=== PATIENT | male | born 1965 | race Caucasian/White ===

== ENCOUNTER → 2020-03-15 16:15 | Outpatient (BNVA) | payer SELFPAY | PROVIDERS: Family Provider Nurse Practitioner; PCP Nurse Practitioner; Visit Provider Nurse Practitioner | DX: E11.65 Type 2 diabetes mellitus with hyperglycemia (principal); R07.9 Chest pain, unspecified; I10 Essential (primary) hypertension; F17.200 Nicotine dependence, unspecified, uncomplicated; E78.2 Mixed hyperlipidemia | CPT/HCPCS: 80053; 80061; 83036; 83721 ==

== ENCOUNTER 2020-03-20 13:05 | Inpatient (IN) | payer SELFPAY ==
[2020-03-20] VITALS (11 sets, daily range): BP systolic 94–138; BP diastolic 63–91; PULSE 71–101; RESP 17–27; TEMP 36.6–36.8; O2SAT 94–98; BMI 37.9
--- NOTE | 2020-03-20 13:21 | XRR_ITS ---
PROCEDURE INFORMATION: Exam: XR Chest, 1 View Exam date and time: 03/20/2020 3:38 PM Age: 55 years old Clinical indication: Chest pain; Additional info: Dyspnea/chest pain TECHNIQUE: Imaging protocol: XR of the chest Views: 1 view. COMPARISON: No relevant prior studies available. FINDINGS: Lungs: There is interstitial prominence compatible with fibrosis, bronchitis, viral pneumonitis or mild interstitial edema. There is no lobar consolidation. Pleural space: Unremarkable. No pleural effusion. No pneumothorax. Heart/Mediastinum: The heart is enlarged. Bones/joints: No acute abnormality. XR/XR chest 1V portable [id number] IMPRESSION: There is interstitial prominence compatible with fibrosis, bronchitis, viral pneumonitis or mild interstitial edema.
--- NOTE | 2020-03-20 13:22 | ECG_ITS ---
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 Measurements Intervals [place] Rate: 79 P: 62 WI: 186 QRS: 69 QRSD: 88 T: 32 QT: 359 QTc: 412 Interpretive Statements SINUS RHYTHM WITH SINUS ARRHYTHMIA NONSPECIFIC ST & T-WAVE ABNORMALITY No previous ECG available for comparison Electronically Signed On 03-20-2020 20:53:28 CDT by Tana Rader M.D. [id number]
--- NOTE | 2020-03-20 13:26 | W.ED.CHESTPA ---
HPI - Chest Pain General: Chief Complaint: Chest Pain Stated Complaint: cp Time Seen by Provider: 03/20/20 13:13 Source: patient Mode of arrival: ambulatory Limitations: no limitations History of Present Illness: HPI narrative: Mr. Forbes is a nice 55-year-old male who comes in complaining of chest pain. Chest pain is described as a throbbing aching in his chest is been present for the last 10 to 12 days. He states his symptoms are worsening in their intensity and length of duration. Today his symptoms lasted up to an hour and a half. With today's episode he walked down to a local ambulance barn and had them run an EKG which they said was okay and he took 1 sublingual nitroglycerin with resolution of his pain. He now has had recurrent pain. Today he has associated nausea, diaphoresis and the pain radiates to his neck. He does get short of breath with this and the patient states that anytime he exerts himself when he is having discomfort it makes it worse. Patient has no history of DVT/PE. There is a family history of heart disease but the patient states he is never had a stress test or heart cath or any other heart evaluation. He is scheduled because of the symptoms to have a cardiology outpatient visit but not till the end of next month. Currently he states his pain is mild while he is at rest in the ER. Associated symptoms: Reports diaphoresis, dyspnea and nausea; Deny abdominal pain, fever(s), palpitations, syncope or vomiting Review of Systems Const: Reports: diaphoresis; Denies: fever(s), chills, body aches, fatigue or malaise Eyes: Denies: change in vision, blurry vision, photophobia, eye discomfort, eye discharge or eye redness ENMT: Denies: throat pain, odynophagia, hoarseness, swelling of lips/tongue, ear or mastoid pain, ear discharge, change in hearing or nasal discharge Card: Reports: chest pain; Denies: palpitations, irregular heart rhythm, edema, lightheadedness, syncope, pre-syncope, dyspnea on exertion or orthopnea Resp: Reports: dyspnea; Denies: productive cough, non-productive cough, wheezing, hemoptysis or chest congestion GI: Reports: nausea; Denies: abdominal pain, vomiting, hematemesis, coffee ground emesis, heartburn, diarrhea, constipation, GI cramping, hematochezia or melena : Denies: flank pain, dysuria, urinary frequency, urinary urgency or hematuria Musc: Denies: neck pain, back pain, extremity pain, extremity swelling, joint pain, joint swelling, joint redness, joint warmth or joint stiffness Skin/Breast: Denies: rash, pruritus, erythema or skin tenderness Neuro: Denies: headache(s), numbness in extremities, weakness in extremities, sensory changes, lack of coordination, difficulty walking, dizziness, vertigo, confusion, Slurred speech present or seizure-like activity Jackson/Lymph: Denies: easy bruising, easy bleeding, petechiae, purpura or enlarged lymph nodes All/Imm: Denies: urticaria, throat swelling, tongue swelling, facial swelling or acute wheezing PFSH ED PFSH: Medical History Acid reflux disease Controlled diabetes mellitus with hyperglycemia, without long-term current use of insulin Current smoker DM neuropathy, painful Essential (primary) hypertension Mixed hyperlipidemia Surgical History Basal cell carcinoma (BCC) in situ of skin September 2017 on back History of colonoscopy Family History Mother Diabetes Heart disease Father Cancer lung cancer Social History Smoking and tobacco status: current every day smoker Second hand smoke exposure: Yes Smoking risk assessment/counseling performed?: Yes Alcohol intake: never Desire information about alcohol rehabilitation?: No Counseling given: No Substance/Drug Use: never Desire information about substance/drug rehabilitation?: No Counseling given: No Adopted: No Caregiver/support person: No Lives independently: Yes Household members: spouse Housing: House Marital status: service: No Current occupational status: employed History of recent travel: No Current gender identity: Male Physical Exam Const: COMMON NORMALS: no acute distress, patient oriented x3, no limitations, healthy appearing and well nourished GENERAL APPEARANCE: cooperative, well kempt and well developed HENMT: COMMON NORMALS: normocephalic, atraumatic, external ears normal, EAC's normal and Normal external nose present HEAD & SCALP: normal to inspection, normocephalic and atraumatic FACE & SINUS: normal facial exam and face symmetric NOSE: Normal external nose present and Normal nares present EXTERNAL EAR: Yes external ears normal EXTERNAL AUDITORY CANAL: EAC's normal MOUTH: Normal oral and palatal mucosa present, lip normal and tongue normal Eye: COMMON NORMALS: Equal, round and reactive pupils present and conjunctivae normal GENERAL EYE: appearance normal, both eyes and all related structures ALIGNMENT: Yes alignment normal PERIORBITAL: periorbital findings normal EYELID: eyelids normal CONJUNCTIVA: Yes conjunctivae normal SCLERA: sclerae normal PUPIL: Yes Equal, round and reactive pupils present Neck/C-Spine: COMMON NORMALS: full ROM, no lymphadenopathy, supple, no meningeal signs and no JVD GENERAL: Yes normal visual inspection and Yes trachea midline Chest: COMMONS NORMALS: normal inspection of the chest and normal palpation of entire chest wall Resp: COMMON NORMALS: normal respiratory effort, No retractions, No use of accessory muscles and clear to auscultation bilaterally EFFORT & INSPECTION: Yes able to speak in complete sentences and Yes symmetric chest movement AUSCULTATION: clear to auscultation bilaterally, no crackles, no rales, no rhonchi and no wheezes Cardio: COMMON NORMALS: no JVD, regular rate, regular rhythm, S1 normal heart sound present and S2 normal heart sound present RATE: regular rate RHYTHM: regular rhythm HEART SOUNDS: S1 normal heart sound present, S2 normal heart sound present, no click, no gallops, no murmurs, no rubs and abnormal split S2 GI: COMMON NORMALS: Soft to palpation and No hepatosplenomegaly present PALPATION: Yes Soft to palpation, No Tenderness to palpation present (GI), No Guarding due to palpation present (GI), No Rigid due to palpation, Yes No hepatosplenomegaly present, No Hernia present, No Palpable mass present and No Pulsatile mass present : COMMON NORMALS: Yes no CVA tenderness BLADDER/KIDNEY EXAM: Yes no CVA tenderness Back/Pelvis: COMMON NORMALS: no CVA tenderness, thoracic and lumbar spine normal to inspection, no thoracic nor lumbar tenderness and thoraco-lumbar ROM normal Extremity: COMMON NORMALS: normal to inspection, full ROM, capillary refill normal, no joint enlargement, no clubbing, cyanosis or edema and no calf tenderness Neuro: COMMON NORMALS: patient oriented x3, CN's II-XII intact bilaterally, moves all extremities, no focal motor deficits and no sensory deficits noted MENINGEAL SIGNS: Yes no meningeal signs SPEECH: speech normal Psych: COMMON NORMALS: mental status grossly normal, Normal thought process present, cooperative, normal affect, speech normal and activity/motor behavior normal APPEARANCE: Yes well kempt SPEECH: Yes normal speech THOUGHT PROCESS: Normal thought process present Skin: COMMON NORMALS: no rashes or lesions noted, turgor normal, no jaundice, no petechiae and no mottling GENERAL SKIN EXAM: no rashes or lesions noted and turgor normal Course Vital Signs: Vital signs: Vital Signs Temperature 97.9 F 03/20/20 13:15 Pulse Rate 97 03/20/20 16:16 Respiratory Rate 20 H 03/20/20 16:16 Blood Pressure 125/87 03/20/20 16:16 Pulse Oximetry 97 03/20/20 16:16 MDM - Chest Pain MDM Narrative: Medical decision making narrative: Patient's case was reviewed with Dr. Abraham and Dr. Rader, they will admit and consult respectively. The patient has crescendo angina type symptoms over the past 10 to 12 days. His first and second EKG are unremarkable and have been reviewed by Dr. Rader. Dr. Rader would like an echo and a dose of Lovenox given. Patient is still chest pain-free at this time. His heart score was 7. Lab Data: Labs: Lab Results 03/20/20 03/20/20 03/20/20 Range/Units 13:25 13:25 13:25 WBC 10.8 H (4.0-10.0) 10^3/ uL RBC 4.93 (4.1-5.3) 10^6/u L Hgb 15.8 (11.7-16.6) g/dL Hct 48.1 (42.0-52.0) % MCV 97.6 H (80-94) fL MCH 32.0 (28.0-34.0) pg MCHC 32.8 (30.0-36.0) g/dL RDW 14.1 (12.1-15.1) % Plt Count 297 (130-400) 10^3/c mm MPV 11.0 H (7.4-10.4) fL Neut % (Auto) 70.9 % Lymph % (Auto) 17.4 % Eagle % (Auto) 7.8 % Eos % (Auto) 2.6 % Baso % (Auto) 0.8 % Neut # (Auto) 7.69 (1.8-7.7) 10^3/u L Lymph # (Auto) 1.9 (0.8-4.8) 10^3/u L Eagle # (Auto) 0.8 (0.2-0.9) 10^3/u L Eos # (Auto) 0.3 (0.0-0.8) 10^3/u L Baso # (Auto) 0.1 (0.0-0.1) 10^3/u L Nucleated RBC % (a uto) 0 % Nucleated RBCs # 0.0 /100WBC PT 13.20 (12.1-14.9) SECO NDS INR 0.97 (0.8-1.2) Sodium 137 (136-145) mmol/L Potassium 4.5 (3.5-5.1) mmol/L Chloride 101 (98-107) mmol/L Carbon Dioxide 23 (22-29) mmol/L Anion Gap 17.5 (5-19) BUN 17 (6-20) mg/dL Creatinine 0.7 (0.7-1.2) mg/dL GFR Calculation 117.5 (90-130) mL/min Glucose 102 (65-115) mg/dL Calculated Osmolal ity 281 L (285-295) mOsm/k g Calcium 9.4 (8.5-10.5) mg/dL Magnesium 1.9 (1.7-2.3) mg/dL Total Bilirubin 0.3 (0.15-1.2) mg/dL AST 23 (0-40) U/L ALT 36 (0-41) U/L Alkaline Phosphata se 90 (40-130) IU/L Troponin T Baselin e (0-15) ng/L Total Protein 7.6 (6.6-8.7) g/dL Albumin 4.5 (3.5-5.2) g/dL Globulin 3.1 (1.3-4.6) g/dL Lipase 24 (13-60) U/L 08/29/20 Range/Units 13:25 WBC (4.0-10.0) 10^3/ uL RBC (4.1-5.3) 10^6/u L Hgb (11.7-16.6) g/dL Hct (42.0-52.0) % MCV (80-94) fL MCH (28.0-34.0) pg MCHC (30.0-36.0) g/dL RDW (12.1-15.1) % Plt Count (130-400) 10^3/c mm MPV (7.4-10.4) fL Neut % (Auto) % Lymph % (Auto) % Eagle % (Auto) % Eos % (Auto) % Baso % (Auto) % Neut # (Auto) (1.8-7.7) 10^3/u L Lymph # (Auto) (0.8-4.8) 10^3/u L Eagle # (Auto) (0.2-0.9) 10^3/u L Eos # (Auto) (0.0-0.8) 10^3/u L Baso # (Auto) (0.0-0.1) 10^3/u L Nucleated RBC % (a uto) % Nucleated RBCs # /100WBC PT (12.1-14.9) SECO NDS INR (0.8-1.2) Sodium (136-145) mmol/L Potassium (3.5-5.1) mmol/L Chloride (98-107) mmol/L Carbon Dioxide (22-29) mmol/L Anion Gap (5-19) BUN (6-20) mg/dL Creatinine (0.7-1.2) mg/dL GFR Calculation (90-130) mL/min Glucose (65-115) mg/dL Calculated Osmolal ity (285-295) mOsm/k g Calcium (8.5-10.5) mg/dL Magnesium (1.7-2.3) mg/dL Total Bilirubin (0.15-1.2) mg/dL AST (0-40) U/L ALT (0-41) U/L Alkaline Phosphata se (40-130) IU/L Troponin T Baselin e 56 H (0-15) ng/L Total Protein (6.6-8.7) g/dL Albumin (3.5-5.2) g/dL Globulin (1.3-4.6) g/dL Lipase (13-60) U/L EKG Data^: EKG 1: Attestation: I personally reviewed and interpreted this EKG as follows: EKG interpretation date: 03/20/20 EKG interpretation time: 13:36 Interpretation: Normal sinus rhythm with sinus arrhythmia present, normal axis, no blocks, normal intervals. Nonspecific ST and T wave changes. EKG 3: Attestation: I personally reviewed and interpreted this EKG as follows: EKG interpretation date: 03/20/20 EKG interpretation time: 15:42 Interpretation: Normal sinus rhythm at 88 beats a minute, no blocks, normal intervals, normal axis, ST segment depressions in aVL otherwise no acute findings. Discharge Plan Discharge Patient Disposition: Admitted As Inpatient Admit Provider: Jaime Dyer Discharge Date/Time: 03/20/20 16:18 Coding Level of Care Code ED Doctor Of Naprapathic Medicine for Chg Fwd Exam Comprehensive
[2020-03-20] MEDS: aspirin 325 mg Tablet PO (13:36)
[2020-03-20] MEDS: sodium chloride 0.9% 1,000 ML 100 ML IV (13:37)
[2020-03-20] MEDS: nitroglycerin 0.4 mg sublingual Tablet SUBLINGUAL (13:40)
[2020-03-20 13:55] LABS: Basophils # 0.1 10^3/uL (0.0-0.1); Basophils % 0.8 %; Eosinophils # 0.3 10^3/uL (0.0-0.8); Eosinophils % 2.6 %; Hematocrit 48.1 % (42.0-52.0); Hemoglobin 15.8 g/dL (11.7-16.6); Lymphocytes # 1.9 10^3/uL (0.8-4.8); Lymphocytes % 17.4 %; Mean Corpuscular HGB Conc 32.8 g/dL (30.0-36.0); Mean Corpuscular Volume 97.6 fL (80-94); Monocytes # 0.8 10^3/uL (0.2-0.9); Monocytes % 7.8 %; Neutrophils # 7.69 10^3/uL (1.8-7.7); Neutrophils % 70.9 %; Nucleated Red Blood Cells % 0 %; Platelet Count 297 10^3/cmm (130-400); Red Blood Count 4.93 10^6/uL (4.1-5.3); Red Cell Distribution Width 14.1 % (12.1-15.1); White Blood Count 10.8 10^3/uL (4.0-10.0)
[2020-03-20] MEDS: nitroglycerin 1 gm/inch oint Pkt 1 INCH TOPICAL (13:55)
[2020-03-20 14:01] LABS: INR 0.97 (0.8-1.2)
[2020-03-20 14:07] LABS: Alanine Aminotransferase 36 U/L (0-41); Albumin Level 4.5 g/dL (3.5-5.2); Alkaline Phosphatase 90 IU/L (40-130); Aspartate Amino Transferase 23 U/L (0-40); Blood Urea Nitrogen 17 mg/dL (6-20); Calcium 9.4 mg/dL (8.5-10.5); Carbon Dioxide 23 mmol/L (22-29); Chloride 101 mmol/L (98-107); Globulin 3.1 g/dL (1.3-4.6); Glomerular Filtration Rate 117.5 mL/min (90-130); Glucose 102 mg/dL (65-115); Lipase 24 U/L (13-60); Magnesium 1.9 mg/dL (1.7-2.3); Osmolality Calculated 281 mOsm/kg (285-295); Sodium 137 mmol/L (136-145); Total Bilirubin 0.3 mg/dL (0.15-1.2); Total Protein 7.6 g/dL (6.6-8.7); Troponin(5th) Baseline 56 ng/L (0-15)
[2020-03-20 14:12] LABS: Anion Gap 17.5 (5-19); Potassium 4.5 mmol/L (3.5-5.1)
--- NOTE | 2020-03-20 14:18 | ECG_ITS ---
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 Measurements Intervals [place] Rate: 73 P: 62 ID: [id number] QRS: 70 QRSD: 88 T: 32 QT: 360 QTc: 398 Interpretive Statements SINUS RHYTHM NONSPECIFIC ST & T-WAVE ABNORMALITY Compared to ECG 03/20/2020 13:36:31 Sinus arrhythmia no longer present T-wave abnormality still present Electronically Signed On 03-20-2020 20:54:13 CDT by Tana Rader M.D. [id number] f
--- NOTE | 2020-03-20 15:22 | ECG_ITS ---
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 Measurements Intervals [place] Rate: 88 P: 64 [place]: 187 QRS: 73 QRSD: 87 T: 34 QT: 347 QTc: 421 Interpretive Statements SINUS RHYTHM NONSPECIFIC ST & T-WAVE ABNORMALITY Compared to ECG 03/20/2020 14:30:07 No significant changes Electronically Signed On 03-22-2020 0:22:58 CDT by Tana Rader M.D. [id number]
[2020-03-20] MEDS: enoxaparin 120 mg/0.8 mL Syringe SUBCUT (15:30)
[2020-03-20 16:05] LABS: Troponin 5 2HR 57.97 ng/L (0-15); Troponin 5 2HR Delta 1.97 ABS# (0-10)
[2020-03-20] MEDS: acetaminophen 500 mg Tablet 1000 MG PO (16:07)
--- NOTE | 2020-03-20 17:09 | PM.HP ---
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 He reports he started noticing this about 12 days ago, reports that symptoms would come on after he was working on something, exerting himself. He would then have to take a break, go sit in the truck for a while, and the symptoms would go away. He initially was thinking this may be musculoskeletal, as he recently has also been working with a chainsaw, however, noted that this sometimes comes on and off not triggered by any use of left upper extremity. He is a smoker, and used to smoke 2-3 packs/day, reports recently as been cutting down somewhat. He does have some intermittent cough, but not more than usual. Could not say definitively whether discomfort was worse with taking a deep breath, stating perhaps sometimes. Does have some productive sputum. Does not feel any more short of breath than usual. Denies coughing up any blood. Has had no swelling unilaterally in any of the extremities. Has never had blood clot in the legs or lungs. He is very active, works frequently, as he states has to pay bills, and spend time with his grandchildren. He has never had a heart attack in the past. Knows that his mother and father has had heart trouble in the past but does not know what kind. Today he has had several episodes of chest discomfort. Noticed that his blood pressure was elevated at home at 187/80 during 1 of the episodes. He went out and spoke with paramedics at an EMS station, and the checked his blood pressure, and told him that it was good there. Gave him some nitroglycerin. But he had recurrence of episode, and so his family urged him to go to the ER. On the way he gotten a nitroglycerin, and symptoms improved. Currently he is not symptomatic at rest sitting in the ER [facility]. In ER first troponin 56, EKG with nonspecific T wave changes, other studies including CBC, CMP, chest x-ray were reported normal per discussion with ER physician. He has had no fever, chills, muscle aches, sweats, headache. He wears a mask at all times. Review of Systems Const: Denies: fever(s), chills, body aches or malaise Eyes: Denies: change in vision or eye redness ENMT: Denies: throat pain, oral sores or ear or mastoid pain Card: Reports: other (Recurrent chest aching/discomfort); Denies: edema, swelling of feet/ankles, pre-syncope or orthopnea Resp: Reports: productive cough (Chronic); Denies: dyspnea, change in phlegm color or hemoptysis GI: Denies: abdominal pain, nausea, vomiting, diarrhea, constipation, hematochezia or melena : Denies: flank pain, difficulty urinating, urinary frequency or hematuria Musc: Denies: back pain, joint swelling or joint redness Skin/Breast: Denies: rash, sores or new lesions Neuro: Reports: numbness in extremities (Reports chronic diabetic neuropathy); Denies: headache(s), weakness in extremities, dizziness, confusion or seizure-like activity Endo: Denies: polyuria or polydipsia Jackson/Lymph: Denies: easy bleeding or purpura All/Imm: Denies: urticaria, throat swelling or tongue swelling Medications/Allergies Home Medications Medication Instructions Recorded Confirmed Last Taken Type famotidine 20 mg tablet 20 mg PO BID #60 tab 02/07/20 03/20/20 03/20/20 09:00 Rx lisinopril 20 mg tablet 20 mg PO DAILY #30 tab 02/07/20 03/20/20 03/20/20 Rx metformin 500 mg tablet,extended 500 mg PO BID #60 tab 02/07/20 03/20/20 03/20/20 Rx release 24 hr fenofibrate nanocrystallized 145 145 mg PO DAILY #30 tab 03/15/20 03/20/20 03/20/20 Rx mg tablet nitroglycerin 0.4 mg sublingual 0.4 mg SUBLINGUAL Q5M PRN #25 tab 03/15/20 03/20/20 Unknown Rx tablet pen needle, diabetic 33 gauge x #100 each 03/15/20 03/20/20 Unknown Rx aspirin [Aspir-81] 81 mg PO DAILY 03/20/20 03/20/20 03/20/20 History exenatide [Byetta] 5 mcg SUBCUT DAILY 03/20/20 03/20/20 03/20/20 08:00 History Allergies Allergy/AdvReac Type Severity Reaction Status Date / Time sulfamethoxazole Allergy Unknown Unknown Verified 03/20/20 14:10 [From Bactrim] trimethoprim [From Bactrim] Allergy Unknown Unknown Verified 03/20/20 14:10 PFSH Acute PFSH: Medical History Acid reflux disease Controlled diabetes mellitus with hyperglycemia, without long-term current use of insulin Current smoker DM neuropathy, painful Essential (primary) hypertension Mixed hyperlipidemia Surgical History Basal cell carcinoma (BCC) in situ of skin September 2017 on back History of colonoscopy Family History Mother Diabetes Heart disease Father Cancer lung cancer Social History Smoking and tobacco status: current every day smoker Second hand smoke exposure: Yes Smoking risk assessment/counseling performed?: Yes Alcohol intake: never Desire information about alcohol rehabilitation?: No Counseling given: No Substance/Drug Use: never Desire information about substance/drug rehabilitation?: No Counseling given: No Adopted: No Caregiver/support person: No Lives independently: Yes Household members: spouse Housing: House Marital status: service: No Current occupational status: employed History of recent travel: No Current gender identity: Male Vitals/I&O/Wt Last Vital Signs Temp 97.9 F 03/20/20 13:15 Pulse 97 03/20/20 16:16 Resp 20 H 03/20/20 16:16 BP 125/87 03/20/20 16:16 Pulse Ox 97 03/20/20 16:16 Weight last 48 hrs Weight 123.377 kg Physical Exam Const: COMMON NORMALS: no acute distress and patient oriented x3 NUTRITIONAL APPEARANCE: obese HENMT: COMMON NORMALS: oropharynx normal Neck/C-Spine: OTHER: Cannot assess JVD due to a thick neck. Well-healed scar on left posterior lateral neck following skin tumor removal. Chest: OTHER: No pain on chest wall palpation. Resp: COMMON NORMALS: normal respiratory effort and clear to auscultation bilaterally AUSCULTATION: clear to auscultation bilaterally Cardio: COMMON NORMALS: no JVD, regular rhythm, S1 normal heart sound present, S2 normal heart sound present and No murmurs present (Cardio) RHYTHM: regular rhythm HEART SOUNDS: S1 normal heart sound present and S2 normal heart sound present GI: COMMON NORMALS: Normal to inspection, nondistended, normoactive bowel sounds present, Soft to palpation and non-tender PALPATION: Yes Soft to palpation Extremity: COMMON NORMALS: no joint enlargement and no pedal edema Neuro: COMMON NORMALS: patient oriented x3 and moves all extremities Skin: COMMON NORMALS: no rashes or lesions noted GENERAL SKIN EXAM: no rashes or lesions noted Data : 03/20/20 13:25 03/20/20 13:25 A&P Assessment and plan (1) Recurrent chest pain: Recurrent episodes of left-sided chest discomfort which he describes as aching, rating to left shoulder, left jaw. He is a heavy smoker. History of DM 2, HTN, HLD. Family history of heart disease. Concern is for coronary artery disease with progression. First troponin is 56, second 57. Nonspecific T wave changes noted on EKG. At this time he is not symptomatic. Will be assessed by cardiology. Due to concern for unstable angina, Lovenox. He received aspirin. Will add beta-demian. Dr. Rader will decide regarding Plavix after looking at echo. Status: Acute (2) Interstitial edema: He does report some dyspnea on exertion. He is a heavy smoker. Never had a PFT. May benefit from outpatient study. For now we will check BNP, echocardiogram. Given possible acute myocardial infarction will check rapid COVID screen as well, although apart from chronic cough and dyspnea on exertion, chest discomfort, he does not have any fever, chills, muscle aches, headache. States has been wearing a cloth facemask. Status: Acute (3) Current smoker: Discuss smoking cessation with him for 3-1/2 minutes. Encouraged him to stop. He has been try to cut down. Reports previously smoking 2-3 packs/day. Will provide nicotine replacement therapy as needed in case he develops withdrawal. Status: Chronic (4) Controlled diabetes mellitus with hyperglycemia, without long-term current use of insulin: Most recent A1c was 6.9. Hold exenatide. Consistent carb, cardiac diet. While in the hospital hold metformin, lisinopril as may require additional interventions. Status: Chronic Qualifiers: Diabetes mellitus type: type 2 Qualified Code(s): E11.65 - Type 2 diabetes mellitus with hyperglycemia (5) Acid reflux disease: Continue famotidine Status: Chronic Qualifiers: Esophagitis presence: without esophagitis Qualified Code(s): K21.9 - Gastro-esophageal reflux disease without esophagitis (6) Mixed hyperlipidemia: Fenofibrate Status: Chronic (7) Essential (primary) hypertension: Monitor blood pressures.. Metoprolol is added. Lisinopril for now Status: Chronic (8) DM neuropathy, painful: Status: Chronic Additional A&P Information Obesity: Follow-up with PCP regarding help with management. Attestations Medical Necessity Statement*: Admission of over 2 midnights is continued for assessment of management of possible unstable angina. 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
[2020-03-20 18:04] LABS: NT Pro B Type Natriuretic Pept 61 pg/mL (0-125)
--- NOTE | 2020-03-20 18:10 | P.CONIM_ITS ---
Providers/Reason For Consult Consulting Physican/Specialty*: LUPE Rader MD/cardiology Reason for Consult*: Patient with prolonged chest pain and elevated troponin T Attending Physician: Jaime Dyer Primary Care Provider: NATALIE Smith History of Present Illness History of Present Illness Jose Daniel Forbes is a 55 year old male with a history of hypertension, type 2 diabetes, dyslipidemia and heavy smoking abuse, is presenting with complaints of chest pain for the last 2 weeks. Patient is a poor historian. He has been having pressure-like, achy pain in the left side of the chest, radiating to the left shoulder, to the upper left upper arm and also to the left side of the neck, mostly with activities, off and on for the last 2 weeks. The frequency of the symptoms depends on the level of activities. He may have 2 or 3 episodes a day. Each time the pain may last very from 5 to 15 minutes and then goes away with rest. 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 Last Sunday, he woke up from sleep with chest pain around 4:00. The pain might have lasted for an hour or so and then gradually improved. He was seen by his primary care provider last Sunday and had some blood work done. He was prescribed sublingual nitro. Even though he had several episodes of chest pain since then, he did not try the nitro. Today he was working on a car, belonging to his friend. He started having similar type of pain. He had some shortness of breath along with the pain. His blood pressure was found to be elevated at that time. He went to the ambulance shed and checked the blood pressure again and was found to be e levated. He took 1 sublingual nitro at that time. The pain eased off a little bit. However it was lasting longer than usual. For these complaints, he came to the emergency room. He has no previous history for coronary artery disease, myocardial infarction or congestive heart failure. He smokes 2 to 3 pack a day for the last more than 30 years. He started cutting back on this 2 weeks ago. He denies any fever or chills. No cough. No other specific complaints. He has been having some amount of fatigue and shortness of breath especially with activities for the last few weeks. Review of Systems Narrative: CONSTITUTIONAL: No fever or chills. EYES: No blurring of vision or other visual disturbances lately. ENT: No hoarseness of voice, auditory disturbances or sore throat. CARDIOVASCULAR: As mentioned above. RESPIRATORY: No significant cough. GASTROINTESTINAL: No hematemesis or melena. GENITOURINARY: No dysuria or hematuria. INTEGUMENTARY: No skin rashes or history of skin cancer. NEURO: No transient ischemic attacks or amaurosis. PSYCHIATRIC: No history of psychosis or major depression. HEMATOLOGIC: No bleeding disorders or significant anemia. ENDOCRINE: No history of polyuria or polydipsia. MUSCULOSKELETAL: No recent joint pain or swelling. ALLERGY/IMMUNOLOGY: As mentioned above. Meds/Allergies Home Medications and Allergies Home Medications Medication Instructions Recorded Confirmed Last Taken Type famotidine 20 mg tablet 20 mg PO BID #60 tab 02/07/20 03/20/20 03/20/20 09:00 Rx lisinopril 20 mg tablet 20 mg PO DAILY #30 tab 02/07/20 03/20/20 03/20/20 Rx metformin 500 mg tablet,extended 500 mg PO BID #60 tab 02/07/20 03/20/20 03/20/20 Rx release 24 hr fenofibrate nanocrystallized 145 145 mg PO DAILY #30 tab 03/15/20 03/20/20 03/20/20 Rx mg tablet nitroglycerin 0.4 mg sublingual 0.4 mg SUBLINGUAL Q5M PRN #25 tab 03/15/20 03/20/20 Unknown Rx tablet pen needle, diabetic 33 gauge x #100 each 03/15/20 03/20/20 Unknown Rx aspirin [Aspir-81] 81 mg PO DAILY 03/20/20 03/20/20 03/20/20 History exenatide [Byetta] 5 mcg SUBCUT DAILY 03/20/20 03/20/20 03/20/20 08:00 History Allergies Allergy/AdvReac Type Severity Reaction Status Date / Time sulfamethoxazole Allergy Unknown Unknown Verified 03/20/20 14:10 [From Bactrim] trimethoprim [From Bactrim] Allergy Unknown Unknown Verified 03/20/20 14:10 Current Medications Current Medications Generic Name Dose Route Start Last Admin Trade Name Freq PRN Reason Stop Dose Admin Nitroglycerin 0.4 mg 03/20/20 13:21 03/20/20 13:40 Nitrostat SUBLINGUAL 1 tab Q5M PRN Administration CHEST PAIN PFSH Acute PFSH: Medical History Acid reflux disease Controlled diabetes mellitus with hyperglycemia, without long-term current use of insulin Current smoker DM neuropathy, painful Essential (primary) hypertension Mixed hyperlipidemia Surgical History Basal cell carcinoma (BCC) in situ of skin September 2017 on back History of colonoscopy Family History (Updated 03/20/20 @ 19:14 by Tana Rader MD) Mother Diabetes Heart disease Father Cancer lung cancer Father Hypertension Many of the family members have high blood pressure Social History Smoking and tobacco status: current every day smoker Second hand smoke exposure: Yes Smoking risk assessment/counseling performed?: Yes Alcohol intake: never Desire information about alcohol rehabilitation?: No Counseling given: No Substance/Drug Use: never Desire information about substance/drug rehabilitation?: No Counseling given: No Adopted: No Caregiver/support person: No Lives independently: Yes Household members: spouse Housing: House Marital status: service: No Current occupational status: employed History of recent travel: No Current gender identity: Male Vitals/I&O/Wt Last Vital Signs Temp 97.9 F 03/20/20 13:15 Pulse 97 03/20/20 16:16 Resp 20 H 03/20/20 16:16 BP 125/87 03/20/20 16:16 Pulse Ox 97 03/20/20 16:16 Weight last 48 hrs Weight 272 lb Physical Exam Narrative: EXAM NARRATIVE: GENERAL: The patient is alert and oriented times three. Not in any acute distress. HEENT: No significant pallor, icterus or lymphadenopathy. The pupils are reactant to light. Oral cavity: There are no mucous membrane lesions. Funduscopic examination: The fundus is not visualized NECK: Trachea appears to be central. No masses noted. No JVD or thyromegaly appreciated. No carotid bruit. RESPIRATORY: Chest is symmetrical. No intercostals muscle retraction or any accessory muscle activation. There is no chest wall tenderness. Breath sounds are heard bilaterally. No rales or rhonchi heard. No evidence of any consolidation. BREASTS: Deferred. HEART: The PMI is in the 5th left intercostals space just inside the midclavicular line. No palpable precordial events. S1 and S2 are normal. No S3 or S4 heard. No pericardial rub or any click heard. ABDOMEN: No vessel pulsations or distention. No tenderness. No organomegaly appreciated. No abdominal bruit. Bowel sounds are normally heard. : Deferred. RECTAL: Deferred. LYMPHATIC: No lymphadenopathy noted in the neck or groin. EXTREMITIES: No edema or cyanosis. No clubbing. The pulses are symmetrical bilaterally. The radial, femoral, dorsalis pedis and the posterior tibial pulses are palpated and found to be in good volume and amplitude. MUSCULOSKELETAL: No acute joint deformities or swelling SKIN: There are no significant scars or skin rash noted. NEUROPSYCHIATRIC: The patient is alert and oriented x3. Appears to be in a good mood. The higher functions are grossly within normal limits. No tremors or rigidity noted. Data Imaging^: CXR: My impression: Borderline cardiac silhouette. Increased interstitial markings bilaterally, suggestive of possible pulmonary fibrosis. EKG^: EKG 1: My Interpretation: Normal sinus rhythm with some nonspecific ST-T changes in the inferior leads. Poor R wave progression. A&P Assessment and plan (1) Elevated troponin level: Most likely related to non-ST elevation myocardial infarction. Level might have plateaued and now it might be trending down. We will do a repeat troponin T in the morning. An echocardiogram would be helpful to evaluate LV function and rule out any other pathology. Patient may be started on subcu Lovenox, p.o. Plavix, aspirin, beta-demian and statin. He may be closely mon itored on telemetry. He may require early cardiac catheterization, to further evaluate his coronary status and decide on further management. After reviewing the echocardiogram, further decisions will be made. Status: Acute (2) Essential (primary) hypertension: Currently the blood pressure is in the low normal side. May continue on the current medications. Status: Chronic (3) Current smoker: The patient is strongly advised to quit smoking he has a [id number] history of smoking Status: Chronic (4) Controlled diabetes mellitus with hyperglycemia, without long-term current use of insulin: The blood sugar need to be aggressively managed. Status: Chronic Qualifiers: Diabetes mellitus type: type 2 Qualified Code(s): E11.65 - Type 2 diabetes mellitus with hyperglycemia (5) Mixed hyperlipidemia: May continue on the current medications. Status: Chronic Additional A&P Information After reviewing the above and also based on the patient's clinical progress, further recommendations will be made. Thank you for the opportunity to evaluate this patient make these recommendations. Addendum The echocardiogram revealed a wall motion normalities in the septum and anteroseptal region. Ejection fraction was around 50 to 55%. In view of the patient's the ongoing symptoms, history and clinical presentation, for further management of his condition, he requires a cardiac catheterization. The risk of bleeding, hematoma, vascular injury, myocardial infarction, CVA, renal failure and other concomitant complications were explained in detail. Patient understood this well and consented to proceed. We will go ahead and schedule the procedure today. Based on the results, further recommendations will be made. Coding Level of Care Code Acute Library Director for Chg Fwd Diagnoses Elevated troponin level R79.89 Essential (primary) hypertension I10 Current smoker F17.200 Controlled diabetes mellitus with hyperglycemia, without long-term current use of insulin E11.65 Diabetes mellitus type: type 2 Mixed hyperlipidemia E78.2
[2020-03-20 18:13] LABS: SARS Covid-2 Antigen Negative (Negative)
[2020-03-20 18:25] LABS: Glucose Point of Care 111 mg/dL (70-110)
--- NOTE | 2020-03-20 18:31 | PC.NURSE ---
Patient received from ED via wheelchair. Patient reports chest pain starting over past 10 days. Patient has been working with a chainsaw over past few days. Pain not reproduced with palpation. Patient refusing to take some medications and states, I am going home tomorrow. Instructed patient on need for Metoprolol and insulin sliding scale. Patient expressed understanding and is agreeable to both. Dr Rader in to see patient. Discussed plan for cardiac echo and possible angiogram.
[2020-03-20] MEDS: metoprolol tartrate 25 mg Tablet 12.5 MG PO (18:43)
[2020-03-20] MEDS: clopidogrel 300 mg Tablet PO (18:43)
--- NOTE | 2020-03-20 19:22 | ECG_ITS ---
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 Measurements Intervals [place] Rate: 74 P: 64 MD: 199 QRS: 72 QRSD: 89 T: 31 QT: 375 QTc: 417 Interpretive Statements SINUS RHYTHM NONSPECIFIC T-WAVE ABNORMALITY INTERPRETATION BASED ON A DEFAULT AGE OF 40 YEARS Compared to ECG 03/20/2020 15:42:51 No significant changes Electronically Signed On 03-22-2020 0:24:55 CDT by Tana Rader M.D. [email or web address]
[2020-03-20 19:47] LABS: Troponin 5 6HR 73.68 ng/L (0-15)
[2020-03-20 19:52] LABS: Troponin 5 6HR Delta 17.68 ng/L (0-12)
--- NOTE | 2020-03-20 20:03 | PC.NURSE ---
Patient up to bathroom. Denies any chest pain at this time. No changes observed to telemetry. No distress observed.
[2020-03-21] VITALS (24 sets, daily range): BP systolic 95–131; BP diastolic 63–93; PULSE 66–99; RESP 3–25; TEMP 36.4–36.6; O2SAT 93–951
[2020-03-21] MEDS: enoxaparin 120 mg/0.8 mL Syringe SUBCUT (04:14)
[2020-03-21 04:55] LABS: Basophils # 0.1 10^3/uL (0.0-0.1); Basophils % 0.8 %; Eosinophils # 0.3 10^3/uL (0.0-0.8); Hematocrit 46.4 % (42.0-52.0); Hemoglobin 15.3 g/dL (11.7-16.6); Lymphocytes % 22.6 %; Mean Corpuscular Hemoglobin 32.9 pg (28.0-34.0); Mean Corpuscular Volume 99.8 fL (80-94); Mean Platelet Volume 10.3 fL (7.4-10.4); Monocytes # 0.7 10^3/uL (0.2-0.9); Neutrophils # 5.68 10^3/uL (1.8-7.7); Nucleated Red Blood Cells % 0 %; Platelet Count 273 10^3/cmm (130-400); Red Blood Count 4.65 10^6/uL (4.1-5.3); Red Cell Distribution Width 14.3 % (12.1-15.1); White Blood Count 8.7 10^3/uL (4.0-10.0)
[2020-03-21 05:20] LABS: Blood Urea Nitrogen 13 mg/dL (6-20); Calcium 9.1 mg/dL (8.5-10.5); Carbon Dioxide 24 mmol/L (22-29); Chloride 102 mmol/L (98-107); Glomerular Filtration Rate 117.5 mL/min (90-130); Glucose 124 mg/dL (65-115); Osmolality Calculated 278 mOsm/kg (285-295); Sodium 135 mmol/L (136-145)
--- NOTE | 2020-03-21 07:00 | USCV_ITS ---
Jose Daniel Forbes Age: 55 Gender: M : 1965 Exam Date: 03/21/2020 08:57 Ordering Phys: Jaime Dyer MD Technologist: Brayden Matt [place] [facility] [place]: CHEST PAIN ABNORMAL TROP BP: 126 / 84 HR: Rhythm: Sinus Technical Quality: Fair MEASUREMENTS (Male / Female) Normal Values 2D ECHO LV Diastolic Diameter PLAX 5.8 cm 4.2 - 5.9 / 3.9 - 5.3 cm LV Systolic Diameter PLAX 4.3 cm IVS Diastolic Thickness 1.4 cm 0.6 - 1.0 / 0.6 - 0.9 cm IVS Systolic Thickness 1.5 cm LVPW Diastolic Thickness 1.3 cm 0.6 - 1.0 / 0.6 - 0.9 cm LVPW Systolic Thickness 1.8 cm LVOT Diameter 2.1 cm LV Ejection Fraction 2D Teich 51.8 % LV Ejection Fraction MOD 2C 56.5 % LV Ejection Fraction 2C AL 58.9 % LA Diameter 4.1 cm LA Width 3.4 cm LA Height 4.9 cm RA Width 3.5 cm RA Height 4.9 cm Aorta at Sinotubular Diameter 4.3 cm M-MODE LV Diastolic Diameter MM 6.8 cm 4.2 - 5.9 / 3.9 - 5.3 cm LV Systolic Diameter MM 4.9 cm LV Ejection Fraction MM Teich 51.6 % IVS Diastolic Thickness MM 1.1 cm 0.6 - 1.0 / 0.6 - 0.9 cm IVS Systolic Thickness MM 1.6 cm LVPW Diastolic Thickness MM 1.4 cm 0.6 - 1.0 / 0.6 - 0.9 cm LVPW Systolic Thickness MM 1.4 cm RV Diastolic Diameter MM 1.6 cm Aortic Annulus Diameter 3.8 cm LA Ao Ratio MM 1.1 MV E Point Septal Separation 2.1 cm DOPPLER LVOT Peak Velocity 85.0 cm/s MV Area PHT 5.0 cm squared Mitral E to A Ratio 1.1 MV E' Velocity 8.0 cm/s Mitral E to MV E' Ratio 9.6 Mitral E to LV E' Lateral Ratio 9.1 Mitral E to LV E' Septal Ratio 10.2 TR Peak Velocity 125.0 cm/s TR Peak Gradient 6.3 mmHg TV Peak E Velocity 109.0 cm/s Right Atrial Pressure 3.0 mmHg Pulmonary Artery Systolic Pressu 9.3 mmHg PV Peak Velocity 92.0 cm/s FINDINGS Left Ventricle Normal LV size with slightly diminished ejection fraction of around 50-55 %. Mild diffuse hypokinesia of the septum and the anteroseptal segments Right Ventricle The right ventricle is normal in size and function. Right Atrium The right atrium is normal in size. Left Atrium Possibly of normal size . Mitral Valve Mild mitral valve regurgitation. Aortic Valve Thickened aortic valve. Tricuspid Valve No gross abnormalities noted Pulmonic Valve Pulmonic valve not well visualized. Pericardium Normal pericardium without effusion. Aorta Normal ascending aorta dimension. CONCLUSIONS Normal LV size with slightly diminished ejection fraction of around 50-55 %. Mild diffuse hypokinesia of the septum and the anteroseptal segments. Mild mitral valve regurgitation. Thickened aortic valve. There is no pericardial effusion. There are no intracardiac masses. No previous study is available for comparison. Dr Tana Rader MD FACC (Electronically Signed) Final Date: 21 March 2020 10:19 S
[2020-03-21] MEDS: metoprolol tartrate 25 mg Tablet 12.5 MG PO ×2 (09:28→18:03)
[2020-03-21] MEDS: fenofibrate 145 mg Tablet PO (09:29)
[2020-03-21] MEDS: famotidine 20 mg Tablet PO (09:29)
[2020-03-21 09:38] LABS: Glucose Point of Care 123 mg/dL (70-110)
[2020-03-21 11:54] LABS: Glucose Point of Care 113 mg/dL (70-110)
[2020-03-21] MEDS: diphenhydrAMINE 50 mg Capsule PO (13:02)
--- NOTE | 2020-03-21 13:42 | W.PM.OPSUD ---
Surgery/Procedure H&P Update DATE OF PROCEDURE: March 21, 2020 DATE H&P PERFORMED: 03/21/20 PREOP DIAGNOSIS: Non-ST relation myocardial infarction/unstable angina PLANNED PROCEDURE: Operation Date: 03/21/20 14:15 Proposed Procedures p Cardiac Catheterization(Not Applicable) - Tana Rader MD PATIENT REASSESSED PRIOR TO SEDATION, WITH NO CHANGE NOTED: Yes PHYSICAL EXAM: alert, oriented x 3, clear to auscultation bilaterally and regular rate & rhythm AIRWAY EVAL/ANESTHESIA PLAN: normal airway, see other exam findings, ASA II, Monitored Anesthesia, Local Anesthesia, Risks, benefits & alternatives of sedation and/or procedure discussed and Patient agrees to continue as planned
--- NOTE | 2020-03-21 13:45 | PC.NURSE ---
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
--- NOTE | 2020-03-21 14:30 | XACV_ITS ---
Exam Room: [facility] Ht: 180 cm Wt: 125 kg BSA: 2.55 m2 Gender: Male : 1965 Any Known Allergies: Other Exam Priority: Routine Procedure(s): Procedure Description: Diagnostic procedure Procedure Description: PCI procedure Procedure Description: Left ventriculography Procedure Description: Drug Eluting Coronary Stent Procedure Description: PTCA Procedure Description: Coronary Angiography Diagnostic Cath Status: Elective Diagnostic Findings LM has 0% stenosis. LAD has 0% stenosis. mCIRC: Moderate 60% stenosis, ANTONIO: 3 flow. First Obtuse Marginal Branch Segment: Severe 85% stenosis, ANTONIO: 0 flow. dRCA: Severe 90% stenosis, ANTONIO: 0 flow. Coronary angiography shows right dominance. The left main is a medium caliber vessel with no significant stenotic lesions. The left anterior descending artery is a medium caliber vessel which appears to wrap around the LV apex. The proximal to mid LAD was found to have around 20 to 30% diffuse irregular narrowing. The distal artery was found to have minimal intimal irregularities. No other significant stenotic lesions were noted. The circumflex artery was found to have around 60% lesion in the mid segment. The intermediate artery, high obtuse marginal, is a small to medium caliber vessel which was found to have a high-grade around 85 to 90% lesion proximally. The right coronary artery is a medium to large caliber dominant vessel which was found to have 50 % lesion in the proximal segment and around 60% lesion in the mid segment. The distal segment of the artery was found to have around 80 to 90% segmental stenosis. The PDA and the PLV branches were found to have mild diffuse intimal irregularities. PCI Status: Elective PCI Indication: NSTE - ACS Interventional Findings First Obtuse Marginal Branch Segment: 85% stenosis treated with MDT R TRESSA 2.0X12 HAJA. 0% residual stenosis, ANTONIO: 3 flow. dRCA: 90% stenosis treated with AB TREK 2.50X15 RX BALLOON and MDT R TRESSA 3.0X30 HAJA. 0% residual stenosis, ANTONIO: 3 flow. Conclusions First Obtuse Marginal Branch Segment was treated with Drug Eluting Stent. dRCA was treated with Balloon and Drug Eluting Stent. This is a 55-year-old white male with history of hypertension, type 2 diabetes, dyslipidemia and heavy smoking abuse, presents with complaints of chest pain off and on for the last 2 weeks. He had a prolonged episode of chest pain on the day of admission. His clinical features were consistent with unstable angina complicated with non-ST relation myocardial infarction. The echocardiogram revealed elevation fraction of 50 to 55% with some wall motion normalities in the septum. In view of the patient's ongoing symptoms and the abnormal objective findings, in order to further evaluate his coronary status, a cardiac catheterization was recommended. Patient underwent left heart catheterization with a left and right coronary angiogram and LV angiogram today. The findings are as follows. High-grade stenosis in the distal right coronary artery and proximal segment of the first high obtuse marginal artery(intermedius artery). Moderate disease were noted in the proximal to mid right coronary artery and mid circumflex artery. Mild disease in the proximal to mid left and descending artery. The LVEDP was 30 mmHg. Based on the angiographic findings, it was thought to be appropriate to consider PCI of the obtuse marginal and RCA lesions. I reviewed and discussed the angiographic findings with Dr. Antonio. Daughter Paco concurred with this plan and took over further management this patient at this point. Recommendations 1-Return to inpatient for close monitoring and routine cath care2-Risk factor modification for secondary prevention3-Statin and aspirin 81 mg life--long, if tolerated4-Patient was pre-loaded with 300 mg of Plavix, continue Plavix 75mg p.o. daily for at least one year. We will assess at the end of one year again to continue if further or not5-Continue optimal medical management, stress test in 6 to 8 weeks for mid circumflex and proximal RCA lesions risk stratification6-Follow up with Dr. Rader in four weeks and your primary care in 10 days. Diagnostic RX Recommendation: PCI w/o planned CABG LV EDP: 30 mmHg Pressures Phase:Rest AO : 125 mmHg / 85 mmHg ( 104 mmHg ) @ 9:32:00 AM 132 mmHg / 90 mmHg ( 109 mmHg ) @ 9:32:00 AM 145 mmHg / 100 mmHg ( 115 mmHg ) @ 10:10:00 AM LV : 150 mmHg / 11 mmHg / @ 9:32:00 AM 144 mmHg / 9 mmHg / @ 9:32:00 AM Valves Phase:DefaultPhase AV : 19.0 mmHg @ 3:29:09 PM AV Mean Gradient: 15.0 mmHg @ 3:29:09 PM Clinical Evaluation EBL: 5mL-10mL Procedural Details Procedure Consent Obtained. Pre-Procedure Time Out. Identified patient by full name and date of as verbalized by the patient/guarantor. Does the consent match the physician's order: Yes. Accurate & Complete Informed Consent: Yes. Inpatient/Outpatient History & Physical on Chart: Yes. If H&P is completed, is and addenduem needed: No; If yes, is the addendum complete: N/A. Visualize and Verify Site with Patient/Guarantor: N/A. Relevant Radiology Images available: Yes. Pre-op teaching completed and patient verbalized understanding. The risks, benefits, and alternatives of sedation and/or procedure were discussed by physician. The patient agrees to continue. Procedure started. Correct patient, site and procedure confirmed by cath team. Current diagnosis: Chest Pain. PERRLA. 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 Lungs clear x 5 lobes. IV Site on Arrival: 18 gauge in the left anticubital. IV Fluids: 0.9% NaCl at KVO. 0 mL infused prior to sleep lab technician. Pre Procedural Pulses: bilateral dorsalis pedis was 2+. Pre Procedural Pulses: bilateral posterior tibial was 2+. Pre Procedural Pulses: bilateral radial was 3+. Oxygen started at 2liters/min via nasal canula. bilateral groins was prepped with chloroprep then draped in the usual sterile fashion. right radial was prepped with chloroprep then draped in the usual sterile fashion. Physician notified. Baseline sample Acquired. HR: 88 BPM. Equipment: 6F - Radial. Physician arrived. Physician scrubbed in. Immediate Pre-Procedure Time Out. Correct Patient: Yes; Correct Procedure: Yes; Correct Site: Yes; Correct Patient Position: Yes; Correct Supplies: Yes; Dried Flammable Prep: Yes; Blood Products Available: No;. Lidocaine 1% infiltrated to the right radial. Arterial access obtained. A 5 grenadian Raymond catheter in over wire. Multiple views taken of left coronary artery. Catheter redirected to the RCA. Catheter out. A 5 grenadian JR4 catheter in over wire. Multiple views taken of right coronary artery. A 5 grenadian Angled Pig catheter in over wire. Add inventory: Exchange wire. EDP Sample taken: LV 150/11,32; HR: 88 BPM; SpO2: 97%. Pullback taken: LV 144/9,30; AO 125/85(104); Mean: 15mmHg, Peak to Peak: 19mmHg, SEP: 22sec/min; HR: 85 BPM; SpO2: 96%. Dr. Antonio arrived to look at films. Physicians reviewing films. Sheath flushed periodically to maintain patency. Patient asked us not to contact any family at this time. Dr. Antonio scrubbed in to perform intervention. 6 grenadian JR 4 guide catheter was inserted over the wire. Glidewire inserted. Misenheimer guidewire was advanced through the guide catheter to lesion in the mid RCA. Inflation number : 1 A AB TREK 2.50X15 RX BALLOON was prepped and advanced across the Mid RCA , then inflated to 12 CANDACE for 0:11 seconds. Inflation number: 2 The AB TREK 2.50X15 RX BALLOON was reinflated across the Mid RCA, to 14 CANDACE for 0:08 seconds. Balloon out. Inflation Number : 3 A MDT R TRESSA 3.0X30 HAJA -Lot Number#[id number] was prepped and advanced across the Mid RCA. The stent was deployed at 18 CANDACE for 0:34 seconds. Stent expiration date: 04/18/2021. Results checked. Stent balloon out over wire. Wire out. Guide catheter out. ACT drawn. Results 317 seconds. Therapeutic limits - pre-heparin administration 90-150 seconds and monitoring heparin during a vascular procedure >250 seconds. 6 grenadian XB 3.5 guide catheter was inserted over the wire. Misenheimer guidewire was advanced through the guide catheter to lesion in the OM. Inflation Number : 1 A TIFFANY Turner TRESSA 2.0X12 HAJA -Lot Number# [id number] was prepped and advanced across the 1st Ob Danita. The stent was deployed at 18 CANDACE for 0:12 seconds. TR band placed. Hemostasis obtained. A TR Band was successful obtaining hemostatsis at the Right Radial artery insertion site. Post Procedure: Pulses reassessed and unchanged. PERRLA. 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 Medication's Wasted: Lidocaine 1% = 18 mL. Medication's Wasted: Heparin = 1000 units. Medication's Wasted: Nitro = 49.8 mg. Total IV fluids: 320 mL. PCI Indication: NSTE. [facility] Clinical Fraility Score: 3: Managing Well. Mold Press Operator Indications: New Onset Angina. Chest Pain Symptom Assessment: Atypical Angina. Cardiovascular Instability: No. Post-op diagnosis: CAD. Complications: None. Estimated blood loss: 5mL-10mL. Procedure completed. Patient transferred by wheelchair to 1st floor. Vital chart was stopped. Site: Right Radial artery Sheath Size: 6 Fr Hemostasis Method: TR Band Hemostasis Success: Successful Procedure Medications Start: 2:07 PM Stop: 2:07 PM Medication: Fentanyl Amount: 50 mcg Route: I.V. Start: 2:10 PM Stop: 2:10 PM Medication: Versed Amount: 1 mg Route: I.V. Start: 2:10 PM Stop: 2:10 PM Medication: Fentanyl Amount: 50 mcg Route: I.V. Start: 2:13 PM Stop: 2:13 PM Medication: Nitrogylcerin Amount: 100 mcg Route: I.A. Start: 2:17 PM Stop: 2:17 PM Medication: Verapamil Amount: 5 mg Route: I.A. Start: 2:17 PM Stop: 2:17 PM Medication: 0.9% Saline Amount: 200 ml Route: I.V. bolus Start: 2:19 PM Stop: 2:19 PM Medication: Heparin Amount: 5000 units Route: I.V. Start: 2:39 PM Stop: 2:39 PM Medication: Heparin Amount: 5000 units Route: I.V. Start: 2:40 PM Stop: 2:40 PM Medication: Versed Amount: 1 mg Route: I.V. Start: 2:40 PM Stop: 2:40 PM Medication: Fentanyl Amount: 50 mcg Route: I.V. Start: 3:13 PM Stop: 3:13 PM Medication: Versed Amount: 1 mg Route: I.V. I, the attending physician, have reviewed and verified all procedure medications. Yes, all medications given per verbal order History/Risk Factors Hypertension: Yes Dyslipidemia: Yes Diabetic Therapy: Oral Peripheral Arterial Disease (PAD): No Myocardial Infarction (WA): No Obesity: Yes Renal Disease: No Tobacco Use: Current/Recent(w/in 1 year) Prior Interventions PCI: No CABG: No Valve Surgery: No Report Signatures Diagnostic Workflow - Finalized by:Dr Tana Rader MD [facility] on 03/21/2020 5:37:19 PM Interventional Workflow - Finalized by: Zoe Antonio MD on 03/21/2020 4:17:10 PM
[2020-03-21 17:00] LABS: Glucose Point of Care 150 mg/dL (70-110)
[2020-03-21] MEDS: pantoprazole DR 40 mg Tablet PO (18:03)
[2020-03-21] MEDS: clopidogrel 300 mg Tablet PO (18:03)
[2020-03-21 20:55] LABS: Glucose Point of Care 132 mg/dL (70-110)
--- NOTE | 2020-03-21 22:25 | PC.NURSE ---
TR band removed from right wrist at this time following protocol/order. No bleeding or hematoma noted at this time. VSS. Radial pulse present. Dressing applied. Will monitor.
--- NOTE | 2020-03-21 22:39 | P.PN_ITS ---
Subjective Subjective: Interval history: Doing well after coronary angiography. No chest pain, trouble breathing, any other complaints. Reports from today he has stopped smoking. Vitals/I&O/Wt Last Vital Signs Temp 97.5 F L 03/21/20 15:56 Pulse 90 03/21/20 20:00 Resp 13 03/21/20 20:00 BP 112/69 03/21/20 20:00 Pulse Ox 96 03/21/20 20:00 03/21/20 03/21/20 03/21/20 06:59 14:59 22:59 Intake Total 390 / 390 Balance 390 / 390 Weight last 48 hrs Weight 124.783 kg Weight 123.377 kg Physical Exam Const: COMMON NORMALS: no acute distress and patient oriented x3 NUTRITIONAL APPEARANCE: obese HENMT: COMMON NORMALS: oropharynx normal Neck/C-Spine: COMMON NORMALS: no JVD OTHER: Cannot assess JVD due to a thick neck. Well-healed scar on left posterior lateral neck following skin tumor removal. Chest: OTHER: No pain on chest wall palpation. Resp: COMMON NORMALS: normal respiratory effort and clear to auscultation bilaterally AUSCULTATION: clear to auscultation bilaterally Cardio: COMMON NORMALS: no JVD, regular rhythm, S1 normal heart sound present, S2 normal heart sound present and No murmurs present (Cardio) RHYTHM: regular rhythm HEART SOUNDS: S1 normal heart sound present and S2 normal heart sound present GI: COMMON NORMALS: Normal to inspection, nondistended, normoactive bowel sounds present, Soft to palpation and non-tender PALPATION: Yes Soft to palpation Extremity: COMMON NORMALS: no joint enlargement and no pedal edema OTHER: TR band in place Neuro: COMMON NORMALS: patient oriented x3 and moves all extremities Skin: COMMON NORMALS: no rashes or lesions noted GENERAL SKIN EXAM: no rashes or lesions noted Data : 03/21/20 04:18 03/21/20 04:18 A&P Assessment and plan (1) Recurrent chest pain: Status post coronary angiography for unstable angina with finding of 99% stenosis of RCA which was treated by stenting. He is doing well after the procedure. States that as of today decided he is quitting smoking. Will need follow-up with PCP and cardiology for optimization of risk factors of CAD. On admission recurrent episodes of left-sided chest discomfort which he describes as aching, rating to left shoulder, left jaw. He is a heavy smoker. History of DM 2, HTN, HLD. Family history of heart disease. Status: Acute (2) Interstitial edema: Breathing is good on room air. Rapid COVID-19 test negative. He does report some dyspnea on exertion. He is a heavy smoker. Never had a PFT. May benefit from outpatient study. EF 50-55%. Mild diffuse hypokinesia of the septum and anteroseptal segments. Status: Acute (3) Current smoker: Encourage smoking cessation. He has decided as of today he is stopping smoking. Status: Chronic (4) Controlled diabetes mellitus with hyperglycemia, without long-term current use of insulin: Most recent A1c was 6.9. Hold exenatide. Consistent carb, cardiac diet. While in the hospital hold metformin, lisinopril Status: Chronic Qualifiers: Diabetes mellitus type: type 2 Qualified Code(s): E11.65 - Type 2 diabetes mellitus with hyperglycemia (5) Acid reflux disease: Continue famotidine Status: Chronic Qualifiers: Esophagitis presence: without esophagitis Qualified Code(s): K21.9 - Gastro-esophageal reflux disease without esophagitis (6) Mixed hyperlipidemia: Fenofibrate Status: Chronic (7) Essential (primary) hypertension: Monitor blood pressures. Metoprolol is added. Lisinopril on hold for now Status: Chronic (8) DM neuropathy, painful: Status: Chronic Additional A&P Information Obesity: Follow-up with PCP regarding help with management. Attestations Medical Necessity Statement*: Continue admission for assessment management following unstable angina and PCI. Coding Level of Care Code Acute Perforator Operator for [place] Diagnoses Recurrent chest pain R07.9 Interstitial edema R60.9 Current smoker F17.200 Controlled diabetes mellitus with hyperglycemia, without long-term current use of insulin E11.65 Diabetes mellitus type: type 2 Acid reflux disease K21.9 Esophagitis presence: without esophagitis Mixed hyperlipidemia E78.2 Essential (primary) hypertension I10 DM neuropathy, painful E11.40
[2020-03-22] VITALS (63 sets, daily range): BP systolic 107–156; BP diastolic 73–113; PULSE 65–104; RESP 0–27; TEMP 36.4–36.7; O2SAT 96–98
[2020-03-22 04:41] LABS: Basophils # 0.1 10^3/uL (0.0-0.1); Basophils % 0.8 %; Eosinophils # 0.3 10^3/uL (0.0-0.8); Eosinophils % 2.3 %; Hematocrit 48.3 % (42.0-52.0); Hemoglobin 15.4 g/dL (11.7-16.6); Lymphocytes # 1.7 10^3/uL (0.8-4.8); Lymphocytes % 16.3 %; Mean Corpuscular HGB Conc 31.9 g/dL (30.0-36.0); Mean Corpuscular Hemoglobin 31.6 pg (28.0-34.0); Mean Corpuscular Volume 99.2 fL (80-94); Mean Platelet Volume 10.2 fL (7.4-10.4); Monocytes # 0.9 10^3/uL (0.2-0.9); Neutrophils # 7.68 10^3/uL (1.8-7.7); Neutrophils % 72.2 %; Nucleated Red Blood Cells % 0 %; Platelet Count 272 10^3/cmm (130-400); Red Blood Count 4.87 10^6/uL (4.1-5.3); Red Cell Distribution Width 14.3 % (12.1-15.1); White Blood Count 10.6 10^3/uL (4.0-10.0)
[2020-03-22 05:03] LABS: Blood Urea Nitrogen 12 mg/dL (6-20); Calcium 9.3 mg/dL (8.5-10.5); Carbon Dioxide 24 mmol/L (22-29); Chloride 102 mmol/L (98-107); Glomerular Filtration Rate 100.7 mL/min (90-130); Glucose 145 mg/dL (65-115); Osmolality Calculated 283 mOsm/kg (285-295); Sodium 137 mmol/L (136-145)
[2020-03-22 05:04] LABS: Anion Gap 15.3 (5-19); Potassium 4.3 mmol/L (3.5-5.1)
--- NOTE | 2020-03-22 06:30 | PC.NURSE ---
PT RESTING IN BED. DENIES PAIN. VS WNL. PT IN A SINUS RHYTHM. PT IS ANXIOUS TO GO HOME. DRESSING TO RIGHT WRIST IS C/D/I. WILL CONTINUE TO MONITOR.
[2020-03-22 07:10] LABS: Glucose Point of Care 158 mg/dL (70-110)
--- NOTE | 2020-03-22 07:15 | PC.NURSE ---
Patient up to chair at time of assessment. Patient denies any pain, states he had a good night and is ready for the doctor to come see him so he can go home. No needs identified at this time. Nurse to continue to monitor.
[2020-03-22] MEDS: pantoprazole DR 40 mg Tablet PO (09:23)
[2020-03-22] MEDS: aspirin 81 mg EC Tablet PO (09:23)
[2020-03-22] MEDS: fenofibrate 145 mg Tablet PO (09:23)
[2020-03-22] MEDS: metoprolol tartrate 25 mg Tablet 12.5 MG PO (09:24)
--- NOTE | 2020-03-22 09:52 | P.PN_ITS ---
Subjective Subjective: Interval history: Patient is feeling okay with no chest pain or palpitations. No dizziness or syncopal episode. He has no hematoma bleeding at the radial arterial puncture site. Vital signs remained stable. No arrhythmias on the monitor. Underwent cardiac authorization yesterday. He was found to have a critical lesion in the distal RCA. Also had a high-grade lesion in the first obtuse marginal artery. Underwent PCI of both these lesions. Currently he is feeling much better. Medications: Medication Review Details: Current Medications Acetaminophen (Tylenol) 650 mg PO Q6H PRN PRN Reason: MILD PAIN Al Hydrox/Mg Hydrox/Simethicone (Maalox) 30 ml PO Q15M PRN PRN Reason: INDIGESTION Alprazolam (Xanax) 0.25 mg PO TID PRN PRN Reason: ANXIETY Aspirin (Aspirin Ec) 81 mg PO DAILY [facility] Last Admin: 03/22/20 09:23 Dose: 81 mg Documented by: Atropine Sulfate (Atropine) 0.5 mg IVP PRN PRN PRN Reason: Symptomatic bradycardia Dextrose (D50w) 25 ml IVP ONCE PRN; Protocol PRN Reason: hypoglycemia protocol Dextrose (D50w) 50 ml IVP PRN PRN; Protocol PRN Reason: hypoglycemia protocol Enoxaparin Sodium (Lovenox) 120 mg SUBCUT Q12H [facility] Last Admin: 03/21/20 04:14 Dose: 120 mg Documented by: Famotidine (Pepcid Tab) 20 mg PO BID [facility] Last Admin: 03/21/20 09:29 Dose: 20 mg Documented by: Fenofibrate (Tricor) 145 mg PO DAILY [facility] Last Admin: 03/22/20 09:23 Dose: 145 mg Documented by: Glucagon (Glucagen) 1 mg IM ONCE PRN; Protocol PRN Reason: Adult Acute Hypoglycemia Prot. Dextrose (D5w) 500 mls @ 100 mls/hr IV ONCE PRN; Protocol PRN Reason: Adult Acute Hypoglycemia Prot Sodium Chloride (Sodium Chloride 0.9%) 1,000 mls @ 50 mls/hr IV .Q20H [facility] Last Admin: 03/22/20 09:25 Dose: Not Given Documented by: Insulin Aspart (Novolog) 0 unit SUBCUT WM&BEDTIME [facility]; Protocol Last Admin: 03/22/20 07:47 Dose: 2 unit Documented by: Magnesium Hydroxide (Milk Of Magnesia) 30 ml PO DAILY PRN PRN Reason: CONSTIPATION Metoprolol Tartrate (Lopressor) 12.5 mg PO BID [facility] Last Admin: 03/22/20 09:24 Dose: 12.5 mg Documented by: Morphine Sulfate (Morphine) 4 mg IVP Q4H PRN PRN Reason: SEVERE PAIN Naloxone HCl (Narcan) 0.1 mg IVP Q2M PRN PRN Reason: RESPIRATORY RATE < 8/MIN Nicotine (Nicoderm 21 Mg Patch) 1 patch TRANSDERMA DAILY PRN PRN Reason: WITHDRAWAL Nicotine Polacrilex (Nicorette) 2 mg BUCCAL Q2H PRN PRN Reason: WITHDRAWAL Nitroglycerin (Nitrostat) 0.4 mg SUBLINGUAL Q5M PRN PRN Reason: CHEST PAIN Last Admin: 03/20/20 13:40 Dose: 1 tab Documented by: Ondansetron HCl (Zofran) 4 mg IVP Q6H PRN PRN Reason: NAUSEA AND VOMITING Pantoprazole Sodium (Protonix) 40 mg PO DAILY [facility] Last Admin: 03/22/20 09:23 Dose: 40 mg Documented by: Temazepam (Restoril) 15 mg PO BEDTIME PRN PRN Reason: INSOMNIA Vitals/I&O/Wt Last Vital Signs Temp 98.1 F 03/22/20 07:52 Pulse 94 03/22/20 07:52 Resp 14 03/22/20 07:52 BP 112/80 03/22/20 07:52 Pulse Ox 97 03/22/20 07:52 03/21/20 03/22/20 03/22/20 22:59 06:59 14:59 Intake Total 630 / 630 240 / 870 240 / 240 Balance 630 / 630 240 / 870 240 / 240 Weight last 48 hrs Weight 275 lb 1.6 oz Weight 272 lb Physical Exam Narrative: EXAM NARRATIVE: GENERAL: The patient is alert and oriented times three. Not in any acute distress. HEENT: No significant pallor, icterus or lymphadenopathy. The pupils are reactant to light. Oral cavity: There are no mucous membrane lesions. NECK: Trachea appears to be central. No masses noted. No JVD or thyromegaly appreciated. No carotid bruit. RESPIRATORY: Chest is symmetrical. No intercostals muscle retraction or any accessory muscle activation. There is no chest wall tenderness. Breath sounds are heard bilaterally. No rales or rhonchi heard. No evidence of any consolidation. BREASTS: Deferred. HEART: The heart sounds are normal no S3 or S4. No significant murmurs. ABDOMEN: No vessel pulsations or distention. No tenderness. No organomegaly appreciated. No abdominal bruit. Bowel sounds are normally heard. : Deferred. RECTAL: Deferred. LYMPHATIC: No lymphadenopathy noted in the neck or groin. EXTREMITIES: Her radial arterial puncture site has no hematoma or bleeding. Good pulses. MUSCULOSKELETAL: No acute joint deformities or swelling SKIN: There are no significant scars or skin rash noted. NEUROPSYCHIATRIC: The patient is alert and oriented x3. Appears to be in a good mood. The higher functions are grossly within normal limits. No tremors or rig idity noted. Const: COMMON NORMALS: alert Resp: COMMON NORMALS: clear to auscultation bilaterally AUSCULTATION: clear to auscultation bilaterally Neuro: SENSORIUM/ORIENTATION: Yes alert Data : 03/22/20 04:30 03/22/20 04:30 A&P Assessment and plan (1) Elevated troponin level: Most likely related to non-ST elevation myocardial infarction. Status post cardiac authorization revealing a 90 to 95% lesion in the right coronary artery at the distal segment. Around 80% lesion in the first obtuse marginal artery. Underwent PCI. Currently remaining stable. Status: Acute (2) Essential (primary) hypertension: Currently the blood pressure is in the low normal side. May continue on the current medications. Status: Chronic (3) Current smoker: The patient is strongly advised to quit smoking he has a [id number] history of smoking Status: Chronic (4) Controlled diabetes mellitus with hyperglycemia, without long-term current use of insulin: Optimize medications to bring down the hemoglobin A1c to the acceptable levels Status: Chronic Qualifiers: Diabetes mellitus type: type 2 Qualified Code(s): E11.65 - Type 2 diabetes mellitus with hyperglycemia (5) Mixed hyperlipidemia: May continue on the current medications. Status: Chronic Additional A&P Information If he continues remain stable, may be discharged home from a cardiac standpoint. Need to be seen in the [facility] by the nurse practitioner on . Continue on the Plavix, aspirin, beta-demian and statin. Appointment with me in the office in 1 month Attestations Medical Necessity Statement*: Possible discharge home today Coding Level of Care Code Acute Director Nurses' Registry for Chg Fwd Diagnoses Elevated troponin level R79.89 Essential (primary) hypertension I10 Current smoker F17.200 Controlled diabetes mellitus with hyperglycemia, without long-term current use of insulin E11.65 Diabetes mellitus type: type 2 Mixed hyperlipidemia E78.2
--- NOTE | 2020-03-22 11:00 | P.DS_ITS ---
Discharge Providers Date of Admission: 03/20/20 19:00 Date of Discharge: March 22, 2020 Attending Provider at Admission: Jaime Dyer Attending Provider at Discharge: Aisha Wheeler MD Primary Care Provider: NATALIE Smith Diagnoses at Discharge Discharge Diagnosis (1) Elevated troponin level: Status: Acute (2) Essential (primary) hypertension: Status: Chronic (3) Current smoker: Status: Chronic (4) Controlled diabetes mellitus with hyperglycemia, without long-term current use of insulin: Status: Chronic Qualifiers: Diabetes mellitus type: type 2 Qualified Code(s): E11.65 - Type 2 diabetes mellitus with hyperglycemia (5) Mixed hyperlipidemia: Status: Chronic Reason for Visit Reason for Visit: cp Hospital Course Discharge Summary: Jose Daniel Forbes is a 55 year old male with a history of hypertension, type 2 diabetes, dyslipidemia and heavy smoking abuse, is presenting with complaints of chest pain for the last 2 weeks.He has no previous history for coronary artery disease, myocardial infarction or congestive heart failure. He has been having some amount of fatigue and shortness of breath especially with activities for the last few weeks. He was diagnosed with an NSTEMI. He is s/p cardiac cath on 03/21 and found to have critical lesion in the distal RCA. Also had a high-grade lesion in the first obtuse marginal artery. U nderwent PCI of both these lesions. Currently he is feeling much better. no chest pain or palpitations. No dizziness or syncopal episode. He has no hematoma bleeding at the radial arterial puncture site. Vital signs remained stable. No arrhythmias on the monitor. 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8 Neut # (Auto) 7.68 Lymph # (Auto) 1.7 [place] # (Auto) 0.9 Eos # (Auto) 0.3 Baso # (Auto) 0.1 Nucleated RBC % (a uto) 0 Nucleated RBCs # 0.0 APTT Sodium 137 Potassium 4.3 Chloride 102 Carbon Dioxide 24 Anion Gap 15.3 BUN 12 Creatinine 0.8 GFR Calculation 100.7 Glucose 145 H POC Glucose 158 Calculated Osmolal ity 283 L Calcium 9.3 03/21/20 03/21/20 03/21/20 20:36 17:54 16:56 WBC RBC Hgb Hct MCV MCH MCHC RDW Plt Count MPV Neut % (Auto) Lymph % (Auto) [place] % (Auto) Eos % (Auto) Baso % (Auto) Neut # (Auto) Lymph # (Auto) [place] # (Auto) Eos # (Auto) Baso # (Auto) Nucleated RBC % (a uto) Nucleated RBCs # APTT 45.0 H Sodium Potassium Chloride Carbon Dioxide Anion Gap BUN Creatinine GFR Calculation Glucose POC Glucose 132 150 Calculated Osmolal ity Calcium 03/21/20 11:45 WBC RBC Hgb Hct MCV MCH MCHC RDW Plt Count MPV Neut % (Auto) Lymph % (Auto) [place] % (Auto) Eos % (Auto) Baso % (Auto) Neut # (Auto) Lymph # (Auto) [place] # (Auto) Eos # (Auto) Baso # (Auto) Nucleated RBC % (a uto) Nucleated RBCs # APTT Sodium Potassium Chloride Carbon Dioxide Anion Gap BUN Creatinine GFR Calculation Glucose POC Glucose 113 Calculated Osmolal ity Calcium Vitals: Last Vital Signs Temp 98.1 F 03/22/20 07:52 Pulse 94 03/22/20 07:52 Resp 14 03/22/20 07:52 BP 112/80 03/22/20 07:52 Pulse Ox 97 03/22/20 07:52 Discharge Plan Discharge Patient Disposition: Home Condition: Stable Prescriptions: New metoprolol tartrate 25 mg Tablet 12.5 mg PO BID 30 Days Qty: 60 RF: 0 atorvastatin 40 mg tablet 40 mg PO DAILY 30 Days Qty: 30 RF: 0 Plavix 75 mg tablet 75 mg PO DAILY 30 Days Qty: 30 RF: 0 Continued nitroglycerin 0.4 mg tablet, sublingual 0.4 mg SUBLINGUAL Q5M PRN (Reason: chest pain) Qty: 25 RF: 0 fenofibrate nanocrystallized [Tricor] 145 mg tablet 145 mg PO DAILY Qty: 30 RF: 2 (DME) pen needle, diabetic 33 gauge x 5/32 needle See Rx Instructions .ROUTE .MEDSUPPLY Qty: 100 RF: 5 lisinopril 20 mg tablet 20 mg PO DAILY Qty: 30 RF: 2 famotidine [Pepcid] 20 mg tablet 20 mg PO BID Qty: 60 RF: 2 metformin 500 mg tablet extended release 24 hr 500 mg PO BID Qty: 60 RF: 2 Aspir-81 81 mg Tablet,Delayed Release (Dr/Ec) 81 mg PO DAILY RF: 0 [place] 5 mcg/dose (250 mcg/mL) 1.2 mL Pen Injector 5 mcg SUBCUT DAILY RF: 0 Discharge Orders: Discharge Order (Routine); Ordered 03/22/20 Ordered By: Aisha Wheeler Referrals: Iraj Rader MD [Referring] - 1 month Jenelle Hensley FNP [Nurse Practitioner] - 03/25/20 Discharge Diet: Cardiac, Diabetic, Low Salt, Low Cholesterol and Low Fat Discharge Activity: Resume usual activity Discharge Attestations Time Spent in Discharge Care*: greater than 30 min Quality Metrics Clinical Quality Measures During this hospital stay, did patient experience: AMI Clinical Trial Participant: No Contraindication to aspirin (AMI): Aspirin given Contraindication to statin: Statin prescribed Contraindication to PCI: PCI performed Coding Level of Care Code 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
[2020-03-22 12:11] LABS: Glucose Point of Care 118 mg/dL (70-110)
--- NOTE | 2020-03-22 12:25 | PC.NURSE ---
Discharge instructions given per the physician's orders. Patient verbalized understanding of discharge information and did not have any further questions. IV has been removed. Patient dressed self. Patient to be drove home by in private vehicle.
--- NOTE | 2020-03-22 12:38 | PC.RESP ---
SMOKING CESSATION INFORMATION SENT TO PATIENT.
== END 2020-03-22 12:25 | disposition home or self-care (01) | DRG 247 ==
LOC: ER 13:13 → CSU 15:31
PROVIDERS: Emergency Medicine; Internal Medicine Cardiovascular Disease; Admitting Provider Internal Medicine; PCP Nurse Practitioner; Visit Provider Student in an Organized Health Care Education/Training Program
PROC: 027135Z Dilation of Coronary Artery, Two Arteries with Two Drug-eluting Intraluminal Devices, Percutaneous Approach (ICD-10-PCS; principal; 2020-03-21 14:15)
DX: R07.89 Other chest pain (principal); I10 Essential (primary) hypertension; E78.2 Mixed hyperlipidemia; E11.65 Type 2 diabetes mellitus with hyperglycemia; F17.210 Nicotine dependence, cigarettes, uncomplicated; Z79.82 Long term (current) use of aspirin; Z79.84 Long term (current) use of oral hypoglycemic drugs; E11.40 Type 2 diabetes mellitus with diabetic neuropathy, unspecified
CPT/HCPCS: 12345; 36415; 36416; 71045; 80048; 80053; 82962; 83690; 83735; 83880; 84484; 85025; 85347; 85610; 85730; 87426; 93005; 93306; 93452; 96372; 99283; C1725; C1769; C1874; C1887; C1894; C9600; C9601; G0378; J1644; J1650; J1815; J2250; J3010; J3490; J7030; Q0163; Q9967

== ENCOUNTER → 2020-03-26 09:27 | Outpatient (BNVA) | payer SELFPAY | PROVIDERS: PCP Nurse Practitioner; Visit Provider Nurse Practitioner Family | DX: I25.10 Atherosclerotic heart disease of native coronary artery without angina pectoris (principal) | CPT/HCPCS: 80048 ==

== ENCOUNTER → 2020-07-05 08:37 | Outpatient (BNVA) | payer SELFPAY | PROVIDERS: PCP Nurse Practitioner; Visit Provider Nurse Practitioner | DX: E11.65 Type 2 diabetes mellitus with hyperglycemia (principal); E11.40 Type 2 diabetes mellitus with diabetic neuropathy, unspecified | CPT/HCPCS: 80053; 80061; 81000; 83036 ==

== ENCOUNTER → 2020-11-04 09:25 | Outpatient (BNVA) | payer SELFPAY | PROVIDERS: PCP Nurse Practitioner; Visit Provider Nurse Practitioner | DX: E11.65 Type 2 diabetes mellitus with hyperglycemia (principal); F41.9 Anxiety disorder, unspecified; Z87.891 Personal history of nicotine dependence; E78.2 Mixed hyperlipidemia; E11.40 Type 2 diabetes mellitus with diabetic neuropathy, unspecified; I10 Essential (primary) hypertension; K21.9 Gastro-esophageal reflux disease without esophagitis | CPT/HCPCS: 80053; 80061; 82043; 83036 ==

== ENCOUNTER 2021-03-27 10:40 | Emergency (ER) | payer MEDICAID, SELFPAY ==
[2021-03-27 11:01] VITALS: BP 118/81; PULSE 94; RESP 18; TEMP 36.5; O2SAT 96; BMI 38.7
[2021-03-27 11:24] VITALS: BP 116/88; PULSE 98; RESP 18; TEMP 36.8; O2SAT 97
--- NOTE | 2021-03-27 11:49 | ED_ITS ---
HPI - Nausea/Vomiting/Diarrhea General: Chief complaint: Nausea/Vomiting/Diarrhea Stated complaint: N/V X3 DAYS Time Seen by Provider: 03/27/21 10:45 History of Present Illness: HPI Narrative: 56-year-old male with history of diabetes presents due to epigastric and right upper quadrant abdominal pain. States this started 3 days ago. Does report nonbloody nonbilious nausea and vomiting. Also reports nonbloody diarrhea. Denies any chest pain. Has had yenni nts placed last year but states this feels very different than his previous anginal chest pain. Denies any dysuria or urethral discharge. Denies any flank pain. Denies any fevers or chills. States he still has his gallbladder. Denies any excessive alcohol drinking. Associated nausea: Yes Associated symtoms: Reports nausea; Denies anxiety, change in vision, chest pain, dizziness, dysuria, headache(s), palpitations or syncope Review of Systems General: Reports: 10 or more systems reviewed and unremarkable except in HPI and below Const: Denies: fever(s) Eyes: Denies: change in vision ENMT: Denies: throat pain Card: Denies: chest pain, palpitations, swelling of feet/ankles, syncope or dyspnea on exertion Resp: Denies: dyspnea GI: Reports: abdominal pain, nausea, vomiting and diarrhea; Denies: hematemesis or hematochezia : Denies: flank pain, difficulty urinating or dysuria Musc: Denies: back pain Skin/Breast: Denies: rash Neuro: Denies: headache(s), numbness in extremities, weakness in extremities, sensory changes, lack of coordination, difficulty walking, frequent falls, dizziness, vertigo, confusion, behavioral changes, Slurred speech present, difficulty communicating thoughts or seizure-like activity Psych: Denies: anxiety or depression Endo: Denies: polyuria All/Imm: Denies: throat swelling PFSH ED PFSH: Medical History Acid reflux disease Controlled diabetes mellitus with hyperglycemia, without long-term current use of insulin Coronary artery disease DM neuropathy, painful Essential (primary) hypertension History of cigarette smoking Mixed hyperlipidemia Surgical History Basal cell carcinoma (BCC) in situ of skin September 2017 on back History of colonoscopy Family History Mother Diabetes Heart disease Father Cancer lung cancer Father Hypertension Many of the family members have high blood pressure Social History Smoking and tobacco status: former smoker Quit status (tobacco): has quit using tobacco Former quit date comment: 03/20/20 Second hand smoke exposure: Yes Smoking risk assessment/counseling performed?: Yes Alcohol intake: never Desire information about alcohol rehabilitation?: No Counseling given: No Desire information about substance/drug rehabilitation?: No Counseling given: No Adopted: No Caregiver/support person: No Lives independently: Yes Household members: spouse Housing: House Marital status: service: No Current occupational status: employed History of recent travel: No Current gender identity: Male Physical Exam Const: COMMON NORMALS: patient oriented x3 GENERAL APPEARANCE: cooperative and comfortable ORIENTATION/CONSCIOUSNESS: Yes awake HENMT: COMMON NORMALS: not normocephalic, head/scalp not atraumatic, hearing grossly not normal bilaterally, external ears not normal, not EAC's normal, TM's not normal bilaterally, external nose not normal, nasal mucous membranes&turbinates abnorm, oral mucous membranes not moist, oropharynx not normal, dentition not normal and gingiva not normal HEAD & SCALP: not normocephalic and not atraumatic NOSE: external nose not normal and nasal mucous membranes&turbinates abnorm EXTERNAL EAR: no external ears normal EXTERNAL AUDITORY CANAL: EAC(s) not normal TYMPANIC MEMBRANE: TM(s) not normal bilaterally Eye: COMMON NORMALS: negative for Equal, round and reactive pupils present, negative for EOMs intact bilaterally, negative for conjunctivae normal, negative for no scleral icterus, negative for no papilledema, negative for normal visual salvador by confrontation and negative for fundi normal bilaterally CONJUNCTIVA: No conjunctivae normal PUPIL: No Equal, round and reactive pupils present DIRECT OPHTHALMOSCOPY: No no papilledema and No fundi normal bilaterally Neck/C-Spine: COMMON NORMALS: negative for full ROM, negative for no lymphadenopathy, negative for supple, negative for no meningeal signs, negative for no JVD, negative for Thyroid normal and negative for No carotid bruits THYROID: abnormal thyroid Chest: COMMONS NORMALS: negative for normal inspection of the chest and negative for normal palpation of entire chest wall Resp: COMMON NORMALS: negative for normal respiratory effort, negative for No retractions, negative for No use of accessory muscles, negative for clear to auscultation bilaterally and negative for percussion normal AUSCULTATION: not clear to auscultation bilaterally PERCUSSION: percussion abnormal Cardio: COMMON NORMALS: negative for no JVD, negative for regular rate, negative for regular rhythm, negative for S1 normal heart sound present, negative for S2 normal heart sound present, negative for No gallops present (Cardio), negative for No clicks present (Cardio), negative for No murmurs present (Cardio), negative for No rub (Cardio) and negative for Peripheral pulses 2+ throughout RATE: abnormal rate RHYTHM: abnormal rhythm HEART SOUNDS: S1 abnormal and S2 abnormal PERIPHERAL PULSES: No Peripheral pulses 2+ throughout GI: COMMON NORMALS: negative for Normal to inspection, nondistended, normoactive bowel sounds present, negative for Soft to palpation, negative for No hepatosplenomegaly present, negative for no masses and negative for no bruits PALPATION: No Soft to palpation and No No hepatosplenomegaly present OTHER: Epigastric and right upper quadrant tenderness, negative CVA tenderness bilaterally, no guarding or rebound, positive Ren sign. : COMMON NORMALS: No no CVA tenderness, No normal external exam, No Testes normal, No scrotum normal, No no scrotal swelling and No No hernias present BLADDER/KIDNEY EXAM: No no CVA tenderness Back/Pelvis: COMMON NORMALS: negative for no CVA tenderness Extremity: COMMON NORMALS: negative for normal to inspection, negative for full ROM, negative for capillary refill normal, negative for no joint enlargement, negative for no clubbing, cyanosis or edema, negative for no calf tenderness and negative for no pedal edema Neuro: COMMON NORMALS: patient oriented x3; negative for CN's II-XII intact bilaterally, negative for moves all extremities, negative for no focal motor deficits, negative for no sensory deficits noted, negative for deep tendon reflexes 2+ bilaterally and negative for gait normal MENINGEAL SIGNS: No no meningeal signs Psych: COMMON NORMALS: negative for mental status grossly normal, negative for Normal thought process present, negative for cooperative, negative for normal affect, negative for speech normal, negative for activity/motor behavior normal, negative for denies hallucinations, negative for denies homicidal ideation and negative for denies suicidal ideation SPEECH: No normal speech THOUGHT PROCESS: abnormal Skin: COMMON NORMALS: negative for no rashes or lesions noted, negative for no wounds, negative for turgor normal, negative for no jaundice, negative for no petechiae and negative for no mottling GENERAL SKIN EXAM: rashes and/or lesions noted and decreased turgor Course Vital Signs: Vital signs: Vital Signs Temperature 98.2 F 03/27/21 14:26 Pulse Rate 93 03/27/21 14:26 Respiratory Rate 18 03/27/21 14:26 Blood Pressure 106/71 03/27/21 14:26 Pulse Oximetry 95 03/27/21 14:26 MDM - Nausea/Vomiting/Diarrhea MDM Narrative: Medical decision making narrative: 56-year-old male presents with epigastric and right upper quadrant abdominal pain. On exam does have positive Ren sign but ultrasound does not reveal any signs of cholecystitis. Lipase is unremarkable but CT scan of the abdomen pelvis is concerning for pancreatitis. Otherwise he medically stable afebrile nontoxic-appearing. Does have white count elevation with no other focal infectious source. Patient does have a history of CAD but EKG and troponin not revealing acute ischemic change. Discussed with hospitalist and they agreed patient would benefit from admission. Patient admitted in stable condition. Further evaluation management per hospitalist team. Lab Data: Labs: Lab Results 03/27/21 03/27/21 03/27/21 Range/Units 11:30 11:30 11:30 WBC 13.3 H (4.0-10.0) 10^3/ uL RBC 5.01 (4.1-5.3) 10^6/u L Hgb 15.5 (11.7-16.6) g/dL Hct 48.1 (42.0-52.0) % MCV 96.0 H (80-94) fl MCH 30.9 (28.0-34.0) pg MCHC 32.2 (30.0-36.0) g/dL RDW 14.6 (12.1-15.1) % Plt Count 286 (130-400) 10^3/c mm MPV 10.2 (7.4-10.4) fL Neut % (Auto) 78.3 % Lymph % (Auto) 10.9 % [place] % (Auto) 8.2 % Eos % (Auto) 1.5 % Baso % (Auto) 0.6 % Neut # (Auto) 10.44 H (1.8-7.7) 10^3/u L Lymph # (Auto) 1.5 (0.8-4.8) 10^3/u L [place] # (Auto) 1.1 H (0.2-0.9) 10^3/u L Eos # (Auto) 0.2 (0.0-0.8) 10^3/u L Baso # (Auto) 0.1 (0.0-0.1) 10^3/u L Nucleated RBC % (a uto) 0 % Nucleated RBCs # 0.0 /100WBC Sodium 132 L (136-145) mmol/L Potassium 3.8 (3.5-5.1) mmol/L Chloride 96 L (98-107) mmol/L Carbon Dioxide 22 (22-29) mmol/L Anion Gap 17.8 (5-19) BUN 9 (6-20) mg/dL Creatinine 0.7 (0.7-1.2) mg/dL GFR Calculation 117.1 (90-130) mL/min Glucose 233 H (65-115) mg/dL POC Glucose (70-110) mg/dL Calculated Osmolal ity 280 L (285-295) mOsm/k g Lactate 1.4 (0.5-2.2) mmol/L Calcium 9.5 (8.5-10.5) mg/dL Total Bilirubin 0.7 (0.15-1.2) mg/dL AST 29 (0-40) U/L ALT 35 (0-41) U/L Alkaline Phosphata se 99 (40-130) IU/L Troponin T Baselin e (0-15) ng/L Troponin T 120 Min [place] (0-15) ng/L Delta Troponin T (0-10) ABS# Total Protein 7.2 (6.6-8.7) g/dL Albumin 4.2 (3.5-5.2) g/dL Globulin 3.0 (1.3-4.6) g/dL Lipase 26 (13-60) U/L Urine Color (Yellow) Urine Appearance (CLEAR) Urine pH (5-7) Ur Specific Gravit y (1.005-1.030) Urine Protein (Negative) Urine Glucose (UA) (Normal) Urine Ketones (Negative) Urine Blood (Negative) Urine Nitrate (Negative) Urine Bilirubin (Negative) Urine Urobilinogen (Negative) mg/dL Ur Leukocyte Jacqueline ase (Negative) Urine RBC (0-2) /hpf Urine WBC (0-5) /hpf Ur Squamous Epith Cells (0-5) /hpf Amorphous Sediment Urine Bacteria (NONE) /hpf Hyaline Casts /lpf Fine Granular Cast s /lpf Urine Mucus /hpf SARS-CoV-2 Ag (Rap id) (Negative) 03/27/21 03/27/21 03/27/21 Range/Units 11:30 11:30 11:57 WBC (4.0-10.0) 10^3/ uL RBC (4.1-5.3) 10^6/u L Hgb (11.7-16.6) g/dL Hct (42.0-52.0) % MCV (80-94) fl MCH (28.0-34.0) pg MCHC (30.0-36.0) g/dL RDW (12.1-15.1) % Plt Count (130-400) 10^3/c mm MPV (7.4-10.4) fL Neut % (Auto) % Lymph % (Auto) % [place] % (Auto) % Eos % (Auto) % Baso % (Auto) % Neut # (Auto) (1.8-7.7) 10^3/u L Lymph # (Auto) (0.8-4.8) 10^3/u L [place] # (Auto) (0.2-0.9) 10^3/u L Eos # (Auto) (0.0-0.8) 10^3/u L Baso # (Auto) (0.0-0.1) 10^3/u L Nucleated RBC % (a uto) % Nucleated RBCs # /100WBC Sodium (136-145) mmol/L Potassium (3.5-5.1) mmol/L Chloride (98-107) mmol/L Carbon Dioxide (22-29) mmol/L Anion Gap (5-19) BUN (6-20) mg/dL Creatinine (0.7-1.2) mg/dL GFR Calculation (90-130) mL/min Glucose (65-115) mg/dL POC Glucose 221 H (70-110) mg/dL Calculated Osmolal ity (285-295) mOsm/k g Lactate (0.5-2.2) mmol/L Calcium (8.5-10.5) mg/dL Total Bilirubin (0.15-1.2) mg/dL AST (0-40) U/L ALT (0-41) U/L Alkaline Phosphata se (40-130) IU/L Troponin T Baselin e 9 (0-15) ng/L Troponin T 120 Min [place] (0-15) ng/L Delta Troponin T (0-10) ABS# Total Protein (6.6-8.7) g/dL Albumin (3.5-5.2) g/dL Globulin (1.3-4.6) g/dL Lipase (13-60) U/L Urine Color Dark yellow (Yellow) Urine Appearance Cloudy (CLEAR) Urine pH 5 (5-7) Ur Specific Gravit y 1.025 (1.005-1.030) Urine Protein Neg (Negative) Urine Glucose (UA) 2+ H (Normal) Urine Ketones Negative (Negative) Urine Blood Neg (Negative) Urine Nitrate Negative (Negative) Urine Bilirubin 1+ H (Negative) Urine Urobilinogen Norm (Negative) mg/dL Ur Leukocyte Jacqueline ase Negative (Negative) Urine RBC None (0-2) /hpf Urine WBC 0-4 H (0-5) /hpf Ur Squamous Epith Cells 0-4 H (0-5) /hpf Amorphous Sediment Not Reportable Urine Bacteria Trace (NONE) /hpf Hyaline Casts 5-10 H /lpf Fine Granular Cast s 0-4 H /lpf Urine Mucus 4+ /hpf SARS-CoV-2 Ag (Rap id) (Negative) 03/27/21 03/27/21 Range/Units 12:47 13:42 WBC (4.0-10.0) 10^3/ uL RBC (4.1-5.3) 10^6/u L Hgb (11.7-16.6) g/dL Hct (42.0-52.0) % MCV (80-94) fl MCH (28.0-34.0) pg MCHC (30.0-36.0) g/dL RDW (12.1-15.1) % Plt Count (130-400) 10^3/c mm MPV (7.4-10.4) fL Neut % (Auto) % Lymph % (Auto) % [place] % (Auto) % Eos % (Auto) % Baso % (Auto) % Neut # (Auto) (1.8-7.7) 10^3/u L Lymph # (Auto) (0.8-4.8) 10^3/u L [place] # (Auto) (0.2-0.9) 10^3/u L Eos # (Auto) (0.0-0.8) 10^3/u L Baso # (Auto) (0.0-0.1) 10^3/u L Nucleated RBC % (a uto) % Nucleated RBCs # /100WBC Sodium (136-145) mmol/L Potassium (3.5-5.1) mmol/L Chloride (98-107) mmol/L Carbon Dioxide (22-29) mmol/L Anion Gap (5-19) BUN (6-20) mg/dL Creatinine (0.7-1.2) mg/dL GFR Calculation (90-130) mL/min Glucose (65-115) mg/dL POC Glucose (70-110) mg/dL Calculated Osmolal ity (285-295) mOsm/k g Lactate (0.5-2.2) mmol/L Calcium (8.5-10.5) mg/dL Total Bilirubin (0.15-1.2) mg/dL AST (0-40) U/L ALT (0-41) U/L Alkaline Phosphata se (40-130) IU/L Troponin T Baselin e (0-15) ng/L Troponin T 120 Min [place] 8.62 (0-15) ng/L Delta Troponin T -0.38 L (0-10) ABS# Total Protein (6.6-8.7) g/dL Albumin (3.5-5.2) g/dL Globulin (1.3-4.6) g/dL Lipase (13-60) U/L Urine Color (Yellow) Urine Appearance (CLEAR) Urine pH (5-7) Ur Specific Gravit y (1.005-1.030) Urine Protein (Negative) Urine Glucose (UA) (Normal) Urine Ketones (Negative) Urine Blood (Negative) Urine Nitrate (Negative) Urine Bilirubin (Negative) Urine Urobilinogen (Negative) mg/dL Ur Leukocyte Jacqueline ase (Negative) Urine RBC (0-2) /hpf Urine WBC (0-5) /hpf Ur Squamous Epith Cells (0-5) /hpf Amorphous Sediment Urine Bacteria (NONE) /hpf Hyaline Casts /lpf Fine Granular Cast s /lpf Urine Mucus /hpf SARS-CoV-2 Ag (Rap id) Negative (Negative) Discharge Plan Discharge Prescriptions: No Action Plavix 75 mg tablet 75 mg PO DAILY Qty: 90 RF: 2 metoprolol tartrate 25 mg tablet 12.5 mg PO BID Qty: 90 RF: 2 nitroglycerin 0.4 mg tablet, sublingual 0.4 mg SUBLINGUAL Q5M PRN (Reason: chest pain) Qty: 25 RF: 3 metformin 500 mg tablet extended release 24 hr 1,000 mg PO DAILY Qty: 60 RF: 2 atorvastatin 40 mg tablet 40 mg PO DAILY Qty: 90 RF: 2 fenofibrate nanocrystallized [Tricor] 145 mg tablet 145 mg PO DAILY Qty: 30 RF: 2 (DME) pen needle, diabetic 33 gauge x 5/32 needle See Rx Instructions .ROUTE .MEDSUPPLY Qty: 100 RF: 5 Bydureon BCise 2 mg/0.85 mL auto-injector 2 mg SUBCUT Q7D Qty: 3.4 RF: 2 lisinopril 10 mg tablet 10 mg PO DAILY Qty: 90 RF: 3 famotidine [Pepcid] 20 mg tablet 20 mg PO BID Qty: 60 RF: 2 bupropion HCl [Wellbutrin SR] 150 mg tablet sustained-release 12 hr 150 mg PO DAILY Qty: 60 RF: 2 zonisamide [Zonegran] 25 mg capsule 25 mg PO Q12H Qty: 60 RF: 2 Aspir-81 81 mg Tablet,Delayed Release (Dr/Ec) 81 mg PO DAILY RF: 0 Coding Level of Care Code ED Supervisor [employer] for Chg Fwd Exam Comprehensive
--- NOTE | 2021-03-27 11:55 | USR_ITS ---
PROCEDURE INFORMATION: Exam: US Abdomen, Limited; Right Upper Quadrant Exam date and time: 03/27/2021 11:55 AM Age: 56 years old Clinical indication: Abdominal pain; Additional info: Ruq pain TECHNIQUE: Imaging protocol: US abdomen. Real time ultrasound with image documentation. Limited exam focused on the right upper quadrant. Total images: 42 COMPARISON: US gall bladder [id number] 06/28/2018 7:19 AM FINDINGS: Liver: 17.6 cm Liver length. There is diffuse increased echogenicity of the liver, consistent with fatty infiltration. Gallbladder: Echogenic areas seen within the gallbladder with posterior shadowing felt to represent gallstones. No wall thickening nor pericholecystic fluid. Evaluation was severely limited due to patient's body habitus. Common bile duct: CBD not seen. Pancreas: The pancreas is poorly-visualized due to overlying bowel gas. Right kidney: 14.6 cm length of right kidney. Right kidney with normal echogenicity and no hydronephrosis, calculi, solid masses, nor perinephric fluid collection. Aorta: Aorta and IVC not seen. Other findings: Study limited due to bowel gas. Quality of examination is limited by body habitus. US/US abdomen limited [id number] IMPRESSION: 1. There is diffuse increased echogenicity of the liver, consistent with fatty infiltration. 2. Echogenic areas seen within the gallbladder with posterior shadowing felt to represent gallstones. No wall thickening nor pericholecystic fluid. Evaluation was severely limited due to patient's body habitus.
[2021-03-27 12:00] LABS: Glucose Point of Care 221 mg/dL (70-110)
--- NOTE | 2021-03-27 12:00 | ECG_ITS ---
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
[2021-03-27 12:09] VITALS: RESP 16; O2SAT 97
[2021-03-27] MEDS: sodium chloride 0.9% 1,000 ML 999 ML IV (12:09)
[2021-03-27] MEDS: ondansetron 2 mg/ML SDV 2 mL 4 MG IVP (12:09)
[2021-03-27] MEDS: morphine 4 mg/mL SDV 1 mL IVP (12:09)
[2021-03-27 12:10] LABS: Basophils # 0.1 10^3/uL (0.0-0.1); Basophils % 0.6 %; Eosinophils # 0.2 10^3/uL (0.0-0.8); Eosinophils % 1.5 %; Hematocrit 48.1 % (42.0-52.0); Hemoglobin 15.5 g/dL (11.7-16.6); Lymphocytes # 1.5 10^3/uL (0.8-4.8); Lymphocytes % 10.9 %; Mean Corpuscular HGB Conc 32.2 g/dL (30.0-36.0); Mean Corpuscular Hemoglobin 30.9 pg (28.0-34.0); Mean Platelet Volume 10.2 fL (7.4-10.4); Monocytes # 1.1 10^3/uL (0.2-0.9); Monocytes % 8.2 %; Neutrophils # 10.44 10^3/uL (1.8-7.7); Neutrophils % 78.3 %; Nucleated Red Blood Cells % 0 %; Platelet Count 286 10^3/cmm (130-400); Red Blood Count 5.01 10^6/uL (4.1-5.3); Red Cell Distribution Width 14.6 % (12.1-15.1); White Blood Count 13.3 10^3/uL (4.0-10.0)
[2021-03-27 12:11] VITALS: BP 101/72; PULSE 96; RESP 16; TEMP 36.5; O2SAT 96
[2021-03-27 12:28] LABS: Alanine Aminotransferase 35 U/L (0-41); Albumin Level 4.2 g/dL (3.5-5.2); Alkaline Phosphatase 99 IU/L (40-130); Anion Gap 17.8 (5-19); Aspartate Amino Transferase 29 U/L (0-40); Blood Urea Nitrogen 9 mg/dL (6-20); Calcium 9.5 mg/dL (8.5-10.5); Carbon Dioxide 22 mmol/L (22-29); Chloride 96 mmol/L (98-107); Glomerular Filtration Rate 117.1 mL/min (90-130); Glucose 233 mg/dL (65-115); Lipase 26 U/L (13-60); Osmolality Calculated 280 mOsm/kg (285-295); Potassium 3.8 mmol/L (3.5-5.1); Sodium 132 mmol/L (136-145); Total Bilirubin 0.7 mg/dL (0.15-1.2); Total Protein 7.2 g/dL (6.6-8.7); Troponin(5th) Baseline 9 ng/L (0-15)
[2021-03-27 12:29] LABS: Lactate (Lactic Acid level) 1.4 mmol/L (0.5-2.2)
[2021-03-27 12:57] LABS: Add Urine Microscopic? YES; Bilirubin Urine 1+ (Negative); Blood Urine Neg (Negative); Glucose Urine UA 2+ (Normal); Ketones Urine Negative (Negative); Leukocyte Esterase Urine Negative (Negative); Nitrate Urine Negative (Negative); Protein Urine Neg (Negative); Specific Gravity, Urine 1.025 (1.005-1.030); Urine Appearance Cloudy (CLEAR); Urine Color Dark Yellow (Yellow); Urobilinogen Urine Norm (Negative); pH Urine 5 (5-7)
[2021-03-27 13:00] LABS: Bacteria Urine TRACE /hpf; Fine Granular Casts Urine 0-4 /lpf; Mucus Urine 4+ /hpf; Squamous Epithelial Cell Urine 0-4 /hpf (0-5); WBC Urine 0-4 /hpf (0-5)
[2021-03-27 13:01] LABS: Add Urine Culture? No
--- NOTE | 2021-03-27 13:10 | CTR_ITS ---
PROCEDURE INFORMATION: Exam: CT Abdomen And Pelvis With Contrast Exam date and time: 03/27/2021 1:10 PM Age: 56 years old Clinical indication: Abdominal pain; Patient HX: Epigastric and ruq abd pain w n/v/d x 3 days; Additional info: Abdominal pain, limited ultrasound evaluation. TECHNIQUE: Imaging protocol: Computed tomography of the abdomen and pelvis with contrast. Total images: 274 Radiation optimization: All CT scans at this facility use at least one of these dose optimization techniques: automated exposure control; mA and/or kV adjustment per patient size (includes targeted exams where dose is matched to clinical indication); or iterative reconstruction. Contrast material: OMNI 300; Contrast volume: 95 ml; Contrast route: INTRAVENOUS (IV); COMPARISON: CT Abdomen/Pelvis Renal [id number] 02/25/2017 10:04 AM RADIATION DOSE METRICS: Total DLP (mGy-cm): 1910.6 FINDINGS: Liver: Hepatic steatosis is evident. Gallbladder and bile ducts: Normal. No calcified stones. No ductal dilation. Pancreas: Mild inflammatory changes are noted in the pancreaticoduodenal groove. Appearance favors acute pancreatitis. Spleen: Incidental splenic granulomata are noted. Adrenal glands: 2 cm benign left adrenal adenoma, no further followup necessary. This finding is stable when compared to the prior exam. Kidneys and ureters: 2 cm largest cyst noted in a right kidney that has multiple simple renal cysts. No further evaluation required. Stomach and bowel: There are a few colonic diverticuli present but no evidence of diverticulitis. Appendix: No evidence of appendicitis. Intraperitoneal space: Unremarkable. No free air. No significant fluid collection. Vasculature: Moderate atherosclerotic disease is evident. Lymph nodes: Unremarkable. No enlarged lymph nodes. Urinary bladder: Unremarkable as visualized. Reproductive: Unremarkable as visualized. Bones/joints: Mild disc space height loss at L5/S1. Broad-based posterior disc bulge. Soft tissues: Unremarkable. CT/CT abdomen pelvis w con* [id number] IMPRESSION: Mild inflammatory changes are noted in the pancreaticoduodenal groove. Appearance favors acute pancreatitis. No pseudocyst, abscess, vascular compromise or pancreatic necrosis. Consider amylase. Duodenitis is felt less likely. COMMENTS: Consistent with the [employer]'s Incidental Findings Committee white paper (J Am Tobin Radiol 2018): Any incidental renal lesion less than 1 cm or classified as too small to characterize, or any incidental cystic renal lesion characterized as simple-appearing, is likely benign. No follow-up imaging is recommended for these lesions per consensus recommendations based on imaging criteria. Radiation Dose CTDIVOL = (mGy): DLP = 1910.6 (mGy-cm)
[2021-03-27 13:37] LABS: SARS Covid-2 Antigen Negative (Negative)
[2021-03-27] MEDS: iohexol 300 mg/mL 100 mL Btl IV (13:52)
[2021-03-27 14:25] LABS: Troponin 5 2HR 8.62 ng/L (0-15)
[2021-03-27 14:26] VITALS: BP 106/71; PULSE 93; RESP 18; TEMP 36.8; O2SAT 95
[2021-03-27 14:59] LABS: Troponin 5 2HR Delta -0.38 ABS# (0-10)
[2021-03-27 17:04] VITALS: BP 126/85; PULSE 98; RESP 16; O2SAT 97
== END 2021-03-27 17:07 ==
PROVIDERS: Emergency Provider Emergency Medicine; PCP Nurse Practitioner
DX: R10.13 Epigastric pain (principal); Z79.84 Long term (current) use of oral hypoglycemic drugs; Z79.02 Long term (current) use of antithrombotics/antiplatelets; Z79.82 Long term (current) use of aspirin; E11.40 Type 2 diabetes mellitus with diabetic neuropathy, unspecified; I10 Essential (primary) hypertension; E78.2 Mixed hyperlipidemia; Z87.891 Personal history of nicotine dependence; Z20.822 Contact with and (suspected) exposure to COVID-19
CPT/HCPCS: 36416; 74177; 76705; 80053; 81001; 82962; 83605; 83690; 84484; 85025; 87426; 93005; 96361; 96374; 96375; 99284; J2270; J2405; J7030; Q9967

== ENCOUNTER 2021-03-28 09:20 | Inpatient (IN) | payer MEDICAID, SELFPAY ==
[2021-03-28] VITALS (8 sets, daily range): BP systolic 124–147; BP diastolic 77–106; PULSE 90–101; RESP 16–18; TEMP 36.6–36.9; O2SAT 94–96; BMI 38.7
[2021-03-28 11:07] LABS: Basophils # 0.1 10^3/uL (0.0-0.1); Basophils % 0.5 %; Eosinophils # 0.3 10^3/uL (0.0-0.8); Eosinophils % 2.2 %; Hematocrit 45.9 % (42.0-52.0); Hemoglobin 14.6 g/dL (11.7-16.6); Lymphocytes # 1.4 10^3/uL (0.8-4.8); Lymphocytes % 11.3 %; Mean Corpuscular HGB Conc 31.8 g/dL (30.0-36.0); Mean Corpuscular Hemoglobin 30.7 pg (28.0-34.0); Mean Corpuscular Volume 96.4 fl (80-94); Mean Platelet Volume 9.9 fL (7.4-10.4); Monocytes # 0.9 10^3/uL (0.2-0.9); Monocytes % 7.7 %; Neutrophils # 9.45 10^3/uL (1.8-7.7); Nucleated Red Blood Cells % 0 %; Platelet Count 268 10^3/cmm (130-400); Red Blood Count 4.76 10^6/uL (4.1-5.3); Red Cell Distribution Width 14.3 % (12.1-15.1); White Blood Count 12.1 10^3/uL (4.0-10.0)
[2021-03-28] MEDS: morphine 4 mg/mL SDV 1 mL IVP (11:13)
[2021-03-28] MEDS: ondansetron 2 mg/ML SDV 2 mL 4 MG IVP (11:14)
--- NOTE | 2021-03-28 11:42 | ED_ITS ---
Documented by User: MICHELLE Rosas 03/28/21 13:25 HPI - Abdominal Pain General: Chief Complaint: Abdominal Pain Stated Complaint: Abdominal Pain Time Seen by Provider: 03/28/21 10:45 History of Present Illness: HPI narrative: Patient is a 56-year-old male comes to the ED with abdominal pain. Patient was seen here in the ED yesterday for same complaint. He was diagnosed with pancreatitis and offered admission in the hospital but decided to go home. He returns here to the ED today because he is having worsening pain and nausea. He vomited this morning at 6 AM and says it is mostly clear liquid. Patient says the symptoms have been going on for about 4 days now and the abdominal pain is located in the epigastric and right upper quadrant region of the abdomen. Denies any fever or chills. Associated Symptoms: Reports diarrhea, nausea and vomiting; Denies chills, constipation, dysuria, fever(s), hematochezia and hematuria Review of Systems Const: Denies: fever(s), chills or fatigue Eyes: Denies: change in vision or eye discomfort ENMT: Denies: throat pain, odynophagia, nasal discharge or nasal congestion Card: Denies: chest pain, palpitations, edema, swelling of feet/ankles, dyspnea on exertion or orthopnea Resp: Denies: dyspnea, productive cough or non-productive cough GI: Reports: abdominal pain, nausea, vomiting and diarrhea; Denies: constipation or hematochezia : Denies: flank pain, difficulty urinating, dysuria or hematuria Musc: Denies: neck pain, back pain or extremity swelling Skin/Breast: Denies: rash or new lesions Neuro: Denies: headache(s), numbness in extremities or weakness in extremities PFS ED PFSH: Medical History Acid reflux disease Controlled diabetes mellitus with hyperglycemia, without long-term current use of insulin Coronary artery disease DM neuropathy, painful Essential (primary) hypertension History of cigarette smoking Mixed hyperlipidemia Surgical History Basal cell carcinoma (BCC) in situ of skin September 2017 on back History of colonoscopy Family History Mother Diabetes Heart disease Father Cancer lung cancer Father Hypertension Many of the family members have high blood pressure Social History Smoking and tobacco status: former smoker Quit status (tobacco): has quit using tobacco Former quit date comment: 03/20/20 Second hand smoke exposure: Yes Smoking risk assessment/counseling performed?: Yes Alcohol intake: never Desire information about alcohol rehabilitation?: No Counseling given: No Desire information about substance/drug rehabilitation?: No Counseling given: No Adopted: No Caregiver/support person: No Lives independently: Yes Household members: spouse Housing: House Marital status: service: No Current occupational status: employed History of recent travel: No Current gender identity: Male Physical Exam Const: COMMON NORMALS: no acute distress, patient oriented x3 and alert GENERAL APPEARANCE: cooperative and comfortable NUTRITIONAL APPEARANCE: overweight HENMT: COMMON NORMALS: normocephalic HEAD & SCALP: normocephalic MOUTH: Normal oral and palatal mucosa present THROAT: posterior oropharynx normal and uvula midline Eye: COMMON NORMALS: Equal, round and reactive pupils present and conjunctivae normal CONJUNCTIVA: Yes conjunctivae normal PUPIL: Yes Equal, round and reactive pupils present Neck/C-Spine: COMMON NORMALS: supple GENERAL: Yes normal visual inspection Resp: COMMON NORMALS: normal respiratory effort, No retractions, No use of accessory muscles and clear to auscultation bilaterally AUSCULTATION: clear to auscultation bilaterally Cardio: COMMON NORMALS: regular rate, regular rhythm, S1 normal heart sound p resent, S2 normal heart sound present, No gallops present (Cardio), No clicks present (Cardio), No murmurs present (Cardio) and Peripheral pulses 2+ throughout RATE: regular rate RHYTHM: regular rhythm HEART SOUNDS: S1 normal heart sound present and S2 normal heart sound present PERIPHERAL PULSES: Peripheral pulses 2+ throughout GI: COMMON NORMALS: Normal to inspection, nondistended, normoactive bowel sounds present, Soft to palpation, non-tender and no masses INSPECTION: Yes central obesity PALPATION: Yes Soft to palpation and No Tenderness to palpation present (GI) : COMMON NORMALS: Yes no CVA tenderness BLADDER/KIDNEY EXAM: Yes no CVA tenderness Back/Pelvis: COMMON NORMALS: no CVA tenderness Extremity: COMMON NORMALS: normal to inspection Neuro: COMMON NORMALS: patient oriented x3 SENSORIUM/ORIENTATION: Yes alert GAIT: Yes Normal gait present Skin: GENERAL SKIN EXAM: dry skin Course Vital Signs: Vital signs: Vital Signs Temperature 98.2 F 03/28/21 09:56 Pulse Rate 97 03/28/21 11:25 Respiratory Rate 16 03/28/21 11:25 Blood Pressure 124/106 03/28/21 11:25 Pulse Oximetry 95 03/28/21 11:25 MDM - Abdominal Pain Lab Data: Attestation: I reviewed the patient's lab results. Labs: Lab Results 03/28/21 03/28/21 Range/Units 10:49 10:49 WBC 12.1 H (4.0-10.0) 10^3/ uL RBC 4.76 (4.1-5.3) 10^6/u L Hgb 14.6 (11.7-16.6) g/dL Hct 45.9 (42.0-52.0) % MCV 96.4 H (80-94) fl MCH 30.7 (28.0-34.0) pg MCHC 31.8 (30.0-36.0) g/dL RDW 14.3 (12.1-15.1) % Plt Count 268 (130-400) 10^3/c mm MPV 9.9 (7.4-10.4) fL Neut % (Auto) 78.0 % Lymph % (Auto) 11.3 % [place] % (Auto) 7.7 % Eos % (Auto) 2.2 % Baso % (Auto) 0.5 % Neut # (Auto) 9.45 H (1.8-7.7) 10^3/u L Lymph # (Auto) 1.4 (0.8-4.8) 10^3/u L [place] # (Auto) 0.9 (0.2-0.9) 10^3/u L Eos # (Auto) 0.3 (0.0-0.8) 10^3/u L Baso # (Auto) 0.1 (0.0-0.1) 10^3/u L Nucleated RBC % (a uto) 0 % Nucleated RBCs # 0.0 /100WBC Sodium 133 L (136-145) mmol/L Potassium 3.8 (3.5-5.1) mmol/L Chloride 98 (98-107) mmol/L Carbon Dioxide 22 (22-29) mmol/L Anion Gap 16.8 (5-19) BUN 7 (6-20) mg/dL Creatinine 0.5 L (0.7-1.2) mg/dL GFR Calculation 172.6 H (90-130) mL/min Glucose 200 H (65-115) mg/dL Calculated Osmolal ity 280 L (285-295) mOsm/k g Calcium 8.9 (8.5-10.5) mg/dL Total Bilirubin 0.8 (0.15-1.2) mg/dL AST 28 (0-40) U/L ALT 30 (0-41) U/L Alkaline Phosphata se 88 (40-130) IU/L Total Protein 7.4 (6.6-8.7) g/dL Albumin 3.9 (3.5-5.2) g/dL Globulin 3.5 (1.3-4.6) g/dL Lipase 29 (13-60) U/L Discharge Plan Discharge Prescriptions: No Action metoprolol tartrate 25 mg tablet 12.5 mg PO BID Qty: 90 RF: 2 nitroglycerin 0.4 mg tablet, sublingual 0.4 mg SUBLINGUAL Q5M PRN (Reason: chest pain) Qty: 25 RF: 3 (DME) pen needle, diabetic 33 gauge x 5/32 needle See Rx Instructions .ROUTE .MEDSUPPLY Qty: 100 RF: 5 famotidine [Pepcid] 20 mg tablet 20 mg PO BID Qty: 60 RF: 2 metformin 500 mg tablet extended release 24 hr 500 mg PO BID RF: 0 lisinopril 20 mg tablet 20 mg PO QAM RF: 0 Aspir-81 81 mg Tablet,Delayed Release (Dr/Ec) 81 mg PO QAM RF: 0 Tylenol Extra Strength 500 mg Tablet 1,000 mg PO Q4H PRN (Reason: Pain) RF: 0 atorvastatin 40 mg tablet 40 mg PO QAM RF: 0 Plavix 75 mg tablet 75 mg PO QAM RF: 0 Zonegran 25 mg capsule 25 mg PO QAM RF: 0 Tricor 145 mg tablet 145 mg PO QAM RF: 0 Sign Out Sign Out Data: Patient Sign Out occurred on 03/28/21 at 12:26. Patient's care was discussed, and care was transferred from to Denver Saini MD. Coding Level of Care Code ED Ironer Hand for Chg Fwd Exam Comprehensive Documented by User: Denver Saini MD 03/28/21 13:04 HPI - Abdominal Pain General: Chief Complaint: Abdominal Pain Stated Complaint: Abdominal Pain Time Seen by Provider: 03/28/21 10:45 PFSH ED PFSH: Medical History Acid reflux disease Controlled diabetes mellitus with hyperglycemia, without long-term current use of insulin Coronary artery disease DM neuropathy, painful Essential (primary) hypertension History of cigarette smoking Mixed hyperlipidemia Surgical History Basal cell carcinoma (BCC) in situ of skin September 2017 on back History of colonoscopy Family History Mother Diabetes Heart disease Father Cancer lung cancer Father Hypertension Many of the family members have high blood pressure Social History Smoking and tobacco status: former smoker Quit status (tobacco): has quit using tobacco Former quit date comment: 03/20/20 Second hand smoke exposure: Yes Smoking risk assessment/counseling performed?: Yes Alcohol intake: never Desire information about alcohol rehabilitation?: No Counseling given: No Desire information about substance/drug rehabilitation?: No Counseling given: No Adopted: No Caregiver/support person: No Lives independently: Yes Household members: spouse Housing: House Marital status: service: No Current occupational status: employed History of recent travel: No Current gender identity: Male Course Vital Signs: Vital signs: Vital Signs Temperature 98.2 F 03/28/21 09:56 Pulse Rate 97 03/28/21 11:25 Respiratory Rate 16 03/28/21 11:25 Blood Pressure 124/106 03/28/21 11:25 Pulse Oximetry 95 03/28/21 11:25 MDM - Abdominal Pain MDM Narrative: Medical decision making narrative: Patient signed out to me by MICHELLE Gonzales. Patient is a 56-year-old who presents with abdominal pain. Was seen by me yesterday and diagnosed with pancreatitis versus duodenitis. Patient was set to be admitted yesterday but left AGAINST MEDICAL ADVICE. Today he returns due to worsening pain. He continues to be hemodynamically stable afebrile nontoxic-appearing. Consistent white count elevation of 12 today. No peritoneal signs. Discussed with hospitalist and they agreed patient would benefit from admission. Patient admitted in stable condition. Further evaluation management per hospitalist team. Lab Data: Labs: Lab Results 03/28/21 03/28/21 Range/Units 10:49 10:49 WBC 12.1 H (4.0-10.0) 10^3/ uL RBC 4.76 (4.1-5.3) 10^6/u L Hgb 14.6 (11.7-16.6) g/dL Hct 45.9 (42.0-52.0) % MCV 96.4 H (80-94) fl MCH 30.7 (28.0-34.0) pg MCHC 31.8 (30.0-36.0) g/dL RDW 14.3 (12.1-15.1) % Plt Count 268 (130-400) 10^3/c mm MPV 9.9 (7.4-10.4) fL Neut % (Auto) 78.0 % Lymph % (Auto) 11.3 % [place] % (Auto) 7.7 % Eos % (Auto) 2.2 % Baso % (Auto) 0.5 % Neut # (Auto) 9.45 H (1.8-7.7) 10^3/u L Lymph # (Auto) 1.4 (0.8-4.8) 10^3/u L [place] # (Auto) 0.9 (0.2-0.9) 10^3/u L Eos # (Auto) 0.3 (0.0-0.8) 10^3/u L Baso # (Auto) 0.1 (0.0-0.1) 10^3/u L Nucleated RBC % (a uto) 0 % Nucleated RBCs # 0.0 /100WBC Sodium 133 L (136-145) mmol/L Potassium 3.8 (3.5-5.1) mmol/L Chloride 98 (98-107) mmol/L Carbon Dioxide 22 (22-29) mmol/L Anion Gap 16.8 (5-19) BUN 7 (6-20) mg/dL Creatinine 0.5 L (0.7-1.2) mg/dL GFR Calculation 172.6 H (90-130) mL/min Glucose 200 H (65-115) mg/dL Calculated Osmolal ity 280 L (285-295) mOsm/k g Calcium 8.9 (8.5-10.5) mg/dL Total Bilirubin 0.8 (0.15-1.2) mg/dL AST 28 (0-40) U/L ALT 30 (0-41) U/L Alkaline Phosphata se 88 (40-130) IU/L Total Protein 7.4 (6.6-8.7) g/dL Albumin 3.9 (3.5-5.2) g/dL Globulin 3.5 (1.3-4.6) g/dL Lipase 29 (13-60) U/L Discharge Plan Discharge Prescriptions: No Action metoprolol tartrate 25 mg tablet 12.5 mg PO BID Qty: 90 RF: 2 nitroglycerin 0.4 mg tablet, sublingual 0.4 mg SUBLINGUAL Q5M PRN (Reason: chest pain) Qty: 25 RF: 3 (DME) pen needle, diabetic 33 gauge x 5/32 needle See Rx Instructions .ROUTE .MEDSUPPLY Qty: 100 RF: 5 famotidine [Pepcid] 20 mg tablet 20 mg PO BID Qty: 60 RF: 2 metformin 500 mg tablet extended release 24 hr 500 mg PO BID RF: 0 lisinopril 20 mg tablet 20 mg PO QAM RF: 0 Aspir-81 81 mg Tablet,Delayed Release (Dr/Ec) 81 mg PO QAM RF: 0 Tylenol Extra Strength 500 mg Tablet 1,000 mg PO Q4H PRN (Reason: Pain) RF: 0 atorvastatin 40 mg tablet 40 mg PO QAM RF: 0 Plavix 75 mg tablet 75 mg PO QAM RF: 0 Zonegran 25 mg capsule 25 mg PO QAM RF: 0 Tricor 145 mg tablet 145 mg PO QAM RF: 0 Sign Out Sign Out Data: Patient Sign Out occurred on 03/28/21 at 12:26. Patient's care was discussed, and care was transferred from to Denver Saini MD. Coding Level of Care Code ED Ironer Hand for Chg Fwd Exam Comprehensive
--- NOTE | 2021-03-28 11:46 | PC.PHAR ---
pt and pts verified pts medications-pts states the pt only takes zonegran 25mg qam ext med history shows rx last filled 01/17/21 90d/s for 25mg q12h-
[2021-03-28 11:52] LABS: Alanine Aminotransferase 30 U/L (0-41); Albumin Level 3.9 g/dL (3.5-5.2); Alkaline Phosphatase 88 IU/L (40-130); Anion Gap 16.8 (5-19); Aspartate Amino Transferase 28 U/L (0-40); Blood Urea Nitrogen 7 mg/dL (6-20); Calcium 8.9 mg/dL (8.5-10.5); Carbon Dioxide 22 mmol/L (22-29); Chloride 98 mmol/L (98-107); Globulin 3.5 g/dL (1.3-4.6); Glomerular Filtration Rate 172.6 mL/min (90-130); Glucose 200 mg/dL (65-115); Lipase 29 U/L (13-60); Osmolality Calculated 280 mOsm/kg (285-295); Potassium 3.8 mmol/L (3.5-5.1); Sodium 133 mmol/L (136-145); Total Bilirubin 0.8 mg/dL (0.15-1.2); Total Protein 7.4 g/dL (6.6-8.7)
[2021-03-28 13:57] LABS: Add Urine Microscopic? NO; Charge for UA Resulting for Rev
[2021-03-28 14:14] LABS: Bilirubin Urine 1+ (Negative); Blood Urine Neg (Negative); Glucose Urine UA 2+ (Normal); Ketones Urine 1+ (Negative); Leukocyte Esterase Urine Negative (Negative); Nitrate Urine Negative (Negative); Protein Urine Neg (Negative); Specific Gravity, Urine 1.025 (1.005-1.030); Urine Appearance Clear (CLEAR); Urine Color Dark Yellow (Yellow); Urobilinogen Urine 4 mg/dL (Negative); pH Urine 5 (5-7)
--- NOTE | 2021-03-28 14:33 | P.HP_ITS ---
Providers/Chief Complaint Primary Care Provider: Christiano Serrato, BALAJIC Chief Complaint: Abdominal Pain History of Present Illness Jose Daniel Forbes is a 56 year old male with past medical history of CAD post PCI in 2020, hypertension, type 2 diabetes mellitus, anxiety, chronic smoker who presented to the ER for second time today in last 2 days complaining of abdominal pain. Patient states pain started on Sunday. Today is Sunday. Pain is localized in the epigastric area with mild radiation to back. Associated with bloating. Also complaining of diarrhea for last 2 days along with nausea but no episodes of vomiting. Diarrhea is watery in nature. Denies any recent travels, sick contacts, anybody else having similar complaints, night emesis, melena. Denies having any similar complaints in the past. Denies any changes in medications recently other than increase in dose of Metformin. Denies any episode of fever, cough, difficulty in breathing, known contact to [facility]-19. Blood work in the ER significant for white count 12,000, sodium of 133, creatinine of 0.5, UA negative for signs of infection, CT abdomen done yesterday as below with lipase of 29. Review of Systems General: Reports: 10 or more systems reviewed and unremarkable except in HPI and below Const: Denies: fever(s), chills, body aches, change in appetite, change in weight, malaise, night sweats, diaphoresis, change in sleep pattern, daytime sleepiness or snoring Eyes: Denies: change in vision, blurry vision, photophobia, eye discomfort or eye discharge ENMT: Denies: throat pain, enlarged tonsils, hoarseness, mouth pain, oral sores, dry mouth, tinnitus, nasal congestion or post nasal drip Card: Denies: chest pain, palpitations, irregular heart rhythm, edema, swelling of feet/ankles, lightheadedness, syncope, pre-syncope, dyspnea on exertion, orthopnea, leg pain with exertion or acrocyanosis Resp: Denies: dyspnea, productive cough, non-productive cough, wheezing, s tridor, pain on inspiration, change in phlegm color, hemoptysis or chest congestion GI: Denies: abdominal pain, nausea, vomiting, hematemesis, coffee ground emesis, dysphagia, heartburn, diarrhea, constipation, bloating, GI cramping, change in bowel habits, pain on defecation, hematochezia or melena : Denies: flank pain, difficulty urinating, dysuria, urinary frequency, urinary urgency, urinary hesitancy, urinary dribbling, difficulty starting urination, change in urine stream, nocturia or hematuria Musc: Denies: neck pain, back pain, extremity pain, joint pain, joint swelling, joint redness, joint stiffness or limited range of motion Neuro: Denies: headache(s), numbness in extremities, weakness in extremities, sensory changes, lack of coordination, difficulty walking, frequent falls, dizziness, vertigo, confusion, Slurred speech present, difficulty communicating thoughts or seizure-like activity Psych: Denies: anxiety, depression, mood swings, panic attacks, hopelessness or irritability Endo: Denies: polyuria, polydipsia, tired all the time, cold intolerance, excessive sweating, flushing or heat intolerance Jackson/Lymph: Denies: easy bruising or easy bleeding All/Imm: Denies: tongue swelling, facial swelling or acute wheezing Medications/Allergies Home Medications Medication Instructions Recorded Confirmed Last Taken Type metoprolol tartrate 25 mg tablet 12.5 mg PO BID #90 tab 07/13/20 03/28/21 03/27/21 Rx nitroglycerin 0.4 mg sublingual 0.4 mg SUBLINGUAL Q5M PRN #25 tab 07/13/20 03/28/21 Unknown Rx tablet pen needle, diabetic 33 gauge x #100 ea 11/14/20 03/28/21 Unknown Rx famotidine 20 mg tablet 20 mg PO BID #60 tab 01/13/21 03/28/21 03/27/21 Rx metformin 500 mg PO BID 03/27/21 03/28/21 03/27/21 History Tricor 145 mg PO QAM 03/28/21 03/28/21 03/27/21 History Zonegran 25 mg PO QAM 03/28/21 03/28/21 Unknown History acetaminophen [Tylenol Extra 1,000 mg PO Q4H PRN 03/28/21 03/28/21 Unknown History Strength] aspirin [Aspir-81] 81 mg PO QAM 03/28/21 03/28/21 03/27/21 History atorvastatin 40 mg PO QAM 03/28/21 03/28/21 03/27/21 History clopidogrel [Plavix] 75 mg PO QAM 03/28/21 03/28/21 03/27/21 History lisinopril 20 mg PO QAM 03/28/21 03/28/21 03/27/21 History Allergies Allergy/AdvReac Type Severity Reaction Status Date / Time sulfamethoxazole Allergy Unknown Unknown Verified 03/28/21 11:47 [From Bactrim] trimethoprim [From Bactrim] Allergy Unknown Unknown Verified 03/28/21 11:47 PFSH Acute PFSH: Medical History (Updated 03/28/21 @ 14:35 by Gonzales Engel MD) Acid reflux disease Controlled diabetes mellitus with hyperglycemia, without long-term current use of insulin Coronary artery disease DM neuropathy, painful Essential (primary) hypertension History of cigarette smoking Mixed hyperlipidemia Surgical History Basal cell carcinoma (BCC) in situ of skin September 2017 on back History of colonoscopy Family History Mother Diabetes Heart disease Father Cancer lung cancer Father Hypertension Many of the family members have high blood pressure Social History Smoking and tobacco status: former smoker Quit status (tobacco): has quit using tobacco Former quit date comment: 03/20/20 Second hand smoke exposure: Yes Smoking risk assessment/counseling performed?: Yes Alcohol intake: never Desire information about alcohol rehabilitation?: No Counseling given: No Desire information about substance/drug rehabilitation?: No Counseling given: No Adopted: No Caregiver/support person: No Lives independently: Yes Household members: spouse Housing: House Marital status: service: No Current occupational status: employed History of recent travel: No Current gender identity: Male Vitals/I&O/Wt Last Vital Signs Temp 97.8 F 03/28/21 14:00 Pulse 92 03/28/21 14:00 Resp 18 03/28/21 14:00 BP 125/77 03/28/21 14:00 Pulse Ox 94 03/28/21 14:00 Weight last 48 hrs Weight 126.099 kg Data : 03/28/21 10:49 03/28/21 10:49 Other Labs: CT abdomen pelvis: March 27: CT/CT abdomen pelvis w con* [id number] IMPRESSION: Mild inflammatory changes are noted in the pancreaticoduodenal groove.Appearance favors acute pancreatitis. No pseudocyst, abscess, vascular compromise or pancreatic necrosis. Consider amylase. Duodenitis is felt less likely. Ultrasound abdomen: March 27: US/US abdomen limited [id number] IMPRESSION: 1. There is diffuse increased echogenicity of the liver, consistent with fatty infiltration. 2. Echogenic areas seen within the gallbladder with posterior shadowing felt to represent gallstones. No wall thickening nor pericholecystic fluid. Evaluation was severely limited due to patient's body habitus. Micro: Microbiology 03/28/21 10:59 Blood Culture - Preliminary Blood SPECIMEN COLLECTED A&P Assessment and plan (1) Pancreatitis: Status: Acute (2) Abdominal pain: Status: Acute (3) Controlled diabetes mellitus with hyperglycemia, without long-term current use of insulin: Status: Chronic Qualifiers: Diabetes mellitus type: type 2 Qualified Code(s): E11.65 - Type 2 diabetes mellitus with hyperglycemia (4) Essential (primary) hypertension: Status: Chronic (5) Mixed hyperlipidemia: Status: Chronic (6) History of cigarette smoking: Status: Acute (7) Anxiety: Status: Acute (8) Coronary artery disease: Status: Acute Qualifiers: Coronary Disease-Associated Artery/Lesion type: [place] artery [place] vs. transplanted heart: [place] heart Associated angina: with unspecified angina Qualified Code(s): I25.119 - Atherosclerotic heart disease of [place] coronary artery with unspecified angina pectoris Additional A&P Information Abdominal pain: Most likely secondary to pancreatitis: CT abdomen pelvis done on March 27 concerning. Abdominal imaging negative for gallstones or biliary duct dilatation. Lipase within normal limits. Check amylase. Conservative treatment for now. Clear liquid diet. Morphine for pain. Zofran as needed. Protonix 40 mg IV twice daily. CT abdomen pelvis also concerning for possible duodenitis. Check stool studies. For now start patient on Zosyn. History of type 2 diabetes mellitus: Insulin sliding scale at moderate dose. Hypertension: Goal blood pressure less than 140/90 mmHg. Continue with home dose of antihypertensive. History of CAD: Post PCI in February 2020. No active chest pain. Check troponin level. Continue with home dose of aspirin, statin, Plavix. For now hold off on TriCor given pancreatitis. Echocardiogram done in 2020 shows an EF of 50 to 55% with diffuse hypokinesia of the septum and anteroseptal segments. History of cigarette smoking: Counseled in detail regarding abstinence because of history of CAD and pancreatitis now. Nicotine patch as needed. Full code. Clear liquid diet Lovenox for DVT prophylaxis. Protonix for PUD prophylaxis. Attestations Medical Necessity Statement*: Patient requires hospitalization for more than 2 midnights for management of abdominal pain secondary to pancreatitis as he is unable to maintain oral intake. Time Spent in Patient Care: Greater than 35 minutes (>than 50% of time spent in counselling and/or direct pt care on unit) . 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 transplanted heart: [place] heart Associated angina: with unspecified angina
[2021-03-28] MEDS: piperacillin-tazobactam 3.375 GM in sodium chloride 0.9% (plus) 50 ML IV ×2 (14:52→23:14)
[2021-03-28 15:08] LABS: Lactic Sepsis W/Reflex 1.2 mmol/L (0.5-2.2)
[2021-03-28 15:10] LABS: Troponin T (5th) Once 9 ng/L (0-15)
[2021-03-28 15:12] LABS: Amylase 39 U/L (28-100); Iron 35 ug/dL (59-158); Total Iron Binding Capacity 291 mcg/dl; Unsaturated Iron Binding 256 ug/dL (112-347)
[2021-03-28] MEDS: sodium chlor 0.9% + KCl 20 mEq 20 MEQ/1,000 ML BAG 75 MEQ IV (16:25)
[2021-03-28] MEDS: enoxaparin 40 mg/0.4 mL Syringe SUBCUT (16:28)
[2021-03-28 17:05] LABS: Glucose Point of Care 175 mg/dL (70-110)
[2021-03-28] MEDS: pantoprazole 40 mg SDV IVP (20:23)
[2021-03-28] MEDS: metoprolol tartrate 25 mg Tablet 12.5 MG PO (20:23)
[2021-03-28 20:31] LABS: Glucose Point of Care 201 mg/dL (70-110)
[2021-03-29] VITALS: BP 104/67; PULSE 88; RESP 20; TEMP 36.6; O2SAT 93
[2021-03-29 04:00] VITALS: BP 133/80; PULSE 87; RESP 18; TEMP 36.7; O2SAT 94
[2021-03-29] MEDS: atorvastatin 40 mg Tablet PO (05:19)
[2021-03-29] MEDS: aspirin 81 mg EC Tablet PO (05:19)
[2021-03-29] MEDS: sodium chlor 0.9% + KCl 20 mEq 20 MEQ/1,000 ML BAG 75 MEQ IV (05:19)
[2021-03-29] MEDS: lisinopril 20 mg Tablet PO (05:19)
[2021-03-29] MEDS: clopidogrel 75 mg Tablet PO (05:19)
[2021-03-29] MEDS: piperacillin-tazobactam 3.375 GM in sodium chloride 0.9% (plus) 50 ML IV (06:23)
[2021-03-29 06:33] LABS: Glucose Point of Care 190 mg/dL (70-110)
[2021-03-29 06:45] LABS: Basophils # 0.1 10^3/uL (0.0-0.1); Basophils % 0.5 %; Eosinophils # 0.3 10^3/uL (0.0-0.8); Eosinophils % 2.6 %; Hematocrit 44.1 % (42.0-52.0); Hemoglobin 14.2 g/dL (11.7-16.6); Lymphocytes # 1.3 10^3/uL (0.8-4.8); Lymphocytes % 13.3 %; Mean Corpuscular HGB Conc 32.2 g/dL (30.0-36.0); Mean Corpuscular Hemoglobin 31.3 pg (28.0-34.0); Mean Corpuscular Volume 97.1 fl (80-94); Monocytes # 0.7 10^3/uL (0.2-0.9); Monocytes % 6.9 %; Neutrophils # 7.56 10^3/uL (1.8-7.7); Neutrophils % 76.3 %; Nucleated Red Blood Cells % 0 %; Platelet Count 281 10^3/cmm (130-400); Red Blood Count 4.54 10^6/uL (4.1-5.3); Red Cell Distribution Width 14.3 % (12.1-15.1); White Blood Count 9.9 10^3/uL (4.0-10.0)
[2021-03-29 07:06] LABS: Alanine Aminotransferase 28 U/L (0-41); Albumin Level 3.7 g/dL (3.5-5.2); Alkaline Phosphatase 80 IU/L (40-130); Anion Gap 14.2 (5-19); Aspartate Amino Transferase 28 U/L (0-40); Blood Urea Nitrogen 8 mg/dL (6-20); Calcium 8.8 mg/dL (8.5-10.5); Carbon Dioxide 23 mmol/L (22-29); Chloride 100 mmol/L (98-107); Creatine Phosphokinase 36 U/L (39-308); Globulin 3.5 g/dL (1.3-4.6); Glomerular Filtration Rate 139.9 mL/min (90-130); Glucose 172 mg/dL (65-115); Magnesium 1.8 mg/dL (1.7-2.3); Osmolality Calculated 278 mOsm/kg (285-295); Phosphorus 2.2 mg/dL (2.5-4.5); Potassium 4.2 mmol/L (3.5-5.1); Sodium 133 mmol/L (136-145); Total Bilirubin 0.5 mg/dL (0.15-1.2); Total Protein 7.2 g/dL (6.6-8.7)
[2021-03-29 07:33] VITALS: BP 120/77; PULSE 89; RESP 18; TEMP 36.6; O2SAT 95
[2021-03-29] MEDS: metoprolol tartrate 25 mg Tablet 12.5 MG PO (08:51)
[2021-03-29] MEDS: pantoprazole 40 mg SDV IVP (08:51)
[2021-03-29 11:47] VITALS: BP 115/77; PULSE 76; RESP 16; TEMP 36.5; O2SAT 93
[2021-03-29 12:06] LABS: Glucose Point of Care 181 mg/dL (70-110)
--- NOTE | 2021-03-29 12:16 | PM.DCS ---
Discharge Providers Date of Admission: 03/28/21 14:30 Date of Discharge: March 29, 2021 Attending Provider at Admission: Gonzales Engel MD Attending Provider at Discharge: Gonzales Engel MD Primary Care Provider: NATALIE Smith Diagnoses at Discharge Discharge Diagnosis (1) Pancreatitis: Status: Acute (2) Abdominal pain: Status: Acute (3) Controlled diabetes mellitus with hyperglycemia, without long-term current use of insulin: Status: Chronic Qualifiers: Diabetes mellitus type: type 2 Qualified Code(s): E11.65 - Type 2 diabetes mellitus with hyperglycemia (4) Essential (primary) hypertension: Status: Chronic (5) Mixed hyperlipidemia: Status: Chronic (6) History of cigarette smoking: Status: Acute (7) Anxiety: Status: Acute (8) Coronary artery disease: Status: Acute Qualifiers: Coronary Disease-Associated Artery/Lesion type: [place] artery [place] vs. transplanted heart: [place] heart Associated angina: with unspecified angina Qualified Code(s): I25.119 - Atherosclerotic heart disease of [place] coronary artery with unspecified angina pectoris Reason for Visit Reason for Visit: Abdominal Pain Hospital Course Hospital Course Jose Daniel Forbes is a 56 year old male with past medical history of CAD post PCI in 2019, hypertension, type 2 diabetes mellitus, anxiety, chronic smoker who presented to the ER for second time today in last 2 days complaining of abdominal pain. Patient states pain started on Sunday. Today is Sunday. Pain is localized in the epigastric area with mild radiation to back. Associated with bloating. Also complaining of diarrhea for last 2 days along with nausea but no episodes of vomiting. Diarrhea is watery in nature. Denies any recent travels, sick contacts, anybody else having similar complaints, night emesis, melena. Denies having any similar complaints in the past. Denies any changes in medications recently other than increase in dose of Metformin. Denies any episode of fever, cough, difficulty in breathing, known contact to COVID-19. Blood work in the ER significant for white count 12,000, sodium of 133, creatinine of 0.5, UA negative for signs of infection, CT abdomen done yesterday as below with lipase of 29. Patient admitted to the hospital for further medical management of abdominal pain secondary to pancreatitis/duodenitis due to severely poor oral intake and requiring pain medication. He was started on IV antibiotics and IV hydration along with clear liquid diet. Patient tolerated the treatment well and has currently been able to tolerate the diet appropriately without having any vomiting. His blood work has resolved as well. He is been discharged hemodynamically stable condition with advised to continue taking ciprofloxacin and Flagyl for the next 5 days, to continue with clear liquid diet for next 1 week followed by soft diet for next 1 week and then to restart his regular diet. He is advised to follow-up with his primary care provider within next 2 weeks. Physical Exam Narrative: EXAM NARRATIVE: General: No acute distress, AO x3 HEENT: PERRLA, pupils bilaterally equal and reactive Chest: Normal vesicular breath sounds, no added sounds, equal good air entry bilaterally CVS: S1-S2 regular, no murmurs, no tachycardia, no gallops, no rubs Abdomen: Soft, nontender, no organomegaly, bowel sounds present Neuro: No focal deficits, no facial deformity, AO x3, power 5/5 in all limbs Discharge Data Data Completed and Pending: Pending at discharge Category Date Time Status Blood Culture Sta t Lab 03/28/21 10:59 Results Clostridioides Di fficile PCR Routin e Lab 03/28/21 14:34 Results Enteric Bacterial Panel by PCR Rout ine Lab 03/28/21 14:34 Results Enteric Parasite Panel by PCR Routi ne Lab 03/28/21 14:34 Results Immunochemical Fe [place] OCB Routine Lab 03/28/21 14:34 Results Lactoferrin Routi ne Lab 03/28/21 14:34 Results Labs from last 24 hours 03/29/21 03/29/21 03/29/21 11:17 06:20 05:59 WBC RBC Hgb Hct MCV MCH MCHC RDW Plt Count MPV Neut % (Auto) Lymph % (Auto) [place] % (Auto) Eos % (Auto) Baso % (Auto) Neut # (Auto) Lymph # (Auto) [place] # (Auto) Eos # (Auto) Baso # (Auto) Nucleated RBC % (a uto) Nucleated RBCs # Sodium 133 L Potassium 4.2 Chloride 100 Carbon Dioxide 23 Anion Gap 14.2 BUN 8 Creatinine 0.6 L GFR Calculation 139.9 H Glucose 172 H POC Glucose 181 H 190 H Calculated Osmolal ity 278 L Lactic Acid Calcium 8.8 Phosphorus 2.2 L Magnesium 1.8 Iron TIBC % Saturation Unsat Iron Binding Total Bilirubin 0.5 AST 28 ALT 28 Alkaline Phosphata se 80 Creatine Kinase 36 L Troponin T Gen 5 n g/L Total Protein 7.2 Albumin 3.7 Globulin 3.5 Amylase Procalcitonin Urine Color Urine Appearance Urine pH Ur Specific Gravit y Urine Protein Urine Glucose (UA) Urine Ketones Urine Blood Urine Nitrate Urine Bilirubin Urine Urobilinogen Ur Leukocyte Jacqueline ase 03/29/21 03/28/21 03/28/21 05:59 20:28 16:52 WBC 9.9 RBC 4.54 Hgb 14.2 Hct 44.1 MCV 97.1 H MCH 31.3 MCHC 32.2 RDW 14.3 Plt Count 281 MPV 10.0 Neut % (Auto) 76.3 Lymph % (Auto) 13.3 [place] % (Auto) 6.9 Eos % (Auto) 2.6 Baso % (Auto) 0.5 Neut # (Auto) 7.56 Lymph # (Auto) 1.3 [place] # (Auto) 0.7 Eos # (Auto) 0.3 Baso # (Auto) 0.1 Nucleated RBC % (a uto) 0 Nucleated RBCs # 0.0 Sodium Potassium Chloride Carbon Dioxide Anion Gap BUN Creatinine GFR Calculation Glucose POC Glucose 201 H 175 H Calculated Osmolal ity Lactic Acid Calcium Phosphorus Magnesium Iron TIBC % Saturation Unsat Iron Binding Total Bilirubin AST ALT Alkaline Phosphata se Creatine Kinase Troponin T Gen 5 n g/L Total Protein Albumin Globulin Amylase Procalcitonin Urine Color Urine Appearance Urine pH Ur Specific Gravit y Urine Protein Urine Glucose (UA) Urine Ketones Urine Blood Urine Nitrate Urine Bilirubin Urine Urobilinogen Ur Leukocyte Jacqueline ase 03/28/21 03/28/21 03/28/21 13:30 10:49 10:49 WBC RBC Hgb Hct MCV MCH MCHC RDW Plt Count MPV Neut % (Auto) Lymph % (Auto) [place] % (Auto) Eos % (Auto) Baso % (Auto) Neut # (Auto) Lymph # (Auto) [place] # (Auto) Eos # (Auto) Baso # (Auto) Nucleated RBC % (a uto) Nucleated RBCs # Sodium Potassium Chloride Carbon Dioxide Anion Gap BUN Creatinine GFR Calculation Glucose POC Glucose Calculated Osmolal ity Lactic Acid 1.2 Calcium Phosphorus Magnesium Iron TIBC % Saturation Unsat Iron Binding Total Bilirubin AST ALT Alkaline Phosphata se Creatine Kinase Troponin T Gen 5 n g/L Total Protein Albumin Globulin Amylase 39 Procalcitonin Urine Color Dark yellow Urine Appearance Clear Urine pH 5 Ur Specific Gravit y 1.025 Urine Protein Neg Urine Glucose (UA) 2+ H Urine Ketones 1+ H Urine Blood Neg Urine Nitrate Negative Urine Bilirubin 1+ H Urine Urobilinogen 4 H Ur Leukocyte Jacqueline ase Negative 03/28/21 03/28/21 10:49 10:49 WBC RBC Hgb Hct MCV MCH MCHC RDW Plt Count MPV Neut % (Auto) Lymph % (Auto) [place] % (Auto) Eos % (Auto) Baso % (Auto) Neut # (Auto) Lymph # (Auto) [place] # (Auto) Eos # (Auto) Baso # (Auto) Nucleated RBC % (a uto) Nucleated RBCs # Sodium Potassium Chloride Carbon Dioxide Anion Gap BUN Creatinine GFR Calculation Glucose POC Glucose Calculated Osmolal ity Lactic Acid Calcium Phosphorus Magnesium Iron 35 L TIBC 291 % Saturation 12.0 L Unsat Iron Binding 256 Total Bilirubin AST ALT Alkaline Phosphata se Creatine Kinase Troponin T Gen 5 n g/L 9 Total Protein Albumin Globulin Amylase Procalcitonin 0.10 Urine Color Urine Appearance Urine pH Ur Specific Gravit y Urine Protein Urine Glucose (UA) Urine Ketones Urine Blood Urine Nitrate Urine Bilirubin Urine Urobilinogen Ur Leukocyte Jacqueline ase Addt'l Data from Hospital Stay: Other Labs: CT abdomen pelvis: March 27: CT/CT abdomen pelvis w con* [id number] IMPRESSION: Mild inflammatory changes are noted in the pancreaticoduodenal groove.Appearance favors acute pancreatitis. No pseudocyst, abscess, vascular compromise or pancreatic necrosis. Consider amylase. Duodenitis is felt less likely. Ultrasound abdomen: March 27: US/US abdomen limited [id number] IMPRESSION: 1. There is diffuse increased echogenicity of the liver, consistent with fatty infiltration. 2. Echogenic areas seen within the gallbladder with posterior shadowing felt to represent gallstones. No wall thickening nor pericholecystic fluid. Evaluation was severely limited due to patient's body habitus. Vitals: Last Vital Signs Temp 97.7 F 03/29/21 11:47 Pulse 76 03/29/21 11:47 Resp 16 03/29/21 11:47 BP 115/77 03/29/21 11:47 Pulse Ox 93 03/29/21 11:47 Discharge Plan Discharge Patient Disposition: Home Condition: Stable Prescriptions: New metronidazole [Flagyl] 500 mg tablet 500 mg PO BID 5 Days Qty: 10 RF: 0 ciprofloxacin HCl [Cipro] 500 mg tablet 500 mg PO Q12H Qty: 10 RF: 0 Continued metoprolol tartrate 25 mg tablet 12.5 mg PO BID Qty: 90 RF: 2 nitroglycerin 0.4 mg tablet, sublingual 0.4 mg SUBLINGUAL Q5M PRN (Reason: chest pain) Qty: 25 RF: 3 (DME) pen needle, diabetic 33 gauge x 5/32 needle See Rx Instructions .ROUTE .MEDSUPPLY Qty: 100 RF: 5 famotidine [Pepcid] 20 mg tablet 20 mg PO BID Qty: 60 RF: 2 metformin 500 mg tablet extended release 24 hr 500 mg PO BID RF: 0 lisinopril 20 mg tablet 20 mg PO QAM RF: 0 Aspir-81 81 mg Tablet,Delayed Release (Dr/Ec) 81 mg PO QAM RF: 0 Tylenol Extra Strength 500 mg Tablet 1,000 mg PO Q4H PRN (Reason: Pain) RF: 0 atorvastatin 40 mg tablet 40 mg PO QAM RF: 0 Plavix 75 mg tablet 75 mg PO QAM RF: 0 Zonegran 25 mg capsule 25 mg PO QAM RF: 0 Tricor 145 mg tablet 145 mg PO QAM RF: 0 Discharge Orders: Discharge Order (Routine); Ordered 03/29/21 Ordered By: Gonzales Engel Discharge Diet: Advance as tolerated and Full LIquid Patient Instructions: Opioid Safety Activity Restrictions/Additional Instructions: Please take full liquid diet at home for now for next 5 days followed by GI soft/brat diet for next 5 days and then advance to your regular diet gradually. Please continue taking ciprofloxacin and Flagyl for next 5 days. Please follow-up with a primary care provider within next 1 week. Discharge Attestations Time Spent in Discharge Care*: greater than 30 min Specific Discharge Activities: educating patient, discussing with pcp/other providers, discussing with watch caser/social workers/dc planners, documenting/other paperwork and evaluating patient/reviewing data Status at Discharge: Cognitive status at discharge: cognitively intact, Behavioral status at discharge: cooperative, Functional status at discharge: independent ambulation Overall status at discharge: patient is back to baseline Quality Metrics Clinical Quality Measures During this hospital stay, did patient experience: None Coding Level of Care Code Acute Chg FW DC note Diagnoses Pancreatitis K85.90 Abdominal pain R10.9 Controlled diabetes mellitus with hyperglycemia, without long-term current use of insulin E11.65 Diabetes mellitus type: type 2 Essential (primary) hypertension I10 Mixed hyperlipidemia E78.2 History of cigarette smoking Z87.891 Anxiety F41.9 Coronary artery disease I25.119 Coronary Disease-Associated Artery/Lesion type: [place] artery [place] vs. transplanted heart: [place] heart Associated angina: with unspecified angina
[2021-03-29] MEDS: ferrous gluconate 324 mg Tablet PO (12:30)
[2021-03-29 13:46] VITALS: BP 115/77; PULSE 76; RESP 16; TEMP 36.5; O2SAT 93
--- NOTE | 2021-03-30 09:09 | PC.SOCIAL ---
discharge follow up call made. patient is continuing with liquid diet. picked up prescriptions yesterday and taking as prescribed. patient has follow up appointment made with Christiano Serrato.
== END 2021-03-29 13:47 | disposition home or self-care (01) | DRG 440 ==
LOC: ER 13:38 → MEDSURG 15:11
PROVIDERS: Physician Assistant; Admitting Provider Student in an Organized Health Care Education/Training Program; Emergency Provider Emergency Medicine; PCP Nurse Practitioner; Visit Provider Student in an Organized Health Care Education/Training Program
DX: K85.90 Acute pancreatitis without necrosis or infection, unspecified (principal); K29.80 Duodenitis without bleeding; E11.65 Type 2 diabetes mellitus with hyperglycemia; I10 Essential (primary) hypertension; E78.5 Hyperlipidemia, unspecified; I25.119 Atherosclerotic heart disease of native coronary artery with unspecified angina pectoris; F41.9 Anxiety disorder, unspecified; E11.40 Type 2 diabetes mellitus with diabetic neuropathy, unspecified; E78.2 Mixed hyperlipidemia; K21.9 Gastro-esophageal reflux disease without esophagitis; Z87.891 Personal history of nicotine dependence; Z85.828 Personal history of other malignant neoplasm of skin; Z79.84 Long term (current) use of oral hypoglycemic drugs; Z79.82 Long term (current) use of aspirin; Z79.02 Long term (current) use of antithrombotics/antiplatelets; Z95.5 Presence of coronary angioplasty implant and graft
CPT/HCPCS: 36415; 36416; 80053; 81003; 82150; 82274; 82550; 82962; 83540; 83550; 83605; 83630; 83690; 83735; 84100; 84145; 84484; 85025; 87040; 87493; 87506; 94664; 96372; 96374; 96375; 99285; C9113; J1650; J1815; J2270; J2405; J2543

== ENCOUNTER → 2021-04-06 16:09 | Outpatient (BNVA) | payer MEDICAID, SELFPAY | PROVIDERS: PCP Nurse Practitioner; Visit Provider Nurse Practitioner | DX: E11.65 Type 2 diabetes mellitus with hyperglycemia (principal); Z79.4 Long term (current) use of insulin; K85.90 Acute pancreatitis without necrosis or infection, unspecified | CPT/HCPCS: 80053; 80061; 83036; 85025 ==

== ENCOUNTER → 2021-10-11 08:44 | Outpatient (BNVA) | payer MEDICAID, SELFPAY | PROVIDERS: PCP Nurse Practitioner; Visit Provider Nurse Practitioner | DX: E11.65 Type 2 diabetes mellitus with hyperglycemia (principal); E11.40 Type 2 diabetes mellitus with diabetic neuropathy, unspecified; K21.9 Gastro-esophageal reflux disease without esophagitis; Z79.4 Long term (current) use of insulin | CPT/HCPCS: 80053; 80061; 83036; 83721; 84443 ==

== ENCOUNTER → 2022-01-30 08:38 | Outpatient (BNVA) | payer MEDICAID, SELFPAY | PROVIDERS: PCP Nurse Practitioner; Visit Provider Nurse Practitioner | DX: K21.9 Gastro-esophageal reflux disease without esophagitis (principal); E11.65 Type 2 diabetes mellitus with hyperglycemia; Z79.4 Long term (current) use of insulin; I10 Essential (primary) hypertension; E78.1 Pure hyperglyceridemia; E11.40 Type 2 diabetes mellitus with diabetic neuropathy, unspecified; L13.9 Bullous disorder, unspecified | CPT/HCPCS: 80053; 83036; 83540 ==

== ENCOUNTER → 2022-02-02 12:58 | Outpatient (BNVA) | payer MEDICAID, SELFPAY | PROVIDERS: PCP Nurse Practitioner; Visit Provider Nurse Practitioner Family | DX: I25.119 Atherosclerotic heart disease of native coronary artery with unspecified angina pectoris (principal); I10 Essential (primary) hypertension; Z87.891 Personal history of nicotine dependence | CPT/HCPCS: 99213; 99214 ==

== ENCOUNTER 2022-03-26 01:31 | Inpatient (IN) | payer MEDICAID, SELFPAY ==
[2022-03-26] VITALS (10 sets, daily range): BP systolic 80–113; BP diastolic 45–79; PULSE 77–111; RESP 16–20; TEMP 36.4–36.7; O2SAT 94–97; BMI 37.3; BMI 37.5
[2022-03-26 02:49] LABS: Basophils % 0.2 %; Eosinophils % 0.1 %; Hematocrit 44.8 % (42.0-52.0); Hemoglobin 14.7 g/dL (11.7-16.6); Lymphocytes # 0.8 10^3/uL (0.8-4.8); Lymphocytes % 4.7 %; Mean Corpuscular HGB Conc 32.8 g/dL (30.0-36.0); Mean Corpuscular Hemoglobin 31.7 pg (28.0-34.0); Mean Corpuscular Volume 96.6 fl (80-94); Mean Platelet Volume 10.2 fL (7.4-10.4); Monocytes # 0.6 10^3/uL (0.2-0.9); Monocytes % 3.6 %; Neutrophils # 15.33 10^3/uL (1.8-7.7); Neutrophils % 90.8 %; Nucleated Red Blood Cells % 0 %; Platelet Count 247 10^3/cmm (130-400); Red Blood Count 4.64 10^6/uL (4.1-5.3); Red Cell Distribution Width 14.8 % (12.1-15.1); White Blood Count 16.9 10^3/uL (4.0-10.0)
--- NOTE | 2022-03-26 02:54 | ECG_ITS ---
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 Measurements Intervals Bud Rate: 108 P: 65 NM: 177 QRS: 74 QRSD: 86 T: 48 QT: 320 QTc: 429 Interpretive Statements SINUS TACHYCARDIA NONSPECIFIC T-WAVE ABNORMALITY Compared to ECG 03/27/2021 11:43:27 Sinus rhythm no longer present T-wave abnormality still present Electronically Signed On 03-26-2022 13:04:27 CDT by Beatriz Villa M.D. [email or web address]
[2022-03-26] MEDS: sodium chloride 0.9% 1,000 ML 999 ML IV ×3 (03:08→09:23)
[2022-03-26 03:14] LABS: Lactate (Lactic Acid level) 3.3 mmol/L (0.5-2.2)
[2022-03-26 03:15] LABS: Albumin Level 3.6 g/dL (3.5-5.2); Alkaline Phosphatase 76 U/L (40-130); Anion Gap 16.7 (5-19); Aspartate Amino Transferase 25 U/L (0-40); Blood Urea Nitrogen 22 mg/dL (6-20); Calcium 8.3 mg/dL (8.5-10.5); Carbon Dioxide 20 mmol/L (22-29); Chloride 102 mmol/L (98-107); Globulin 2.9 g/dL (1.3-4.6); Glomerular Filtration Rate 69.2 mL/min (90-130); Glucose 194 mg/dL (65-115); Osmolality Calculated 289 mOsm/kg (285-295); Potassium 3.7 mmol/L (3.5-5.1); Sodium 135 mmol/L (136-145); Total Bilirubin 0.4 mg/dL (0.15-1.2); Total Protein 6.5 g/dL (6.6-8.7)
--- NOTE | 2022-03-26 03:19 | XRR_ITS ---
PROCEDURE INFORMATION: Exam: XR Chest Exam date and time: 03/26/2022 5:15 AM Age: 57 years old Clinical indication: Shortness of breath and other: Hypotension; Additional info: Hypotension, leukocytosis TECHNIQUE: Imaging protocol: Radiologic exam of the chest. Views: 1 view. COMPARISON: CR XR chest 1V portable [id number] 03/20/2020 2:03 PM FINDINGS: Lungs: Subtle increased interstitial opacities are present bilaterally similar to that seen 03/20/2020, findings that may represent mild recurrence interstitial pneumonitis versus mild pulmonary fibrosis. Pleural spaces: Unremarkable. No pleural effusion. No pneumothorax. Heart/Mediastinum: Unremarkable. No cardiomegaly. Bones/joints: Unremarkable. XR/XR chest 1V portable [id number] IMPRESSION: Subtle increased interstitial opacities similar to that present 03/20/2020 may represent recurrence bilateral interstitial pneumonitis although this could represent chronic pulmonary fibrosis.
[2022-03-26 03:43] LABS: Alanine Aminotransferase 28 U/L (0-41)
[2022-03-26 03:50] LABS: Add Urine Microscopic? YES; Bilirubin Urine 1+ (Negative); Blood Urine Neg (Negative); Glucose Urine UA Norm (Normal); Ketones Urine Negative (Negative); Leukocyte Esterase Urine Negative (Negative); Nitrate Urine Negative (Negative); Protein Urine 1+ (Negative); Urine Appearance SL Hazy (CLEAR); Urine Color Amber (Yellow); Urobilinogen Urine 1 mg/dL (Negative); pH Urine 5 (5-7)
[2022-03-26 03:56] LABS: Bacteria Urine TRACE /hpf; Mucus Urine 2+ /hpf; RBC Urine 0-4 /hpf (0-2); Squamous Epithelial Cell Urine 0-4 /hpf (0-5)
[2022-03-26 03:57] LABS: Amorphous Sediment Urine TRACE /hpf; Fine Granular Casts Urine 0-4 /lpf; Hyaline Casts Urine 0-4 /lpf
[2022-03-26 03:58] LABS: Add Urine Culture? No
[2022-03-26] MEDS: cefTRIAXone 2,000 MG in sodium chloride 0.9% (plus) 50 ML 100 MG IV (05:16)
--- NOTE | 2022-03-26 06:43 | P.HP_ITS ---
Providers/Chief Complaint Admitting Physician: Zoe Shirley MD Primary Care Provider: MAURA SmithP-C Chief Complaint: LOW BLOOD PRESSURE History of Present Illness Jose Daniel Forbes is a 57 year old male has history of established coronary disease, diabetes, hypertension presented to the hospital with chief complaint of not feeling well. 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 Associated symptoms were 1 episode of emesis, itchiness. He has not noticed any skin rash however endorsing multiple tick bites. Of note for last 5 months he has been experiencing multiple boils eruptions in the skin fold especially armpits and groin area, he started using baby powder which made things worse and now he is using cornstarch In the ER he was diagnosed with hypertension, sepsis, related to pneumonia c omponent of UTI I will give him septic bolus Start him on ceftriaxone and azithromycin Check TSH, cortisol and given high-dose stress steroids dose Review of Systems Const: Reports: chills, body aches and fatigue Eyes: Denies: change in vision ENMT: Denies: throat pain Card: Denies: chest pain Resp: Denies: dyspnea GI: Reports: nausea : Denies: flank pain Musc: Denies: neck pain Skin/Breast: Reports: new lesions and lesions Neuro: Denies: headache(s) Psych: Reports: anxiety Endo: Denies: polyuria Jackson/Lymph: Denies: easy bruising All/Imm: Denies: urticaria Medications/Allergies Home Medications Medication Instructions Recorded Confirmed Last Taken Type nitroglycerin 0.4 mg sublingual 0.4 mg sublingual Q5M PRN chest 07/13/20 02/02/22 Unknown Rx tablet pain #25 tabs acetaminophen 500 mg tablet 1,000 mg PO Q4H PRN Pain 03/28/21 02/02/22 Unknown History (Tylenol Extra Strength) aspirin 81 mg tablet,delayed 81 mg PO QAM 03/28/21 02/02/22 03/27/21 History release clopidogrel 75 mg tablet (Plavix) 75 mg PO QAM #90 tabs 07/11/21 02/02/22 Unknown Rx metoprolol tartrate 25 mg tablet 12.5 mg PO BID #90 tabs 07/11/21 02/02/22 Un known Rx pen needle, diabetic 33 gauge x #100 ea 10/11/21 02/02/22 Unknown Rx famotidine 20 mg tablet (Pepcid) 20 mg PO BID #180 tabs 01/30/22 02/02/22 Unknown Rx insulin detemir U-100 100 unit/mL 25 unit (0.25 mL) SUBCUT DAILY #15 01/30/22 02/02/22 Unknown Rx (3 mL) subcutaneous pen (Levemir mL FlexTouch U-100 Insulin) liraglutide 0.6 mg/0.1 mL (18 mg/3 0.6 mg (0.1 mL) SUBCUT DAILY #9 mL 01/30/22 02/02/22 Unknown Rx mL) subcutaneous pen injector (Victoza 3-Prieto) lisinopril 20 mg tablet 20 mg PO DAILY #90 tabs 01/30/22 02/02/22 Unknown Rx metformin 500 mg tablet,extended 500 mg PO BID #180 tabs 01/30/22 02/02/22 Unknown Rx release 24 hr mupirocin 2 % topical ointment 1 applic topical BID #22 grams 01/30/22 02/02/22 Unknown Rx rosuvastatin 40 mg tablet (Crestor) 40 mg PO DAILY #90 tabs 01/30/22 02/02/22 Unknown Rx zonisamide 100 mg capsule 100 mg PO DAILY #90 caps 01/30/22 02/02/22 Unknown Rx Allergies Allergy/AdvReac Type Severity Reaction Status Date / Time sulfamethoxazole Allergy Unknown Unknown Verified 02/02/22 23:27 [From Bactrim] trimethoprim [From Bactrim] Allergy Unknown Unknown Verified 02/02/22 23:27 PFSH Acute PFSH: Medical History Acid reflux disease Anxiety Controlled diabetes mellitus with hyperglycemia, without long-term current use of insulin Coronary artery disease Diabetes mellitus with hyperglycemia, with long-term current use of insulin DM neuropathy, painful Essential (primary) hypertension History of cigarette smoking Mixed hyperlipidemia Surgical History Basal cell carcinoma (BCC) in situ of skin September 2017 on back History of colonoscopy Family History Mother Diabetes Heart disease Father Cancer lung cancer Father Hypertension Many of the family members have high blood pressure Social History Smoking and tobacco status: former smoker Quit status (tobacco): has quit using tobacco Former quit date comment: 03/20/20 Second hand smoke exposure: Yes Smoking risk assessment/counseling performed?: Yes Alcohol intake: never Desire information about alcohol rehabilitation?: No Counseling given: No Desire information about substance/drug rehabilitation?: No Counseling given: No Adopted: No Caregiver/support person: No Lives independently: Yes Household members: spouse Housing: House Marital status: service: No Current occupational status: employed History of recent travel: No Current gender identity: Male Vitals/I&O/Wt Last Vital Signs Temp 97.8 F 03/26/22 06:37 Pulse 102 H 03/26/22 06:37 Resp 16 03/26/22 06:37 BP 90/52 03/26/22 06:37 Pulse Ox 95 03/26/22 06:37 O2 Del Method 03/26/22 06:37 03/25/22 03/25/22 03/26/22 14:59 22:59 06:59 Intake Total 1999 Balance 1999 Weight last 48 hrs Weight 121.563 kg Physical Exam Narrative: Nonpurulent cellulitis Hidradenitis suppurativa Both axilla are showing signs of chronic infections Groin has intertrigo Nonpurulent cellulitis Multiple skin openings Abdomen soft, distended S1, S2 Currently on room air Awake and alert Nonfocal neuro exam EOMI, PERRLA Data : 03/26/22 02:34 03/26/22 02:34 Micro: Microbiology 03/26/22 05:05 Blood Culture - Preliminary Blood SPECIMEN COLLECTED 03/26/22 05:04 Blood Culture - Preliminary Blood SPECIMEN COLLECTED A&P Assessment and plan (1) Coronary artery disease: Status: Acute Qualifiers: Coronary Disease-Associated Artery/Lesion type: [place] artery [place] vs. transplanted heart: osage heart Associated angina: with unspecified angina Qualified Code(s): I25.119 - Atherosclerotic heart disease of [place] coronary artery with unspecified angina pectoris (2) Diabetes mellitus with hyperglycemia, with long-term current use of insulin: Status: Chronic Qualifiers: Diabetes mellitus type: type 2 Qualified Code(s): E11.65 - Type 2 diabetes mellitus with hyperglycemia; Z79.4 - skilled nursing (current) use of insulin (3) Sepsis: Status: Acute (4) Hidradenitis suppurativa: Status: Acute (5) Hypotension: Status: Acute (6) Cellulitis: Status: Acute Plan Sepsis related to cellulitis Interstitial edema on chest x-ray Clinically patient has mild congestive heart failure signs Currently on room air No acute need of diuretics secondary to low blood pressure I will give him septic bolus Start vancomycin and Zosyn Patient has been experiencing multiple tick bites as well, no fever or skin rash He is a diabetic Hidradenitis suppurativa Nonpurulent cellulitis No signs of Tavo's gangrene He will need dermatology follow-up appointment as well Check cortisol, TSH We will give him septic bolus Criteria met with tachypnea tachycardia leukocytosis and high lactic acid He also takes metformin at home his creatinine is not normal, highly doubt metformin toxicity Normal anion gap metabolic acidosis Type 2 diabetes Consistent carb diet, Full code DVT prophylaxis Lovenox Attestations Medical Necessity Statement*: Anticipating more than 2 midnights for management of sepsis Time Spent in Patient Care: 40 Coding Level of Care Code Acute 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 transplanted heart: [place] heart Associated angina: with unspecified angina Diabetes mellitus with hyperglycemia, with long-term current use of insulin E11.65; Z79.4 Diabetes mellitus type: type 2 Sepsis A41.9 Hidradenitis suppurativa L73.2 Hypotension I95.9 Cellulitis L03.90
[2022-03-26 07:48] LABS: Procalcitonin 0.15 ng/mL (0-0.5)
--- NOTE | 2022-03-26 08:10 | USCV_ITS ---
Jose Daniel Forbes Age: 57 Gender: M : 1965 Exam Date: 03/26/2022 09:38 Ordering Phys: Zoe Shirley MD Technologist: Radha Borjas Exam Location: [facility] [place] Indication: CHF admitted for Sepsis BP: 90 / 52 HR: 86 Rhythm: Sinus Technical Quality: Adequate MEASUREMENTS (Male / Female) Normal Values 2D ECHO LV Diastolic Diameter PLAX 5.3 cm 4.2 - 5.9 / 3.9 - 5.3 cm LV Systolic Diameter PLAX 3.3 cm LV Chamber Size 4.8 cm IVS Diastolic Thickness 0.8 cm 0.6 - 1.0 / 0.6 - 0.9 cm IVS Systolic Thickness 1.4 cm LVPW Diastolic Thickness 1.5 cm 0.6 - 1.0 / 0.6 - 0.9 cm LVPW Systolic Thickness 2.0 cm RV Chamber Size 3.3 cm LVOT Diameter 2.0 cm LV Ejection Fraction 2D Teich 67.0 % LV Ejection Fraction MOD 2C 78.1 % LV Ejection Fraction 2C AL 78.4 % LA Diameter 3.7 cm LA Width 3.4 cm LA Height 4.2 cm RA Width 3.4 cm RA Height 4.3 cm Aorta at Sinotubular Diameter 2.8 cm M-MODE Aortic Annulus Diameter 3.5 cm LA Ao Ratio MM 1.1 MV E Point Septal Separation 0.8 cm DOPPLER AV Peak Velocity 158.5 cm/s LVOT Peak Velocity 92.8 cm/s AV Area Cont Eq vti 1.6 cm squared AV Area Cont Eq pk 1.8 cm squared MV Area PHT 4.0 cm squared Mitral E to A Ratio 1.0 MV E' Velocity 81.0 cm/s Mitral E to LV E' Septal Ratio 11.1 TR Peak Velocity 102.9 cm/s TR Peak Gradient 4.2 mmHg TR Mean Velocity 85.2 cm/s TR Mean Gradient 3.4 mmHg TR Velocity Time Integral 25.4 cm Right Atrial Pressure 8.0 mmHg Pulmonary Artery Systolic Pressu 12.2 mmHg RV Acceleration Time 0.1 s RV Ejection Time 0.3 s RV AcT/ET 0.5 FINDINGS Left Ventricle Normal left ventricular size, systolic function and wall thickness, with no regional wall motion abnormalities. Left ventricular ejection fraction is estimated at 65- 70 %. Normal diastolic function. Right Ventricle Normal right ventricular size and systolic function. Right ventricular systolic pressure 12.2 mmHg. Right Atrium Normal right atrial size. Left Atrium Normal left atrial size. Mitral Valve Structurally normal mitral valve. No mitral valve stenosis. No mitral valve regurgitation. Aortic Valve Mildly thickened trileaflet aortic valve. No aortic valve stenosis. No aortic valve regurgitation. Tricuspid Valve Structurally normal tricuspid valve. Trace tricuspid valve regurgitation. Pulmonic Valve Pulmonic valve not well visualized. No pulmonary valve stenosis. No significant pulmonary valve regurgitation. Pericardium No pericardial effusion. Prominent epicardial fat. Aorta Normal size aortic root and proximal ascending aorta. IVC Inferior vena cava not visualized. CONCLUSIONS 1. Normal left ventricular size, systolic function and wall thickness, with no regional wall motion abnormalities. Left ventricular ejection fraction is estimated at 65-70 %. Normal diastolic function. 2. Normal right ventricular size and systolic function. 3. No significant valvular abnormality. 4. Normal pulmonary artery pressure. 5. When compared to prior study dated 03/21/2020, left ventricle systolic function seems to have improved. Beatriz Villa MD (Electronically Signed) Final Date: 26 March 2022 13:33 S
[2022-03-26 08:15] LABS: Adenovirus Not Detected (NOT DETECT); Chlamydia Pneumoniae Not Detected (NOT DETECT); Coronavirus 229E,HKU1,NL63,OC4 Not Detected (NOT DETECT); Human Metapneumovirus Not Detected (NOT DETECT); Human Rhinovirus/Enterovirus Not Detected (NOT DETECT); Influenza A Not Detected (NOT DETECT); Influenza A H1 Not Detected (NOT DETECT); Influenza A H1-2009 Not Detected (NOT DETECT); Influenza A H3 Not Detected (NOT DETECT); Influenza B Not Detected (NOT DETECT); Mycoplasma Pneumoniae Not Detected (NOT DETECT); Parainfluenza Virus Type 1 Not Detected (NOT DETECT); Parainfluenza Virus Type 2 Not Detected (NOT DETECT); Parainfluenza Virus Type 3 Not Detected (NOT DETECT); Parainfluenza Virus Type 4 Not Detected (NOT DETECT); Respiratory Syncytial Virus A Not Detected (NOT DETECT); Respiratory Syncytial Virus B Not Detected (NOT DETECT); SARS-COV-2 Detected (NOT DETECT)
[2022-03-26] MEDS: hydrocortisone 100 mg/2 mL SDV IVP (09:21)
[2022-03-26] MEDS: sennosides-docusate Tablet 1 TAB PO (09:22)
[2022-03-26 09:23] LABS: Glucose Point of Care 190 mg/dL (70-110)
[2022-03-26] MEDS: enoxaparin 40 mg/0.4 mL Syringe SUBCUT (09:24)
[2022-03-26] MEDS: insulin lispro 100 unit/1 mL SUBCUT ×3 (09:28→17:45)
[2022-03-26 09:33] LABS: Cortisol Random 39.97 ug/dL (2.47-19.5)
[2022-03-26 10:05] LABS: Creatine Phosphokinase 85 U/L (39-308); Thyroid Stimulating Hormone 4.68 uIU/mL (0.27-4.20); Vitamin B12 276 pg/mL (232-1245)
[2022-03-26 10:15] LABS: Lactate (Lactic Acid level) 2.4 mmol/L (0.5-2.2)
[2022-03-26 10:16] LABS: Erythrocyte Sedimentation Rate 13 mm/hr (0-10)
[2022-03-26] MEDS: chlorhexidine gluconate 4% Btl 118 mL 1 APPLIC TOPICAL (10:45)
[2022-03-26] MEDS: sodium chloride 0.9% 1,000 ML 75 ML IV (10:46)
[2022-03-26] MEDS: vancomycin 1,500 MG/300 ML PIGGYBACK 200 MG IV ×2 (10:47→22:04)
[2022-03-26] MEDS: piperacillin-tazobactam 3.375 GM in sodium chloride 0.9% (plus) 50 ML IV ×2 (10:54→17:45)
--- NOTE | 2022-03-26 10:57 | USR_ITS ---
PROCEDURE INFORMATION: Exam: US Unlisted Ultrasound Procedure Exam date and time: 03/26/2022 12:07 PM Age: 57 years old Clinical indication: Symptoms: PT has 2 areas: #1 is very upper thigh and is draining a greenish yellow material. #2 is in lt ax. It is draining a blooding fluid; Additional info: R upper inner thigh assess for abscess. And lt ax. PT directed to both areas TECHNIQUE: Imaging protocol: Unlisted ultrasound procedure (eg, diagnostic, interventional). COMPARISON: No relevant prior studies available. FINDINGS: Procedural imaging: Heterogeneous collection in the soft tissues of the left axilla is contiguous with the skin surface and measures 2.2 x 0.9 by 4.0 cm. No internal vascularity. Heterogeneous collection in the soft tissues of the right upper thigh measures 4.4 x 0.6 by 3.4 cm and is contiguous with the defect in the skin surface. No internal vascularity. US/US soft tissue/extremity [id number] IMPRESSION: There are heterogeneous collections in the soft tissues of the right upper thigh and left axilla, consistent with abscess formations.
[2022-03-26 12:07] LABS: Glucose Point of Care 227 mg/dL (70-110)
--- NOTE | 2022-03-26 15:33 | P.PN_ITS ---
Subjective Subjective: He is overall feeling better. His blood pressure has been improving with fluid challenge, with holding his medications. He tells me he has been having a bit of sore throat, some dry heaving. Denies shortness of breath. Minimal cough. Denies diarrhea. No chest pain. He tells me he has had recurrent cystic infections in his axillae, more recently with some cysts in the left axilla. He also states has had about 4-month history of persistent area of swelling, intermittent purulent drainage in the upper inner right thigh. Vitals/I&O/Wt Last Vital Signs Temp 98.0 F 03/26/22 12:00 Pulse 87 03/26/22 14:17 Resp 18 03/26/22 14:17 BP 111/79 03/26/22 12:00 Pulse Ox 95 03/26/22 14:17 O2 Del Method 03/26/22 14:17 03/26/22 03/26/22 03/26/22 06:59 14:59 22:59 Intake Total 2049 1660 / 1660 Balance 2049 1660 / 1660 Weight last 48 hrs Weight 121.563 kg Physical Exam Const: COMMON NORMALS: patient oriented x3 and alert GENERAL APPEARANCE: cooperative ORIENTATION/CONSCIOUSNESS: Yes awake HENMT: COMMON NORMALS: oropharynx normal Neck/C-Spine: COMMON NORMALS: no JVD Resp: COMMON NORMALS: normal respiratory effort and clear to auscultation bilaterally AUSCULTATION: clear to auscultation bilaterally Cardio: COMMON NORMALS: no JVD, regular rhythm, S1 normal heart sound present, S2 normal heart sound present and No murmurs present (Cardio) RHYTHM: regular rhythm HEART SOUNDS: S1 normal heart sound present and S2 normal heart sound present GI: COMMON NORMALS: Normal to inspection, nondistended, normoactive bowel sounds present, Soft to palpation and non-tender PALPATION: Yes Soft to palpation Extremity: COMMON NORMALS: no joint enlargement and no pedal edema Neuro: COMMON NORMALS: patient oriented x3 and moves all extremities SENSORIUM/ORIENTATION: Yes alert Skin: OTHER: Cystic lesion abscess, with purulent drainage and compression on right inner upper thigh. Some chronic wounds following prior cystic lesions in the left axilla, small amount of swelling, without drainage. Data : 03/26/22 02:34 03/26/22 02:34 Micro: Microbiology 03/26/22 05:05 Blood Culture - Preliminary Blood SPECIMEN COLLECTED 03/26/22 05:04 Blood Culture - Preliminary Blood SPECIMEN COLLECTED A&P Assessment and plan (1) Hypotension: Improving with fluid challenge. With holding his medications. Not entirely clear cause, but suspected multifactorial with combination of antihypertensive, possibly with some autonomic dysfunction secondary to COVID infection, as well as possibly some mild hypokalemia with poor oral intake with some dry heaving recently, although overall appetite has been good. Less likely sepsis, septic shock secondary to other infection COVID, other infection, abscesses, UTI. Continue to hold antihypertensives. Continue Fischer antibiotic coverage for now vancomycin, Zosyn. Obtained ultrasound soft tissue to closer assess abscesses. Follow-up urine culture. COVID-19 otherwise nonsevere. Continue to manage expectantly. Status: Acute (2) Skin abscess: Purulent drainage via small opening on compression of cystic lesion with some swelling in her upper right thigh. He reports persistent swelling with intermittent pus drainage over the last 4 months or so. Soft tissue ultrasound with finding of abscess there as well as left axilla. Appreciate surgical evaluation of the sites for possible I&D. Will need follow-up as well. Collect culture. Continue Vanco and Zosyn. Status: Acute (3) Coronary artery disease: Status: Acute Qualifiers: Coronary Disease-Associated Artery/Lesion type: [place] artery [place] vs. 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 Status: Acute Attestations Medical Necessity Statement*: Continue admission for assessment of management of hypotension, cellulitis with abscess, COVID-19, and a gentleman with diabetes. Coding Level of Care Code Acute Glaucoma Specialist for [facility] Diagnoses Hypotension I95.9 Skin abscess L02.91 Coronary artery disease I25.119 Coronary Disease-Associated Artery/Lesion type: [place] artery [place] vs. transplanted heart: [place] heart Associated angina: with unspecified angina Diabetes mellitus with hyperglycemia, with long-term current use of insulin E11.65; Z79.4 Diabetes mellitus type: type 2 Sepsis A41.9 Hidradenitis suppurativa L73.2 Cellulitis L03.90
--- NOTE | 2022-03-26 15:34 | PM.CONSULT ---
Providers/Reason For Consult Consulting Physician/Specialty*: Miki Roberts MD Reason for Consult*: Cellulitis Requesting Physician: Dr. Dyer Attending Physician: Jaime Dyer Primary Care Provider: NATALIE Smith History of Present Illness History of Present Illness Mr. Jose Daniel Forbes is a pleasant 57 year old male with history of obesity and multiple associated medical comorbidities in the form of coronary artery disease, diabetes, hypertension as he presented recently to the ER by not feeling well patient was tested for COVID and was found to be positive, he was hypotensive and it seems that he was dehydrated and responded well to IV fluid resuscitation. 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 Patient reports that his right groin has been draining minimal purulent discharge for the past 5-month consistent with a chronic hidradenitis suppurativa. Ultrasound soft tissue did show There are heterogeneous collections in the soft tissues of the right upper thigh and left axilla, consistent with abscess formations. ? Currently no signs of sepsis, general surgery was consulted for further evaluation. Review of Systems General: Reports: 10 or more systems reviewed and unremarkable except in HPI and below Medications/Allergies Home Medications Medication Instructions Recorded Confirmed Last Taken Type nitroglycerin 0.4 mg sublingual 0.4 mg sublingual Q5M PRN chest 07/13/20 03/26/22 Unknown Rx tablet pain #25 tabs acetaminophen 500 mg tablet 1,000 mg PO Q4H PRN Pain 03/28/21 03/26/22 Unknown History (Tylenol Extra Strength) aspirin 81 mg tablet,delayed 81 mg PO QAM 03/28/21 03/26/22 03/27/21 History release clopidogrel 75 mg tablet (Plavix) 75 mg PO QAM #90 tabs 07/11/21 03/26/22 Unknown Rx metoprolol tartrate 25 mg tablet 12.5 mg PO BID #90 tabs 07/11/21 03/26/22 Unknown Rx pen needle, diabetic 33 gauge x #100 ea 10/11/21 03/26/22 Unknown Rx 5/32 famotidine 20 mg tablet (Pepcid) 20 mg PO BID #180 tabs 01/30/22 03/26/22 Unknown Rx insulin detemir U-100 100 unit/mL 25 unit (0.25 mL) SUBCUT DAILY #15 01/30/22 03/26/22 Unknown Rx (3 mL) subcutaneous pen (Levemir mL FlexTouch U-100 Insulin) liraglutide 0.6 mg/0.1 mL (18 mg/3 0.6 mg (0.1 mL) SUBCUT DAILY #9 mL 01/30/22 03/26/22 Unknown Rx mL) subcutaneous pen injector (Victoza 3-Prieto) lisinopril 20 mg tablet 20 mg PO DAILY #90 tabs 01/30/22 03/26/22 Unknown Rx metformin 500 mg tablet,extended 500 mg PO BID #180 tabs 01/30/22 03/26/22 Unknown Rx release 24 hr mupirocin 2 % topical ointment 1 applic topical BID #22 grams 01/30/22 03/26/22 Unknown Rx rosuvastatin 40 mg tablet (Crestor) 40 mg PO DAILY #90 tabs 01/30/22 03/26/22 Unknown Rx zonisamide 100 mg capsule 100 mg PO DAILY #90 caps 01/30/22 03/26/22 Unknown Rx Allergies Allergy/AdvReac Type Severity Reaction Status Date / Time sulfamethoxazole Allergy Unknown Unknown Verified 03/27/22 07:30 [From Bactrim] trimethoprim [From Bactrim] Allergy Unknown Unknown Verified 03/27/22 07:30 Current Medications Generic Name Dose Route Start Last Admin Trade Name Freq PRN Reason Stop Dose Admin Chlorhexidine Gluconate 1 applic 03/26/22 09:00 03/26/22 10:45 Chlorhexidine Gluconate 4% Btl 118 Ml TOPICAL 1 appful DAILY HARRIET Administration Enoxaparin Sodium 40 mg 03/26/22 08:30 03/26/22 09:24 Enoxaparin 40 Mg/0.4 Ml Syringe SUBCUT 40 mg Q24H HARRIET Administration Sodium Chloride 1,000 mls @ 75 mls/hr 03/26/22 08:10 03/26/22 10:46 Sodium Chloride 0.9% IV 75 mls/hr .[id number] HARRIET Administration Piperacillin Sod/Tazobactam 50 mls @ 12.5 mls/hr 03/26/22 10:00 03/26/22 10:54 Sod 3.375 gm/ Sodium Chloride IV 12.5 mls/hr Q8H HARRIET Administration Protocol Vancomycin/PEG/NADA/Lysine/Water 1,500 mg in 300 mls @ 200 mls/hr 03/26/22 11:00 03/26/22 12:20 Vancocin IV Infused Q12H HARRIET Infusion Insulin Human Lispro 0 unit 03/26/22 08:10 03/26/22 12:28 Insulin Lispro 100 Unit/1 Ml SUBCUT 8 unit TIDWM HARRIET Administration Protocol Senna/Docusate Sodium 1 tab 03/26/22 09:00 03/26/22 09:22 Sennosides-Docusate Tablet PO 1 tab DAILY HARRIET Administration PFSH Acute PFSH: Medical History Acid reflux disease Anxiety Controlled diabetes mellitus with hyperglycemia, without long-term current use of insulin Coronary artery disease Diabetes mellitus with hyperglycemia, with long-term current use of insulin DM neuropathy, painful Essential (primary) hypertension History of cigarette smoking Mixed hyperlipidemia Surgical History Basal cell carcinoma (BCC) in situ of skin September 2017 on back History of colonoscopy Family History Mother Diabetes Heart disease Father Cancer lung cancer Father Hypertension Many of the family members have high blood pressure Social History Smoking and tobacco status: former smoker Quit status (tobacco): has quit using tobacco Former quit date comment: 03/20/20 Second hand smoke exposure: Yes Smoking risk assessment/counseling performed?: Yes Alcohol intake: never Desire information about alcohol rehabilitation?: No Counseling given: No Desire information about substance/drug rehabilitation?: No Counseling given: No Adopted: No Caregiver/support person: No Lives independently: Yes Household members: spouse Housing: House Marital status: service: No Current occupational status: employed History of recent travel: No Current gender identity: Male Vitals/I&O/Wt Last Vital Signs Temp 98.0 F 03/26/22 12:00 Pulse 87 03/26/22 14:17 Resp 18 03/26/22 14:17 BP 111/79 03/26/22 12:00 Pulse Ox 95 03/26/22 14:17 O2 Del Method 03/26/22 14:17 03/26/22 03/26/22 03/26/22 06:59 14:59 22:59 Intake Total 2049 1660 / 1660 Balance 2049 1660 / 1660 Weight last 48 hrs Weight 268 lb Physical Exam Const: COMMON NORMALS: no acute distress and patient oriented x3 GENERAL APPEARANCE: cooperative ORIENTATION/CONSCIOUSNESS: Yes awake, Yes oriented to person, Yes oriented to place and Yes oriented to time HENMT: COMMON NORMALS: normocephalic HEAD & SCALP: normocephalic Eye: COMMON NORMALS: Equal, round and reactive pupils present and no scleral icterus PUPIL: Yes Equal, round and reactive pupils present Lymph: LYMPHATIC: no lymphadenopathy noted Chest: COMMONS NORMALS: normal inspection of the chest Resp: COMMON NORMALS: normal respiratory effort and clear to auscultation bilaterally AUSCULTATION: clear to auscultation bilaterally Cardio: COMMON NORMALS: S1 normal heart sound present and S2 normal heart sound present; negative for No murmurs present (Cardio) HEART SOUNDS: S1 normal heart sound present and S2 normal heart sound present GI: COMMON NORMALS: Soft to palpation; negative for No hepatosplenomegaly present INSPECTION: Yes normal to inspection PALPATION: Yes Soft to palpation, No Firmness to palpation present (GI), No Tenderness to palpation present (GI), No Guarding due to palpation present (GI), No Rigid due to palpation and No No hepatosplenomegaly present Extremity: EXTREMITY IMAGE (FRONT): 1. Chronic stable hidradenitis suppurativa without evidence of drainage of the left armpit without surrounding cellulitis 2. Right groin chronic indurated abscess likely representing another form of hidradenitis suppurativa minimal drainage of purulent discharge and minimal cellulitis. Neuro: COMMON NORMALS: patient oriented x3 SENSORIUM/ORIENTATION: Yes oriented to person, Yes oriented to place and Yes oriented to time Psych: COMMON NORMALS: mental status grossly normal Skin: COMMON NORMALS: no rashes or lesions noted GENERAL SKIN EXAM: no rashes or lesions noted Data : 03/27/22 05:20 03/27/22 05:20 Micro: Microbiology 03/26/22 05:05 Blood Culture - Preliminary Blood SPECIMEN COLLECTED 03/26/22 05:04 Blood Culture - Preliminary Blood SPECIMEN COLLECTED A&P Assessment and plan (1) Suppurative hidradenitis: After thorough history physical examination reviewing the chart and images patient does have a chronic hydradenitis suppurativa, I did advise the patient to clean the right groin daily and have irrigation with saline and cover with a clean dressing, I do not believe there is a necessity for acute surgical intervention as the patient has been having this process for the past 5 months or so. Patient will require to be on oral antimicrobial therapy likely Bactrim double strength twice daily for 10 days with the plan to follow-up with me as an outpatient for further care. As I do not feel to subject the patient to general anesthesia for surgical intervention being COVID-positive as there is an acute indication. Highly recommend heat pads 3-4 times a day on the right groin Once patient recovers from his COVID status he would be reevaluated for potential intervention Thank you for consulting general surgery to participate taking care Mr. Forbes Status: Acute (2) Hidradenitis suppurativa of left axilla: Chronic left axillary hidradenitis suppurativa without draining sinuses at the moment I Do highly recommend the patient to be seen and evaluated by dermatology service Obesity management Assurance and education All questions have been answered and all concerns have been addressed to patient's satisfaction. 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
--- NOTE | 2022-03-26 16:30 | ED_ITS ---
HPI - General Adult General: Chief complaint: General Medical Stated complaint: LOW BLOOD PRESSURE Time Seen by Provider: 03/26/22 03:01 Source: patient and family History of Present Illness: 57 year old male gentleman who presents with low blood pressure. He notes that he has felt mildly all the past couple of days. Mainly notable for a sore throat. He vomited today. He has had some nasal congestion and cough. He felt generally weak this evening, and his blood pressure was checked and found to be low. Onset (ago): hour(s) Radiation: non-radiation Severity: moderate Associated symptoms: Reports cough, fevers/chills, nausea and vomiting; Deny chest pain, confusion, dyspnea or rash Review of Systems Const: Denies: fever(s), chills or body aches Eyes: Denies: change in vision ENMT: Reports: throat pain Card: Denies: chest pain Resp: Reports: non-productive cough; Denies: dyspnea GI: Reports: nausea and vomiting; Denies: abdominal pain or diarrhea Skin/Breast: Denies: rash Neuro: Denies: confusion PFSH ED PFSH: Medical History Acid reflux disease Anxiety Controlled diabetes mellitus with hyperglycemia, without long-term current use of insulin Coronary artery disease Diabetes mellitus with hyperglycemia, with long-term current use of insulin DM neuropathy, painful Essential (primary) hypertension History of cigarette smoking Mixed hyperlipidemia Surgical History Basal cell carcinoma (BCC) in situ of skin September 2017 on back History of colonoscopy Family History Mother Diabetes Heart disease Father Cancer lung cancer Father Hypertension Many of the family members have high blood pressure Social History Smoking and tobacco status: former smoker Quit status (tobacco): has quit using tobacco Former quit date comment: 03/20/20 Second hand smoke exposure: Yes Smoking risk assessment/counseling performed?: Yes Alcohol intake: never Desire information about alcohol rehabilitation?: No Counseling given: No Desire information about substance/drug rehabilitation?: No Counseling given: No Adopted: No Caregiver/support person: No Lives independently: Yes Household members: spouse Housing: House Marital status: service: No Current occupational status: employed History of recent travel: No Current gender identity: Male Physical Exam Const: GENERAL APPEARANCE: cooperative and ill appearing HENMT: COMMON NORMALS: normocephalic, atraumatic and Normal external nose present HEAD & SCALP: normocephalic and atraumatic FACE & SINUS: normal facial exam and face symmetric NOSE: Normal external nose present Eye: COMMON NORMALS: Equal, round and reactive pupils present and EOMs intact bilaterally PUPIL: Yes Equal, round and reactive pupils present Neck/C-Spine: GENERAL: Yes trachea midline Chest: CHEST: Yes Symmetrical chest wall rise Resp: COMMON NORMALS: No retractions, No use of accessory muscles and clear to auscultation bilaterally EFFORT & INSPECTION: Yes tachypneic AUSCULTATION: clear to auscultation bilaterally Cardio: COMMON NORMALS: regular rhythm RATE: tachycardic RHYTHM: regular rhythm GI: COMMON NORMALS: Normal to inspection, nondistended, normoactive bowel sounds present Extremity: COMMON NORMALS: no pedal edema Neuro: MICH COMA SCALE: document GCS findings Viola coma scale eye opening: Spontaneous Viola coma scale verbal response: Orientated Viola coma scale motor response: Obey commands Viola coma scale total score: 15 SPEECH: speech normal SENSORY EXAM: Yes extremities (intact) Psych: COMMON NORMALS: speech normal SPEECH: Yes normal speech Skin: COMMON NORMALS: no rashes or lesions noted GENERAL SKIN EXAM: no rashes or lesions noted Course Vital Signs: Vital signs: Vital Signs Temperature 98.0 F 03/26/22 12:00 Pulse Rate 87 03/26/22 14:17 Respiratory Rate 18 03/26/22 14:17 Blood Pressure 111/79 03/26/22 12:00 Pulse Oximetry 95 03/26/22 14:17 Oxygen Delivery Me thod 03/26/22 14:17 [facility] - General Adult Medical Decision Making year old generally weak, hypotensive male. He appears ill. His lowest pressure here was 76 / 46. He is on his way through his third L of fluid. He is still mildly hypotensive. Chest X-ray reveals mild bilateral pneumonitis. Urinalysis is not positive for UTI. He has a mild Leukocytosis. COVID PCR is pending. He is tachycardic here as well. He meets sepsis criteria. He is covered with antibiotics after blood cultures, and will be admitted. Lab Data : 03/26/22 02:34 03/26/22 02:34 Radiology Impressions Chest X-Ray 03/26/22 03:19 IMPRESSION: Subtle increased interstitial opacities similar to that present 03/20/2020 may represent recurrence bilateral interstitial pneumonitis although this could represent chronic pulmonary fibrosis. Soft Tissue Ultrasound 03/26/22 10:57 IMPRESSION: There are heterogeneous collections in the soft tissues of the right upper thigh and left axilla, consistent with abscess formations. Laboratory Results WBC 16.9 10^3/uL (4.0-10.0) H 03/26/22 02:34 RBC 4.64 10^6/uL (4.1-5.3) 03/26/22 02:34 Hgb 14.7 g/dL (11.7-16.6) 03/26/22 02:34 Hct 44.8 % (42.0-52.0) 03/26/22 02:34 MCV 96.6 fl (80-94) H 03/26/22 02:34 MCH 31.7 pg (28.0-34.0) 03/26/22 02:34 MCHC 32.8 g/dL (30.0-36.0) 03/26/22 02:34 RDW 14.8 % (12.1-15.1) 03/26/22 02:34 Plt Count 247 10^3/cmm (130-400) 03/26/22 02:34 MPV 10.2 fL (7.4-10.4) 03/26/22 02:34 Neut % (Auto) 90.8 % 03/26/22 02:34 Lymph % (Auto) 4.7 % 03/26/22 02:34 [place] % (Auto) 3.6 % 03/26/22 02:34 Eos % (Auto) 0.1 % 03/26/22 02:34 Baso % (Auto) 0.2 % 03/26/22 02:34 Neut # (Auto) 15.33 10^3/uL (1.8-7.7) H 03/26/22 02:34 Lymph # (Auto) 0.8 10^3/uL (0.8-4.8) 03/26/22 02:34 [place] # (Auto) 0.6 10^3/uL (0.2-0.9) 03/26/22 02:34 Eos # (Auto) 0.0 10^3/uL (0.0-0.8) 03/26/22 02:34 Baso # (Auto) 0.0 10^3/uL (0.0-0.1) 03/26/22 02:34 Nucleated RBC % (auto) 0 % 03/26/22 02:34 Nucleated RBCs # 0.0 /100WBC 03/26/22 02:34 ESR 13 mm/hr (0-10) H 03/26/22 02:34 Sodium 135 mmol/L (136-145) L 03/26/22 02:34 Potassium 3.7 mmol/L (3.5-5.1) 03/26/22 02:34 Chloride 102 mmol/L (98-107) 03/26/22 02:34 Carbon Dioxide 20 mmol/L (22-29) L 03/26/22 02:34 Anion Gap 16.7 (5-19) 03/26/22 02:34 BUN 22 mg/dL (6-20) H 03/26/22 02:34 Creatinine 1.1 mg/dL (0.7-1.2) 03/26/22 02:34 GFR Calculation 69.2 mL/min (90-130) L 03/26/22 02:34 Glucose 194 mg/dL (65-115) H 03/26/22 02:34 Calculated Osmolality 289 mOsm/kg (285-295) 03/26/22 02:34 Lactate 3.3 mmol/L (0.5-2.2) H 03/26/22 02:34 Calcium 8.3 mg/dL (8.5-10.5) L 03/26/22 02:34 Total Bilirubin 0.4 mg/dL (0.15-1.2) 03/26/22 02:34 AST 25 U/L (0-40) 03/26/22 02:34 ALT 28 U/L (0-41) 03/26/22 02:34 Alkaline Phosphatase 76 U/L (40-130) 03/26/22 02:34 Creatine Kinase 85 U/L (39-308) 03/26/22 02:34 Total Protein 6.5 g/dL (6.6-8.7) L 03/26/22 02:34 Albumin 3.6 g/dL (3.5-5.2) 03/26/22 02:34 Globulin 2.9 g/dL (1.3-4.6) 03/26/22 02:34 Vitamin B12 276 pg/mL (232-1245) 03/26/22 02:34 Procalcitonin 0.15 ng/mL (0-0.5) 03/26/22 02:34 TSH 4.68 uIU/mL (0.27-4.20) H 03/26/22 02:34 Random Cortisol 39.97 ug/dL (2.47-19.5) H 03/26/22 02:34 Urine Color Anai (Yellow) 03/26/22 02:59 Urine Appearance Sl hazy (CLEAR) 03/26/22 02:59 Urine pH 5 (5-7) 03/26/22 02:59 Ur Specific [place] 1.020 (1.005-1.030) 03/26/22 02:59 Urine Protein 1+ (Negative) H 03/26/22 02:59 Urine Glucose (UA) Norm (Normal) 03/26/22 02:59 Urine Ketones Negative (Negative) 03/26/22 02:59 Urine Blood Neg (Negative) 03/26/22 02:59 Urine Nitrate Negative (Negative) 03/26/22 02:59 Urine Bilirubin 1+ (Negative) H 03/26/22 02:59 Urine Urobilinogen 1 mg/dL (Negative) H 03/26/22 02:59 Ur Leukocyte Esterase Negative (Negative) 03/26/22 02:59 Urine RBC 0-4 /hpf (0-2) H 03/26/22 02:59 Urine WBC 5-10 /hpf (0-5) H 03/26/22 02:59 Ur Squamous Epith Cells 0-4 /hpf (0-5) H 03/26/22 02:59 Amorphous Sediment Trace /hpf 03/26/22 02:59 Urine Bacteria Trace /hpf (NONE) 03/26/22 02:59 Hyaline Casts 0-4 /lpf H 03/26/22 02:59 Fine Granular Casts 0-4 /lpf H 03/26/22 02:59 Urine Mucus 2+ /hpf 03/26/22 02:59 Coronavirus 229E (PCR) Not detected (NOT DETECT) 03/26/22 03:57 SARS-CoV-2 (PCR) Detected (NOT DETECT) A 03/26/22 03:57 Discharge Plan Discharge Patient Disposition: Admitted As Inpatient Admit Provider: Zoe Shirley Clinical Impression: Sepsis Condition: Stable Coding Level of Care Code ED Facilities Coordinator for [facility] Yesy
[2022-03-26 16:48] LABS: Glucose Point of Care 233 mg/dL (70-110)
[2022-03-26] MEDS: insulin glargine 100 units/1 mL 20 UNIT SUBCUT (20:52)
[2022-03-26 21:23] LABS: Glucose Point of Care 223 mg/dL (70-110)
[2022-03-27 00:27] VITALS: BP 115/78; PULSE 87; RESP 18; TEMP 36.7; O2SAT 95
[2022-03-27] MEDS: piperacillin-tazobactam 3.375 GM in sodium chloride 0.9% (plus) 50 ML IV ×2 (02:54→10:04)
[2022-03-27 04:40] VITALS: BP 114/72; PULSE 80; RESP 18; TEMP 36.8; O2SAT 97
[2022-03-27 05:31] LABS: Basophils % 0.5 %; Eosinophils # 0.3 10^3/uL (0.0-0.8); Eosinophils % 3.4 %; Hematocrit 41.4 % (42.0-52.0); Hemoglobin 13.1 g/dL (11.7-16.6); Lymphocytes # 1.7 10^3/uL (0.8-4.8); Lymphocytes % 20.4 %; Mean Corpuscular HGB Conc 31.6 g/dL (30.0-36.0); Mean Corpuscular Hemoglobin 31.1 pg (28.0-34.0); Mean Corpuscular Volume 98.3 fl (80-94); Mean Platelet Volume 9.9 fL (7.4-10.4); Monocytes # 0.7 10^3/uL (0.2-0.9); Monocytes % 7.9 %; Neutrophils # 5.73 10^3/uL (1.8-7.7); Neutrophils % 67.2 %; Nucleated Red Blood Cells % 0 %; Platelet Count 204 10^3/cmm (130-400); Red Blood Count 4.21 10^6/uL (4.1-5.3); Red Cell Distribution Width 14.9 % (12.1-15.1); White Blood Count 8.5 10^3/uL (4.0-10.0)
[2022-03-27] MEDS: clopidogrel 75 mg Tablet PO (05:36)
[2022-03-27] MEDS: aspirin 81 mg EC Tablet PO (05:36)
[2022-03-27 05:55] LABS: Blood Urea Nitrogen 12 mg/dL (6-20); C Reactive Protein 36.4 mg/L (0.0-4.9); Calcium 8.6 mg/dL (8.5-10.5); Carbon Dioxide 23 mmol/L (22-29); Chloride 108 mmol/L (98-107); Glomerular Filtration Rate 139.4 mL/min (90-130); Glucose 137 mg/dL (65-115); Magnesium 1.8 mg/dL (1.7-2.3); Osmolality Calculated 292 mOsm/kg (285-295); Sodium 140 mmol/L (136-145)
[2022-03-27 06:21] LABS: Glucose Point of Care 181 mg/dL (70-110)
[2022-03-27 07:55] VITALS: BP 122/80; PULSE 77; RESP 16; TEMP 36.7; O2SAT 97
[2022-03-27] MEDS: sennosides-docusate Tablet 1 TAB PO (08:40)
[2022-03-27] MEDS: sodium chloride 0.9% 1,000 ML 75 ML IV (08:41)
[2022-03-27 08:42] VITALS: PULSE 81; RESP 16; O2SAT 98
[2022-03-27] MEDS: insulin lispro 100 unit/1 mL SUBCUT ×2 (08:42→12:10)
[2022-03-27] MEDS: enoxaparin 40 mg/0.4 mL Syringe SUBCUT (08:42)
[2022-03-27] MEDS: chlorhexidine gluconate 4% Btl 118 mL 1 APPLIC TOPICAL (08:42)
[2022-03-27] MEDS: vancomycin 1,500 MG/300 ML PIGGYBACK 200 MG IV (10:09)
[2022-03-27 11:15] LABS: Glucose Point of Care 254 mg/dL (70-110)
--- NOTE | 2022-03-27 11:41 | P.DS_ITS ---
Discharge Providers Date of Admission: 03/26/22 08:09 Date of Discharge: March 27, 2022 Attending Provider at Admission: Zoe Shirley MD Attending Provider at Discharge: Jaime Dyer Primary Care Provider: NATALIE Smith Diagnoses at Discharge Discharge Diagnosis (1) Suppurative hidradenitis: Status: Acute (2) Hidradenitis suppurativa of left axilla: Status: Acute Reason for Visit Reason for Visit: LOW BLOOD PRESSURE Hospital Course Hospital Course Pleasant 57-year-old gentleman was admitted for assessment management due to hypotension 76/46 on presentation, with sinus tachycardia, leukocytosis of 16.9, possible sepsis, possible septic shock initially. His antihypertensives, lisinopril, metoprolol were held, he received fluid resuscitation with fluid boluses. Sepsis without endorgan injury. Several possible sources of sepsis, including tested positive for COVID-19, although otherwise oxygenating well, had some sore throat, dry heaving, without other COVID-19 symptoms. Saturation remained good through his hospitalization. Additionally with cellulitis and abscess noted with history of hydradenitis suppurativa including in his axillae, as well as persistent lesion in the right thigh. He was empirically treated with Zosyn and vancomycin while in the hospital. Was assessed by surgery with recommendation for continued oral antibiotic regimen and follow-up with surgery in office. He is allergic to Bactrim, so we will be discharging with Augmentin, doxycycline for 10 days, follow-up with surgery in office for reassessment. Please reassess improvement in cellulitis, as well as improvement from COVID-19. He is also asked to follow-up with dermatology with regards to hidradenitis suppurativa. His blood pressures otherwise have improved. He is ambulating in his room, feeling quite a bit better, and feels ready to return home. He does not resume lisinopril and metoprolol for now. Please assist him with continued optimization of diabetes, weight loss. Physical Exam Const: COMMON NORMALS: patient oriented x3 and alert GENERAL APPEARANCE: cooperative ORIENTATION/CONSCIOUSNESS: Yes awake OTHER: Up and ambulating in his room, in good spirits, reports feels much better, denies any complaints. HENMT: COMMON NORMALS: oropharynx normal Neck/C-Spine: COMMON NORMALS: no JVD Resp: COMMON NORMALS: normal respiratory effort and clear to auscultation bilaterally AUSCULTATION: clear to auscultation bilaterally Cardio: COMMON NORMALS: no JVD, regular rhythm, S1 normal heart sound present, S2 normal heart sound present and No murmurs present (Cardio) RHYTHM: regular rhythm HEART SOUNDS: S1 normal heart sound present and S2 normal heart sound present GI: COMMON NORMALS: Normal to inspection, nondistended, normoactive bowel sounds present, Soft to palpation and non-tender PALPATION: Yes Soft to palpation Extremity: COMMON NORMALS: no joint enlargement and no pedal edema Neuro: COMMON NORMALS: patient oriented x3 and moves all extremities SENSORIUM/ORIENTATION: Yes alert Skin: OTHER: Cystic lesion opening right inner upper thigh. Some chronic wounds following prior cystic lesions in the left axilla, small amount of swelling, without drainage. Discharge Data Studies Completed and Pending Completed Studies During Hospitalization Category Date Time Status XR chest 1V portable [id number] Stat Exams 03/26/22 03:19 Completed CV. echo complete* [id number] Routine Ultrasound 03/26/22 08:10 Completed US soft tissue and or extremity [US soft tissue/ Ultrasound 03/26/22 10:57 Completed extremity [id number]] Routine Pending at discharge Category Date Time Status Blood Culture Stat Lab 03/26/22 05:05 Results Sputum Culture and Gram Stain Routine Lab 03/27/22 04:36 Received Urine Culture Routine Lab 03/27/22 04:36 Received Vancomycin Trough Timed Lab 03/27/22 22:00 Ordered Wound Culture and Gram Stain Routine Lab 03/26/22 15:39 Uncollected Radiology Impressions Chest X-Ray 03/26/22 03:19 IMPRESSION: Subtle increased interstitial opacities similar to that present 03/20/2020 may represent recurrence bilateral interstitial pneumonitis although this could represent chronic pulmonary fibrosis. Soft Tissue Ultrasound 03/26/22 10:57 IMPRESSION: There are heterogeneous collections in the soft tissues of the right upper thigh and left axilla, consistent with abscess formations. Laboratory Results WBC 8.5 10^3/uL (4.0-10.0) 03/27/22 05:20 RBC 4.21 10^6/uL (4.1-5.3) 03/27/22 05:20 Hgb 13.1 g/dL (11.7-16.6) 03/27/22 05:20 Hct 41.4 % (42.0-52.0) L 03/27/22 05:20 MCV 98.3 fl (80-94) H 03/27/22 05:20 MCH 31.1 pg (28.0-34.0) 03/27/22 05:20 MCHC 31.6 g/dL (30.0-36.0) 03/27/22 05:20 RDW 14.9 % (12.1-15.1) 03/27/22 05:20 Plt Count 204 10^3/cmm (130-400) 03/27/22 05:20 MPV 9.9 fL (7.4-10.4) 03/27/22 05:20 Neut % (Auto) 67.2 % 03/27/22 05:20 Lymph % (Auto) 20.4 % 03/27/22 05:20 [place] % (Auto) 7.9 % 03/27/22 05:20 Eos % (Auto) 3.4 % 03/27/22 05:20 Baso % (Auto) 0.5 % 03/27/22 05:20 Neut # (Auto) 5.73 10^3/uL (1.8-7.7) 03/27/22 05:20 Lymph # (Auto) 1.7 10^3/uL (0.8-4.8) 03/27/22 05:20 [place] # (Auto) 0.7 10^3/uL (0.2-0.9) 03/27/22 05:20 Eos # (Auto) 0.3 10^3/uL (0.0-0.8) 03/27/22 05:20 Baso # (Auto) 0.0 10^3/uL (0.0-0.1) 03/27/22 05:20 Nucleated RBC % (auto) 0 % 03/27/22 05:20 Nucleated RBCs # 0.0 /100WBC 03/27/22 05:20 ESR 13 mm/hr (0-10) H 03/26/22 02:34 Sodium 140 mmol/L (136-145) 03/27/22 05:20 Potassium 4.0 mmol/L (3.5-5.1) 03/27/22 05:20 Chloride 108 mmol/L (98-107) H 03/27/22 05:20 Carbon Dioxide 23 mmol/L (22-29) 03/27/22 05:20 Anion Gap 13.0 (5-19) 03/27/22 05:20 BUN 12 mg/dL (6-20) 03/27/22 05:20 Creatinine 0.6 mg/dL (0.7-1.2) L 03/27/22 05:20 GFR Calculation 139.4 mL/min (90-130) H 03/27/22 05:20 Glucose 137 mg/dL (65-115) H 03/27/22 05:20 POC Glucose 254 mg/dL (70-110) H 03/27/22 11:10 Calculated Osmolality 292 mOsm/kg (285-295) 03/27/22 05:20 Lactate 2.4 mmol/L (0.5-2.2) H 03/26/22 09:40 Calcium 8.6 mg/dL (8.5-10.5) 03/27/22 05:20 Magnesium 1.8 mg/dL (1.7-2.3) 03/27/22 05:20 Total Bilirubin 0.4 mg/dL (0.15-1.2) 03/26/22 02:34 AST 25 U/L (0-40) 03/26/22 02:34 ALT 28 U/L (0-41) 03/26/22 02:34 Alkaline Phosphatase 76 U/L (40-130) 03/26/22 02:34 Creatine Kinase 85 U/L (39-308) 03/26/22 02:34 C-Reactive Protein 36.4 mg/L (0.0-4.9) H 03/27/22 05:20 Total Protein 6.5 g/dL (6.6-8.7) L 03/26/22 02:34 Albumin 3.6 g/dL (3.5-5.2) 03/26/22 02:34 Globulin 2.9 g/dL (1.3-4.6) 03/26/22 02:34 Vitamin B12 276 pg/mL (232-1245) 03/26/22 02:34 Procalcitonin 0.15 ng/mL (0-0.5) 03/26/22 02:34 TSH 4.68 uIU/mL (0.27-4.20) H 03/26/22 02:34 Random Cortisol 39.97 ug/dL (2.47-19.5) H 03/26/22 02:34 Urine Color Anai (Yellow) 03/26/22 02:59 Urine Appearance Sl hazy (CLEAR) 03/26/22 02:59 Urine pH 5 (5-7) 03/26/22 02:59 Ur Specific [place] 1.020 (1.005-1.030) 03/26/22 02:59 Urine Protein 1+ (Negative) H 03/26/22 02:59 Urine Glucose (UA) Norm (Normal) 03/26/22 02:59 Urine Ketones Negative (Negative) 03/26/22 02:59 Urine Blood Neg (Negative) 03/26/22 02:59 Urine Nitrate Negative (Negative) 03/26/22 02:59 Urine Bilirubin 1+ (Negative) H 03/26/22 02:59 Urine Urobilinogen 1 mg/dL (Negative) H 03/26/22 02:59 Ur Leukocyte Esterase Negative (Negative) 03/26/22 02:59 Urine RBC 0-4 /hpf (0-2) H 03/26/22 02:59 Urine WBC 5-10 /hpf (0-5) H 03/26/22 02:59 Ur Squamous Epith Cells 0-4 /hpf (0-5) H 03/26/22 02:59 Amorphous Sediment Trace /hpf 03/26/22 02:59 Urine Bacteria Trace /hpf (NONE) 03/26/22 02:59 Hyaline Casts 0-4 /lpf H 03/26/22 02:59 Fine Granular Casts 0-4 /lpf H 03/26/22 02:59 Urine Mucus 2+ /hpf 03/26/22 02:59 Coronavirus 229E (PCR) Not detected (NOT DETECT) 03/26/22 03:57 SARS-CoV-2 (PCR) Detected (NOT DETECT) A 03/26/22 03:57 Vitals Last Vital Signs Temp 98.0 F 03/27/22 07:55 Pulse 81 03/27/22 08:42 Resp 16 03/27/22 08:42 BP 122/80 03/27/22 07:55 Pulse Ox 98 03/27/22 08:42 O2 Del Method 03/27/22 08:42 Discharge Plan Discharge Patient Disposition: Home Condition: Stable Prescriptions: New doxycycline hyclate 100 mg capsule 100 mg PO BID 10 Days Qty: 20 0RF amoxicillin-pot clavulanate 875-125 mg tablet 1 tab PO BID Qty: 20 0RF Continued nitroglycerin 0.4 mg tablet, sublingual 0.4 mg SUBLINGUAL Q5M PRN (Reason: chest pain) Qty: 25 3RF Rx Instructions: do not exceed 3 doses per episode Plavix 75 mg tablet 75 mg PO QAM Qty: 90 3RF (DME) pen needle, diabetic 33 gauge x 5/32 needle See Rx Instructions .ROUTE .MEDSUPPLY Qty: 100 5RF Rx Instructions: 2 times day famotidine [Pepcid] 20 mg tablet 20 mg PO BID Qty: 180 0RF Levemir FlexTouch U-100 Insuln 100 unit/mL (3 mL) insulin pen 25 unit SUBCUT DAILY Qty: 15 2RF Victoza 3-Prieto 0.6 mg/0.1 mL (18 mg/3 mL) pen injector 0.6 mg SUBCUT DAILY Qty: 9 2RF metformin 500 mg tablet extended release 24 hr 500 mg PO BID Qty: 180 0RF rosuvastatin [Crestor] 40 mg tablet 40 mg PO DAILY Qty: 90 0RF zonisamide 100 mg capsule 100 mg PO DAILY Qty: 90 0RF mupirocin 2 % ointment 1 applic topical BID Qty: 22 0RF aspirin 81 mg Tablet,Delayed Release (Dr/Ec) 81 mg PO QAM acetaminophen [Tylenol Extra Strength] 500 mg Tablet 1,000 mg PO Q4H PRN (Reason: Pain) Discontinued metoprolol tartrate 25 mg tablet 12.5 mg PO BID Qty: 90 2RF lisinopril 20 mg tablet 20 mg PO DAILY Qty: 90 2RF Discharge Orders: Discharge Order (Routine); Ordered 03/27/22 Ordered By: Jaime Dyer Referrals: Miki Roberts MD [Physician] - (Return to surgery office in 10 days) Christiano Serrato FNP-C [Primary Care Provider] - 4-7 days Elva Pederson DO [Physician] - 1 month (Hydradenitis suppurativa) Discharge Diet: Cardiac and Diabetic Patient Instructions: Doxycycline (By mouth), Amoxicillin/Clavulanate Potassium (By mouth), Cellulitis (GEN), Hidradenitis Suppurativa (GEN), COVID-19 (Coronavirus Disease 2019) (GEN) Activity Restrictions/Additional Instructions: Complete antibiotic course, apply warm pad to right thigh (avoid hot temperature to avoid burn). Follow-up with surgery in office for reassessment of cysts of right thigh, left armpit. Follow-up with your primary doctor for reassessment of your recovery from COVID infection. Reassessment of blood pressure after you had low blood pressures after initially coming to the hospital. Due to this please do not restart lisinopril and metoprolol at this time. Have your primary doctor reassess blood pressures in office. Please discuss with your primary provider regarding continuation of optimization of control of diabetes, as well as weight loss to both help with control of diabetes and hidradenitis suppurativa. For hydradenitis suppurativa, please also follow-up with dermatology. Discharge Attestations Time Spent in Discharge Care*: greater than 30 min Status at Discharge: Cognitive status at discharge: cognitively intact , Behavioral status at discharge: cooperative , Quality Metrics Clinical Quality Measures [ No reported AMI, CVA or VTE this stay] Coding Level of Care Code Acute [facility] note Diagnoses Suppurative hidradenitis L73.2 Hidradenitis suppurativa of left axilla L73.2
[2022-03-27 12:00] VITALS: BP 115/69; PULSE 73; RESP 16; TEMP 36.4; O2SAT 96
[2022-03-27 13:15] VITALS: BP 115/69; PULSE 73; RESP 16; TEMP 36.4; O2SAT 96
--- NOTE | 2022-03-27 14:27 | PC.NURSE ---
Discharge Note Patient discharged to [home] via []wheelchiar accompanied by [spouse]. Discharge instructions reviewed with patient and/or door to door sales representative. Mobile pharmacy medications and/or prescriptions provided. Belongings/home medications returned.
== END 2022-03-27 14:28 | disposition home or self-care (01) | DRG 178 ==
LOC: ER 04:09 → MEDSURG 07:24
PROVIDERS: Admitting Provider Internal Medicine; Emergency Provider Emergency Medicine; PCP Nurse Practitioner; Visit Provider Internal Medicine
DX: U07.1 COVID-19 (principal); E87.2 Acidosis; L73.2 Hidradenitis suppurativa; I25.10 Atherosclerotic heart disease of native coronary artery without angina pectoris; E11.40 Type 2 diabetes mellitus with diabetic neuropathy, unspecified; E11.65 Type 2 diabetes mellitus with hyperglycemia; E78.2 Mixed hyperlipidemia; I95.9 Hypotension, unspecified; E86.0 Dehydration; I10 Essential (primary) hypertension; E66.9 Obesity, unspecified; Z68.37 Body mass index [BMI] 37.0-37.9, adult; Z79.82 Long term (current) use of aspirin; Z79.84 Long term (current) use of oral hypoglycemic drugs; Z79.02 Long term (current) use of antithrombotics/antiplatelets; Z79.4 Long term (current) use of insulin; Z87.891 Personal history of nicotine dependence; Z88.1 Allergy status to other antibiotic agents
CPT/HCPCS: 36415; 36416; 71045; 76882; 80048; 80053; 81001; 82533; 82550; 82607; 82962; 83605; 83735; 84145; 84443; 85025; 85651; 86140; 87040; 87070; 87077; 87086; 87186; 87205; 87635; 93005; 93306; 96365; 96372; 99285; J0696; J1650; J1720; J1815; J2543; J3370; J7030

== ENCOUNTER 2022-05-16 10:37 | Day surgery (SDC) | payer MEDICAID, SELFPAY ==
[2022-05-15 09:32] VITALS: BMI 37.6
[2022-05-16] VITALS (9 sets, daily range): BP systolic 109–149; BP diastolic 75–97; PULSE 78–104; RESP 16–20; TEMP 36.2–36.9; O2SAT 90–97
[2022-05-16] MEDS: heparin 5,000 unit/mL INJ 1 mL 3000 UNIT SUBCUT (11:22)
[2022-05-16] MEDS: sodium chloride 0.9% 1,000 ML 30 ML IV (11:22)
[2022-05-16] MEDS: acetaminophen 1,000 MG/100 ML PIGGYBACK 400 MG IV (11:22)
[2022-05-16 11:28] LABS: Glucose Point of Care 123 mg/dL (70-110)
[2022-05-16 12:21] LABS: Basophils # 0.1 10^3/uL (0.0-0.1); Basophils % 0.8 %; Eosinophils # 0.3 10^3/uL (0.0-0.8); Hematocrit 45.2 % (42.0-52.0); Hemoglobin 14.8 g/dL (11.7-16.6); Lymphocytes # 1.7 10^3/uL (0.8-4.8); Lymphocytes % 16.7 %; Mean Corpuscular HGB Conc 32.7 g/dL (30.0-36.0); Mean Corpuscular Hemoglobin 31.5 pg (28.0-34.0); Mean Corpuscular Volume 96.2 fl (80-94); Mean Platelet Volume 10.1 fL (7.4-10.4); Monocytes # 0.8 10^3/uL (0.2-0.9); Monocytes % 7.5 %; Neutrophils # 7.23 10^3/uL (1.8-7.7); Neutrophils % 71.6 %; Nucleated Red Blood Cells % 0 %; Platelet Count 243 10^3/cmm (130-400); Red Cell Distribution Width 14.6 % (12.1-15.1); White Blood Count 10.1 10^3/uL (4.0-10.0)
--- NOTE | 2022-05-16 12:32 | ANES.PREANE2 ---
Pre-Anesthetic Assessment Height/Weight: Height 1.8 m Weight 122.47 kg Temp Pulse Resp BP Pulse Ox O2 Del Method 98.4 F 84 18 118/81 97 05/16/22 11:07 05/16/22 11:07 05/16/22 11:07 05/16/22 11:07 05/16/22 11:07 05/16/22 11:09 Preop Diagnosis: Right groin abscess Operation Date: 05/16/22 12:40 Proposed Procedures p Incision And Drainage of abcess(eg,carbuncle,suppurative hidradenitis,cutaneous or subcutaneous abcess,cyst,furuncle, or paronychia)simple or single 18800,L73.0(Not Applicable) - Miki Roberts MD Familial anesthetic complications: none Was Beta Anne-Marie taken within 24 hours: N/A Was Clonidine taken within 24 hours: N/A Last intake: Intake Last Liquid Date 05/15/22 Last Liquid Time 23:30 Last Solid Date 05/15/22 Last Solid Time 20:30 Social No alcohol and No tobacco Exam alert, oriented x 3, clear to auscultation bilaterally and regular rate & rhythm Airway Submandibular: within normal limits Cervical ROM: within normal limits Mallampati: Class II Dentition: loose Comments: Comments: very poor CV/HEM Hypertension GI Gastroesophageal Reflux Disease Metabolic Diabetes Mellitus, Hyperlipidemia, Morbid Obesity and Thyroid Disease Neuropsych Neuropathy Anesthetic Plan ASA status: 3 Anesthesia: Choice Medications/Allergies Home Medications Medication Instructions Recorded Confirmed Last Taken Type nitroglycerin 0.4 mg sublingual 0.4 mg sublingual Q5M PRN chest 07/13/20 05/15/22 Unknown Rx tablet pain #25 tabs acetaminophen 500 mg tablet 1,000 mg PO Q4H PRN Pain 03/28/21 05/15/22 Unknown History (Tylenol Extra Strength) aspirin 81 mg tablet,delayed 81 mg PO QAM 03/28/21 05/15/22 05/13/22 08:00 History release pen needle, diabetic 33 gauge x #100 ea 10/11/21 03/29/22 Unknown Rx / Lactobacillus rhamnosus GG 20 See Rx Instructions PO .2 times 03/29/22 05/16/22 05/15/22 Rx billion cell capsule (Probiotic day #60 caps [facility]) famotidine 20 mg tablet (Pepcid) 20 mg PO BID #180 tabs 03/29/22 05/16/22 05/15/22 Rx insulin detemir U-100 100 unit/mL 25 unit (0.25 mL) SUBCUT DAILY #15 03/29/22 05/16/22 05/15/22 Rx (3 mL) subcutaneous pen (Levemir mL FlexTouch U-100 Insulin) levothyroxine 25 mcg tablet 25 mcg PO DAILY #30 tabs 03/29/22 05/16/22 05/15/22 Rx liraglutide 0.6 mg/0.1 mL (18 mg/3 0.6 mg (0.1 mL) SUBCUT DAILY #9 mL 03/29/22 05/16/22 05/15/22 Rx mL) subcutaneous pen injector (Victoza 3-Prieto) metformin 500 mg tablet,extended 500 mg PO BID #180 tabs 03/29/22 05/16/22 05/15/22 Rx release 24 hr mupirocin 2 % topical ointment 1 applic topical BID #22 grams 03/29/22 05/15/22 Unknown Rx rosuvastatin 40 mg tablet (Crestor) 40 mg PO DAILY #90 tabs 03/29/22 05/16/22 05/15/22 Rx zonisamide 100 mg capsule 100 mg PO DAILY #90 caps 03/29/22 05/16/22 05/15/22 Rx lisinopril 20 mg tablet 20 mg PO DAILY #30 tabs 04/03/22 05/16/22 05/15/22 Rx clopidogrel 75 mg tablet (Plavix) 75 mg PO QAM #90 tabs 04/06/22 05/15/22 05/13/22 08:00 Rx Allergies Allergy/AdvReac Type Severity Reaction Status Date / Time trimethoprim [From Bactrim] Allergy Unknown Unknown Verified 03/29/22 09:26 sulfamethoxazole AdvReac Unknown Unknown Verified 05/16/22 11:03 [From Bactrim] Current Medications Generic Name Dose Route Start Last Admin Trade Name Freq PRN Reason Stop Dose Admin Sodium Chloride 1,000 mls @ 30 mls/hr 05/16/22 10:45 05/16/22 11:22 Sodium Chloride 0.9% IV 05/17/22 10:44 30 mls/hr .Q24H HARRIET Administration PFSH Anesthesia Medical History Acid reflux disease Anxiety Controlled diabetes mellitus with hyperglycemia, without long-term current use of insulin Coronary artery disease Diabetes mellitus with hyperglycemia, with long-term current use of insulin DM neuropathy, painful Essential (primary) hypertension History of cigarette smoking Mixed hyperlipidemia Surgical History Basal cell carcinoma (BCC) in situ of skin September 2017 on back History of colonoscopy Family History Mother Diabetes Heart disease Father Cancer lung cancer Father Hypertension Many of the family members have high blood pressure Social History Smoking and tobacco status: former smoker Quit status (tobacco): has quit using tobacco Former quit date comment: 03/20/20 Second hand smoke exposure: Yes Smoking risk assessment/counseling performed?: Yes Alcohol intake: never Desire information about alcohol rehabilitation?: No Counseling given: No Desire information about substance/drug rehabilitation?: No Counseling given: No Adopted: No Caregiver/support person: No Lives independently: Yes Household members: spouse Housing: House Marital status: service: No Current occupational status: employed History of recent travel: No Current gender identity: Male Data Anesthesia : 05/16/22 11:20 05/16/22 11:20 Short CBC 05/16/22 Range/Units 11:20 WBC 10.1 H (4.0-10.0) 10^3/uL Hgb 14.8 (11.7-16.6) g/dL Hct 45.2 (42.0-52.0) % MCV 96.2 H (80-94) fl Plt Count 243 (130-400) 10^3/cmm Neut % (Auto) 71.6 % Neut # (Auto) 7.23 (1.8-7.7) 10^3/uL Cardiac Studies: Echocardiogram 03/26/22 Echocardiogram Ultrasound 03/21/20
[2022-05-16 13:12] LABS: Blood Urea Nitrogen 11 mg/dL (6-20); Calcium 9.1 mg/dL (8.5-10.5); Carbon Dioxide 22 mmol/L (22-29); Chloride 100 mmol/L (98-107); Glomerular Filtration Rate 139.4 mL/min (90-130); Glucose 119 mg/dL (65-115); Osmolality Calculated 279 mOsm/kg (285-295); Sodium 134 mmol/L (136-145)
--- NOTE | 2022-05-16 13:43 | W.PM.OPSFHP ---
Same Day Surgery H&P Indication for Procedure/HPI DATE OF PROCEDURE: May 16, 2022 CHIEF COMPLAINT/INDICATIONFOR SURGICAL PROCEDURE: Right groin bump PREOP DIAGNOSIS: Right groin abscess PLANNED PROCEDURE: Operation Date: 05/16/22 12:40 Proposed Procedures p Incision And Drainage of abcess(eg,carbuncle,suppurative hidradenitis,cutaneous or subcutaneous abcess,cyst,furuncle, or paronychia)simple or single 10286,L73.0(Not Applicable) - Miki Roberts MD This is a pleasant 57 years old gentleman well-known to me. Has history of right groin draining abscess likely hidradenitis suppurativa. Patient comes today for elective I&D. ROS All systems have been reviewed negative except as for the above or per problem list. Medications/Allergies* Home Medications Medication Instructions Recorded Confirmed Type acetaminophen 500 mg tablet 1,000 mg PO Q4H PRN Pain 03/28/21 05/15/22 History (Tylenol Extra Strength) aspirin 81 mg tablet,delayed 81 mg PO QAM 03/28/21 05/15/22 History release Allergies/Adverse Reactions Allergy/AdvReac Type Severity Reaction Status Date / Time trimethoprim [From Bactrim] Allergy Unknown Unknown Verified 05/16/22 13:44 sulfamethoxazole AdvReac Unknown Unknown Verified 05/16/22 13:44 [From Bactrim] Current Medications: Generic Name Dose Route Start Last Admin Trade Name Freq PRN Reason Stop Dose Admin Sodium Chloride 1,000 mls @ 30 mls/hr 05/16/22 10:45 05/16/22 11:22 Sodium Chloride 0.9% IV 05/17/22 10:44 30 mls/hr .Q24H HARRIET Administration Pertinent History/Comorbid Conditions* Medical History (Updated 03/31/22 @ 23:03 by NATALIE Smith) Acid reflux disease Anxiety Controlled diabetes mellitus with hyperglycemia, without long-term current use of insulin Coronary artery disease Diabetes mellitus with hyperglycemia, with long-term current use of insulin DM neuropathy, painful Essential (primary) hypertension History of cigarette smoking Mixed hyperlipidemia Surgical History (Updated 11/16/19 @ 13:34 by NATALIE Smith) Basal cell carcinoma (BCC) in situ of skin September 2017 on back History of colonoscopy Family History (Updated 03/20/20 @ 19:14 by Tana Rader MD) Diabetes Mother Heart disease Mother Cancer Father lung cancer Hypertension Father Many of the family members have high blood pressure Social History Smoking and tobacco status: former smoker Quit status (tobacco): has quit using tobacco Former quit date comment: 03/20/20 Second hand smoke exposure: Yes Smoking risk assessment/counseling performed?: Yes Alcohol intake: never Desire information about alcohol rehabilitation?: No Counseling given: No Desire information about substance/drug rehabilitation?: No Counseling given: No Adopted: No Caregiver/support person: No Lives independently: Yes Household members: spouse Housing: House Marital status: service: No Current occupational status: employed History of recent travel: No Current gender identity: Male Pertinent Exam Findings alert, oriented x 3, regular rate & rhythm and operative site marked (Right groin) Recommendations Surgery/Procedure today (I&D of right groin abscess.) Other Plans: I&D of right groin abscess Coding 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
[2022-05-16] MEDS: ceFAZolin 2,000 MG in sodium chloride 0.9% (plus) 50 ML 100 MG IV (14:15)
--- NOTE | 2022-05-16 14:29 | PM.OP ---
Operative Report Date of procedure: May 16, 2022 Pre-op diagnosis: Preop Diagnosis Right groin abscess Procedure done: Incision and drainage of right groin abscess Implants: Vessel loop Specimens removed/disposition: Swabs for cultures and sensitivities Surgeon: Miki Roberts MD Wire Weaver Cloth: certified neurodiagnostic technologistdionte Ritchie Daily nurse Shantel Anesthesia: General (JR Bennett and Nba Castro) Estimated blood loss (mL): 5 Procedure: After identifying the patient holding area, the right groin was marked before the procedure by myself, patient was then taken to the operative suite, was placed in supine position, intubated by anesthesia, prophylactic antimicrobial therapy were given. Right thigh was placed in frog position. Scrotum was elevated using tape. Time-out was done verifying the patient's name/date of /planned procedure and destination after the procedure, all were in agreement. Prep and drape was done under the usual sterile technique. After palpation of the right lower back abscess, a hemostat was thrusted and purulent discharge was revealed swabs were taken for cultures aerobes and anaerobes. There was a tunneling about 2 inches and a counterincision was created more medially and curette was used for sharp debridement all the way to the subcutaneous layer. Sharp debridement using curette was achieved. Followed by that a vessel loop was passed along and was tied down using 3-0 silk ties for future closing. After appropriate irrigation hemostasis were achieved. Each opening measures about half centimeter with a tunneling of about [address] to the subcutaneous layer. Dry dressing was then applied in the form of ABDs, followed by surgical pants Patient tolerated the procedure well, count of instruments, needles and sponges were completed at the end of the procedure. And then patient was taken to the recovery area in stable condition. I Was present for the whole entire procedure
--- NOTE | 2022-05-16 14:49 | SUR.PHASEI ---
1440 PT TO PACU 5 SLEEPY BUT AWAKES EASILY TO VOICE, IV TO LT HAND #20 PATENT OF NS 200 ML AT KVO RATE PER GRAVITY, MONITOR SR WITH NO ECTOPY NOTED ID BANDS TO RT WRIST PT ID'D WITH 2 IDENTIFIERS. DRESSING TO GROIN D/I SMALL AMT PINK DRAINAGE TO 4X4 SCROTAL SUPORT IN PLACE.
[2022-05-16 15:02] LABS: Glucose Point of Care 115 mg/dL (70-110)
[2022-05-16] MEDS: HYDROcodone-acetaminophen 5-325 mg Tablet 1 TAB PO (15:21)
--- NOTE | 2022-05-16 17:05 | ANE.PACU2 ---
Inpatient post-anesthesia follow up: Airway intact: Yes Vital signs: Temperature 97.2 F Pulse Rate 80 Respiratory Rate 18 Blood Pressure 119/78 Pulse Oximetry 93 Oxygen Delivery Me thod Room Air Oxygen Flow Rate 3 Fraction of Inspir ed Oxygen Hydration adequate: Yes Nausea and vomiting: No Pain level: 2 Mental status: Baseline
== END 2022-05-16 15:41 | disposition home or self-care (01) ==
PROVIDERS: Anesthesiology; PCP Nurse Practitioner; Visit Provider Surgery
PROC: (CPT 11042; principal; 2022-05-16 12:30)
DX: L02.214 Cutaneous abscess of groin (principal); I10 Essential (primary) hypertension; K21.9 Gastro-esophageal reflux disease without esophagitis; E66.01 Morbid (severe) obesity due to excess calories; Z68.37 Body mass index [BMI] 37.0-37.9, adult; E11.40 Type 2 diabetes mellitus with diabetic neuropathy, unspecified; Z79.82 Long term (current) use of aspirin; Z79.4 Long term (current) use of insulin; Z79.84 Long term (current) use of oral hypoglycemic drugs; E78.2 Mixed hyperlipidemia; I25.10 Atherosclerotic heart disease of native coronary artery without angina pectoris; E11.65 Type 2 diabetes mellitus with hyperglycemia; Z87.891 Personal history of nicotine dependence
CPT/HCPCS: 11042; 36415; 36416; 80048; 82962; 85025; 87070; 87075; 87077; 87205; J0131; J0690; J1100; J1644; J2250; J2405; J2704; J3010; J7030

== ENCOUNTER → 2022-06-23 10:03 | Outpatient (BNVA) | payer MEDICAID, SELFPAY | PROVIDERS: PCP Nurse Practitioner; Visit Provider Nurse Practitioner Family | DX: T81.89XD Other complications of procedures, not elsewhere classified, subsequent encounter (principal); Y83.8 Other surgical procedures as the cause of abnormal reaction of the patient, or of later complication, without mention of misadventure at the time of the procedure; L98.8 Other specified disorders of the skin and subcutaneous tissue | CPT/HCPCS: 87070 ==

== ENCOUNTER → 2022-06-29 09:37 | Outpatient (BNVA) | payer MEDICAID, SELFPAY | PROVIDERS: PCP Nurse Practitioner; Visit Provider Nurse Practitioner | DX: E11.65 Type 2 diabetes mellitus with hyperglycemia (principal); Z79.4 Long term (current) use of insulin; K21.9 Gastro-esophageal reflux disease without esophagitis; L73.2 Hidradenitis suppurativa; E03.8 Other specified hypothyroidism; I10 Essential (primary) hypertension; E78.1 Pure hyperglyceridemia; E11.40 Type 2 diabetes mellitus with diabetic neuropathy, unspecified | CPT/HCPCS: 80053; 80061; 82043; 83036; 84443; 85025 ==

== ENCOUNTER → 2022-07-06 12:10 | Outpatient (BNVA) | payer MEDICAID, SELFPAY | PROVIDERS: PCP Nurse Practitioner; Visit Provider Thoracic Surgery (Cardiothoracic Vascular Surgery) | DX: I96 Gangrene, not elsewhere classified (principal); T81.89XD Other complications of procedures, not elsewhere classified, subsequent encounter; Y83.8 Other surgical procedures as the cause of abnormal reaction of the patient, or of later complication, without mention of misadventure at the time of the procedure | CPT/HCPCS: 87070 ==

== ENCOUNTER → 2022-09-22 08:36 | Outpatient (BNVA) | payer MEDICAID, SELFPAY | PROVIDERS: PCP Nurse Practitioner; Visit Provider Nurse Practitioner | DX: E03.8 Other specified hypothyroidism (principal); E11.65 Type 2 diabetes mellitus with hyperglycemia; Z79.4 Long term (current) use of insulin; I10 Essential (primary) hypertension; K21.9 Gastro-esophageal reflux disease without esophagitis; E11.40 Type 2 diabetes mellitus with diabetic neuropathy, unspecified; L03.90 Cellulitis, unspecified | CPT/HCPCS: 80053; 82043; 83036; 84443; 85025 ==

== ENCOUNTER → 2022-11-30 15:44 | Outpatient (BNVA) | payer MEDICAID, SELFPAY | PROVIDERS: PCP Nurse Practitioner; Visit Provider Nurse Practitioner | DX: E03.8 Other specified hypothyroidism (principal); E11.65 Type 2 diabetes mellitus with hyperglycemia; Z79.4 Long term (current) use of insulin; L03.90 Cellulitis, unspecified; L13.9 Bullous disorder, unspecified | CPT/HCPCS: 80053; 80061; 81000; 83036; 83721; 85025 ==

== ENCOUNTER → 2023-01-10 10:37 | Outpatient (BNVA) | payer MEDICAID, SELFPAY | PROVIDERS: PCP Nurse Practitioner; Visit Provider Nurse Practitioner | DX: E78.1 Pure hyperglyceridemia (principal); L03.90 Cellulitis, unspecified; L13.9 Bullous disorder, unspecified; E11.65 Type 2 diabetes mellitus with hyperglycemia; Z79.4 Long term (current) use of insulin | CPT/HCPCS: 85025 ==

== ENCOUNTER → 2023-04-04 08:33 | Outpatient (BNVA) | payer MEDICAID, SELFPAY | PROVIDERS: PCP Nurse Practitioner; Visit Provider Nurse Practitioner | DX: E11.65 Type 2 diabetes mellitus with hyperglycemia (principal); Z79.4 Long term (current) use of insulin; E11.40 Type 2 diabetes mellitus with diabetic neuropathy, unspecified; K21.9 Gastro-esophageal reflux disease without esophagitis; E78.1 Pure hyperglyceridemia; E03.8 Other specified hypothyroidism | CPT/HCPCS: 80053; 81000; 83036 ==

== ENCOUNTER → 2023-05-30 10:01 | Outpatient (BNVA) | payer BC, MEDICAID, SELFPAY | PROVIDERS: PCP Nurse Practitioner; Visit Provider Nurse Practitioner | DX: I10 Essential (primary) hypertension (principal); E11.40 Type 2 diabetes mellitus with diabetic neuropathy, unspecified; K21.9 Gastro-esophageal reflux disease without esophagitis; E78.1 Pure hyperglyceridemia; E11.65 Type 2 diabetes mellitus with hyperglycemia; Z79.4 Long term (current) use of insulin; E03.8 Other specified hypothyroidism | CPT/HCPCS: 80053; 80061; 83036; 83721; 84443 ==

== ENCOUNTER → 2023-08-22 10:01 | Outpatient (BNVA) | payer BC, MEDICAID, SELFPAY | PROVIDERS: PCP Nurse Practitioner; Visit Provider Nurse Practitioner | DX: E11.65 Type 2 diabetes mellitus with hyperglycemia; Z79.4 Long term (current) use of insulin; E11.40 Type 2 diabetes mellitus with diabetic neuropathy, unspecified; K21.9 Gastro-esophageal reflux disease without esophagitis; E78.1 Pure hyperglyceridemia; E03.8 Other specified hypothyroidism; I10 Essential (primary) hypertension; R00.0 Tachycardia, unspecified; L13.9 Bullous disorder, unspecified | CPT/HCPCS: 80053; 81000; 83036 ==

== ENCOUNTER → 2023-11-14 10:49 | Outpatient (BNVA) | payer BC, MEDICAID, SELFPAY | PROVIDERS: PCP Nurse Practitioner; Visit Provider Nurse Practitioner | DX: E11.65 Type 2 diabetes mellitus with hyperglycemia (principal); Z79.4 Long term (current) use of insulin; E11.40 Type 2 diabetes mellitus with diabetic neuropathy, unspecified; K21.9 Gastro-esophageal reflux disease without esophagitis; E78.1 Pure hyperglyceridemia; E03.8 Other specified hypothyroidism; I10 Essential (primary) hypertension; R00.0 Tachycardia, unspecified; L13.9 Bullous disorder, unspecified; E11.9 Type 2 diabetes mellitus without complications | CPT/HCPCS: 80053; 80061; 81000; 82607; 83036 ==

== ENCOUNTER → 2024-02-13 11:09 | Outpatient (BNVA) | payer BC, MEDICAID, SELFPAY | PROVIDERS: PCP Nurse Practitioner; Visit Provider Nurse Practitioner | DX: R05.9 Cough, unspecified (principal); Z87.891 Personal history of nicotine dependence; E11.65 Type 2 diabetes mellitus with hyperglycemia; Z79.4 Long term (current) use of insulin; E11.40 Type 2 diabetes mellitus with diabetic neuropathy, unspecified; K21.9 Gastro-esophageal reflux disease without esophagitis; E78.1 Pure hyperglyceridemia; E03.8 Other specified hypothyroidism; I10 Essential (primary) hypertension; R00.0 Tachycardia, unspecified; E11.9 Type 2 diabetes mellitus without complications | CPT/HCPCS: 80053; 80061; 81000; 82607; 83036; 83721; 84443 ==

== ENCOUNTER 2024-02-22 11:04 | Outpatient (CLI) | payer BC, MEDICAID, SELFPAY ==
--- NOTE | 2024-02-22 11:10 | XR_ITS ---
WS: [id number] Chest 2 views, 02/22/2024 Clinical Data: R05.9 - Cough, unspecified Comparison: Portable chest, 03/26/2022 Findings: No nodules, masses or effusions are seen. The heart is normal. The pulmonary vascularity is not increased. No pneumonia or pneumothorax is seen. The subtle increase in interstitial opacities r emains the same. XR/XR chest 2V* [id number] Impression: Minimal prominence and interstitial opacities unchanged.
== END 2024-02-22 11:05 | disposition home or self-care (01) ==
LOC: RAD 11:06
PROVIDERS: PCP Nurse Practitioner; Visit Provider Nurse Practitioner
DX: R05.9 Cough, unspecified (principal); J84.9 Interstitial pulmonary disease, unspecified
CPT/HCPCS: 71046

== ENCOUNTER → 2024-03-10 12:01 | Outpatient (BNVA) | payer BC, MEDICAID, SELFPAY | PROVIDERS: PCP Nurse Practitioner; Visit Provider Internal Medicine Cardiovascular Disease | DX: R00.9 Unspecified abnormalities of heart beat (principal) | CPT/HCPCS: 93005 ==

== ENCOUNTER → 2024-04-30 10:32 | Outpatient (BNVA) | payer BC, MEDICAID, SELFPAY | PROVIDERS: PCP Nurse Practitioner; Visit Provider Nurse Practitioner | DX: E11.9 Type 2 diabetes mellitus without complications (principal); E03.8 Other specified hypothyroidism | CPT/HCPCS: 80053; 81000; 83036; 84443 ==

== ENCOUNTER 2024-05-06 12:08 | Inpatient (IN) | payer BC, MEDICAID, SELFPAY ==
[2024-05-06] VITALS (8 sets, daily range): BP systolic 103–152; BP diastolic 66–92; PULSE 70–98; RESP 18–20; TEMP 36.7–36.8; O2SAT 92–99; BMI 39.3
--- NOTE | 2024-05-06 12:08 | ECG_ITS ---
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 Measurements Intervals [place] Rate: 74 P: 58 [place]: 195 QRS: 64 QRSD: 88 T: 59 QT: 367 QTc: 408 Interpretive Statements SINUS RHYTHM WITH OCCASIONAL VENTRICULAR PREMATURE COMPLEXES NONSPECIFIC T-WAVE ABNORMALITY Compared to ECG 03/10/2024 12:06:16 Ventricular premature complex(es) now present T-wave abnormality still present Electronically Signed On 05-07-2024 01:05:54 CDT by Tana Rader M.D. [email or web address]
--- NOTE | 2024-05-06 12:16 | XRR_ITS ---
PROCEDURE INFORMATION: Exam: XR Chest Exam date and time: 05/06/2024 12:20 PM Age: 59 years old Clinical indication: Cough and dyspnea; Additional info: Dyspnea/cough TECHNIQUE: Imaging protocol: Radiologic exam of the chest. Views: 1 view. COMPARISON: CR XR chest 2V* [id number] 02/22/2024 11:38 AM FINDINGS: Lungs: Unremarkable. No consolidation. Pleural spaces: Unremarkable. No pleural effusion. No pneumothorax. Heart/Mediastinum: Unremarkable. No cardiomegaly. Bones/joints: Unremarkable. XR/XR chest 1V portable [id number] IMPRESSION: No acute findings.
[2024-05-06] MEDS: aspirin 81 mg Chew Tablet 324 MG PO (12:40)
--- NOTE | 2024-05-06 12:40 | ED_ITS ---
HPI - Chest Pain 2 General: Chief Complaint: Chest Pain Stated Complaint: Chest Pain Time Seen by Provider: 05/06/24 12:11 History of Present Illness: 59-year-old male presents emergency room complaining of chest comfort that began while he was cutting wood. He has a history of coronary artery disease and has had stents placed twice in the past surgery was given aspirin and nitro and route which relieved his pain. Patient has a history of previous stents he has not had any stress testing since his stents were placed around 2019 Associated symptoms: Reports dyspnea; Deny abdominal pain or fever(s) Related Data Home Medications Medication Instructions Recorded Confirmed acetaminophen 500 mg tablet 1,000 mg PO Q4H PRN Pain 03/28/21 05/06/24 (Tylenol Extra Strength) aspirin 81 mg tablet,delayed 81 mg PO QAM 03/28/21 05/06/24 release Previous Rx's Medication Instructions Recorded nitroglycerin 0.4 mg sublingual 0.4 mg sublingual Q5M PRN chest 07/27/22 tablet pain #25 tabs clopidogrel 75 mg tablet (Plavix) 75 mg PO QAM #90 tabs 08/23/23 pen needle, diabetic 33 gauge x #100 ea 11/30/23 famotidine 20 mg tablet (Pepcid) 20 mg PO BID #180 tabs 02/13/24 fenofibrate nanocrystallized 145 145 mg PO DAILY #90 tabs 02/13/24 mg tablet (Tricor) levothyroxine 25 mcg tablet 25 mcg PO DAILY #90 tabs 02/13/24 rosuvastatin 40 mg tablet (Crestor) 40 mg PO DAILY #90 tabs 02/13/24 dapagliflozin propanediol 10 mg 10 mg PO QAM #30 tabs 04/30/24 tablet (Farxiga) dulaglutide 1.5 mg/0.5 mL 1.5 mg (0.5 mL) SUBCUT .week #2 mL 04/30/24 subcutaneous pen injector (Trulicity) evolocumab 140 mg/mL subcutaneous 140 mg SUBCUT .every 14 days #2 mL 04/30/24 pen injector (Repjeffrya Laraick) fluticasone furoate 100 1 inh inhalation Q24H #30 ea 04/30/24 mcg/actuation blister powder for inhalation (Arnuity Ellipta) insulin glargine 100 unit/mL (3 45 unit (0.45 mL) SUBCUT QAM #15 mL 04/30/24 mL) subcutaneous pen (Lantus Solostar U-100 Insulin) umeclidinium 62.5 mcg-vilanterol 1 inh inhalation Q24H #60 ea 04/30/24 25 mcg/actuation powdr for inhalation (Anoro Ellipta) valsartan 40 mg tablet 80 mg (2 x 40 mg) PO DAILY #90 tabs 04/30/24 Allergies Allergy/AdvReac Type Severity Reaction Status Date / Time shellfish derived Allergy Severe ADR-Itching Verified 04/30/24 09:11 trimethoprim [From Bactrim] Allergy Severe ALGY-Rash Verified 04/30/24 09:11 sulfamethoxazole AdvReac Severe ALGY-Rash Verified 04/30/24 09:11 [From Bactrim] Review of Systems 2 Const: Denies: fever(s) or chills Card: Reports: chest pain Resp: Reports: dyspnea GI: Denies: abdominal pain : Denies: dysuria, urinary frequency or urinary urgency Musc: Denies: neck pain or back pain Skin/Breast: Denies: rash PFSH ED 2 PFSH: Medical History Diabetes mellitus with hyperglycemia, with long-term current use of insulin History of cigarette smoking Anxiety Coronary artery disease Mixed hyperlipidemia Controlled diabetes mellitus with hyperglycemia, without long-term current use of insulin Acid reflux disease DM neuropathy, painful Essential (primary) hypertension Surgical History History of coronary angioplasty with insertion of stent 2020 Basal cell carcinoma (BCC) in situ of skin September 2017 on back History of colonoscopy Family History Mother Diabetes Heart disease Father Cancer lung cancer Father Hypertension Many of the family members have high blood pressure Social History Smoking and tobacco/nicotine status: never used tobacco/nicotine Quit status (tobacco/nicotine): has quit using Former quit date comment: 03/20/20 Second hand smoke exposure: Yes Alcohol intake: never Substance/Drug Use: never Adopted: No Caregiver/support person: No Lives independently: Yes Household members: spouse Housing: House Marital status: service: No Current occupational status: employed Do you think of yourself as: Straight/Heterosexual Current gender identity: Male Physical Exam 2 Const: GENERAL APPEARANCE: cooperative ORIENTATION/CONSCIOUSNESS: Yes awake, Yes oriented to person, Yes oriented to place and Yes oriented to time HENMT: COMMON NORMALS: normocephalic, atraumatic and hearing grossly normal bilaterally HEAD & SCALP: normocephalic and atraumatic Resp: COMMON NORMALS: normal respiratory effort, No retractions, No use of accessory muscles and clear to auscultation bilaterally AUSCULTATION: clear to auscultation bilaterally Cardio: COMMON NORMALS: regular rate, regular rhythm and No murmurs present (Cardio) RATE: regular rate RHYTHM: regular rhythm GI: COMMON NORMALS: Soft to palpation and No hepatosplenomegaly present A USCULTATION: Yes normoactive bowel sounds PALPATION: Yes Soft to palpation, No Tenderness to palpation present (GI), No Guarding due to palpation present (GI) and Yes No hepatosplenomegaly present Extremity: COMMON NORMALS: normal to inspection, capillary refill normal, no clubbing, cyanosis or edema, no calf tenderness and no pedal edema Neuro: SENSORIUM/ORIENTATION: Yes oriented to person, Yes oriented to place and Yes oriented to time Skin: COMMON NORMALS: no rashes or lesions noted GENERAL SKIN EXAM: no rashes or lesions noted Course 2 Vital Signs: Vital signs: Vital Signs Temperature 98.3 F 05/06/24 12:09 Pulse Rate 84 05/06/24 12:09 Respiratory Rate 18 05/06/24 12:09 Blood Pressure 103/76 05/06/24 12:09 Pulse Oximetry 95 05/06/24 12:09 Oxygen Delivery Me thod Room Air 05/06/24 12:09 MDM - Chest Pain Medical Decision Making Chest pain brought on by exertion relieved by nitro he is pain-free at this time EKG did not show any acute ST elevation. Troponin is 24. There is no history of heart disease will admit the patient reviewed previous cardiac cath there were some noncritical lesions that were not addressed at time he states has not had any stress testing since that angiogram in 2019. Discussed the hospitalist orders. Medical Records I reviewed the patient's medical records. Lab Data I reviewed the patient's lab results. 05/06/24 12:28 05/06/24 12:28 Radiology Impressions Chest X-Ray 05/06/24 12:16 IMPRESSION: No acute findings. Laboratory Results WBC 9.54 10^3/uL (3.29-11.43) 05/06/24 12: RBC 5.38 10^6/uL (3.85-5.65) 05/06/24 12: Hgb 16.30 g/dL (11.27-16.99) 05/06/24 12: Hct 50.2 % (37-53) 05/06/24 12: MCV 93.3 fl (82-101) 05/06/24 12: MCH 30.3 pg (27-33) 05/06/24 12: MCHC 32.5 g/dL (30-55) 05/06/24 12: RDW 16.7 % (12.1-15.1) H 05/06/24 12: Plt Count 219 10^3/cmm (157-399) 05/06/24 12: MPV 10.0 fL (7.4-10.4) 05/06/24 12: Neut % (Auto) 76.6 % 05/06/24 12: Lymph % (Auto) 12.6 % 05/06/24 12: Will % (Auto) 7.5 % 05/06/24 12: Eos % (Auto) 2.0 % 05/06/24 12: Baso % (Auto) 0.9 % 05/06/24 12: Neut # (Auto) 7.30 10^3/uL (1.8-7.7) 05/06/24 12: Lymph # (Auto) 1.2 10^3/uL (0.8-4.8) 05/06/24 12:28 Will # (Auto) 0.7 10^3/uL (0.2-0.9) 05/06/24 12:28 Eos # (Auto) 0.2 10^3/uL (0.0-0.8) 05/06/24 12:28 Baso # (Auto) 0.1 10^3/uL (0.0-0.1) 05/06/24 12:28 Nucleated RBC % (auto) 0 % 05/06/24 12:28 Nucleated RBCs # 0.0 /100WBC 05/06/24 12:28 D-Dimer 0.28 ug/mLFEU (0-0.59) 05/06/24 12:28 Sodium 136 mmol/L (136-145) 05/06/24 12:28 Potassium 4.1 mmol/L (3.5-5.1) 05/06/24 12:28 Chloride 102 mmol/L (98-107) 05/06/24 12:28 Carbon Dioxide 21 mmol/L (22-29) L 05/06/24 12:28 Anion Gap 17.1 (5-19) 05/06/24 12:28 BUN 20 mg/dL (6-20) 05/06/24 12:28 Creatinine 0.7 mg/dL (0.7-1.2) 05/06/24 12:28 GFR Calculation 115.8 mL/min (90-130) 05/06/24 12:28 Glucose 144 mg/dL (65-115) H 05/06/24 12:28 Calculated Osmolality 287 mOsm/kg (285-295) 05/06/24 12:28 Calcium 8.9 mg/dL (8.5-10.5) 05/06/24 12:28 Total Bilirubin 0.4 mg/dL (0.15-1.2) 05/06/24 12:28 AST 26 U/L (0-40) 05/06/24 12:28 ALT 28 U/L (0-41) 05/06/24 12:28 Alkaline Phosphatase 104 U/L (40-130) 05/06/24 12:28 Troponin T Baseline 24 ng/L (0-15) H 05/06/24 12:28 Total Protein 7.1 g/dL (6.6-8.7) 05/06/24 12:28 Albumin 4.3 g/dL (3.5-5.2) 05/06/24 12:28 Globulin 2.8 g/dL (1.3-4.6) 05/06/24 12:28 All radiology interpretation(s) finalized by discharge Discharge Plan Discharge Patient Disposition: Placed in Observation Clinical Impression: Stable angina, History of smoking 10-25 pack years Coronary artery disease Qualifiers: Coronary Disease-Associated Artery/Lesion type: [place] artery [place] vs. transplanted heart: [place] heart Associated angina: with unspecified angina Q ualified Code(s): I25.119 - Atherosclerotic heart disease of [place] coronary artery with unspecified angina pectoris Diabetes mellitus with hyperglycemia, with long-term current use of insulin Qualifiers: Diabetes mellitus type: type 2 Qualified Code(s): E11.65 - Type 2 diabetes mellitus with hyperglycemia Coding Level of Care Code ED Quality Assurance Supervisor Final for Scott Hayward
[2024-05-06 12:44] LABS: Basophils # 0.1 10^3/uL (0.0-0.1); Basophils % 0.9 %; Eosinophils # 0.2 10^3/uL (0.0-0.8); Hematocrit 50.2 % (37-53); Lymphocytes # 1.2 10^3/uL (0.8-4.8); Lymphocytes % 12.6 %; Mean Corpuscular HGB Conc 32.5 g/dL (30-55); Mean Corpuscular Hemoglobin 30.3 pg (27-33); Mean Corpuscular Volume 93.3 fl (82-101); Monocytes # 0.7 10^3/uL (0.2-0.9); Monocytes % 7.5 %; Neutrophils % 76.6 %; Nucleated Red Blood Cells % 0 %; Platelet Count 219 10^3/cmm (157-399); Red Blood Count 5.38 10^6/uL (3.85-5.65); Red Cell Distribution Width 16.7 % (12.1-15.1); White Blood Count 9.54 10^3/uL (3.29-11.43)
[2024-05-06 13:01] LABS: Alanine Aminotransferase 28 U/L (0-41); Albumin Level 4.3 g/dL (3.5-5.2); Alkaline Phosphatase 104 U/L (40-130); Anion Gap 17.1 (5-19); Aspartate Amino Transferase 26 U/L (0-40); Blood Urea Nitrogen 20 mg/dL (6-20); Calcium 8.9 mg/dL (8.5-10.5); Carbon Dioxide 21 mmol/L (22-29); Chloride 102 mmol/L (98-107); Creatinine Clr Calc Pharmacy 156.7521; Globulin 2.8 g/dL (1.3-4.6); Glomerular Filtration Rate 115.8 mL/min (90-130); Glucose 144 mg/dL (65-115); Osmolality Calculated 287 mOsm/kg (285-295); Potassium 4.1 mmol/L (3.5-5.1); Sodium 136 mmol/L (136-145); Total Bilirubin 0.4 mg/dL (0.15-1.2); Total Protein 7.1 g/dL (6.6-8.7)
[2024-05-06 13:03] LABS: Troponin(5th) Baseline 24 ng/L (0-15)
--- NOTE | 2024-05-06 13:28 | P.HP_ITS ---
Providers/Chief Complaint 2 Primary Care Provider: Christiano Serrato, BALAJIC Chief Complaint: Chest Pain History of Present Illness Jose Daniel Forbes is a 59 year old male with history of coronary artery disease 2 stents placed 2019, quit smoking at that time has been compliant with his medication, morbidly obese, diabetic, recently started taking Trulicity first dose was today, he was cutting weeds today in the cold weather when he started having spasms on his neck area which she is describing as chest discomfort. It lasted for about a few minutes, it was only happening during his exertional activity of cutting wood. Went to see his doctor in the clinic who recommended him to go to the ER. His first troponin is around 18, EKG not showing any ischemic or infarctive changes he is chest pain-free, patient was questioning why he is getting admitted. I requested echo and D-dimer. Will require stress test in the morning Patient with chest comfort was diaphoretic, no nausea or vomiting He was given nitroglycerin but patient is stating that he was chest pain-free at that time Review of Systems 2 Const: Denies: fever(s) Eyes: Denies: change in vision ENMT: Denies: throat pain Card: Reports: chest pain Resp: Reports: dyspnea GI: Denies: abdominal pain Medications/Allergies Home Medications Medication Instructions Recorded Confirmed Last Taken Type acetaminophen 500 mg tablet 1,000 mg PO Q4H PRN Pain 03/28/21 05/06/24 Unknown History (Tylenol Extra Strength) aspirin 81 mg tablet,delayed 81 mg PO QAM 03/28/21 05/06/24 05/05/24 History release nitroglycerin 0.4 mg sublingual 0.4 mg sublingual Q5M PRN chest 07/27/22 05/06/24 Unknown Rx tablet pain #25 tabs clopidogrel 75 mg tablet (Plavix) 75 mg PO QAM #90 tabs 08/23/23 05/06/24 05/05/24 Rx pen needle, diabetic 33 gauge x #100 ea 11/30/23 05/06/24 Unknown Rx famotidine 20 mg tablet (Pepcid) 20 mg PO BID #180 tabs 02/13/24 05/06/24 Unknown Rx fenofibrate nanocrystallized 145 145 mg PO DAILY #90 tabs 02/13/24 05/06/24 Unknown Rx mg tablet (Tricor) levothyroxine 25 mcg tablet 25 mcg PO DAILY #90 tabs 02/13/24 05/06/24 05/05/24 Rx rosuvastatin 40 mg tablet (Crestor) 40 mg PO DAILY #90 tabs 02/13/24 05/06/24 Unknown Rx dapagliflozin propanediol 10 mg 10 mg PO QAM #30 tabs 04/30/24 05/06/24 05/05/24 Rx tablet (Farxiga) dulaglutide 1.5 mg/0.5 mL 1.5 mg (0.5 mL) SUBCUT .week #2 mL 04/30/24 05/06/24 05/06/24 Rx subcutaneous pen injector (Trulicity) evolocumab 140 mg/mL subcutaneous 140 mg SUBCUT .every 14 days #2 mL 04/30/24 05/06/24 Unknown Rx pen injector (Repatha SureClick) fluticasone furoate 100 1 inh inhalation Q24H #30 ea 04/30/24 05/06/24 05/05/24 Rx mcg/actuation blister powder for inhalation (Arnuity Ellipta) insulin glargine 100 unit/mL (3 45 unit (0.45 mL) SUBCUT QAM #15 mL 04/30/24 05/06/24 Unknown Rx mL) subcutaneous pen (Lantus Solostar U-100 Insulin) umeclidinium 62.5 mcg-vilanterol 1 inh inhalation Q24H #60 ea 04/30/24 05/06/24 Unknown Rx 25 mcg/actuation powdr for inhalation (Anoro Ellipta) valsartan 40 mg tablet 80 mg (2 x 40 mg) PO DAILY #90 tabs 04/30/24 05/06/24 05/06/24 Rx Allergies Allergy/AdvReac Type Severity Reaction Status Date / Time shellfish derived Allergy Severe ADR-Itching Verified 04/30/24 09:11 trimethoprim [From Bactrim] Allergy Severe ALGY-Rash Verified 04/30/24 09:11 sulfamethoxazole AdvReac Severe ALGY-Rash Verified 04/30/24 09:11 [From Bactrim] PFSH Acute 2 PFSH: Medical History Diabetes mellitus with hyperglycemia, with long-term current use of insulin History of cigarette smoking Anxiety Coronary artery disease Mixed hyperlipidemia Controlled diabetes mellitus with hyperglycemia, without long-term current use of insulin Acid reflux disease DM neuropathy, painful Essential (primary) hypertension Surgical History History of coronary angioplasty with insertion of stent 2020 Basal cell carcinoma (BCC) in situ of skin September 2017 on back History of colonoscopy Family History Mother Diabetes Heart disease Father Cancer lung cancer Father Hypertension Many of the family members have high blood pressure Social History Smoking and tobacco/nicotine status: never used tobacco/nicotine Quit status (tobacco/nicotine): has quit using Former quit date comment: 03/20/20 Second hand smoke exposure: Yes Alcohol intake: never Substance/Drug Use: never Adopted: No Caregiver/support person: No Lives independently: Yes Household members: spouse Housing: House Marital status: service: No Current occupational status: employed Do you think of yourself as: Straight/Heterosexual Current gender identity: Male Vitals/I&O/Wt Last Vital Signs Temp 98.3 F 05/06/24 12:09 Pulse 84 05/06/24 12:09 Resp 18 05/06/24 12:09 BP 103/76 05/06/24 12:09 Pulse Ox 95 05/06/24 12:09 O2 Del Method Room Air 05/06/24 12:09 Weight last 48 hrs Weight 127.913 kg Physical Exam 2 Narrative: Morbid obese male Chest pain-free Hemodynamically stable GCS 15 Nonfocal neuroexam Currently movement at the bedside No reproducible chest pain at the time of evaluation Data 05/06/24 12:28 05/06/24 12:28 A&P Assessment and plan (1) Unstable angina: (2) Essential (primary) hypertension: (3) Acid reflux disease: Qualifiers: Esophagitis presence: without esophagitis Qualified Code(s): K21.9 - Gastro-esophageal reflux disease without esophagitis Plan Angina at exertion Will require stress test in the morning N.p.o. from midnight Continue consistent carb diet Sliding-scale for now Full code Patient can have diet today Continue aspirin and Plavix Serial troponin and EKG EKG without ischemic or infarctive changes Patient pressure the Trulicity was morning , No active signs of anaphylaxis Blood pressure seems to be stable for now Attestations 2 Medical Necessity Statement*: Discharge within 48 hours Diagnoses Unstable angina I20.0 Essential (primary) hypertension I10 Gastroesophageal reflux disease without esophagitis K21.9 Esophagitis presence: without esophagitis
--- NOTE | 2024-05-06 13:31 | USCV_ITS ---
Jose Daniel Forbes Age: 59 Gender: M : 1965 Exam Date: 05/06/2024 15:16 Ordering Phys: Zoe Shirley MD Technologist: Exam Location: [facility] Indication: hx cad BP: 120 / 70 HR: 78 Rhythm: Sinus Technical Quality: Adequate MEASUREMENTS (Male / Female) Normal Values 2D ECHO LV Diastolic Diameter PLAX 6.4 cm 4.2 - 5.9 / 3.9 - 5.3 cm IVS Diastolic Thickness 1.1 cm 0.6 - 1.0 / 0.6 - 0.9 cm IVS Systolic Thickness 1.6 cm LVPW Diastolic Thickness 1.2 cm 0.6 - 1.0 / 0.6 - 0.9 cm LVPW Systolic Thickness 1.7 cm LVOT Diameter 2.1 cm LV Ejection Fraction 2D Teich 26.4 % LV Ejection Fraction MOD 4C 58.5 % LV Ejection Fraction MOD 2C 47.3 % LV Ejection Fraction 2C AL 45.4 % LA Diameter 4.0 cm RA Systolic Volume 4C AL 53.0 ml RA Systolic Volume 4C MOD 51.2 ml Aorta at Sinotubular Diameter 3.3 cm M-MODE LA Ao Ratio MM 1.2 AV Cusp Separation MM 1.8 cm DOPPLER AV Peak Velocity 155.0 cm/s LVOT Peak Velocity 86.0 cm/s AV Area Cont Eq vti 2.3 cm squared AV Area Cont Eq pk 1.9 cm squared MV Peak Velocity 101.0 cm/s MV Area PHT 3.8 cm squared Mitral E to A Ratio 1.0 TR Peak Velocity 202.0 cm/s TR Peak Gradient 16.3 mmHg TV Peak E Velocity 81.0 cm/s Right Atrial Pressure 3.0 mmHg Pulmonary Artery Systolic Pressu 19.3 mmHg PV Peak Velocity 104.0 cm/s FINDINGS Left Ventricle Normal left ventricular size and systolic function, EF 58%.. No regional wall motion abnormalities. Mild left ventricular hypertrophy. Grade I/IV diastolic dysfunction (abnormal relaxation filling pattern), normal to mildly elevated filling pressures. Right Ventricle The right ventricle is normal in size and function. Right Atrium The right atrium is normal in size. Left Atrium The left atrium is normal in size. Mitral Valve No gross abnormalities noted Aortic Valve Thickened aortic valve. Trace aortic valve regurgitation. Tricuspid Valve No gross abnormalities noted Pulmonic Valve Pulmonic valve not well visualized. Pericardium Normal pericardium without effusion. Aorta Normal ascending aorta dimension. IVC Inferior vena cava not visualized. CONCLUSIONS Normal left ventricular size and systolic function, EF 58%.. No regional wall motion abnormalities. Mild left ventricular hypertrophy. Grade I/IV diastolic dysfunction (abnormal relaxation filling pattern), normal to mildly elevated filling pressures. Thickened aortic valve. Trace aortic valve regurgitation. No gross valvular abnormalities. Normal cardiac chamber sizes. There is no pericardial effusion. No intracardiac masses. Compared to the study from 03/26/2022, there may not be a significant Dr Tana Rader MD FACC (Electronically Signed) Final Date: 06 May 2024 22:36 S
[2024-05-06 13:54] LABS: D Dimer 0.28 ug/mLFEU (0-0.59)
--- NOTE | 2024-05-06 14:16 | ECG_ITS ---
[facility] Test Date: 2024-05-06 Pat Name: Jose Daniel Forbes Department: Room: Gender: Male Currency Counter: : 1965 Requested By: Ethan Mendes Order Number: [id number] Simeon MD: Tana Rader M.D. Measurements Intervals [place] Rate: 76 P: 61 CO: 197 QRS: 62 QRSD: 84 T: 65 QT: 359 QTc: 404 Interpretive Statements SINUS RHYTHM NONSPECIFIC T-WAVE ABNORMALITY Compared to ECG 05/06/2024 12:08:44 Ventricular premature complex(es) no longer present T-wave abnormality still present Electronically Signed On 05-08-2024 00:59:08 CDT by Tana Rader M.D. [email or web address]
[2024-05-06 14:17] LABS: Bilirubin Urine Negative (Negative); Blood Urine Negative (Negative); Glucose Urine UA 3+ (Normal); Ketones Urine Negative (Negative); Leukocyte Esterase Urine Negative (Negative); Nitrate Urine Negative (Negative); Protein Urine Negative (Negative); Urine Appearance Clear (CLEAR); Urine Color Yellow (Yellow)
[2024-05-06 14:25] LABS: Add Urine Microscopic? YES; Bacteria Urine None Seen /hpf; Hyaline Casts Urine 0-4 /lpf; RBC Urine 0-2 /hpf (0-2); Squamous Epithelial Cell Urine 0-5 /hpf (0-5); WBC Urine 0-5 /hpf (0-5)
[2024-05-06 14:38] LABS: Troponin 5 2HR 43.47 ng/L (0-15)
[2024-05-06 14:38] LABS: Specific Gravity, Urine 1.039 (1.005-1.030)
[2024-05-06 14:47] LABS: Troponin 5 2HR Delta 19.47 ABS# (0-10)
[2024-05-06] MEDS: enoxaparin 150 mg/mL Syringe 130 MG SUBCUT (16:04)
[2024-05-06] MEDS: clopidogrel 300 mg Tablet PO (16:04)
--- NOTE | 2024-05-06 16:31 | PM.CONSULT ---
Providers/Reason For Consult Consulting Physician/Specialty*: LUPE Rader MD/cardiology Reason for Consult*: Patient with chest pain and elevated troponin T Requesting Physician: Dr. Shirley Attending Physician: Zoe Shirley MD Primary Care Provider: NATALIE Smith History of Present Illness History of Present Illness Jose Daniel Forbes is a 59 year old male with a history of hypertension, diabetes, dyslipidemia and atherosclerotic heart diseas, status post PCI of the obtuse marginal artery and right coronary artery in 2019, he is presenting with complaints of rather sudden onset of chest pain. He was found to have elevated troponin T. Cardiology consult is requested for further cardiac evaluation recommendations. Mr. Forbes apparently has been in his baseline state of health up until this afternoon while he was cutting wood, started having pain in the neck area, radiated to the jolts he had associated shortness of breath, nausea and sweating. The initial episode may have lasted for 3 minutes or so and then gradually subsided with rest. He started cutting the wood again. Had the recurrence of pain at that time. He might have had 3 or 4 episodes of similar pain. He also was g having some dizziness. No other associated symptoms or radiation of pain. The intensity of the pain went up to 8/10. Because of the recurrent episodes of chest pain, he went to the primary care provider. He was given sublingual nitro and p.o. aspirin. His symptoms somewhat subsided at that point. The last episode of chest pain might have lasted for 15 minutes or so. Because of the worsening symptoms, he was advised to be evaluated in the emergency room. At the time of any examination, the patient is pain-free. He denies any shortness of breath or any other specific complaints at this point. His initial troponin T was 20.4 and the 2-hour delta was 19. The EKG showed some nonspecific T wave changes. This patient has a history of heavy smoking abuse which he quit in 2019. He had the last cardiac catheterization in March 2020. He was found to have a high-grade lesion in the first obtuse marginal branch of the circumflex artery and in the right coronary artery. He had a mild to moderate diffuse disease in the other vessels. He underwent PCI of the obtuse marginal and RCA lesions at that time. Apparently he has been doing okay with no recurrence of symptoms since then. Lately he been having low blood pressure and for the reason, the blood pressure medications were discontinued by the primary care provider. He also had some medication changes for the diabetes. He started using Trulicity and first dose was taken this morning. Review of Systems Narrative: CONSTITUTIONAL: No fever or chills. EYES: No blurring of vision or other visual disturbances lately. ENT: No hoarseness of voice, auditory disturbances or sore throat. CARDIOVASCULAR: As mentioned above. RESPIRATORY: No significant cough. GASTROINTESTINAL: No hematemesis or melena. GENITOURINARY: No dysuria or hematuria. INTEGUMENTARY: No skin rashes or history of skin cancer. NEURO: No transient ischemic attacks or amaurosis. PSYCHIATRIC: No history of psychosis or major depression. HEMATOLOGIC: No bleeding disorders or significant anemia. ENDOCRINE: Medication changes as mentioned above MUSCULOSKELETAL: No recent joint pain or swelling. ALLERGY/IMMUNOLOGY: As mentioned above. Medications/Allergies Home Medications Medication Instructions Recorded Confirmed Last Taken Type acetaminophen 500 mg tablet 1,000 mg PO Q4H PRN Pain 03/28/21 05/06/24 Unknown History (Tylenol Extra Strength) aspirin 81 mg tablet,delayed 81 mg PO QAM 03/28/21 05/06/24 05/05/24 History release nitroglycerin 0.4 mg sublingual 0.4 mg sublingual Q5M PRN chest 07/27/22 05/06/24 Unknown Rx tablet pain #25 tabs clopidogrel 75 mg tablet (Plavix) 75 mg PO QAM #90 tabs 08/23/23 05/06/24 05/05/24 Rx pen needle, diabetic 33 gauge x #100 ea 11/30/23 05/06/24 Unknown Rx famotidine 20 mg tablet (Pepcid) 20 mg PO BID #180 tabs 02/13/24 05/06/24 Unknown Rx fenofibrate nanocrystallized 145 145 mg PO DAILY #90 tabs 02/13/24 05/06/24 Unknown Rx mg tablet (Tricor) levothyroxine 25 mcg tablet 25 mcg PO DAILY #90 tabs 02/13/24 05/06/24 05/05/24 Rx rosuvastatin 40 mg tablet (Crestor) 40 mg PO DAILY #90 tabs 02/13/24 05/06/24 Unknown Rx dapagliflozin propanediol 10 mg 10 mg PO QAM #30 tabs 04/30/24 05/06/24 05/05/24 Rx tablet (Farxiga) dulaglutide 1.5 mg/0.5 mL 1.5 mg (0.5 mL) SUBCUT .week #2 mL 04/30/24 05/06/24 05/06/24 Rx subcutaneous pen injector (Trulicity) evolocumab 140 mg/mL subcutaneous 140 mg SUBCUT .every 14 days #2 mL 04/30/24 05/06/24 Unknown Rx pen injector (Repatha SureClick) fluticasone furoate 100 1 inh inhalation Q24H #30 ea 04/30/24 05/06/24 05/05/24 Rx mcg/actuation blister powder for inhalation (Arnuity Ellipta) insulin glargine 100 unit/mL (3 45 unit (0.45 mL) SUBCUT QAM #15 mL 04/30/24 05/06/24 Unknown Rx mL) subcutaneous pen (Lantus Solostar U-100 Insulin) umeclidinium 62.5 mcg-vilanterol 1 inh inhalation Q24H #60 ea 04/30/24 05/06/24 Unknown Rx 25 mcg/actuation powdr for inhalation (Anoro Ellipta) valsartan 40 mg tablet 80 mg (2 x 40 mg) PO DAILY #90 tabs 04/30/24 05/06/24 05/06/24 Rx Allergies Allergy/AdvReac Type Severity Reaction Status Date / Time shellfish derived Allergy Severe ADR-Itching Verified 04/30/24 09:11 trimethoprim [From Bactrim] Allergy Severe ALGY-Rash Verified 04/30/24 09:11 sulfamethoxazole AdvReac Severe ALGY-Rash Verified 04/30/24 09:11 [From Bactrim] Current Medications Generic Name Dose Route Start Last Admin Trade Name Freq PRN Reason Stop Dose Admin Enoxaparin Sodium 130 mg 05/06/24 16:00 05/06/24 16:04 Enoxaparin 150 Mg/Ml Syringe SUBCUT 130 mg Q12H HARRIET Administration PFSH Acute PFSH: Medical History Diabetes mellitus with hyperglycemia, with long-term current use of insulin History of cigarette smoking Anxiety Coronary artery disease Mixed hyperlipidemia Controlled diabetes mellitus with hyperglycemia, without long-term current use of insulin Acid reflux disease DM neuropathy, painful Essential (primary) hypertension Surgical History History of coronary angioplasty with insertion of stent 2020 Basal cell carcinoma (BCC) in situ of skin September 2017 on back History of colonoscopy Family History Mother Diabetes Heart disease Father Cancer lung cancer Father Hypertension Many of the family members have high blood pressure Social History Smoking and tobacco/nicotine status: never used tobacco/nicotine Quit status (tobacco/nicotine): has quit using Former quit date comment: 03/20/20 Second hand smoke exposure: Yes Alcohol intake: never Substance/Drug Use: never Adopted: No Caregiver/support person: No Lives independently: Yes Household members: spouse Housing: House Marital status: service: No Current occupational status: employed Do you think of yourself as: Straight/Heterosexual Current gender identity: Male Vitals/I&O/Wt Last Vital Signs Temp 98.3 F 05/06/24 12:09 Pulse 81 05/06/24 15:17 Resp 18 05/06/24 12:09 BP 131/81 05/06/24 15:17 Pulse Ox 98 05/06/24 15:17 O2 Del Method Room Air 05/06/24 15:26 Weight last 48 hrs Weight 283 lb 14.4 oz Weight 282 lb Physical Exam Narrative: GENERAL: The patient is alert and oriented times three. Not in any acute distress. Moderately obese HEENT: No significant pallor, icterus or lymphadenopathy.Oral cavity: There are no mucous membrane lesions. NECK: Trachea appears to be central. No masses noted. No JVD or thyromegaly appreciated. RESPIRATORY: Chest is symmetrical. No intercostals muscle retraction or any accessory muscle activation. There is no chest wall tenderness. Breath sounds are heard bilaterally. No rales or rhonchi heard. No evidence of any consolidation. BREASTS: Deferred. HEART: The heart sounds are normal. No S3 or S4. No significant murmurs. No pericardial rub ABDOMEN: No vessel pulsations or distention. No tenderness. No organomegaly appreciated. Bowel sounds are normally heard. : Deferred. RECTAL: Deferred. LYMPHATIC: No lymphadenopathy noted in the neck. EXTREMITIES: No edema or cyanosis. No clubbing. MUSCULOSKELETAL: No acute joint deformities or swelling SKIN: There are no significant rashes or ecchymosis NEUROPSYCHIATRIC: The patient is alert and oriented x3. Appears to be in a good mood. No tremors or rigidity noted. Data 05/07/24 01:59 05/07/24 06:09 Other Labs: Laboratory Last Values WBC 9.54 10^3/uL (3.29-11.43) 05/06/24 12: RBC 5.38 10^6/uL (3.85-5.65) 05/06/24 12: Hgb 16.30 g/dL (11.27-16.99) 05/06/24 12: Hct 50.2 % (37-53) 05/06/24 12: MCV 93.3 fl (82-101) 05/06/24 12: MCH 30.3 pg (27-33) 05/06/24 12:28 MCHC 32.5 g/dL (30-55) 05/06/24 12: RDW 16.7 % (12.1-15.1) H 05/06/24 12: Plt Count 219 10^3/cmm (157-399) 05/06/24 12: MPV 10.0 fL (7.4-10.4) 05/06/24 12: Neut % (Auto) 76.6 % 05/06/24 12: Lymph % (Auto) 12.6 % 05/06/24 12: [place] % (Auto) 7.5 % 05/06/24 12: Eos % (Auto) 2.0 % 05/06/24 12: Baso % (Auto) 0.9 % 05/06/24 12: Neut # (Auto) 7.30 10^3/uL (1.8-7.7) 05/06/24 12: Lymph # (Auto) 1.2 10^3/uL (0.8-4.8) 05/06/24 12: [place] # (Auto) 0.7 10^3/uL (0.2-0.9) 05/06/24 12:28 Eos # (Auto) 0.2 10^3/uL (0.0-0.8) 05/06/24 12:28 Baso # (Auto) 0.1 10^3/uL (0.0-0.1) 05/06/24 12:28 Nucleated RBC % (auto) 0 % 05/06/24 12: Nucleated RBCs # 0.0 /100WBC 05/06/24 12:28 D-Dimer 0.28 ug/mLFEU (0-0.59) 05/06/24 12:28 Sodium 136 mmol/L (136-145) 05/06/24 12:28 Potassium 4.1 mmol/L (3.5-5.1) 05/06/24 12:28 Chloride 102 mmol/L (98-107) 05/06/24 12:28 Carbon Dioxide 21 mmol/L (22-29) L 05/06/24 12:28 Anion Gap 17.1 (5-19) 05/06/24 12:28 BUN 20 mg/dL (6-20) 05/06/24 12:28 Creatinine 0.7 mg/dL (0.7-1.2) 05/06/24 12:28 GFR Calculation 115.8 mL/min (90-130) 05/06/24 12:28 Glucose 144 mg/dL (65-115) H 05/06/24 12:28 Calculated Osmolality 287 mOsm/kg (285-295) 05/06/24 12:28 Calcium 8.9 mg/dL (8.5-10.5) 05/06/24 12:28 Total Bilirubin 0.4 mg/dL (0.15-1.2) 05/06/24 12:28 AST 26 U/L (0-40) 05/06/24 12:28 ALT 28 U/L (0-41) 05/06/24 12:28 Alkaline Phosphatase 104 U/L (40-130) 05/06/24 12:28 Troponin T Baseline 24 ng/L (0-15) H 05/06/24 12:28 Troponin T 120 Minute 43.47 ng/L (0-15) H 05/06/24 14:16 Delta Troponin T 19.47 ABS# (0-10) H* 05/06/24 14:16 Total Protein 7.1 g/dL (6.6-8.7) 05/06/24 12:28 Albumin 4.3 g/dL (3.5-5.2) 05/06/24 12: Globulin 2.8 g/dL (1.3-4.6) 05/06/24 12:28 Urine Color Yellow (Yellow) 05/06/24 14:07 Urine Appearance Clear (CLEAR) 05/06/24 14:07 Urine pH 5.0 (5-7) 05/06/24 14:07 Ur Specific [place] 1.039 (1.005-1.030) H 05/06/24 14:07 Urine Protein Negative (Negative) 05/06/24 14:07 Urine Glucose (UA) 3+ (Normal) H 05/06/24 14:07 Urine Ketones Negative (Negative) 05/06/24 14:07 Urine Blood Negative (Negative) 05/06/24 14:07 Urine Nitrate Negative (Negative) 05/06/24 14:07 Urine Bilirubin Negative (Negative) 05/06/24 14:07 Urine Urobilinogen 1.0 mg/dL (Negative) 05/06/24 14:07 Ur Leukocyte Esterase Negative (Negative) 05/06/24 14:07 Urine RBC 0-2 /hpf (0-2) 05/06/24 14:07 Urine WBC 0-5 /hpf (0-5) 05/06/24 14:07 Ur Squamous Epith Cells 0-5 /hpf (0-5) 05/06/24 14:07 Amorphous Sediment Not Reportable 05/06/24 14:07 Urine Bacteria None seen /hpf (NONE) 05/06/24 14:07 Hyaline Casts 0-4 /lpf H 05/06/24 14:07 Other data: Date of Service: 03/26/22 Procedure(s): CV. echo complete* [id number] ?CONCLUSIONS ?1. Normal left ventricular size, systolic function and wall ?thickness, with no regional wall motion abnormalities. Left ?ventricular ejection fraction is estimated at 65-70 %. Normal?diastolic function. ?2. Normal right ventricular size and systolic function. ?3. No significant valvular abnormality. ?4. Normal pulmonary artery pressure. ?5. When compared to prior study dated 03/21/2020, left ventricle?systolic function seems to have improved. ?Beatriz Villa MD ?(Electronically Signed) Coronary angiogram:03/21/2020 Conclusions First Obtuse Marginal Branch Segment was treated with Drug Eluting Stent dRCA was treated with Balloon and Drug Eluting Stent. TTE: 03/21/2020 CONCLUSIONS Normal LV size with slightly diminished ejection fraction of around 50-55 %. Mild diffuse hypokinesia of the septum and the anteroseptal segments. Mild mitral valve regurgitation. Thickened aortic valve. There is no pericardial effusion. There are no intracardiac masses. No previous study is available for comparison. oronary angiography shows right dominance. The left main is a medium caliber vessel with no significant stenotic lesions. The left anterior descending artery is a medium caliber vessel which appears to wrap around the LV apex. The proximal to mid LAD was found to have around 20 to 30% diffuse irregular narrowing. The distal artery was found to have minimal intimal irregularities. No other significant stenotic lesions were noted. The circumflex artery was found to have around 60% lesion in the mid segment. The intermediate artery, high obtuse marginal, is a small to medium caliber vessel which was found to have a high-grade around 85 to 90% lesion proximally. The right coronary artery is a medium to large caliber dominant vessel which was found to have 50 % lesion in the proximal segment and around 60% lesion in the mid segment. The distal segment of the artery was found to have around 80 to 90% segmental stenosis. The PDA and the PLV branches were found to have mild diffuse intimal irregularities. PCI Status: Elective PCI Indication: NSTE - ACS Interventional Findings First Obtuse Marginal Branch Segment: 85% stenosis treated with MDT R TRESSA 2.0X12 HAJA. 0% residual stenosis, ANTONIO: 3 flow. dRCA: 90% stenosis treated with AB TREK 2.50X15 RX BALLOON and MDT R TRESSA 3.0X30 HAJA. 0% residual stenosis, ANTONIO: 3 flow. A&P Assessment and plan (1) Atherosclerotic heart disease of [place] coronary artery with unstable angina pectoris: Patient may be treated with subcu Lovenox, Plavix, aspirin, beta-demian and the other current medications. An echocardiogram would be helpful to evaluate the LV function and to rule out any other pathology. This patient may require any early cardiac catheterization to further evaluate his coronary status and decide on further management. Qualifiers: [place] vs. transplanted heart: [place] heart Qualified Code(s): I25.110 - Atherosclerotic heart disease of [place] coronary artery with unstable angina pectoris (2) Hypertriglyceridemia: May continue the current medications. (3) Diabetes mellitus with hyperglycemia, with long-term current use of insulin: Aggressive management of the diabetes would be appropriate. Qualifiers: Diabetes mellitus type: type 2 Qualified Code(s): E11.65 - Type 2 diabetes mellitus with hyperglycemia; Z79.4 - nursing home (current) use of insulin (4) Essential (primary) hypertension: The blood pressure is fairly in the normal range at this point. I may start the patient on a low-dose of beta-demian namely carvedilol 3.125 mg p.o. twice daily (5) Adult onset hypothyroidism: May continue the current medications. Plan Will go ahead and order an echocardiogram. Based on the results of the above tests and the patient's clinical progress, further recommendations will be made. Thank you for the opportunity to evaluate this patient and make these recommendations Coding Level of Care Code 13453 Diagnoses Atherosclerosis of [place] coronary artery of [place] heart with unstable angina pectoris I25.110 [place] vs. transplanted heart: [place] heart Hypertriglyceridemia E78.1 Type 2 diabetes mellitus with hyperglycemia, with long-term current use of insulin E11.65; Z79.4 Diabetes mellitus type: type 2 Essential (primary) hypertension I10 Adult onset hypothyroidism E03.8
[2024-05-06 16:36] LABS: Glucose Point of Care 122 mg/dL (70-110)
[2024-05-06] MEDS: famotidine 20 mg Tablet PO (17:09)
--- NOTE | 2024-05-06 18:18 | ECG_ITS ---
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 Measurements Intervals [place] Rate: 87 P: 91 AR: 195 QRS: 66 QRSD: 92 T: 57 QT: 338 QTc: 408 Interpretive Statements SINUS RHYTHM WITH OCCASIONAL VENTRICULAR PREMATURE COMPLEXES WITH OCCASIONAL SUPRAVENTRICULAR PREMATURE COMPLEXES NONSPECIFIC T-WAVE ABNORMALITY Compared to ECG 05/06/2024 14:06:13 Ventricular premature complex(es) now present T-wave abnormality still present Electronically Signed On 05-08-2024 00:58:34 CDT by Tana Rader M.D. [email or web address]
[2024-05-06] MEDS: nitroglycerin 0.4 mg sublingual Tablet SUBLINGUAL ×3 (18:34→23:31)
[2024-05-06 18:58] LABS: Troponin 5 6HR 43.21 ng/L (0-15)
[2024-05-06 19:01] LABS: Troponin 5 6HR Delta 19.21 ng/L (0-12)
[2024-05-06 21:24] LABS: Glucose Point of Care 179 mg/dL (70-110)
--- NOTE | 2024-05-06 22:52 | PC.NURSE ---
Pt started complaining of chest pain at 2247. This nurse went in to assess pt. Blood pressure was 156/94, HR 97, RR 18, SpO2 97% on room air. 1 nitro tab was given. Pt stated chest pain was relieved. Will continue plan of care.
[2024-05-07] VITALS (12 sets, daily range): BP systolic 114–138; BP diastolic 53–88; PULSE 81–105; RESP 15–36; TEMP 36.5–36.8; O2SAT 89–98
[2024-05-07] MEDS: nitroglycerin 0.4 mg sublingual Tablet SUBLINGUAL ×2 (01:08→01:13)
--- NOTE | 2024-05-07 01:36 | ECG_ITS ---
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 Measurements Intervals [place] Rate: 88 P: 57 SC: 190 QRS: 59 QRSD: 88 T: 78 QT: 345 QTc: 419 Interpretive Statements SINUS RHYTHM WITH OCCASIONAL VENTRICULAR PREMATURE COMPLEXES NONSPECIFIC ST & T-WAVE ABNORMALITY Compared to ECG 05/06/2024 18:18:13 No significant changes Electronically Signed On 05-07-2024 08:25:40 CDT by Tana Rader M.D. [id number]
[2024-05-07] MEDS: morphine 4 mg/mL SDV 1 mL 2 MG IVP (01:50)
[2024-05-07 02:08] LABS: Basophils # 0.1 10^3/uL (0.0-0.1); Basophils % 0.8 %; Eosinophils # 0.2 10^3/uL (0.0-0.8); Eosinophils % 2.4 %; Hematocrit 48.9 % (37-53); Lymphocytes # 1.5 10^3/uL (0.8-4.8); Lymphocytes % 17.6 %; Mean Corpuscular HGB Conc 32.9 g/dL (30-55); Mean Corpuscular Hemoglobin 30.7 pg (27-33); Mean Corpuscular Volume 93.3 fl (82-101); Monocytes # 0.8 10^3/uL (0.2-0.9); Monocytes % 8.6 %; Neutrophils # 6.08 10^3/uL (1.8-7.7); Neutrophils % 70.1 %; Nucleated Red Blood Cells % 0 %; Platelet Count 248 10^3/cmm (157-399); Red Blood Count 5.24 10^6/uL (3.85-5.65); Red Cell Distribution Width 16.8 % (12.1-15.1); White Blood Count 8.68 10^3/uL (3.29-11.43)
[2024-05-07 02:27] LABS: Troponin T (5th) Once 29 ng/L (0-15)
[2024-05-07] MEDS: pantoprazole 40 mg SDV IVP (02:47)
[2024-05-07] MEDS: morphine IR 15 mg Tablet PO (02:47)
[2024-05-07] MEDS: ondansetron 2 mg/ML SDV 2 mL 4 MG IVP ×2 (02:48→12:13)
[2024-05-07] MEDS: enoxaparin 150 mg/mL Syringe 130 MG SUBCUT (04:15)
--- NOTE | 2024-05-07 04:59 | PC.NURSE ---
SHIFT SUMMARY: Pt has had multiple episodes of chest pain throughout the night. Pt was given nitro at 2331 and chest pain was relieved within 5 minutes. Pt started having another episode of chest pain. Nitro was given at 1:08 and again at 1:13 to control the pain. Dr. Wheeler notified and ordered a one time does of morphine 2mg IVP, an EKG, and a troponin lab. Dr. Wheeler was not concerned with the results of the EKG or the troponin lab and thought the chest pain could be GI related. Dr. Wheeler ordered a one time dose of protonix 40mg IVP. Pt states the chest pain is constant, but is tolerable and gets worse with exertion.
[2024-05-07] MEDS: clopidogrel 75 mg Tablet PO (05:56)
[2024-05-07 06:06] LABS: Glucose Point of Care 176 mg/dL (70-110)
[2024-05-07 07:16] LABS: Blood Urea Nitrogen 17 mg/dL (6-20); C Reactive Protein 3.5 mg/L (0.0-4.9); Calcium 8.8 mg/dL (8.5-10.5); Carbon Dioxide 20 mmol/L (22-29); Chloride 102 mmol/L (98-107); Creatinine Clr Calc Pharmacy 184.1515; Glomerular Filtration Rate 138.4 mL/min (90-130); Glucose 166 mg/dL (65-115); Magnesium 1.9 mg/dL (1.7-2.3); Osmolality Calculated 285 mOsm/kg (285-295)
[2024-05-07 07:17] LABS: Anion Gap 17.1 (5-19); Potassium 4.1 mmol/L (3.5-5.1)
[2024-05-07 07:18] LABS: Sodium 135 mmol/L (136-145)
[2024-05-07] MEDS: insulin lispro 100 unit/1 mL SUBCUT ×3 (07:53→18:15)
[2024-05-07] MEDS: carvedilol 3.125 mg Tablet PO ×2 (07:55→18:16)
[2024-05-07] MEDS: famotidine 20 mg Tablet PO ×2 (07:55→18:16)
[2024-05-07] MEDS: levothyroxine 25 mcg Tablet PO (07:56)
[2024-05-07] MEDS: atorvastatin 40 mg Tablet PO (07:56)
[2024-05-07] MEDS: acetaminophen 500 mg Tablet PO (09:26)
--- NOTE | 2024-05-07 09:29 | XACV_ITS ---
Exam Room: [facility] Ht: 180 cm Wt: 129 kg BSA: 2.60 m2 Gender: Male : 1965 Any Known Allergies: Other Exam Priority: Routine Procedure(s): Procedure Description: Diagnostic procedure Procedure Description: Left Heart Catheterization Procedure Description: Left ventriculography Procedure Description: Coronary Angiography Prasanth SANDOVAL; Diagnostic Cath Status: Urgent Diagnostic Findings * Left Main has no significant disease. * Left Anterior Descending has mild luminal irregularities. * Mid Circumflex : critical 99% lesion. OM branch has patent prior stent. * Proximal Right Coronary Artery to Mid Right Coronary Artery: significant 80% stenosis, ANTONIO: 3 flow. * Coronary angiography shows right dominance. PCI Status: Urgent PCI Indication: NSTE - ACS Interventional Findings * Procedure detail: We engaged left main artery with XB 3.5 guide catheter. Run-through wire could not cross the stenosis. We crossed stenosis with airline pilot 50 wire. Stenosis was predilated with 2.0 x 15 mm semicompliant balloon. This was followed with 2.5 x 15 mm semicompliant balloon angioplasty. We then placed 4.0 x 18 mm resolute Tressa drug-eluting stent. This was postdilated with 4.0 x 12 mm NC balloon. At this time final angiogram was performed that showed excellent stent expansion and no residual stenosis. RCA will be treated as a staged procedure as it is calcified vessel and will need lesion modification. 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 * Mid Circumflex to Mid Circumflex: 99% stenosis treated with a AB MINI TREK 2.00X15 RX BALLOON, AB TREK 2.50X15 RX BALLOON, TIFFANY Turner TRESSA 4.0X18 HAJA, and TIFFANY GORE EUPHORA RX [id number] BALLOON. 0% residual stenosis, ANTONIO: 3 flow. Conclusions 1. Critical 99% mid left circumflex artery stenosis. S/p PCI with 1 stent. 2. Severe proximal to mid RCA stenosis. Will perform staged PCI in 4 weeks. 3. Mid Circumflex to Mid Circumflex was treated with a Balloon, Balloon, Drug Eluting Stent, and Balloon. Recommendations * Dual antiplatelet therapy with aspirin and plavix for atleast 1 year. * High intensity statin therapy. * We will arrange for staged PCI of RCA in 1 month. * Outpatient cardiology follow up in 2 weeks. Interventional RX Recommendation: PCI w/o planned CABG Diagnostic RX Recommendation: PCI w/o planned CABG Anticoagulation: Heparin Pressures Phase:Rest AO : / ( -27 ) @ 10:55:00 AM / ( 0 ) @ 11:05:00 AM / ( 0 ) @ 11:07:00 AM 119 / 82 ( 99 ) @ 11:24:00 AM Clinical Evaluation EBL: 5mL-10mL Procedural Details Procedure Consent Obtained. Admit Source: In Patient. Pre-Procedure Time Out. Identified patient by full name and date of as verbalized by the patient/guarantor. Does the consent match the physician's order: Yes. Accurate & Complete Informed Consent: Yes. Inpatient/Outpatient History & Physical on Chart: Yes. If H&P is completed, is and addenduem needed: No; If yes, is the addendum complete: N/A. Visualize and Verify Site with Patient/Guarantor: N/A. Relevant Radiology Images available: N/A. The risks, benefits, and alternatives of sedation and/or procedure were discussed by physician. The patient agrees to continue. Procedure started. [facility] Clinical Fraility Score: 3: Managing Well. Pl[employer] Model And [employer] Maker Indications: ACS > 24 hours. Chest Pain Symptom Assessment: Typical Angina Symptoms. Cardiovascular Instability: No, stable. Correct patient, site and procedure confirmed by cath team. Current diagnosis: NSTEMI. PERRLA. 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 Lungs clear x 5 lobes. IV Site on Arrival: 20 gauge in the left hand. IV Fluids: 0.9% NaCl at KVO. 0 mL infused prior to labeling strategist. Pre Procedural Pulses: bilateral dorsalis pedis was 3+. Pre Procedural Pulses: bilateral posterior tibial was 3+. Pre Procedural Pulses: bilateral radial was 3+. Oxygen started at 3liters/min via nasal canula. right groin was prepped with chloroprep then draped in the usual sterile fashion. right radial was prepped with chloroprep then draped in the usual sterile fashion. Physician notified. Baseline sample Acquired. HR: 92 BPM. Physician arrived. Baseline sample Acquired. HR: 95 BPM. Baseline sample Acquired. HR: 96 BPM. Family updated by MD prior to the start of the procedure. Physician scrubbed in. Immediate Pre-Procedure Time Out. Correct Patient: Yes; Correct Procedure: Yes; Correct Site: Yes; Correct Patient Position: Yes; Correct Supplies: Yes; Dried Flammable Prep: Yes; Blood Products Available: N/A;. Lidocaine 1% infiltrated to the right radial. Patient's family unavailable. Equipment: 5F - Femoral. Equipment: 6F - Femoral. Equipment: 5F - Radial. Equipment: 6F - Radial. Patient received two consecutive 12 hour doses of 130 mg of Lovenox sub q on the floor. Last admin was 0415 this morning. No heparin needed per MD. MD attempted to gain radial access but was unsuccessul. Pressure bandage applied. Lidocaine 1% infiltrated to the right groin. Arterial access obtained with micropuncture set. Glidewire inserted. A 5 slovak JR4 catheter in over wire. Multiple views taken of right coronary artery. Catheter removed over the exchange wire. A 5 slovak JL4 catheter in over wire. Multiple views taken of left coronary artery. Catheter removed over the exchange wire. Starting Intervention. 6 slovak XB 3.5 guide catheter was inserted over the wire. Guide seated in the LCS. Runthrough guidewire was advanced through the guide catheter to lesion in the mid Circ. Corporate Security Officer 50 guidewire was advanced through the guide catheter to lesion in the mid Circ. Runthrough wire out. Corporate Security Officer 50 advanced across the lesion. Inflation number : 1 A AB MINI TREK 2.00X15 RX BALLOON was prepped and advanced across the Mid CX , then inflated to 10 CANDACE for 0:09 seconds. Inflation number: 2 The AB MINI TREK 2.00X15 RX BALLOON was reinflated across the Mid CX, to 12 CANDACE for 0:10 seconds. Balloon out over the wire. Results checked. Inflation number : 3 A AB TREK 2.50X15 RX BALLOON was prepped and advanced across the Mid CX , then inflated to 14 CANDACE for 0:12 seconds. Results checked. Balloon out over the wire. Results checked. Inflation Number : 4 A TIFFANY Turner TRESSA 4.0X18 HAJA -Lot Number# [id number] was prepped and advanced across the Mid CX. The stent was deployed at 12 CANDACE for 0:22 seconds. EXP 09/26/26. Stent Balloon out over the wire. Results checked. Inflation number : 5 A TIFFANY GORE EUPHORA RX [id number] BALLOON was prepped and advanced across the Mid CX , then inflated to 14 CANDACE for 0:16 seconds. Balloon out over the wire. Wire out. Results checked. Guide catheter out over the wire. Physician review of films. Hand injection performed of the femoral access site. Physician scrubbed out. A Suture was successful obtaining hemostatsis at the Right Femoral artery insertion site. Sheath(s) sutured into position with 2-0 silk and sterile 4x4's and Op-site applied over the site. No oozing or signs and symptoms of hematoma noted. Arterial sheath flushed and connected to tranducer and pressure bag with heparinized saline. PERRLA. 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 No VTE prophylaxis required. Post-op diagnosis: Critical mid circumflex stenosis; s/p drug eluting stent. Post Procedure: Pulses reassessed and unchanged. Medication waste: Lidocaine- 10 ml Nitro 49.8 mg Heparin- 4000 units Fentanyl- 25 mcg. Total IV fluids: 70 mL. Fluoro: 10:07. Contrast type used: Omnipaque 300 mgI/mL, 500 mL bottle. [id number]. Complications: None. Estimated blood loss: 5mL-10mL. Responsiveness - Normal response to verbal stimuli; alert and oriented, PERRLA. Airway - Unaffected, no intervention required; spontaneous ventilation. Circulation: W/N/L, pulses unchanged. Nausea/Vomiting: No. Procedure completed. Vital chart was stopped. Patient transferred by bed to 1st floor. Access Site Site: Right Femoral artery Sheath Size: 6 Fr Hemostasis Method: Suture Hemostasis Success: Successful Procedure Medications Start: 9:52 AM Stop: 9:52 AM Medication: Solu-Medrol (methylprednisolone) Amount: 125 mg Route: I.V. Start: 9:54 AM Stop: 9:54 AM Medication: Benadryl Amount: 50 mg Route: I.V. Start: 10:01 AM Stop: 10:01 AM Medication: Versed 1 mg and Fentanyl 25 mcg Amount: 1 Route: I.V. Start: 10:26 AM Stop: 10:26 AM Medication: Fentanyl Amount: 25 mcg Route: I.V. Start: 10:28 AM Stop: 10:28 AM Medication: Versed Amount: 1 mg Route: I.V. Start: 10:32 AM Stop: 10:32 AM Medication: Fentanyl Amount: 25 mcg Route: I.V. Start: 10:44 AM Stop: 10:44 AM Medication: Nitrogylcerin Amount: 200 mcg Route: I.C. I, the attending physician, have reviewed and verified all procedure medications. Yes, all medications given per verbal order History/Risk Factors Hypertension: Yes Dyslipidemia: Yes Peripheral Arterial Disease (PAD): No Myocardial Infarction (AL): No Obesity: No Renal Disease: No Prior Interventions PCI: Yes CABG: No Valve Surgery: No Date of PCI: 03/21/2020 Report Signatures Finalized by Jerry Dobbs MD on 05/07/2024 11:49 AM
--- NOTE | 2024-05-07 10:40 | P.PN_ITS ---
Subjective 2 Subjective: Patient going for angiogram today Had couple events of chest pain overnight, patient stating that nitro did not help stating that when he received medication for acid reflux it made a difference This morning he is chest pain-free Vitals/I&O/Wt Last Vital Signs Temp 97.7 F 05/07/24 07:47 Pulse 92 05/07/24 07:47 Resp 16 05/07/24 07:47 BP 130/88 05/07/24 07:47 Pulse Ox 94 05/07/24 07:47 O2 Del Method Room Air 05/07/24 07:47 05/06/24 05/07/24 05/07/24 22:59 06:59 14:59 Intake Total 480 / 480 Balance 480 / 480 Weight last 48 hrs Weight 129.591 kg Weight 128.775 kg Weight 127.913 kg Physical Exam 2 Narrative: Morbidly obese male GCS 15 family at the bedside Currently chest pain-free Nonfocal neuroexam S1, S2 Currently on room air Data 05/07/24 01:59 05/07/24 06:09 A&P Assessment and plan (1) Unstable angina: (2) Essential (primary) hypertension: (3) Atherosclerotic heart disease of [place] coronary artery with unstable angina pectoris: (4) Diabetes mellitus with hyperglycemia, with long-term current use of insulin: Qualifiers: Diabetes mellitus type: type 2 Qualified Code(s): E11.65 - Type 2 diabetes mellitus with hyperglycemia; 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 for now No active chest pain Overnight events noted Continue dual antiplatelet therapy ACS protocol Patient will need 1 more day to finish ACS protocol with therapeutic Lovenox D-dimer unremarkable Full code Will add Protonix Attestations 2 Medical Necessity Statement*: Likely discharge by tomorrow if remains stable Diagnoses Unstable angina I20.0 Essential (primary) hypertension I10 Atherosclerotic heart disease of [place] coronary artery with unstable angina pectoris I25.110 Type 2 diabetes mellitus with hyperglycemia, with long-term current use of insulin E11.65; Z79.4 Diabetes mellitus type: type 2 Gastroesophageal reflux disease without esophagitis K21.9 Esophagitis presence: without esophagitis
--- NOTE | 2024-05-07 11:06 | W.PM.OPSUD ---
Surgery/Procedure H&P Update DATE OF PROCEDURE: May 07, 2024 DATE H&P PERFORMED: 05/06/24 H&P UPDATE INFORMATION: I have reviewed H&P completed within last 30 days, I have examined patient prior to procedure and No changes to prior documentation PREOP DIAGNOSIS: NSTEMI PRIMARY INDICATION FOR PROCEDURE: NSTEMI PLANNED PROCEDURE: Left heart cath with possible percutaneous coronary intervention PATIENT REASSESSED PRIOR TO SEDATION, WITH NO CHANGE NOTED: Yes PHYSICAL EXAM: alert, oriented x 3, clear to auscultation bilaterally and regular rate & rhythm AIRWAY EVAL/ANESTHESIA PLAN: normal airway, ASA III, Local Anesthesia, Risks, benefits & alternatives of sedation and/or procedure discussed and Patient agrees to continue as planned ADDITIONAL INFORMATION: Moderate sedation
[2024-05-07] MEDS: sodium chloride 0.9% 1,000 ML 50 ML IV (12:14)
[2024-05-07 12:15] LABS: Glucose Point of Care 186 mg/dL (70-110)
--- NOTE | 2024-05-07 13:07 | PM.PN ---
Subjective Subjective: Patient has been having episodes of chest pain through the night. He had to take several nitro. Currently feeling better. Medications: Medication Review Details: Current Medications Acetaminophen (Acetaminophen 500 Mg Tablet) 500 mg PO Q4H PRN PRN Reason: fever Last Admin: 05/07/24 09:26 Dose: 500 mg Albuterol/Ipratropium (Ipratropium-Albuterol 3 Ml Neb) 3 ml INHALATION Q6H PRN PRN Reason: SHORTNESS OF BREATH Aspirin (Aspirin 81 Mg Ec Tablet) 81 mg PO QAM [facility] Last Admin: 05/07/24 05:56 Dose: Not Given Atorvastatin Calcium (Atorvastatin 40 Mg Tablet) 40 mg PO DAILY [facility] Last Admin: 05/07/24 07:56 Dose: 40 mg Calcium Carbonate (Calcium Carbonate 500 Mg Chew Tablet) 500 mg PO Q4H PRN PRN Reason: INDIGESTION Carvedilol (Carvedilol 3.125 Mg Tablet) 3.125 mg PO BID [facility] Last Admin: 05/07/24 07:55 Dose: 3.125 mg Clopidogrel Bisulfate (Clopidogrel 75 Mg Tablet) 75 mg PO QAM [facility] Last Admin: 05/07/24 05:56 Dose: 75 mg Enoxaparin Sodium (Enoxaparin 150 Mg/Ml Syringe) 130 mg SUBCUT Q12H [facility] Last Admin: 05/07/24 04:15 Dose: 130 mg Famotidine (Famotidine 20 Mg Tablet) 20 mg PO BID [facility] Last Admin: 05/07/24 07:55 Dose: 20 mg Glucagon (Glucagon 1 Mg/Ml Kit 1 Ml) 1 mg IM ONCE PRN; Protocol PRN Reason: Adult Acute Hypoglycemia Nursing Prot. Dextrose (D5w) 500 mls @ 0 mls/hr IV ONCE PRN; Protocol PRN Reason: Adult Acute Hypoglycemia Prot Dextrose (D10w) 125 mls @ 750 mls/hr IV PRN PRN; Protocol PRN Reason: Adult Acute Hypoglycemia Nursing Protocol Dextrose (D10w) 250 mls @ 1,000 mls/hr IV PRN PRN; Protocol PRN Reason: Adult Acute Hypoglycemia Nursing Protocol Sodium Chloride (Sodium Chloride 0.9%) 1,000 mls @ 50 mls/hr IV .Q20H [facility] Stop: 05/07/24 19:59 Last Admin: 05/07/24 12:14 Dose: 50 mls/hr Insulin Glargine (Insulin Glargine 100 Units/1 Ml) 30 unit SUBCUT BEDTIME [facility] Insulin Human Lispro (Insulin Lispro 100 Unit/1 Ml) 0 unit SUBCUT TIDWM [facility]; Protocol Last Admin: 05/07/24 12:48 Dose: 6 unit Levothyroxine Sodium (Levothyroxine 25 Mcg Tablet) 25 mcg PO DAILY [facility] Last Admin: 05/07/24 07:56 Dose: 25 mcg Morphine Sulfate (Morphine Ir 15 Mg Tablet) 15 mg PO Q6H PRN PRN Reason: MODERATE PAIN Last Admin: 05/07/24 02:47 Dose: 15 mg Nitroglycerin (Nitroglycerin 0.4 Mg Sublingual Tablet) 0.4 mg SUBLINGUAL Q5M PRN PRN Reason: chest pain Last Admin: 05/07/24 01:13 Dose: 0.4 mg Ondansetron HCl (Ondansetron 2 Mg/Ml Sdv 2 Ml) 4 mg IVP Q6H PRN PRN Reason: NAUSEA AND VOMITING Last Admin: 05/07/24 12:13 Dose: 4 mg Vitals/I&O/Wt Last Vital Signs Temp 98.2 F 05/07/24 11:57 Pulse 97 05/07/24 11:57 Resp 17 05/07/24 11:57 BP 124/60 05/07/24 11:57 Pulse Ox 92 05/07/24 11:57 O2 Del Method Room Air 05/07/24 11:57 05/06/24 05/07/24 05/07/24 22:59 06:59 14:59 Intake Total 480 / 480 Balance 480 / 480 Weight last 48 hrs Weight 285 lb 11.2 oz Weight 283 lb 14.4 oz Weight 282 lb Physical Exam Narrative: GENERAL: The patient is alert and oriented times three. Not in any acute distress. Moderately obese HEENT: No significant pallor, icterus or lymphadenopathy.Oral cavity: There are no mucous membrane lesions. NECK: Trachea appears to be central. No masses noted. No JVD or thyromegaly appreciated. RESPIRATORY: Chest is symmetrical. No intercostals muscle retraction or any accessory muscle activation. There is no chest wall tenderness. Breath sounds are heard bilaterally. No rales or rhonchi heard. No evidence of any consolidation. BREASTS: Deferred. HEART: The heart sounds are normal. No S3 or S4. No significant murmurs. No pericardial rub ABDOMEN: No vessel pulsations or distention. No tenderness. No organomegaly appreciated. Bowel sounds are normally heard. : Deferred. RECTAL: Deferred. LYMPHATIC: No lymphadenopathy noted in the neck. EXTREMITIES: No edema or cyanosis. No clubbing. MUSCULOSKELETAL: No acute joint deformities or swelling SKIN: There are no significant rashes or ecchymosis NEUROPSYCHIATRIC: The patient is alert and oriented x3. Appears to be in a good mood. No tremors or rigidity noted. Data 05/07/24 01:59 05/07/24 06:09 Other Labs: Laboratory Last Values WBC 8.68 10^3/uL (3.29-11.43) 05/07/24 01:59 RBC 5.24 10^6/uL (3.85-5.65) 05/07/24 01:59 Hgb 16.10 g/dL (11.27-16.99) 05/07/24 01:59 Hct 48.9 % (37-53) 05/07/24 01:59 MCV 93.3 fl (82-101) 05/07/24 01:59 MCH 30.7 pg (27-33) 05/07/24 01:59 MCHC 32.9 g/dL (30-55) 05/07/24 01:59 RDW 16.8 % (12.1-15.1) H 05/07/24 01:59 Plt Count 248 10^3/cmm (157-399) 05/07/24 01:59 MPV 10.0 fL (7.4-10.4) 05/07/24 01:59 Neut % (Auto) 70.1 % 05/07/24 01:59 Lymph % (Auto) 17.6 % 05/07/24 01:59 [place] % (Auto) 8.6 % 05/07/24 01:59 Eos % (Auto) 2.4 % 05/07/24 01:59 Baso % (Auto) 0.8 % 05/07/24 01:59 Neut # (Auto) 6.08 10^3/uL (1.8-7.7) 05/07/24 01:59 Lymph # (Auto) 1.5 10^3/uL (0.8-4.8) 05/07/24 01:59 [place] # (Auto) 0.8 10^3/uL (0.2-0.9) 05/07/24 01:59 Eos # (Auto) 0.2 10^3/uL (0.0-0.8) 05/07/24 01:59 Baso # (Auto) 0.1 10^3/uL (0.0-0.1) 05/07/24 01:59 Nucleated RBC % (auto) 0 % 05/07/24 01:59 Nucleated RBCs # 0.0 /100WBC 05/07/24 01:59 D-Dimer 0.28 ug/mLFEU (0-0.59) 05/06/24 12:28 Sodium 135 mmol/L (136-145) L 05/07/24 06:09 Potassium 4.1 mmol/L (3.5-5.1) 05/07/24 06:09 Chloride 102 mmol/L (98-107) 05/07/24 06:09 Carbon Dioxide 20 mmol/L (22-29) L 05/07/24 06:09 Anion Gap 17.1 (5-19) 05/07/24 06:09 BUN 17 mg/dL (6-20) 05/07/24 06:09 Creatinine 0.6 mg/dL (0.7-1.2) L 05/07/24 06:09 GFR Calculation 138.4 mL/min (90-130) H 05/07/24 06:09 Glucose 166 mg/dL (65-115) H 05/07/24 06:09 POC Glucose 186 mg/dL (70-110) H 05/07/24 12:00 Calculated Osmolality 285 mOsm/kg (285-295) 05/07/24 06:09 Calcium 8.8 mg/dL (8.5-10.5) 05/07/24 06:09 Magnesium 1.9 mg/dL (1.7-2.3) 05/07/24 06:09 Total Bilirubin 0.4 mg/dL (0.15-1.2) 05/06/24 12:28 AST 26 U/L (0-40) 05/06/24 12:28 ALT 28 U/L (0-41) 05/06/24 12:28 Alkaline Phosphatase 104 U/L (40-130) 05/06/24 12:28 Troponin T 5th Gen ng/L 29 ng/L (0-15) H 05/07/24 01:59 Troponin T Baseline 24 ng/L (0-15) H 05/06/24 12:28 Troponin T 120 Minute 43.47 ng/L (0-15) H 05/06/24 14:16 Delta Troponin T 19.47 ABS# (0-10) H* 05/06/24 14:16 Troponin T Hi Sens 6Hr 43.21 ng/L (0-15) H 05/06/24 18:12 Troponin T Hi Sens 6Hr Delta 19.21 ng/L (0-12) H* 05/06/24 18:12 C-Reactive Protein 3.5 mg/L (0.0-4.9) 05/07/24 06:09 Total Protein 7.1 g/dL (6.6-8.7) 05/06/24 12:28 Albumin 4.3 g/dL (3.5-5.2) 05/06/24 12:28 Globulin 2.8 g/dL (1.3-4.6) 05/06/24 12:28 Urine Color Yellow (Yellow) 05/06/24 14:07 Urine Appearance Clear (CLEAR) 05/06/24 14:07 Urine pH 5.0 (5-7) 05/06/24 14:07 Ur Specific [place] 1.039 (1.005-1.030) H 05/06/24 14:07 Urine Protein Negative (Negative) 05/06/24 14:07 Urine Glucose (UA) 3+ (Normal) H 05/06/24 14:07 Urine Ketones Negative (Negative) 05/06/24 14:07 Urine Blood Negative (Negative) 05/06/24 14:07 Urine Nitrate Negative (Negative) 05/06/24 14:07 Urine Bilirubin Negative (Negative) 05/06/24 14:07 Urine Urobilinogen 1.0 mg/dL (Negative) 05/06/24 14:07 Ur Leukocyte Esterase Negative (Negative) 05/06/24 14:07 Urine RBC 0-2 /hpf (0-2) 05/06/24 14:07 Urine WBC 0-5 /hpf (0-5) 05/06/24 14:07 Ur Squamous Epith Cells 0-5 /hpf (0-5) 05/06/24 14:07 Amorphous Sediment Not Reportable 05/06/24 14:07 Urine Bacteria None seen /hpf (NONE) 05/06/24 14:07 Hyaline Casts 0-4 /lpf H 05/06/24 14:07 Other data: Echocardiogram from yesterday Normal left ventricular size and systolic function, EF 58%.. No regional wall motion abnormalities. Mild left ventricular hypertrophy. Grade I/IV diastolic dysfunction (abnormal relaxation filling pattern), normal to mildly elevated filling pressures. Thickened aortic valve. Trace aortic valve regurgitation. No gross valvular abnormalities. Normal cardiac chamber sizes. There is no pericardial effusion. No intracardiac masses. Compared to the study from 03/26/2022, there may not be a significant A&P Assessment and plan (1) Atherosclerotic heart disease of [place] coronary artery with unstable angina pectoris: Patient may be treated with subcu Lovenox, Plavix, aspirin, beta-demian and the other current medications. An echocardiogram would be helpful to evaluate the LV function and to rule out any other pathology. In view of the patient's unstable anginal symptoms, he requires an early cardiac catheterization. We may go ahead and do an angiogram as early as possible today. Qualifiers: [place] vs. transplanted heart: [place] heart Qualified Code(s): I25.110 - Atherosclerotic heart disease of [place] coronary artery with unstable angina pectoris (2) Hypertriglyceridemia: May continue the current medications. (3) Diabetes mellitus with hyperglycemia, with long-term current use of insulin: Aggressive management of the diabetes would be appropriate. Qualifiers: Diabetes mellitus type: type 2 Qualified Code(s): E11.65 - Type 2 diabetes mellitus with hyperglycemia; Z79.4 - [facility] (current) use of insulin (4) Essential (primary) hypertension: The blood pressure is fairly in the normal range at this point. I may start the patient on a low-dose of beta-demian namely carvedilol 3.125 mg p.o. twice daily (5) Adult onset hypothyroidism: May continue the current medications. Plan The echocardiogram was unremarkable. Cardiac catheterization today. Based on the angiogram findings, further recommendations will be made. The need for the study was discussed with the patient. The risk of bleeding, hematoma, vascular injury, myocardial infarction, myocardial perforation, malignant cardiac arrhythmias ,CVA, renal failure and other concomitant complications were explained in detail. Patient understood this well and consented to proceed. Attestations Medical Necessity Statement*: Patient requires continued hospital stay for close monitoring and further management Coding Level of Care Code 18708 Diagnoses Atherosclerosis of [place] coronary artery of [place] heart with unstable angina pectoris I25.110 [place] vs. transplanted heart: [place] heart Hypertriglyceridemia E78.1 Type 2 diabetes mellitus with hyperglycemia, with long-term current use of insulin E11.65; Z79.4 Diabetes mellitus type: type 2 Essential (primary) hypertension I10 Adult onset hypothyroidism E03.8
--- NOTE | 2024-05-07 13:41 | PC.NURSE ---
1341 mynx vascular closure device performed at bedside Dr Dobbs and THERESA Owen at bedside. Pressure held for 2 mins s/p mynx closure. manual pressure held for another 3 mins post removal of the guidewire tip. no hematoma,swelling or rebleeding noted.
--- NOTE | 2024-05-07 14:53 | PC.NURSE ---
dr horton and ping, RN at bedside to perform a mynx closure device on his right groin femoral artery s/p [facility]. procedure performed in sterile technique. pt tolerated the procedure well. no hematoma, bleeding or swelling noted. pt instructed on bedrest for another 4 hrs. and activity restrictions on right leg and hip. call light provided vs w/in normal. pedal pulses palpated.
[2024-05-07 17:11] LABS: Glucose Point of Care 269 mg/dL (70-110)
[2024-05-07 21:02] LABS: Glucose Point of Care 215 mg/dL (70-110)
[2024-05-07] MEDS: insulin glargine 100 units/1 mL 30 UNIT SUBCUT (21:40)
[2024-05-08] VITALS (10 sets, daily range): BP systolic 95–124; BP diastolic 70–79; PULSE 81–99; RESP 16–23; TEMP 36.4–36.7; O2SAT 90–98
[2024-05-08] MEDS: aspirin 81 mg EC Tablet PO (05:11)
[2024-05-08] MEDS: clopidogrel 75 mg Tablet PO (05:11)
[2024-05-08 05:43] LABS: Basophils # 0.1 10^3/uL (0.0-0.1); Basophils % 0.5 %; Eosinophils # 0.1 10^3/uL (0.0-0.8); Eosinophils % 0.6 %; Hematocrit 49.4 % (37-53); Lymphocytes # 1.3 10^3/uL (0.8-4.8); Lymphocytes % 11.3 %; Mean Corpuscular HGB Conc 31.4 g/dL (30-55); Mean Corpuscular Hemoglobin 29.6 pg (27-33); Mean Corpuscular Volume 94.5 fl (82-101); Mean Platelet Volume 10.2 fL (7.4-10.4); Monocytes # 0.9 10^3/uL (0.2-0.9); Monocytes % 7.8 %; Neutrophils # 9.41 10^3/uL (1.8-7.7); Neutrophils % 79.4 %; Nucleated Red Blood Cells % 0 %; Platelet Count 234 10^3/cmm (157-399); Red Blood Count 5.23 10^6/uL (3.85-5.65); Red Cell Distribution Width 16.9 % (12.1-15.1); White Blood Count 11.85 10^3/uL (3.29-11.43)
[2024-05-08 06:10] LABS: Anion Gap 14.7 (5-19); Blood Urea Nitrogen 14 mg/dL (6-20); Calcium 8.4 mg/dL (8.5-10.5); Carbon Dioxide 23 mmol/L (22-29); Chloride 105 mmol/L (98-107); Creatinine Clr Calc Pharmacy 184.1515; Glomerular Filtration Rate 138.4 mL/min (90-130); Glucose 153 mg/dL (65-115); Osmolality Calculated 292 mOsm/kg (285-295); Potassium 3.7 mmol/L (3.5-5.1); Sodium 139 mmol/L (136-145)
[2024-05-08 06:26] LABS: Glucose Point of Care 145 mg/dL (70-110)
[2024-05-08] MEDS: insulin lispro 100 unit/1 mL SUBCUT (08:14)
[2024-05-08] MEDS: carvedilol 3.125 mg Tablet PO (08:14)
[2024-05-08] MEDS: famotidine 20 mg Tablet PO (08:14)
[2024-05-08] MEDS: levothyroxine 25 mcg Tablet PO (08:14)
[2024-05-08] MEDS: atorvastatin 40 mg Tablet PO (08:14)
--- NOTE | 2024-05-08 09:00 | P.DS_ITS ---
Discharge Providers Date of Admission: 05/06/24 16:53 Date of Discharge: May 08, 2024 Attending Provider at Admission: Zoe Shirley MD Attending Provider at Discharge: Zoe Shirley MD Primary Care Provider: NATALIE Smith Diagnoses at Discharge Discharge Diagnosis (1) Atherosclerotic heart disease of [place] coronary artery with unstable angina pectoris: Status: Acute Qualifiers: [place] vs. transplanted heart: [place] heart Qualified Code(s): I25.110 - Atherosclerotic heart disease [place] coronary artery with unstable angina pectoris (2) Hypertriglyceridemia: Status: Chronic (3) Diabetes mellitus with hyperglycemia, with long-term current use of insulin: Status: Chronic Qualifiers: Diabetes mellitus type: type 2 Qualified Code(s): E11.65 - Type 2 diabetes mellitus with hyperglycemia; Z79.4 - longterm (current) use of insulin (4) Essential (primary) hypertension: Status: Chronic (5) Adult onset hypothyroidism: Status: Chronic Reason for Visit Reason for Visit: Chest Pain Hospital Course Hospital Course 59-year male who presented to the hospital experiencing chest pain while cutting words, he was diagnosed with non-STEMI, ACS protocol initiated cardiology consulted, went for coronary angiogram 05/07, received a stent to left circumflex which showed 99% stenosis, he will need staged PCI of the RCA within a month, he will follow-up with cardiology outpatient, he will resume his dual antiplatelet therapy along atorvastatin and antihypertensive regimen. Patient has quit smoking. Patient is stating that he eats fish and deer meat these days. No active chest pain at the time of discharge, he is being discharged stable hemodynamics Physical Exam Narrative: Awake and alert GCS 15 Pleasant No hematoma at femoral sheath site Nonfocal neuroexam S1, S2 Discharge Data Studies Completed and Pending Completed Studies During Hospitalization Category Date Time Status MAIL WEIGHER request for service Routine Exams 05/07/24 09:29 Completed XR chest 1V portable [id number] Stat Exams 05/06/24 12:16 Completed CV. echo complete* [id number] Stat Ultrasound 05/06/24 13:31 Completed Pending at discharge Category Date Time Status Sestamibi Stress Test Request Routine Exams 05/06/24 15:12 Stop Req Radiology Impressions Chest X-Ray 05/06/24 12:16 IMPRESSION: No acute findings. Laboratory Results WBC 11.85 10^3/uL (3.29-11.43) H 10/17/24 05:15 RBC 5.23 10^6/uL (3.85-5.65) 05/08/24 05:15 Hgb 15.50 g/dL (11.27-16.99) 05/08/24 05:15 Hct 49.4 % (37-53) 05/08/24 05:15 MCV 94.5 fl (82-101) 05/08/24 05:15 MCH 29.6 pg (27-33) 05/08/24 05:15 MCHC 31.4 g/dL (30-55) 05/08/24 05:15 RDW 16.9 % (12.1-15.1) H 05/08/24 05:15 Plt Count 234 10^3/cmm (157-399) 05/08/24 05:15 MPV 10.2 fL (7.4-10.4) 05/08/24 05:15 Neut % (Auto) 79.4 % 05/08/24 05:15 Lymph % (Auto) 11.3 % 05/08/24 05:15 [place] % (Auto) 7.8 % 05/08/24 05:15 Eos % (Auto) 0.6 % 05/08/24 05:15 Baso % (Auto) 0.5 % 05/08/24 05:15 Neut # (Auto) 9.41 10^3/uL (1.8-7.7) H 05/08/24 05:15 Lymph # (Auto) 1.3 10^3/uL (0.8-4.8) 05/08/24 05:15 [place] # (Auto) 0.9 10^3/uL (0.2-0.9) 05/08/24 05:15 Eos # (Auto) 0.1 10^3/uL (0.0-0.8) 05/08/24 05:15 Baso # (Auto) 0.1 10^3/uL (0.0-0.1) 05/08/24 05:15 Nucleated RBC % (auto) 0 % 05/08/24 05:15 Nucleated RBCs # 0.0 /100WBC 05/08/24 05:15 D-Dimer 0.28 ug/mLFEU (0-0.59) 05/06/24 12:28 Sodium 139 mmol/L (136-145) 05/08/24 05:15 Potassium 3.7 mmol/L (3.5-5.1) 05/08/24 05:15 Chloride 105 mmol/L (98-107) 05/08/24 05:15 Carbon Dioxide 23 mmol/L (22-29) 05/08/24 05:15 Anion Gap 14.7 (5-19) 05/08/24 05:15 BUN 14 mg/dL (6-20) 05/08/24 05:15 Creatinine 0.6 mg/dL (0.7-1.2) L 05/08/24 05:15 GFR Calculation 138.4 mL/min (90-130) H 05/08/24 05:15 Glucose 153 mg/dL (65-115) H 05/08/24 05:15 POC Glucose 145 mg/dL (70-110) H 05/08/24 06:22 Calculated Osmolality 292 mOsm/kg (285-295) 05/08/24 05:15 Calcium 8.4 mg/dL (8.5-10.5) L 05/08/24 05:15 Magnesium 1.9 mg/dL (1.7-2.3) 05/07/24 06:09 Total Bilirubin 0.4 mg/dL (0.15-1.2) 05/06/24 12:28 AST 26 U/L (0-40) 05/06/24 12:28 ALT 28 U/L (0-41) 05/06/24 12:28 Alkaline Phosphatase 104 U/L (40-130) 05/06/24 12:28 Troponin T 5th Gen ng/L 29 ng/L (0-15) H 05/07/24 01:59 Troponin T Baseline 24 ng/L (0-15) H 05/06/24 12:28 Troponin T 120 Minute 43.47 ng/L (0-15) H 05/06/24 14:16 Delta Troponin T 19.47 ABS# (0-10) H* 05/06/24 14:16 Troponin T Hi Sens 6Hr 43.21 ng/L (0-15) H 05/06/24 18:12 Troponin T Hi Sens 6Hr Delta 19.21 ng/L (0-12) H* 05/06/24 18:12 C-Reactive Protein 3.5 mg/L (0.0-4.9) 05/07/24 06:09 Total Protein 7.1 g/dL (6.6-8.7) 05/06/24 12:28 Albumin 4.3 g/dL (3.5-5.2) 05/06/24 12: Globulin 2.8 g/dL (1.3-4.6) 05/06/24 12:28 Urine Color Yellow (Yellow) 05/06/24 14:07 Urine Appearance Clear (CLEAR) 05/06/24 14:07 Urine pH 5.0 (5-7) 05/06/24 14:07 Ur Specific [place] 1.039 (1.005-1.030) H 05/06/24 14:07 Urine Protein Negative (Negative) 05/06/24 14:07 Urine Glucose (UA) 3+ (Normal) H 05/06/24 14:07 Urine Ketones Negative (Negative) 05/06/24 14:07 Urine Blood Negative (Negative) 05/06/24 14:07 Urine Nitrate Negative (Negative) 05/06/24 14:07 Urine Bilirubin Negative (Negative) 05/06/24 14:07 Urine Urobilinogen 1.0 mg/dL (Negative) 05/06/24 14:07 Ur Leukocyte Esterase Negative (Negative) 05/06/24 14:07 Urine RBC 0-2 /hpf (0-2) 05/06/24 14:07 Urine WBC 0-5 /hpf (0-5) 05/06/24 14:07 Ur Squamous Epith Cells 0-5 /hpf (0-5) 05/06/24 14:07 Amorphous Sediment Not Reportable 05/06/24 14:07 Urine Bacteria None seen /hpf (NONE) 05/06/24 14:07 Hyaline Casts 0-4 /lpf H 05/06/24 14:07 Vitals Last Vital Signs Temp 97.7 F 05/08/24 08:30 Pulse 87 05/08/24 08:30 Resp 19 H 05/08/24 08:30 BP 115/72 05/08/24 08:30 Pulse Ox 98 05/08/24 08:30 O2 Del Method Room Air 05/08/24 08:30 O2 Flow Rate 4 05/07/24 23:00 Discharge Plan Discharge Patient Disposition: Home Condition: Stable Prescriptions: Continued famotidine [Pepcid] 20 mg tablet 20 mg PO BID Qty: 180 1RF fenofibrate nanocrystallized [Tricor] 145 mg tablet 145 mg PO DAILY Qty: 90 1RF levothyroxine 25 mcg tablet 25 mcg PO DAILY Qty: 90 1RF rosuvastatin [Crestor] 40 mg tablet 40 mg PO DAILY Qty: 90 1RF Farxiga 10 mg tablet 10 mg PO QAM Qty: 30 2RF Arnuity Ellipta 100 mcg/actuation blister with device 1 inh inhalation Q24H Qty: 30 2RF insulin glargine [Lantus Solostar U-100 Insulin] 100 unit/mL (3 mL) insulin pen 45 unit SUBCUT QAM Qty: 15 2RF Trulicity 1.5 mg/0.5 mL pen injector 1.5 mg SUBCUT .week Qty: 2 0RF Anoro Ellipta 62.5-25 mcg/actuation blister with device 1 inh inhalation Q24H Qty: 60 2RF valsartan 40 mg tablet 80 mg PO DAILY Qty: 90 1RF Rx Instructions: dose decrease Repatha SureClick 140 mg/mL pen injector 140 mg SUBCUT .every 14 days Qty: 2 2RF nitroglycerin 0.4 mg tablet, sublingual 0.4 mg SUBLINGUAL Q5M PRN (Reason: chest pain) Qty: 25 3RF Rx Instructions: do not exceed 3 doses per episode (DME) pen needle, diabetic 33 gauge x 5/32 needle See Rx Instructions .ROUTE .MEDSUPPLY Qty: 100 5RF Rx Instructions: 3 times day acetaminophen [Tylenol Extra Strength] 500 mg Tablet 1,000 mg PO Q4H PRN (Reason: Pain) clopidogrel 75 mg tablet 75 mg PO QAM Qty: 90 4RF aspirin 81 mg Tablet,Delayed Release (Dr/Ec) 81 mg PO QAM Qty: 90 4RF Discharge Orders: Discharge Order (Routine); Ordered 05/08/24 Ordered By: Zoe Shirley Referrals: Christiano Serrato FNP-C [Primary Care Provider] - 05/15/24 10:40 am Patient Instructions: Opioid Safety Discharge Attestations Time Spent in Discharge Care*: greater than 30 min Status at Discharge: Cognitive status at discharge: cognitively intact , Behavioral status at discharge: cooperative , Quality Metrics Clinical Quality Measures [ No reported AMI, CVA or VTE this stay] Coding Level of Care Code Acute Code for Chg Fwd Diagnoses Atherosclerosis of [place] coronary artery of [place] heart with unstable angina pectoris I25.110 [place] vs. transplanted heart: [place] heart Hypertriglyceridemia E78.1 Type 2 diabetes mellitus with hyperglycemia, with long-term current use of insulin E11.65; Z79.4 Diabetes mellitus type: type 2 Essential (primary) hypertension I10 Adult onset hypothyroidism E03.8
--- NOTE | 2024-05-08 10:22 | PC.NURSE ---
notified dean for student affairs pt is waiting for dean for student affairs this morning prior to discharge. message left to .
--- NOTE | 2024-05-08 10:35 | PC.NURSE ---
[employer]er Dr. rosa will see pt at noon when nurse talk to him via phone. Informed pt and he is okay to wait for Dr Rosa since his ride won't be here until afternoon for his ride.
[2024-05-08 12:16] LABS: Glucose Point of Care 130 mg/dL (70-110)
[2024-05-08] MEDS: calcium carbonate 500 mg Chew Tablet PO (12:32)
--- NOTE | 2024-05-08 12:55 | PM.PN ---
Subjective Subjective: Patient underwent the cardiac catheterization yesterday, by Dr. Dobbs. He was found to have a high-grade lesion on the mid circumflex artery which was intervened. He he also was found to have a high-grade complex RCA lesion. This is going to be intervened as a staged procedure at the later time. Patient remained stable throughout the hospital course. Has not had any recurrence of chest pain, following the intervention . No shortness of breath. No fever or chills Medications: Medication Review Details: Current Medications Acetaminophen (Acetaminophen 500 Mg Tablet) 500 mg PO Q4H PRN PRN Reason: fever Last Admin: 05/07/24 09:26 Dose: 500 mg Albuterol/Ipratropium (Ipratropium-Albuterol 3 Ml Neb) 3 ml INHALATION Q6H PRN PRN Reason: SHORTNESS OF BREATH Aspirin (Aspirin 81 Mg Ec Tablet) 81 mg PO QAM [facility] Last Admin: 05/08/24 05:11 Dose: 81 mg Atorvastatin Calcium (Atorvastatin 40 Mg Tablet) 40 mg PO DAILY [facility] Last Admin: 05/08/24 08:14 Dose: 40 mg Calcium Carbonate (Calcium Carbonate 500 Mg Chew Tablet) 500 mg PO Q4H PRN PRN Reason: INDIGESTION Last Admin: 05/08/24 12:32 Dose: 500 mg Carvedilol (Carvedilol 3.125 Mg Tablet) 3.125 mg PO BID [facility] Last Admin: 05/08/24 08:14 Dose: 3.125 mg Clopidogrel Bisulfate (Clopidogrel 75 Mg Tablet) 75 mg PO QAM [facility] Last Admin: 05/08/24 05:11 Dose: 75 mg Famotidine (Famotidine 20 Mg Tablet) 20 mg PO BID [facility] Last Admin: 05/08/24 08:14 Dose: 20 mg Glucagon (Glucagon 1 Mg/Ml Kit 1 Ml) 1 mg IM ONCE PRN; Protocol PRN Reason: Adult Acute Hypoglycemia Nursing Prot. Dextrose (D5w) 500 mls @ 0 mls/hr IV ONCE PRN; Protocol PRN Reason: Adult Acute Hypoglycemia Prot Dextrose (D10w) 125 mls @ 750 mls/hr IV PRN PRN; Protocol PRN Reason: Adult Acute Hypoglycemia Nursing Protocol Dextrose (D10w) 250 mls @ 1,000 mls/hr IV PRN PRN; Protocol PRN Reason: Adult Acute Hypoglycemia Nursing Protocol Insulin Glargine (Insulin Glargine 100 Units/1 Ml) 30 unit SUBCUT BEDTIME [facility] Last Admin: 05/07/24 21:40 Dose: 30 unit Insulin Human Lispro (Insulin Lispro 100 Unit/1 Ml) 0 unit SUBCUT TIDWM HARRIET; Protocol Last Admin: 05/08/24 12:18 Dose: Not Given Levothyroxine Sodium (Levothyroxine 25 Mcg Tablet) 25 mcg PO DAILY [facility] Last Admin: 05/08/24 08:14 Dose: 25 mcg Morphine Sulfate (Morphine Ir 15 Mg Tablet) 15 mg PO Q6H PRN PRN Reason: MODERATE PAIN Last Admin: 05/07/24 02:47 Dose: 15 mg Nitroglycerin (Nitroglycerin 0.4 Mg Sublingual Tablet) 0.4 mg SUBLINGUAL Q5M PRN PRN Reason: chest pain Last Admin: 05/07/24 01:13 Dose: 0.4 mg Ondansetron HCl (Ondansetron 2 Mg/Ml Sdv 2 Ml) 4 mg IVP Q6H PRN PRN Reason: NAUSEA AND VOMITING Last Admin: 05/07/24 12:13 Dose: 4 mg Vitals/I&O/Wt Last Vital Signs Temp 98.1 F 05/08/24 12:00 Pulse 93 05/08/24 12:00 Resp 20 H 05/08/24 12:00 BP 105/70 05/08/24 12:00 Pulse Ox 91 05/08/24 12:00 O2 Del Method Room Air 05/08/24 12:00 O2 Flow Rate 4 05/07/24 23:00 05/07/24 05/08/24 05/08/24 22:59 06:59 14:59 Intake Total 236 / 236 948.333 / 1184.333 240 / 240 Output Total 600 / 1630 Balance -364 / -1394 948.333 / -445.667 240 / 240 Weight last 48 hrs Weight 285 lb 11.2 oz Weight 285 lb 11.2 oz Weight 283 lb 14.4 oz Physical Exam Narrative: GENERAL: The patient is alert and oriented times three. Not in any acute distress. Moderately obese HEENT: No significant pallor, icterus or lymphadenopathy.Oral cavity: There are no mucous membrane lesions. NECK: Trachea appears to be central. No masses noted. No JVD or thyromegaly appreciated. RESPIRATORY: Chest is symmetrical. No intercostals muscle retraction or any accessory muscle activation. There is no chest wall tenderness. Breath sounds are heard bilaterally. No rales or rhonchi heard. No evidence of any consolidation. BREASTS: Deferred. HEART: The heart sounds are normal. No S3 or S4. No significant murmurs. No pericardial rub ABDOMEN: No vessel pulsations or distention. No tenderness. No organomegaly appreciated. Bowel sounds are normally heard. : Deferred. RECTAL: Deferred. LYMPHATIC: No lymphadenopathy noted in the neck. EXTREMITIES: No hematoma bleeding from the right groin MUSCULOSKELETAL: No acute joint deformities or swelling SKIN: There are no significant rashes or ecchymosis NEUROPSYCHIATRIC: The patient is alert and oriented x3. Appears to be in a good mood. No tremors or rigidity noted. Data 05/08/24 05:15 05/08/24 05:15 Other Labs: Laboratory Last Values WBC 11.85 10^3/uL (3.29-11.43) H 05/08/24 05:15 RBC 5.23 10^6/uL (3.85-5.65) 05/08/24 05:15 Hgb 15.50 g/dL (11.27-16.99) 05/08/24 05:15 Hct 49.4 % (37-53) 05/08/24 05:15 MCV 94.5 fl (82-101) 05/08/24 05:15 MCH 29.6 pg (27-33) 05/08/24 05:15 MCHC 31.4 g/dL (30-55) 05/08/24 05:15 RDW 16.9 % (12.1-15.1) H 05/08/24 05:15 Plt Count 234 10^3/cmm (157-399) 05/08/24 05:15 MPV 10.2 fL (7.4-10.4) 05/08/24 05:15 Neut % (Auto) 79.4 % 05/08/24 05:15 Lymph % (Auto) 11.3 % 05/08/24 05:15 [place] % (Auto) 7.8 % 05/08/24 05:15 Eos % (Auto) 0.6 % 05/08/24 05:15 Baso % (Auto) 0.5 % 05/08/24 05:15 Neut # (Auto) 9.41 10^3/uL (1.8-7.7) H 05/08/24 05:15 Lymph # (Auto) 1.3 10^3/uL (0.8-4.8) 05/08/24 05:15 [place] # (Auto) 0.9 10^3/uL (0.2-0.9) 05/08/24 05:15 Eos # (Auto) 0.1 10^3/uL (0.0-0.8) 05/08/24 05:15 Baso # (Auto) 0.1 10^3/uL (0.0-0.1) 05/08/24 05:15 Nucleated RBC % (auto) 0 % 05/08/24 05:15 Nucleated RBCs # 0.0 /100WBC 05/08/24 05:15 D-Dimer 0.28 ug/mLFEU (0-0.59) 05/06/24 12:28 Sodium 139 mmol/L (136-145) 05/08/24 05:15 Potassium 3.7 mmol/L (3.5-5.1) 05/08/24 05:15 Chloride 105 mmol/L (98-107) 05/08/24 05:15 Carbon Dioxide 23 mmol/L (22-29) 05/08/24 05:15 Anion Gap 14.7 (5-19) 05/08/24 05:15 BUN 14 mg/dL (6-20) 05/08/24 05:15 Creatinine 0.6 mg/dL (0.7-1.2) L 05/08/24 05:15 GFR Calculation 138.4 mL/min (90-130) H 05/08/24 05:15 Glucose 153 mg/dL (65-115) H 05/08/24 05:15 POC Glucose 130 mg/dL (70-110) H 05/08/24 12:09 Calculated Osmolality 292 mOsm/kg (285-295) 05/08/24 05:15 Calcium 8.4 mg/dL (8.5-10.5) L 05/08/24 05:15 Magnesium 1.9 mg/dL (1.7-2.3) 05/07/24 06:09 Total Bilirubin 0.4 mg/dL (0.15-1.2) 05/06/24 12:28 AST 26 U/L (0-40) 05/06/24 12:28 ALT 28 U/L (0-41) 05/06/24 12:28 Alkaline Phosphatase 104 U/L (40-130) 05/06/24 12:28 Troponin T 5th Gen ng/L 29 ng/L (0-15) H 05/07/24 01:59 Troponin T Baseline 24 ng/L (0-15) H 05/06/24 12:28 Troponin T 120 Minute 43.47 ng/L (0-15) H 05/06/24 14:16 Delta Troponin T 19.47 ABS# (0-10) H* 05/06/24 14:16 Troponin T Hi Sens 6Hr 43.21 ng/L (0-15) H 05/06/24 18:12 Troponin T Hi Sens 6Hr Delta 19.21 ng/L (0-12) H* 05/06/24 18:12 C-Reactive Protein 3.5 mg/L (0.0-4.9) 05/07/24 06:09 Total Protein 7.1 g/dL (6.6-8.7) 05/06/24 12:28 Albumin 4.3 g/dL (3.5-5.2) 05/06/24 12:28 Globulin 2.8 g/dL (1.3-4.6) 05/06/24 12:28 Urine Color Yellow (Yellow) 05/06/24 14:07 Urine Appearance Clear (CLEAR) 05/06/24 14:07 Urine pH 5.0 (5-7) 05/06/24 14:07 Ur Specific [place] 1.039 (1.005-1.030) H 05/06/24 14:07 Urine Protein Negative (Negative) 05/06/24 14:07 Urine Glucose (UA) 3+ (Normal) H 05/06/24 14:07 Urine Ketones Negative (Negative) 05/06/24 14:07 Urine Blood Negative (Negative) 05/06/24 14:07 Urine Nitrate Negative (Negative) 05/06/24 14:07 Urine Bilirubin Negative (Negative) 05/06/24 14:07 Urine Urobilinogen 1.0 mg/dL (Negative) 05/06/24 14:07 Ur Leukocyte Esterase Negative (Negative) 05/06/24 14:07 Urine RBC 0-2 /hpf (0-2) 05/06/24 14:07 Urine WBC 0-5 /hpf (0-5) 05/06/24 14:07 Ur Squamous Epith Cells 0-5 /hpf (0-5) 05/06/24 14:07 Amorphous Sediment Not Reportable 05/06/24 14:07 Urine Bacteria None seen /hpf (NONE) 05/06/24 14:07 Hyaline Casts 0-4 /lpf H 05/06/24 14:07 A&P Assessment and plan (1) Atherosclerotic heart disease of [place] coronary artery with unstable angina pectoris: Patient status post cardiac catheterization, status post PCI of the circumflex artery lesion, currently seems to be stable. Patient has a high-grade lesion of the right coronary artery for which he needs to be brought back at a later time for intervention. Qualifiers: [place] vs. transplanted heart: [place] heart Qualified Code(s): I25.110 - Atherosclerotic heart disease of [place] coronary artery with unstable angina pectoris (2) Hypertriglyceridemia: May continue the current medications. (3) Diabetes mellitus with hyperglycemia, with long-term current use of insulin: Aggressive management of the diabetes would be appropriate. 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 May continue on the carvedilol 3.12 the milligram p.o. twice daily (5) Adult onset hypothyroidism: May continue the current medications. Plan Since the patient is remaining stable, may be discharged home from a cardia standpoint. Need to be seen back in the clinic in 1 to 2 weeks by the nurse practitioner Will arrange for the RCA intervention at that point I may see him in the office in 2 Attestations Medical Necessity Statement*: This possible discharge home today Coding Level of Care Code 06032 Diagnoses Atherosclerosis of [place] coronary artery of [place] heart with unstable angina pectoris I25.110 [place] vs. transplanted heart: [place] heart Hypertriglyceridemia E78.1 Type 2 diabetes mellitus with hyperglycemia, with long-term current use of insulin E11.65; Z79.4 Diabetes mellitus type: type 2 Essential (primary) hypertension I10 Adult onset hypothyroidism E03.8
--- NOTE | 2024-05-08 14:24 | PC.NURSE ---
discharge pt discharge this afternoon around 2:30 pm, since we waited for discharge meds to be added in his discharge instructions. 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 chest pain stoplight discuss to pt and family at bedside. sleep study outpt order provided to pt. discharge papers given to pt.
== END 2024-05-08 13:57 | disposition home or self-care (01) | DRG 322 ==
LOC: ER 14:17 → MEDSURG 14:26 → CSU 05-07 10:23
PROVIDERS: Internal Medicine; Student in an Organized Health Care Education/Training Program; Admitting Provider Internal Medicine; Emergency Provider Family Medicine; PCP Nurse Practitioner; Visit Provider Internal Medicine
PROC: 027034Z Dilation of Coronary Artery, One Artery with Drug-eluting Intraluminal Device, Percutaneous Approach (ICD-10-PCS; principal; 2024-05-07 10:00)
PROC: 027034Z Dilation of Coronary Artery, One Artery with Drug-eluting Intraluminal Device, Percutaneous Approach (ICD-10-PCS; 2024-05-07 10:00)
DX: I21.4 Non-ST elevation (NSTEMI) myocardial infarction (principal); E78.1 Pure hyperglyceridemia; E03.9 Hypothyroidism, unspecified; I25.110 Atherosclerotic heart disease of native coronary artery with unstable angina pectoris; E66.01 Morbid (severe) obesity due to excess calories; E11.40 Type 2 diabetes mellitus with diabetic neuropathy, unspecified; E11.65 Type 2 diabetes mellitus with hyperglycemia; F41.9 Anxiety disorder, unspecified; E78.2 Mixed hyperlipidemia; K21.9 Gastro-esophageal reflux disease without esophagitis; I10 Essential (primary) hypertension; Z79.82 Long term (current) use of aspirin; Z79.85 Long-term (current) use of injectable non-insulin antidiabetic drugs; Z79.02 Long term (current) use of antithrombotics/antiplatelets; Z79.4 Long term (current) use of insulin; Z95.5 Presence of coronary angioplasty implant and graft; Z68.39 Body mass index [BMI] 39.0-39.9, adult; Z87.891 Personal history of nicotine dependence; Z85.828 Personal history of other malignant neoplasm of skin
CPT/HCPCS: 36415; 36416; 71045; 80048; 80053; 81001; 82962; 83735; 84484; 85025; 85378; 86140; 93005; 93306; 93454; 96372; 96374; 96375; 96376; 99152; 99153; 99285; C1725; C1760; C1769; C1874; C1887; C1894; C9600; G0269; G0378; J1200; J1644; J1650; J1815; J2250; J2270; J2405; J2470; J2919; J3010; J3490; J7030; Q9967

== ENCOUNTER 2024-05-09 12:42 | Emergency (ER) | payer BC, MEDICAID, SELFPAY ==
[2024-05-09 12:45] VITALS: BP 135/75; PULSE 85; RESP 17; TEMP 36.7; O2SAT 93; BMI 39.3
--- NOTE | 2024-05-09 13:06 | CT_ITS ---
WS: [id number] CT ABDOMEN AND PELVIS NONCONTRAST HISTORY: distention with fullness and no bm for 7 days no prior surge TECHNIQUE: Imaging performed through the abdomen and pelvis. Coronal and sagittal reformats are submi tted. All CT scans at [facility] use at least one of these dose optimization techniques: auto mated exposure control; mA and/or kV adjustment per patient size (includes targeted exams where dose is matched to clinical indication); or iterative reconstruction. DLP: 1257.93 mGy.cm COMPARISON: 03/27/2021 Lower thorax: Lung bases are clear. Visualized heart is normal. No hiatal hernia. Liver: Mild hepatomegaly with diffuse hepatic steatosis. Gallbladder: Normally distended gallbladder with stones. No adjacent inflammation. Common bile duct i s normal size. Pancreas: Normal size and attenuation. Normal pancreatic duct. No pancreatitis or mass. Spleen: Normal size spleen with granulomata. Adrenal glands: Normal RIGHT adrenal gland. Long-term stable LEFT adrenal nodule measures 1.8 x 1.3 c m. Right kidney: Perinephric stranding. There are multiple subtle hypodensities within the cortex which cannot be further characterized. No hydronephrosis. No ureteral obstruction. Left kidney: Mild perinephric stranding. Nonobstructing 2 mm calcification in the renal pelvis. Aorta: Mild atherosclerosis abdominal aorta with no aneurysm. No free fluid, intraperitoneal air or significant lymphadenopathy. GI tract: Nondistended stomach. No small bowel obstruction. Normal appendix. No diverticulitis. There are a few scattered distal colon diverticula. Abdominal wall: Small umbilical hernia contains fat only. Mild soft tissue inflammation at the region of the umbilicus is similar to the prior study. Pelvis: Well-distended urinary bladder. No free fluid or adenopathy. Osseous structures: Partially fused RIGHT SI joint. CT/CT abdomen pelvis wo con [id number] IMPRESSION: 1. Cholelithiasis without acute cholecystitis. 2. Mild hepatomegaly with marked hepatic steatosis. 3. No renal obstruction. 4. No ascites or adenopathy. 5. Cortical hypodensities RIGHT kidney cannot be further characterized by nonc ontrast CT. 6. Normal appendix. 7. No acute diverticulitis.
--- NOTE | 2024-05-09 13:07 | W.ED.ABDPA2 ---
HPI - Abdominal Pain General: Chief Complaint: Abdominal Pain Stated Complaint: no BM, unable to eat or drink w/o pain Time Seen by Provider: 05/09/24 12:53 Source: patient and family Mode of arrival: ambulatory Limitations: no limitations History of Present Illness: This patient presents to the emergency department because he has had increasing abdominal distention over the past several days and a lack of bowel movement since Sunday. The patient was discharged in the hospital yesterday. He apparently was admitted on Sunday for ACS and had a angiogram and stent placement on Sunday. He states he normally has daily bowel movements but has been unsuccessful this Sunday. He states he has a feeling of early satiety and fullness. He is having some abdominal pain which she describes as a bellyache. His also collaborates that he appears to be more distended today. He is urinating normally. Denies any chest pain fevers etc. Denies any use of opiates. He did get a single dose of morphine during his initial evaluation but no subsequent pain medicine other than sedation during his angiogram. He had no prior abdominal surgeries. No vomiting. He did take MiraLAX last night. He had a states he had a very small amount of stool this morning. No prior history of constipation issues or other bowel issues. Context: recent surgery/procedure Associated Symptoms: Reports constipation; Denies chills, dysuria, fever(s) and syncope Related Data Home Medications Medication Instructions Recorded Confirmed acetaminophen 500 mg tablet 1,000 mg PO Q4H PRN Pain 03/28/21 05/09/24 (Tylenol Extra Strength) Previous Rx's Medication Instructions Recorded nitroglycerin 0.4 mg sublingual 0.4 mg sublingual Q5M PRN chest 07/27/22 tablet pain #25 tabs pen needle, diabetic 33 gauge x #100 ea 11/30/23 famotidine 20 mg tablet (Pepcid) 20 mg PO BID #180 tabs 02/13/24 fenofibrate nanocrystallized 145 145 mg PO DAILY #90 tabs 02/13/24 mg tablet (Tricor) levothyroxine 25 mcg tablet 25 mcg PO DAILY #90 tabs 02/13/24 rosuvastatin 40 mg tablet (Crestor) 40 mg PO DAILY #90 tabs 02/13/24 dapagliflozin propanediol 10 mg 10 mg PO QAM #30 tabs 04/30/24 tablet (Farxiga) dulaglutide 1.5 mg/0.5 mL 1.5 mg (0.5 mL) SUBCUT .week #2 mL 04/30/24 subcutaneous pen injector (Trulicity) evolocumab 140 mg/mL subcutaneous 140 mg SUBCUT .every 14 days #2 mL 04/30/24 pen injector (Repatha SureClick) fluticasone furoate 100 1 inh inhalation Q24H #30 ea 04/30/24 mcg/actuation blister powder for inhalation (Arnuity Ellipta) insulin glargine 100 unit/mL (3 45 unit (0.45 mL) SUBCUT QAM #15 mL 04/30/24 mL) subcutaneous pen (Lantus Solostar U-100 Insulin) umeclidinium 62.5 mcg-vilanterol 1 inh inhalation Q24H #60 ea 04/30/24 25 mcg/actuation powdr for inhalation (Anoro Ellipta) valsartan 40 mg tablet 80 mg (2 x 40 mg) PO DAILY #90 tabs 04/30/24 aspirin 81 mg tablet,delayed 81 mg PO QAM #90 tabs 05/08/24 release carvedilol 3.125 mg tablet (Coreg) 3.125 mg PO BID #60 tabs 05/08/24 clopidogrel 75 mg tablet 75 mg PO QAM #90 tabs 05/08/24 sennosides 8.6 mg-docusate sodium 1 tab-cap PO DAILY PRN 05/08/24 50 mg tablet (Senna-S) constipation #14 tabs Allergies Allergy/AdvReac Type Severity Reaction Status Date / Time shellfish derived Allergy Severe ADR-Itching Verified 05/09/24 12:50 trimethoprim [From Bactrim] Allergy Severe ALGY-Rash Verified 05/09/24 12:50 sulfamethoxazole AdvReac Severe ALGY-Rash Verified 05/09/24 12:50 [From Bactrim] Review of Systems Const: Denies: fever(s) or chills Card: Denies: syncope or pre-syncope Resp: Denies: dyspnea, productive cough or non-productive cough GI: Reports: abdominal pain and constipation : Denies: flank pain, difficulty urinating, dysuria or urinary frequency Musc: Denies: neck pain, back pain or extremity swelling Skin/Breast: Denies: rash Neuro: Denies: headache(s), numbness in extremities or weakness in extremities Psych: Denies: anxiety or depression PFSH ED PFSH: Medical History Atherosclerotic heart disease of [place] coronary artery with unstable angina pectoris Unstable angina Stable angina History of smoking 10-25 pack years Stop smoking 2019 Adult onset hypothyroidism Hypertriglyceridemia Diabetes mellitus with hyperglycemia, with long-term current use of insulin History of cigarette smoking Anxiety Coronary artery disease Mixed hyperlipidemia Controlled diabetes mellitus with hyperglycemia, without long-term current use of insulin Acid reflux disease DM neuropathy, painful Essential (primary) hypertension Surgical History History of coronary angioplasty with insertion of stent 2019 Basal cell carcinoma (BCC) in situ of skin September 2017 on back History of colonoscopy Family History Mother Diabetes Heart disease Father Cancer lung cancer Father Hypertension Many of the family members have high blood pressure Social History Smoking and tobacco/nicotine status: never used tobacco/nicotine Quit status (tobacco/nicotine): has quit using Former quit date comment: 03/20/20 Second hand smoke exposure: Yes Alcohol intake: never Substance/Drug Use: never Adopted: No Caregiver/support person: No Lives independently: Yes Household members: spouse Housing: House Marital status: service: No Current occupational status: employed Do you think of yourself as: Straight/Heterosexual Current gender identity: Male Physical Exam Narrative: EXAM NARRATIVE: Appears to be comfortable in no acute distress. Answers questions with in a goal-directed fashion. Const: COMMON NORMALS: no acute distress, patient oriented x3 and alert GENERAL APPEARANCE: cooperative NUTRITIONAL APPEARANCE: obese HENMT: COMMON NORMALS: normocephalic, Normal nasal mucous membranes and turbinates present and moist oral mucous membranes HEAD & SCALP: normocephalic NOSE: Normal nasal mucous membranes and turbinates present Eye: COMMON NORMALS: Equal, round and reactive pupils present, conjunctivae normal and no scleral icterus CONJUNCTIVA: Yes conjunctivae normal PUPIL: Yes Equal, round and reactive pupils present Neck/C-Spine: COMMON NORMALS: full ROM Chest: COMMONS NORMALS: normal inspection of the chest Resp: COMMON NORMALS: normal respiratory effort, No retractions, No use of accessory muscles and clear to auscultation bilaterally AUSCULTATION: clear to auscultation bilaterally Cardio: COMMON NORMALS: regular rate, regular rhythm, No murmurs present (Cardio) and Peripheral pulses 2+ throughout RATE: regular rate RHYTHM: regular rhythm PERIPHERAL PULSES: Peripheral pulses 2+ throughout GI: COMMON NORMALS: non-tender INSPECTION: Yes abdominal distension and Yes central obesity PERCUSSION: tympanic to percussion RECTAL EXAM: Yes visual inspection normal, Yes normal sphincter tone and No fecal impaction OTHER: Abdomen is distended to appearance. Palpation reveals to be somewhat firm. Is hyperresonant to percussion. Digital rectal examination reveals no evidence of stool in the vault. : COMMON NORMALS: Yes no CVA tenderness BLADDER/KIDNEY EXAM: Yes no CVA tenderness Back/Pelvis: COMMON NORMALS: no CVA tenderness, thoraco-lumbar ROM normal and straight leg raise negative bilaterally Extremity: COMMON NORMALS: normal to inspection, full ROM and capillary refill normal Neuro: COMMON NORMALS: patient oriented x3, moves all extremities, no focal motor deficits and no sensory deficits noted SENSORIUM/ORIENTATION: Yes alert Skin: COMMON NORMALS: no rashes or lesions noted and turgor normal GENERAL SKIN EXAM: no rashes or lesions noted and turgor normal Course Vital Signs: Vital signs: Vital Signs Temperature 98.1 F 05/09/24 12:45 Pulse Rate 85 05/09/24 12:45 Respiratory Rate 17 05/09/24 12:45 Blood Pressure 135/75 05/09/24 12:45 Pulse Oximetry 93 05/09/24 12:45 Oxygen Delivery Me thod Room Air 05/09/24 12:45 MDM - Abdominal Pain Medical Decision Making This patient presented as noted in the HPI. He had been recently hospitalized for ACS with subsequent angiogram and stent placement. He had been relatively inactive while in the hospital. There is no history of opiate use is noted but had not had a bowel movement for the last 3 days and was feeling bloated. His clinical examination was not suggestive of worrisome condition such as acute abdomen etc. and his digital rectal examination did not reveal a fecal impaction within the realm of the examining finger. Imaging was obtained to ensure that there was no evidence of bowel obstruction or other more concerning finding. This was reassuring. The patient likely has his current symptoms of related to his inactivity and perhaps related to his procedure. We recommend a regimen of MiraLAX clear liquids and advancing diet as tolerated with return precautions both he and his voiced understanding. Stable for this for discharge at this time without any evidence of an ongoing emergency medical condition. We also disclosed the fact that he has gallstones that may need to be addressed in the future. Lab Data Labs/Radiology: Radiology Impressions Abdomen/Pelvis CT 05/09/24 13:06 IMPRESSION: 1. Cholelithiasis without acute cholecystitis. 2. Mild hepatomegaly with marked hepatic steatosis. 3. No renal obstruction. 4. No ascites or adenopathy. 5. Cortical hypodensities RIGHT kidney cannot be further characterized by noncontrast CT. 6. Normal appendix. 7. No acute diverticulitis. All radiology interpretation(s) finalized by discharge Discharge Plan Discharge Patient Disposition: Home Clinical Impression: Constipation Qualifiers: Constipation type: unspecified constipation type Qualified Code(s): K59.00 - Constipation, unspecified Condition: Stable Prescriptions: No Action famotidine [Pepcid] 20 mg tablet 20 mg PO BID Qty: 180 1RF fenofibrate nanocrystallized [Tricor] 145 mg tablet 145 mg PO DAILY Qty: 90 1RF levothyroxine 25 mcg tablet 25 mcg PO DAILY Qty: 90 1RF rosuvastatin [Crestor] 40 mg tablet 40 mg PO DAILY Qty: 90 1RF Farxiga 10 mg tablet 10 mg PO QAM Qty: 30 2RF Arnuity Ellipta 100 mcg/actuation blister with device 1 inh inhalation Q24H Qty: 30 2RF insulin glargine [Lantus Solostar U-100 Insulin] 100 unit/mL (3 mL) insulin pen 45 unit SUBCUT QAM Qty: 15 2RF Trulicity 1.5 mg/0.5 mL pen injector 1.5 mg SUBCUT .week Qty: 2 0RF Anoro Ellipta 62.5-25 mcg/actuation blister with device 1 inh inhalation Q24H Qty: 60 2RF valsartan 40 mg tablet 80 mg PO DAILY Qty: 90 1RF Patient Comments: per patient he takes 40 mg daily Repatha SureClick 140 mg/mL pen injector 140 mg SUBCUT .every 14 days Qty: 2 2RF nitroglycerin 0.4 mg tablet, sublingual 0.4 mg SUBLINGUAL Q5M PRN (Reason: chest pain) Qty: 25 3RF Rx Instructions: do not exceed 3 doses per episode (DME) pen needle, diabetic 33 gauge x 5/32 needle See Rx Instructions .ROUTE .MEDSUPPLY Qty: 100 5RF Rx Instructions: 3 times day acetaminophen [Tylenol Extra Strength] 500 mg Tablet 1,000 mg PO Q4H PRN (Reason: Pain) clopidogrel 75 mg tablet 75 mg PO QAM Qty: 90 4RF aspirin 81 mg Tablet,Delayed Release (Dr/Ec) 81 mg PO QAM Qty: 90 4RF carvedilol [Coreg] 3.125 mg tablet 3.125 mg PO BID Qty: 60 3RF Rx Instructions: must administer with a meal/food, hold if bp<100/70 90 sennosides-docusate sodium [Senna-S] 8.6-50 mg tablet 1 tab-cap PO DAILY PRN (Reason: constipation) Qty: 14 0RF Discharge Orders: Discharge ED (Routine); Ordered 05/09/24 Ordered By: Parag Bishop Referrals: Christiano Serrato, [employer] [Primary Care Provider] - Discharge Diet: Advance as tolerated and Full LIquid Discharge Activity: Resume usual activity Patient Instructions: Opioid Safety, Pain Management Activity Restrictions/Additional Instructions: As we discussed while you are in the emergency department there is no evidence today that you have a serious condition such as a bowel obstruction or other condition that is causing your constipation. This should improve over the next 2 to 3 days. We recommend using MiraLAX 2 scoops twice daily for the next several days until her bowel movements returned to normal. We also recommend sticking with a light or clear diet for the next couple days until you are bowel movements returned to normal. If after 2 to 3 days of this therapy if you are not improving or if you are having increasing abdominal pain, vomiting or other concerns return to this or the nearest emergency department. Continue all your usual prescribed medications. Coding Level of Care Code ED [employer] for [facility]
[2024-05-09 14:49] VITALS: BP 122/89; PULSE 96; O2SAT 94
== END 2024-05-09 14:50 | disposition home or self-care (01) ==
PROVIDERS: Emergency Provider Emergency Medicine; PCP Nurse Practitioner
DX: K59.00 Constipation, unspecified (principal); Z79.85 Long-term (current) use of injectable non-insulin antidiabetic drugs; Z79.4 Long term (current) use of insulin; Z79.02 Long term (current) use of antithrombotics/antiplatelets; Z79.82 Long term (current) use of aspirin; Z87.891 Personal history of nicotine dependence; Z95.5 Presence of coronary angioplasty implant and graft; I25.10 Atherosclerotic heart disease of native coronary artery without angina pectoris; E78.2 Mixed hyperlipidemia; I10 Essential (primary) hypertension; E11.40 Type 2 diabetes mellitus with diabetic neuropathy, unspecified
CPT/HCPCS: 74176; 99284

== ENCOUNTER 2024-05-09 20:51 | Emergency (ER) | payer BC, MEDICAID, SELFPAY ==
[2024-05-09 20:57] VITALS: BP 129/81; PULSE 93; RESP 18; TEMP 36.6; O2SAT 95
--- NOTE | 2024-05-09 20:57 | ECG_ITS ---
[facility] Test Date: 2024-05-09 Pat Name: Jose Daniel Forbes Department: Room: Gender: Male [employer]: : 1965 Requested By: Parag Bishop Order Number: [id number] Simeon MD: EUN PEREZ Measurements Intervals [place] Rate: 91 P: 61 UT: 195 QRS: 80 QRSD: 85 T: -28 QT: 372 QTc: 458 Interpretive Statements SINUS RHYTHM WITH OCCASIONAL VENTRICULAR PREMATURE COMPLEXES ST DEVIATION AND MODERATE T-WAVE ABNORMALITY, CONSIDER LATERAL ISCHEMIA [-0.1+ mV T-WAVE IN I/aVL/V5/V6] Compared to ECG 05/07/2024 01:40:35 Possible ischemia now present T-wave abnormality still present Electronically Signed On 05-10-2024 18:08:31 CDT by EUN PEREZ [email or web address]
--- NOTE | 2024-05-09 21:03 | XRR_ITS ---
PROCEDURE INFORMATION: Exam: XR Chest Exam date and time: 05/09/2024 11:46 PM Age: 59 years old Clinical indication: Shortness of breath; Chest pressure; Prior surgery; Surgery date: 3-7 days post-operative; Surgery type: Coronary stent placed 05/07/2024; Patient HX: C/O chest pain with SOB. TECHNIQUE: Imaging protocol: Radiologic exam of the chest. Views: 1 view. COMPARISON: CR XR chest 1V portable [id number] 05/06/2024 12:20 PM FINDINGS: Lungs: No consolidation. Pleural spaces: No pleural effusion. No pneumothorax. Heart/Mediastinum: Stable cardiomegaly. Bones/joints: No acute findings. XR/XR chest 1V portable [id number] IMPRESSION: Stable exam. No acute findings.
[2024-05-09 21:54] LABS: Basophils # 0.1 10^3/uL (0.0-0.1); Basophils % 0.6 %; Eosinophils # 0.3 10^3/uL (0.0-0.8); Eosinophils % 3.2 %; Lymphocytes # 1.3 10^3/uL (0.8-4.8); Mean Corpuscular HGB Conc 31.6 g/dL (30-55); Mean Corpuscular Hemoglobin 29.5 pg (27-33); Mean Corpuscular Volume 93.2 fl (82-101); Mean Platelet Volume 9.7 fL (7.4-10.4); Monocytes # 0.8 10^3/uL (0.2-0.9); Monocytes % 8.2 %; Neutrophils # 6.83 10^3/uL (1.8-7.7); Neutrophils % 73.6 %; Nucleated Red Blood Cells % 0 %; Platelet Count 225 10^3/cmm (157-399); Red Blood Count 5.26 10^6/uL (3.85-5.65); Red Cell Distribution Width 16.6 % (12.1-15.1); White Blood Count 9.29 10^3/uL (3.29-11.43)
[2024-05-09 22:28] LABS: Anion Gap 16.6 (5-19); Blood Urea Nitrogen 12 mg/dL (6-20); Carbon Dioxide 22 mmol/L (22-29); Chloride 98 mmol/L (98-107); Creatinine Clr Calc Pharmacy 157.9327; Glomerular Filtration Rate 115.8 mL/min (90-130); Glucose 119 mg/dL (65-115); Osmolality Calculated 277 mOsm/kg (285-295); Potassium 3.6 mmol/L (3.5-5.1); Sodium 133 mmol/L (136-145)
[2024-05-09 22:39] LABS: Troponin(5th) Baseline 326 ng/L (0-15)
[2024-05-09 23:07] LABS: NT Pro B Type Natriuretic Pept 244 pg/mL (0-125)
[2024-05-10] VITALS (23 sets, daily range): BP systolic 120–145; BP diastolic 75–92; PULSE 77–105; RESP 7–25; O2SAT 89–95
[2024-05-10 00:36] LABS: Troponin 5 2HR Delta -7.2 ABS# (0-10)
[2024-05-10 00:37] LABS: Troponin 5 2HR 318.8 ng/L (0-15)
--- NOTE | 2024-05-10 01:45 | ECG_ITS ---
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1965 Requested By: Parag Bishop Order Number: [id number] Reading MD: EUN PEREZ Measurements Intervals [place] Rate: 89 P: 52 SD: 198 QRS: 73 QRSD: 91 T: -21 QT: 359 QTc: 437 Interpretive Statements SINUS RHYTHM ST DEVIATION AND MODERATE T-WAVE ABNORMALITY, CONSIDER LATERAL ISCHEMIA [-0.1+ mV T-WAVE IN I/aVL/V5/V6] Compared to ECG 05/09/2024 20:55:10 Ventricular premature complex(es) no longer present T-wave abnormality still present Possible ischemia still present Electronically Signed On 05-10-2024 18:14:30 CDT by EUN PEREZ [email or web address]
--- NOTE | 2024-05-10 19:00 | ED_ITS ---
HPI - SOB/Dyspnea 2 General: Chief Complaint: Shortness of Breath/Dyspnea Stated Complaint: SOB Time Seen by Provider: 05/09/24 23:52 History of Present Illness: HPI Narrative: This patient is a 59-year-old white male who presents to the emergency department with shortness of breath. Patient states he had coronary stents placed on Sunday. He states during that hospitalization he was diagnosed with obstructive sleep apnea. Since he has been home he has been waking up from sleep gasping for air. He is not having any chest pain. Related Data Home Medications Medication Instructions Recorded Confirmed acetaminophen 500 mg tablet 1,000 mg PO Q4H PRN Pain 03/28/21 05/09/24 (Tylenol Extra Strength) Previous Rx's Medication Instructions Recorded nitroglycerin 0.4 mg sublingual 0.4 mg sublingual Q5M PRN chest 07/27/22 tablet pain #25 tabs pen needle, diabetic 33 gauge x #100 ea 11/30/23 famotidine 20 mg tablet (Pepcid) 20 mg PO BID #180 tabs 02/13/24 fenofibrate nanocrystallized 145 145 mg PO DAILY #90 tabs 02/13/24 mg tablet (Tricor) levothyroxine 25 mcg tablet 25 mcg PO DAILY #90 tabs 02/13/24 rosuvastatin 40 mg tablet (Crestor) 40 mg PO DAILY #90 tabs 02/13/24 dapagliflozin propanediol 10 mg 10 mg PO QAM #30 tabs 04/30/24 tablet (Farxiga) dulaglutide 1.5 mg/0.5 mL 1.5 mg (0.5 mL) SUBCUT .week #2 mL 04/30/24 subcutaneous pen injector (Trulicity) evolocumab 140 mg/mL subcutaneous 140 mg SUBCUT .every 14 days #2 mL 04/30/24 pen injector (Repatha [place]) fluticasone furoate 100 1 inh inhalation Q24H #30 ea 04/30/24 mcg/actuation blister powder for inhalation (Arnuity Ellipta) insulin glargine 100 unit/mL (3 45 unit (0.45 mL) SUBCUT QAM #15 mL 04/30/24 mL) subcutaneous pen (Lantus Solostar U-100 Insulin) umeclidinium 62.5 mcg-vilanterol 1 inh inhalation Q24H #60 ea 04/30/24 25 mcg/actuation powdr for inhalation (Anoro Ellipta) valsartan 40 mg tablet 80 mg (2 x 40 mg) PO DAILY #90 tabs 04/30/24 aspirin 81 mg tablet,delayed 81 mg PO QAM #90 tabs 05/08/24 release carvedilol 3.125 mg tablet (Coreg) 3.125 mg PO BID #60 tabs 05/08/24 clopidogrel 75 mg tablet 75 mg PO QAM #90 tabs 05/08/24 sennosides 8.6 mg-docusate sodium 1 tab-cap PO DAILY PRN 05/08/24 50 mg tablet (Senna-S) constipation #14 tabs Allergies Allergy/AdvReac Type Severity Reaction Status Date / Time shellfish derived Allergy Severe ADR-Itching Verified 05/09/24 12:50 trimethoprim [From Bactrim] Allergy Severe ALGY-Rash Verified 05/09/24 12:50 sulfamethoxazole AdvReac Severe ALGY-Rash Verified 05/09/24 12:50 [From Bactrim] Review of Systems 2 General: Reports: 10 or more systems reviewed and unremarkable except in HPI and below Resp: Reports: dyspnea PFSH ED 2 PFSH: Medical History Atherosclerotic heart disease of [place] coronary artery with unstable angina pectoris Unstable angina Stable angina History of smoking 10-25 pack years Stop smoking 2019 Adult onset hypothyroidism Hypertriglyceridemia Diabetes mellitus with hyperglycemia, with long-term current use of insulin History of cigarette smoking Anxiety Coronary artery disease Mixed hyperlipidemia Controlled diabetes mellitus with hyperglycemia, without long-term current use of insulin Acid reflux disease DM neuropathy, painful Essential (primary) hypertension Surgical History History of coronary angioplasty with insertion of stent 2019 Basal cell carcinoma (BCC) in situ of skin September 2017 on back History of colonoscopy Family History Mother Diabetes Heart disease Father Cancer lung cancer Father Hypertension Many of the family members have high blood pressure Social History Smoking and tobacco/nicotine status: never used tobacco/nicotine Quit status (tobacco/nicotine): has quit using Former quit date comment: 03/20/20 Second hand smoke exposure: Yes Alcohol intake: never Substance/Drug Use: never Adopted: No Caregiver/support person: No Lives independently: Yes Household members: spouse Housing: House Marital status: service: No Current occupational status: employed Do you think of yourself as: Straight/Heterosexual Current gender identity: Male Physical Exam 2 Const: COMMON NORMALS: no acute distress, patient oriented x3 and no limitations GENERAL APPEARANCE: cooperative and comfortable HENMT: COMMON NORMALS: normocephalic, atraumatic, Normal nasal mucous membranes and turbinates present, moist oral mucous membranes and oropharynx normal HEAD & SCALP: normal to inspection, normocephalic and atraumatic F RAEANN & SINUS: normal facial exam NOSE: Normal nasal mucous membranes and turbinates present Eye: COMMON NORMALS: Equal, round and reactive pupils present, EOMs intact bilaterally and conjunctivae normal GENERAL EYE: appearance normal, both eyes and all related structures CONJUNCTIVA: Yes conjunctivae normal PUPIL: Yes Equal, round and reactive pupils present Neck/C-Spine: COMMON NORMALS: supple and no JVD Chest: COMMONS NORMALS: normal inspection of the chest Resp: COMMON NORMALS: normal respiratory effort and clear to auscultation bilaterally AUSCULTATION: clear to auscultation bilaterally Cardio: COMMON NORMALS: no JVD, regular rate, regular rhythm, No gallops present (Cardio), No murmurs present (Cardio) and No rub (Cardio) RATE: r egular rate RHYTHM: regular rhythm GI: COMMON NORMALS: Normal to inspection, nondistended, normoactive bowel sounds present, Soft to palpation and non-tender AUSCULTATION: Yes normoactive bowel sounds PALPATION: Yes Soft to palpation : COMMON NORMALS: Yes no CVA tenderness BLADDER/KIDNEY EXAM: Yes no CVA tenderness Back/Pelvis: COMMON NORMALS: no CVA tenderness and thoracic and lumbar spine normal to inspection Extremity: COMMON NORMALS: normal to inspection Neuro: COMMON NORMALS: patient oriented x3 and CN's II-XII intact bilaterally Psych: COMMON NORMALS: mental status grossly normal, Normal thought process present and cooperative THOUGHT PROCESS: Normal thought process present Skin: COMMON NORMALS: no rashes or lesions noted, turgor normal and no jaundice GENERAL SKIN EXAM: no rashes or lesions noted and turgor normal Course 2 Vital Signs: Vital signs: Vital Signs Temperature 97.9 F 05/09/24 20:57 Pulse Rate 102 H 05/10/24 02:05 Respiratory Rate 22 H 05/10/24 02:05 Blood Pressure 132/75 05/10/24 02:05 Pulse Oximetry 93 05/10/24 02:05 Oxygen Delivery Me thod Room Air 05/10/24 00:09 MDM - SOB/Dyspnea Medical Decision Making Chest x-ray did not reveal any cardiomegaly or pleural effusions. EKG revealed normal sinus rhythm with PVCs. Some inverted T waves laterally. CBC and BMP were normal. BNP was 244. The initial troponin was 326 with a 2-hour level of 318. On 1014 the troponin was 24. The elevated troponins are secondary to the cardiac stent placement. Patient's not having any chest pain now. Patient will need workup for obstructive sleep apnea and will likely need CPAP device at home. I did discuss this case with Dr. Antonio, telescope operator. He does agree with my assessment and plan. Patient was discharged in stable condition. Lab Data 05/09/24 21:46 05/09/24 21:46 Labs/Radiology: Radiology Impressions Chest X-Ray 05/09/24 21:03 IMPRESSION: Stable exam. No acute findings. Laboratory Results WBC 9.29 10^3/uL (3.29-11.43) 05/09/24 21:46 RBC 5.26 10^6/uL (3.85-5.65) 05/09/24 21:46 Hgb 15.50 g/dL (11.27-16.99) 05/09/24 21:46 Hct 49.0 % (37-53) 05/09/24 21:46 MCV 93.2 fl (82-101) 05/09/24 21:46 MCH 29.5 pg (27-33) 05/09/24 21:46 MCHC 31.6 g/dL (30-55) 05/09/24 21:46 RDW 16.6 % (12.1-15.1) H 05/09/24 21:46 Plt Count 225 10^3/cmm (157-399) 05/09/24 21:46 MPV 9.7 fL (7.4-10.4) 05/09/24 21:46 Neut % (Auto) 73.6 % 05/09/24 21:46 Lymph % (Auto) 14.0 % 05/09/24 21:46 [place] % (Auto) 8.2 % 05/09/24 21:46 Eos % (Auto) 3.2 % 05/09/24 21:46 Baso % (Auto) 0.6 % 05/09/24 21:46 Neut # (Auto) 6.83 10^3/uL (1.8-7.7) 05/09/24 21:46 Lymph # (Auto) 1.3 10^3/uL (0.8-4.8) 05/09/24 21:46 [place] # (Auto) 0.8 10^3/uL (0.2-0.9) 05/09/24 21:46 Eos # (Auto) 0.3 10^3/uL (0.0-0.8) 05/09/24 21:46 Baso # (Auto) 0.1 10^3/uL (0.0-0.1) 05/09/24 21:46 Nucleated RBC % (auto) 0 % 05/09/24 21:46 Nucleated RBCs # 0.0 /100WBC 05/09/24 21:46 Sodium 133 mmol/L (136-145) L 05/09/24 21:46 Potassium 3.6 mmol/L (3.5-5.1) 05/09/24 21:46 Chloride 98 mmol/L (98-107) 05/09/24 21:46 Carbon Dioxide 22 mmol/L (22-29) 05/09/24 21:46 Anion Gap 16.6 (5-19) 05/09/24 21:46 BUN 12 mg/dL (6-20) 05/09/24 21:46 Creatinine 0.7 mg/dL (0.7-1.2) 05/09/24 21:46 GFR Calculation 115.8 mL/min (90-130) 05/09/24 21:46 Glucose 119 mg/dL (65-115) H 05/09/24 21:46 Calculated Osmolality 277 mOsm/kg (285-295) L 05/09/24 21:46 Calcium 9.0 mg/dL (8.5-10.5) 05/09/24 21:46 Troponin T Baseline 326 ng/L (0-15) H* 05/09/24 21:46 Troponin T 120 Minute 318.8 ng/L (0-15) H 05/09/24 00:05 Delta Troponin T -7.2 ABS# (0-10) L 05/09/24 00:05 NT-Pro-B Natriuret Pep 244 pg/mL (0-125) H 05/09/24 21:46 All radiology interpretation(s) finalized by discharge Discharge Plan Discharge Patient Disposition: Home Clinical Impression: Obstructive sleep apnea Condition: Stable Prescriptions: No Action famotidine [Pepcid] 20 mg tablet 20 mg PO BID Qty: 180 1RF fenofibrate nanocrystallized [Tricor] 145 mg tablet 145 mg PO DAILY Qty: 90 1RF levothyroxine 25 mcg tablet 25 mcg PO DAILY Qty: 90 1RF rosuvastatin [Crestor] 40 mg tablet 40 mg PO DAILY Qty: 90 1RF Farxiga 10 mg tablet 10 mg PO QAM Qty: 30 2RF Arnuity Ellipta 100 mcg/actuation blister with device 1 inh inhalation Q24H Qty: 30 2RF insulin glargine [Lantus Solostar U-100 Insulin] 100 unit/mL (3 mL) insulin pen 45 unit SUBCUT QAM Qty: 15 2RF Trulicity 1.5 mg/0.5 mL pen injector 1.5 mg SUBCUT .week Qty: 2 0RF Anoro Ellipta 62.5-25 mcg/actuation blister with device 1 inh inhalation Q24H Qty: 60 2RF valsartan 40 mg tablet 80 mg PO DAILY Qty: 90 1RF Patient Comments: per patient he takes 40 mg daily Repatha SureClick 140 mg/mL pen injector 140 mg SUBCUT .every 14 days Qty: 2 2RF nitroglycerin 0.4 mg tablet, sublingual 0.4 mg SUBLINGUAL Q5M PRN (Reason: chest pain) Qty: 25 3RF Rx Instructions: do not exceed 3 doses per episode (DME) pen needle, diabetic 33 gauge x 5/32 needle See Rx Instructions .ROUTE .MEDSUPPLY Qty: 100 5RF Rx Instructions: 3 times day acetaminophen [Tylenol Extra Strength] 500 mg Tablet 1,000 mg PO Q4H PRN (Reason: Pain) clopidogrel 75 mg tablet 75 mg PO QAM Qty: 90 4RF aspirin 81 mg Tablet,Delayed Release (Dr/Ec) 81 mg PO QAM Qty: 90 4RF carvedilol [Coreg] 3.125 mg tablet 3.125 mg PO BID Qty: 60 3RF Rx Instructions: must administer with a meal/food, hold if bp<100/70 90 sennosides-docusate sodium [Senna-S] 8.6-50 mg tablet 1 tab-cap PO DAILY PRN (Reason: constipation) Qty: 14 0RF Discharge Orders: Discharge ED (Routine); Ordered 05/10/24 Ordered By: Daniele Mei Referrals: Christiano Serrato, MAJOR LEAGUE BASEBALL PLAYER-C [Primary Care Provider] - Patient Instructions: Obstructive Sleep Apnea Coding Level of Care Code ED Pitch Filler for Scott Hayward
== END 2024-05-10 02:06 | disposition home or self-care (01) ==
PROVIDERS: Emergency Medicine; Emergency Provider Emergency Medicine; PCP Nurse Practitioner
DX: G47.33 Obstructive sleep apnea (adult) (pediatric) (principal); Z79.4 Long term (current) use of insulin; Z79.85 Long-term (current) use of injectable non-insulin antidiabetic drugs; Z79.02 Long term (current) use of antithrombotics/antiplatelets; Z79.82 Long term (current) use of aspirin; Z87.891 Personal history of nicotine dependence; I25.10 Atherosclerotic heart disease of native coronary artery without angina pectoris; E78.2 Mixed hyperlipidemia; E11.40 Type 2 diabetes mellitus with diabetic neuropathy, unspecified
CPT/HCPCS: 36415; 71045; 80048; 83880; 84484; 85025; 93005; 99285

== ENCOUNTER 2024-05-11 18:45 | Emergency (ER) | payer BC, MEDICAID, SELFPAY ==
[2024-05-11] VITALS (16 sets, daily range): BP systolic 114–148; BP diastolic 79–99; PULSE 86–96; RESP 15–27; TEMP 36.7; O2SAT 93–95; BMI 39.3
--- NOTE | 2024-05-11 19:32 | XRR_ITS ---
PROCEDURE INFORMATION: Exam: XR Chest Exam date and time: 05/11/2024 7:40 PM Age: 59 years old Clinical indication: Chest pressure; Patient HX: Chest pain; Recent mi with cardiac stent x 2 (post op 4days); Additional info: Chest pain; Recent mi with cardiac stent x 2 (post op 4days) TECHNIQUE: Imaging protocol: Radiologic exam of the chest. Views: 1 view. COMPARISON: CR (CHEST, ) 05/09/2024 11:46 PM FINDINGS: Lungs: No focal consolidation. Pleural spaces: No evidence of pneumothorax. No evidence of pleural effusion. Heart/Mediastinum: Cardiomediastinal silhouette is within normal limits. Bones/joints: No evidence of acute osseous abnormality. XR/XR chest 1V portable [id number] IMPRESSION: 1. No acute cardiopulmonary abnormality.
--- NOTE | 2024-05-11 19:45 | ECG_ITS ---
[employer] [employer] Test Date: 2024-05-11 Pat Name: Jose Daniel Forbes Department: Room: Gender: Male Table Maker: : 1965 Requested By: Daniele Mei Order Number: [id number] Reading MD: EUN PEREZ Measurements Intervals [place] Rate: 87 P: 53 [place]: 192 QRS: 66 QRSD: 82 T: 55 QT: 350 QTc: 423 Interpretive Statements SINUS RHYTHM ST DEVIATION AND MODERATE T-WAVE ABNORMALITY, CONSIDER LATERAL ISCHEMIA [-0.1+ mV T-WAVE IN I/aVL/V5/V6] Compared to ECG 05/10/2024 01:45:47 No significant changes Electronically Signed On 05-13-2024 21:02:10 CDT by EUN PEREZ [email or web address]
--- NOTE | 2024-05-11 22:00 | W.ED.EXTPRO ---
HPI - Extremity Problem General: Chief complaint: Chest Pain Stated complaint: left arm numbness Time Seen by Provider: 05/11/24 18:58 History of Present Illness: This patient is a 59-year-old white male who presents to the emergency department concerned about intermittent sharp left upper chest pain. He states these episodes only last a second or 2. He has no chest pain with activity or exertion. Patient just had a stent placed in the coronary artery several days ago. I saw him 2 days ago for shortness of breath secondary to sleep apnea. He is not currently having any chest pain or shortness of breath. Patient states he is mainly just worried. Associated symptoms: Reports chest pain Related Data Home Medications Medication Instructions Recorded Confirmed acetaminophen 500 mg tablet 1,000 mg PO Q4H PRN Pain 03/28/21 05/09/24 (Tylenol Extra Strength) Previous Rx's Medication Instructions Recorded nitroglycerin 0.4 mg sublingual 0.4 mg sublingual Q5M PRN chest 07/27/22 tablet pain #25 tabs pen needle, diabetic 33 gauge x #100 ea 11/30/23 famotidine 20 mg tablet (Pepcid) 20 mg PO BID #180 tabs 02/13/24 fenofibrate nanocrystallized 145 145 mg PO DAILY #90 tabs 02/13/24 mg tablet (Tricor) levothyroxine 25 mcg tablet 25 mcg PO DAILY #90 tabs 02/13/24 rosuvastatin 40 mg tablet (Crestor) 40 mg PO DAILY #90 tabs 02/13/24 dapagliflozin propanediol 10 mg 10 mg PO QAM #30 tabs 04/30/24 tablet (Farxiga) dulaglutide 1.5 mg/0.5 mL 1.5 mg (0.5 mL) SUBCUT .week #2 mL 04/30/24 subcutaneous pen injector (Trulicity) evolocumab 140 mg/mL subcutaneous 140 mg SUBCUT .every 14 days #2 mL 04/30/24 pen injector (Lucian Hall) fluticasone furoate 100 1 inh inhalation Q24H #30 ea 04/30/24 mcg/actuation blister powder for inhalation (Arnuity Ellipta) insulin glargine 100 unit/mL (3 45 unit (0.45 mL) SUBCUT QAM #15 mL 10/09/24 mL) subcutaneous pen (Lantus Solostar U-100 Insulin) umeclidinium 62.5 mcg-vilanterol 1 inh inhalation Q24H #60 ea 04/30/24 25 mcg/actuation powdr for inhalation (Anoro Ellipta) valsartan 40 mg tablet 80 mg (2 x 40 mg) PO DAILY #90 tabs 04/30/24 aspirin 81 mg tablet,delayed 81 mg PO QAM #90 tabs 05/08/24 release carvedilol 3.125 mg tablet (Coreg) 3.125 mg PO BID #60 tabs 05/08/24 clopidogrel 75 mg tablet 75 mg PO QAM #90 tabs 05/08/24 sennosides 8.6 mg-docusate sodium 1 tab-cap PO DAILY PRN 05/08/24 50 mg tablet (Senna-S) constipation #14 tabs Allergies Allergy/AdvReac Type Severity Reaction Status Date / Time shellfish derived Allergy Severe ADR-Itching Verified 05/09/24 12:50 trimethoprim [From Bactrim] Allergy Severe ALGY-Rash Verified 05/09/24 12:50 sulfamethoxazole AdvReac Severe ALGY-Rash Verified 05/09/24 12:50 [From Bactrim] Review of Systems General: Reports: 10 or more systems reviewed and unremarkable except in HPI and below Card: Reports: chest pain PFSH ED PFSH: Medical History Atherosclerotic heart disease of [place] coronary artery with unstable angina pectoris Unstable angina Stable angina History of smoking 10-25 pack years Stop smoking 2019 Adult onset hypothyroidism Hypertriglyceridemia Diabetes mellitus with hyperglycemia, with long-term current use of insulin History of cigarette smoking Anxiety Coronary artery disease Mixed hyperlipidemia Controlled diabetes mellitus with hyperglycemia, without long-term current use of insulin Acid reflux disease DM neuropathy, painful Essential (primary) hypertension Surgical History History of coronary angioplasty with insertion of stent 2019 Basal cell carcinoma (BCC) in situ of skin September 2017 on back History of colonoscopy Family History Mother Diabetes Heart disease Father Cancer lung cancer Father Hypertension Many of the family members have high blood pressure Social History Smoking and tobacco/nicotine status: never used tobacco/nicotine Quit status (tobacco/nicotine): has quit using Former quit date comment: 03/20/20 Second hand smoke exposure: Yes Alcohol intake: never Substance/Drug Use: never Adopted: No Caregiver/support person: No Lives independently: Yes Household members: spouse Housing: House Marital status: service: No Current occupational status: employed Do you think of yourself as: Straight/Heterosexual Current gender identity: Male Physical Exam Const: COMMON NORMALS: no acute distress, patient oriented x3 and no limitations GENERAL APPEARANCE: cooperative and comfortable HENMT: COMMON NORMALS: normocephalic, atraumatic, Normal nasal mucous membranes and turbinates present, moist oral mucous membranes and oropharynx normal HEAD & SCALP: normal to inspection, normocephalic and atraumatic FACE & SINUS: normal facial exam NOSE: Normal nasal mucous membranes and turbinates present Eye: COMMON NORMALS: Equal, round and reactive pupils present, EOMs intact bilaterally and conjunctivae normal GENERAL EYE: appearance normal, both eyes and all related structures CONJUNCTIVA: Yes conjunctivae normal PUPIL: Yes Equal, round and reactive pupils present Neck/C-Spine: COMMON NORMALS: supple and no JVD Chest: COMMONS NORMALS: normal inspection of the chest Resp: COMMON NORMALS: normal respiratory effort and clear to auscultation bilaterally AUSCULTATION: clear to auscultation bilaterally Cardio: COMMON NORMALS: no JVD, regular rate, regular rhythm, No gallops present (Cardio), No murmurs present (Cardio) and No rub (Cardio) RATE: regular rate RHYTHM: regular rhythm GI: COMMON NORMALS: Normal to inspection, nondistended, normoactive bowel sounds present, Soft to palpation and non-tender AUSCULTATION: Yes normoactive bowel sounds PALPATION: Yes Soft to palpation : COMMON NORMALS: Yes no CVA tenderness BLADDER/KIDNEY EXAM: Yes no CVA tenderness Back/Pelvis: COMMON NORMALS: no CVA tenderness and thoracic and lumbar spine normal to inspection Extremity: COMMON NORMALS: normal to inspection Neuro: COMMON NORMALS: patient oriented x3 and CN's II-XII intact bilaterally Psych: COMMON NORMALS: mental status grossly normal, Normal thought process present and cooperative THOUGHT PROCESS: Normal thought process present Skin: COMMON NORMALS: no rashes or lesions noted, turgor normal and no jaundice GENERAL SKIN EXAM: no rashes or lesions noted and turgor normal Course Vital Signs: Vital signs: Vital Signs Temperature 98.0 F 05/11/24 18:45 Pulse Rate 86 05/11/24 20:14 Respiratory Rate 19 H 05/11/24 20:14 Blood Pressure 133/86 05/11/24 20:14 Pulse Oximetry 94 05/11/24 20:14 Oxygen Delivery Me thod Room Air 05/11/24 18:56 MDM - Extremity (Nontraumatic) Medical Decision Making The pain that the patient is describing is very unlikely to be cardiac in etiology. I discussed this with him. His EKG this evening does not reveal any changes from his previous EKG. Chest x-ray was normal. Patient was reassured. He was discharged in stable condition. Instructed to follow-up with his primary care provider as needed. All radiology interpretation(s) finalized by discharge Discharge Plan Discharge Patient Disposition: Home Clinical Impression: Chest pain not due to acute coronary syndrome Condition: Stable Prescriptions: No Action famotidine [Pepcid] 20 mg tablet 20 mg PO BID Qty: 180 1RF fenofibrate nanocrystallized [Tricor] 145 mg tablet 145 mg PO DAILY Qty: 90 1RF levothyroxine 25 mcg tablet 25 mcg PO DAILY Qty: 90 1RF rosuvastatin [Crestor] 40 mg tablet 40 mg PO DAILY Qty: 90 1RF Farxiga 10 mg tablet 10 mg PO QAM Qty: 30 2RF Arnuity Ellipta 100 mcg/actuation blister with device 1 inh inhalation Q24H Qty: 30 2RF insulin glargine [Lantus Solostar U-100 Insulin] 100 unit/mL (3 mL) insulin pen 45 unit SUBCUT QAM Qty: 15 2RF Trulicity 1.5 mg/0.5 mL pen injector 1.5 mg SUBCUT .week Qty: 2 0RF Anoro Ellipta 62.5-25 mcg/actuation blister with device 1 inh inhalation Q24H Qty: 60 2RF valsartan 40 mg tablet 80 mg PO DAILY Qty: 90 1RF Patient Comments: per patient he takes 40 mg daily Repatha SureClick 140 mg/mL pen injector 140 mg SUBCUT .every 14 days Qty: 2 2RF nitroglycerin 0.4 mg tablet, sublingual 0.4 mg SUBLINGUAL Q5M PRN (Reason: chest pain) Qty: 25 3RF Rx Instructions: do not exceed 3 doses per episode (DME) pen needle, diabetic 33 gauge x 5/32 needle See Rx Instructions .ROUTE .MEDSUPPLY Qty: 100 5RF Rx Instructions: 3 times day acetaminophen [Tylenol Extra Strength] 500 mg Tablet 1,000 mg PO Q4H PRN (Reason: Pain) clopidogrel 75 mg tablet 75 mg PO QAM Qty: 90 4RF aspirin 81 mg Tablet,Delayed Release (Dr/Ec) 81 mg PO QAM Qty: 90 4RF carvedilol [Coreg] 3.125 mg tablet 3.125 mg PO BID Qty: 60 3RF Rx Instructions: must administer with a meal/food, hold if bp<100/70 90 sennosides-docusate sodium [Senna-S] 8.6-50 mg tablet 1 tab-cap PO DAILY PRN (Reason: constipation) Qty: 14 0RF Discharge Orders: Discharge ED (Routine); Ordered 05/11/24 Ordered By: Daniele Mei Referrals: Christiano Serrato, ECONOMIC RESEARCH ASSISTANT-C [Primary Care Provider] - Patient Instructions: Chest Pain - Noncardiac Coding Level of Care Code ED Jira Administrator for Scott Hayward
== END 2024-05-11 20:18 | disposition home or self-care (01) ==
PROVIDERS: Emergency Provider Emergency Medicine; PCP Nurse Practitioner
DX: R07.9 Chest pain, unspecified (principal); Z79.4 Long term (current) use of insulin; Z79.82 Long term (current) use of aspirin; I10 Essential (primary) hypertension; Z87.891 Personal history of nicotine dependence; Z79.85 Long-term (current) use of injectable non-insulin antidiabetic drugs; Z79.02 Long term (current) use of antithrombotics/antiplatelets; I25.10 Atherosclerotic heart disease of native coronary artery without angina pectoris; E78.2 Mixed hyperlipidemia; Z95.5 Presence of coronary angioplasty implant and graft; E11.40 Type 2 diabetes mellitus with diabetic neuropathy, unspecified
CPT/HCPCS: 71045; 93005; 99284

== ENCOUNTER 2024-05-14 10:49 | Outpatient (CLI) | payer BC, MEDICAID, SELFPAY | END 2024-05-14 10:50 | disposition home or self-care (01) | LOC: SLEEP 10:50 | PROVIDERS: PCP Nurse Practitioner; Visit Provider Nurse Practitioner | DX: G47.34 Idiopathic sleep related nonobstructive alveolar hypoventilation (principal) | CPT/HCPCS: 94762 ==

== ENCOUNTER 2024-05-16 10:10 | Emergency (ER) | payer BC, MEDICAID, SELFPAY ==
--- NOTE | 2024-05-16 10:11 | XR_ITS ---
WS: [id number] Exam: XR chest 1V portable [id number] Date/Time of Exam: 05/16/2024 10:30 AM Reason For Exam: cp Comparison 05/11/2024. Lungs are clear and fully inflated. Unremarkable cardiomediastinal silhouette for technique. No pleur al effusions. Unremarkable bony elements. XR/XR chest 1V portable [id number] IMPRESSION: 1. Negative chest.
--- NOTE | 2024-05-16 10:11 | ECG_ITS ---
[facility]: [facility]24[facility]16 Pat Name: Jose Daniel Forbes Department: Room: Gender: Male Scow Hand: : 1965 Requested By: Dagoberto Villar Order Number: [id number] Reading MD: Tana Rader M.D. Measurements Intervals [place] Rate: 80 P: 62 [place]: 193 QRS: 66 QRSD: 87 T: 5 QT: 364 QTc: 420 Interpretive Statements SINUS RHYTHM MODERATE T-WAVE ABNORMALITY, CONSIDER LATERAL ISCHEMIA [-0.1+ mV T-WAVE IN I/aVL/V5/V6] Compared to ECG 05/11/2024 19:45:38 No significant changes Electronically Signed On 05-19-2024 00:01:21 CDT by Tana Rader M.D. [id number]
[2024-05-16 10:15] VITALS: BP 142/102; PULSE 90; RESP 17; TEMP 36.6; O2SAT 97; BMI 39.3
--- NOTE | 2024-05-16 10:25 | ED_ITS ---
HPI - Chest Pain 2 General: Chief Complaint: Chest Pain Stated Complaint: sharp pain in chest Time Seen by Provider: 05/16/24 10:14 Source: patient Mode of arrival: ambulatory Limitations: no limitations History of Present Illness: 59-year-old male states been having some sharp chest pain that lasts seconds over the last 2 days he states will be a very sharp pain in the left shoulder that last 1 to 2 seconds and goes away his last episode was this morning he denies any pain currently denies any shortness of breath did have stents placed a little over a week ago. Denies any worse improving factors Associated symptoms: Deny abdominal pain, dyspnea, fever(s), nausea or vomiting Related Data Home Medications Medication Instructions Recorded Confirmed acetaminophen 500 mg tablet 1,000 mg PO Q4H PRN Pain 03/28/21 05/16/24 (Tylenol Extra Strength) Previous Rx's Medication Instructions Recorded nitroglycerin 0.4 mg sublingual 0.4 mg sublingual Q5M PRN chest 07/27/22 tablet pain #25 tabs pen needle, diabetic 33 gauge x #100 ea 11/30/23 famotidine 20 mg tablet (Pepcid) 20 mg PO BID #180 tabs 02/13/24 fenofibrate nanocrystallized 145 145 mg PO DAILY #90 tabs 02/13/24 mg tablet (Tricor) levothyroxine 25 mcg tablet 25 mcg PO DAILY #90 tabs 02/13/24 rosuvastatin 40 mg tablet (Crestor) 40 mg PO DAILY #90 tabs 02/13/24 dapagliflozin propanediol 10 mg 10 mg PO QAM #30 tabs 04/30/24 tablet (Farxiga) dulaglutide 1.5 mg/0.5 mL 1.5 mg (0.5 mL) SUBCUT .week #2 mL 04/30/24 subcutaneous pen injector (Trulicity) evolocumab 140 mg/mL subcutaneous 140 mg SUBCUT .every 14 days #2 mL 04/30/24 pen injector (Lucian Hall) fluticasone furoate 100 1 inh inhalation Q24H #30 ea 04/30/24 mcg/actuation blister powder for inhalation (Arnuity Ellipta) insulin glargine 100 unit/mL (3 45 unit (0.45 mL) SUBCUT QAM #15 mL 04/30/24 mL) subcutaneous pen (Lantus Solostar U-100 Insulin) umeclidinium 62.5 mcg-vilanterol 1 inh inhalation Q24H #60 ea 04/30/24 25 mcg/actuation powdr for inhalation (Anoro Ellipta) aspirin 81 mg tablet,delayed 81 mg PO QAM #90 tabs 05/08/24 release carvedilol 3.125 mg tablet (Coreg) 3.125 mg PO BID #60 tabs 05/08/24 clopidogrel 75 mg tablet 75 mg PO QAM #90 tabs 05/08/24 sennosides 8.6 mg-docusate sodium 1 tab-cap PO DAILY PRN 05/08/24 50 mg tablet (Senna-S) constipation #14 tabs escitalopram oxalate 10 mg tablet 10 mg PO DAILY #30 tabs 05/12/24 (Lexapro) Oxygen concentrator @2L NC #1 ea 05/15/24 pantoprazole 40 mg tablet,delayed 40 mg PO DAILY #30 tabs 05/16/24 release (Protonix) Allergies Allergy/AdvReac Type Severity Reaction Status Date / Time shellfish derived Allergy Severe ADR-Itching Verified 05/12/24 08:52 trimethoprim [From Bactrim] Allergy Severe ALGY-Rash Verified 05/12/24 08:52 sulfamethoxazole AdvReac Severe ALGY-Rash Verified 05/12/24 08:52 [From Bactrim] Review of Systems 2 Const: Denies: fever(s), chills, body aches or change in appetite ENMT: Denies: throat pain or dental pain Card: Reports: chest pain Resp: Denies: dyspnea GI: Denies: abdominal pain, nausea, vomiting or diarrhea : Denies: dysuria Musc: Denies: neck pain or back pain Skin/Breast: Denies: rash Neuro: Denies: headache(s) PFSH ED 2 PFSH: Medical History Diabetes mellitus with hyperglycemia, with long-term current use of insulin Essential (primary) hypertension Atherosclerotic heart disease of [place] coronary artery with unstable angina pectoris Unstable angina Stable angina History of smoking 10-25 pack years Stop smoking 2020 Adult onset hypothyroidism Hypertriglyceridemia History of cigarette smoking Anxiety Coronary artery disease Mixed hyperlipidemia Acid reflux disease DM neuropathy, painful Surgical History History of coronary angioplasty with insertion of stent 2020 Basal cell carcinoma (BCC) in situ of skin September 2017 on back History of colonoscopy Family History Mother Diabetes Heart disease Father Cancer lung cancer Father Hypertension Many of the family members have high blood pressure Social History Smoking and tobacco/nicotine status: former use of tobacco/nicotine Quit status (tobacco/nicotine): has quit using Former quit date comment: 03/20/20 Second hand smoke exposure: Yes Alcohol intake: never Substance/Drug Use: never Adopted: No Caregiver/support person: No Lives independently: Yes Household members: spouse Housing: House Marital status: service: No Current occupational status: employed Do you think of yourself as: Straight/Heterosexual Current gender identity: Male Physical Exam 2 Const: COMMON NORMALS: no acute distress, patient oriented x3 and healthy appearing HENMT: COMMON NORMALS: normocephalic and atraumatic HEAD & SCALP: n ormocephalic and atraumatic Eye: COMMON NORMALS: conjunctivae normal CONJUNCTIVA: Yes conjunctivae normal Neck/C-Spine: COMMON NORMALS: full ROM and supple Chest: COMMONS NORMALS: normal inspection of the chest Resp: COMMON NORMALS: normal respiratory effort Cardio: COMMON NORMALS: regular rate, regular rhythm and No murmurs present (Cardio) RATE: regular rate RHYTHM: regular rhythm GI: COMMON NORMALS: Normal to inspection, nondistended, normoactive bowel sounds present, Soft to palpation, non-tender and no masses PALPATION: Yes Soft to palpation Extremity: COMMON NORMALS: normal to inspection and full ROM Neuro: COMMON NORMALS: patient oriented x3, moves all extremities and no focal motor deficits Psych: COMMON NORMALS: mental status grossly normal, Normal thought process present and cooperative THOUGHT PROCESS: Normal thought process present Skin: COMMON NORMALS: no rashes or lesions noted and no wounds GENERAL SKIN EXAM: no rashes or lesions noted Course 2 Vital Signs: Vital signs: Vital Signs Temperature 97.9 F 05/16/24 10:15 Pulse Rate 92 05/16/24 12:21 Respiratory Rate 17 05/16/24 10:15 Blood Pressure 136/88 05/16/24 12:21 Pulse Oximetry 96 05/16/24 12:21 Oxygen Delivery Me thod Room Air 05/16/24 12:21 MDM - Chest Pain Medical Decision Making Patient presents for chest pain story is very typical no signs of ACS he just had a stent placed he has been pain-free here he has follow-up with 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 Medical Records I reviewed the patient's medical records. Lab Data I reviewed the patient's lab results. 05/16/24 10:22 05/16/24 10:22 Radiology Impressions Chest X-Ray 05/16/24 10:11 IMPRESSION: 1. Negative chest. Laboratory Results WBC 10.56 10^3/uL (3.29-11.43) 05/16/24 10: RBC 5.49 10^6/uL (3.85-5.65) 05/16/24 10:22 Hgb 16.50 g/dL (11.27-16.99) 05/16/24 10:22 Hct 51.0 % (37-53) 05/16/24 10:22 MCV 92.9 fl (82-101) 05/16/24 10:22 MCH 30.1 pg (27-33) 05/16/24 10:22 MCHC 32.4 g/dL (30-55) 05/16/24 10:22 RDW 16.0 % (12.1-15.1) H 05/16/24 10:22 Plt Count 292 10^3/cmm (157-399) 05/16/24 10: MPV 9.9 fL (7.4-10.4) 05/16/24 10:22 Neut % (Auto) 73.4 % 05/16/24 10:22 Lymph % (Auto) 13.6 % 05/16/24 10:22 [place] % (Auto) 9.8 % 05/16/24 10:22 Eos % (Auto) 2.0 % 05/16/24 10:22 Baso % (Auto) 0.9 % 05/16/24 10:22 Neut # (Auto) 7.76 10^3/uL (1.8-7.7) H 05/16/24 10:22 Lymph # (Auto) 1.4 10^3/uL (0.8-4.8) 05/16/24 10:22 [place] # (Auto) 1.0 10^3/uL (0.2-0.9) H 05/16/24 10:22 Eos # (Auto) 0.2 10^3/uL (0.0-0.8) 05/16/24 10:22 Baso # (Auto) 0.1 10^3/uL (0.0-0.1) 05/16/24 10:22 Nucleated RBC % (auto) 0 % 05/16/24 10:22 Nucleated RBCs # 0.0 /100WBC 05/16/24 10:22 Sodium 135 mmol/L (136-145) L 05/16/24 10:22 Potassium 4.2 mmol/L (3.5-5.1) 05/16/24 10: Chloride 100 mmol/L (98-107) 05/16/24 10:22 Carbon Dioxide 22 mmol/L (22-29) 05/16/24 10:22 Anion Gap 17.2 (5-19) 05/16/24 10:22 BUN 13 mg/dL (6-20) 05/16/24 10:22 Creatinine 0.7 mg/dL (0.7-1.2) 05/16/24 10:22 GFR Calculation 115.8 mL/min (90-130) 05/16/24 10:22 Glucose 96 mg/dL (65-115) 05/16/24 10:22 Calculated Osmolality 280 mOsm/kg (285-295) L 05/16/24 10:22 Calcium 9.0 mg/dL (8.5-10.5) 05/16/24 10:22 Total Bilirubin 0.5 mg/dL (0.15-1.2) 05/16/24 10:22 AST 51 U/L (0-40) H 05/16/24 10:22 ALT 47 U/L (0-41) H 05/16/24 10:22 Alkaline Phosphatase 90 U/L (40-130) 05/16/24 10:22 Troponin T Baseline 34 ng/L (0-15) H 05/16/24 10:22 Troponin T 120 Minute 32.88 ng/L (0-15) H 05/16/24 12:06 Delta Troponin T -1.12 ABS# (0-10) L 05/16/24 12:06 Total Protein 7.3 g/dL (6.6-8.7) 05/16/24 10:22 Albumin 4.4 g/dL (3.5-5.2) 05/16/24 10:22 Globulin 2.9 g/dL (1.3-4.6) 05/16/24 10:22 Lipase 29 U/L (13-60) 05/16/24 10:22 All radiology interpretation(s) finalized by discharge EKG Data EKG 1: I personally reviewed and interpreted this EKG as follows: EKG interpretation date: 05/16/24 EKG interpretation time: 10:31 Interpretation: nsr hr [address] or t wave abnormalities qrs 87 qtc 399 EKG 2: I personally reviewed and interpreted this EKG as follows: EKG interpretation date: 05/16/24 EKG interpretation time: 12:21 Interpretation: nsr hr [address] elevation qrs 90 qtc 401 Clincial Decision Support The following clinical decision support tools were used to aid in care of the patient HEART Score -> History: Slightly Suspicous, EKG: Non-specific Changes, Age: 45- 64 yrs, Risk Factors: 1 or 2 Risk Factors, Troponin: Baseline Trop 16-45 ng/L. Resulting HEART Score: 4. Discharge Plan Discharge Patient Disposition: Home Clinical Impression: Chest pain Condition: Stable Prescriptions: No Action famotidine [Pepcid] 20 mg tablet 20 mg PO BID Qty: 180 1RF Hold Instructions: Doctor's Order fenofibrate nanocrystallized [Tricor] 145 mg tablet 145 mg PO DAILY Qty: 90 1RF levothyroxine 25 mcg tablet 25 mcg PO DAILY Qty: 90 1RF rosuvastatin [Crestor] 40 mg tablet 40 mg PO DAILY Qty: 90 1RF Farxiga 10 mg tablet 10 mg PO QAM Qty: 30 2RF Arnuity Ellipta 100 mcg/actuation blister with device 1 inh inhalation Q24H Qty: 30 2RF insulin glargine [Lantus Solostar U-100 Insulin] 100 unit/mL (3 mL) insulin pen 45 unit SUBCUT QAM Qty: 15 2RF Trulicity 1.5 mg/0.5 mL pen injector 1.5 mg SUBCUT .week Qty: 2 0RF Anoro Ellipta 62.5-25 mcg/actuation blister with device 1 inh inhalation Q24H Qty: 60 2RF Repatha SureClick 140 mg/mL pen injector 140 mg SUBCUT .every 14 days Qty: 2 2RF nitroglycerin 0.4 mg tablet, sublingual 0.4 mg SUBLINGUAL Q5M PRN (Reason: chest pain) Qty: 25 3RF Rx Instructions: do not exceed 3 doses per episode escitalopram oxalate [Lexapro] 10 mg tablet 10 mg PO DAILY Qty: 30 2RF (DME) pen needle, diabetic 33 gauge x 5/32 needle See Rx Instructions .ROUTE .MEDSUPPLY Qty: 100 5RF Rx Instructions: 3 times day (DME) Oxygen concentrator @2L NC See Rx Instructions .ROUTE .MEDSUPPLY Qty: 1 0RF Rx Instructions: Use 2L NC 24 hours for 99 months pantoprazole [Protonix] 40 mg tablet,delayed release (DR/EC) 40 mg PO DAILY Qty: 30 0RF acetaminophen [Tylenol Extra Strength] 500 mg Tablet 1,000 mg PO Q4H PRN (Reason: Pain) clopidogrel 75 mg tablet 75 mg PO QAM Qty: 90 4RF aspirin 81 mg Tablet,Delayed Release (Dr/Ec) 81 mg PO QAM Qty: 90 4RF carvedilol [Coreg] 3.125 mg tablet 3.125 mg PO BID Qty: 60 3RF Rx Instructions: must administer with a meal/food, hold if bp<100/70 90 sennosides-docusate sodium [Senna-S] 8.6-50 mg tablet 1 tab-cap PO DAILY PRN (Reason: constipation) Qty: 14 0RF Discharge Orders: Discharge ED (Routine); Ordered 05/16/24 Ordered By: Dagoberto Villar Referrals: Christiano Serrato, CERTIFICATION AND SELECTION SPECIALIST-C [Primary Care Provider] - Discharge Diet: Advance as tolerated Discharge Activity: Resume usual activity Patient Instructions: Chest Pain (ED) Coding Level of Care Code 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
[2024-05-16 10:38] LABS: Basophils # 0.1 10^3/uL (0.0-0.1); Basophils % 0.9 %; Eosinophils # 0.2 10^3/uL (0.0-0.8); Lymphocytes # 1.4 10^3/uL (0.8-4.8); Lymphocytes % 13.6 %; Mean Corpuscular HGB Conc 32.4 g/dL (30-55); Mean Corpuscular Hemoglobin 30.1 pg (27-33); Mean Corpuscular Volume 92.9 fl (82-101); Mean Platelet Volume 9.9 fL (7.4-10.4); Monocytes % 9.8 %; Neutrophils # 7.76 10^3/uL (1.8-7.7); Neutrophils % 73.4 %; Nucleated Red Blood Cells % 0 %; Platelet Count 292 10^3/cmm (157-399); Red Blood Count 5.49 10^6/uL (3.85-5.65); White Blood Count 10.56 10^3/uL (3.29-11.43)
[2024-05-16 10:54] LABS: Alanine Aminotransferase 47 U/L (0-41); Albumin Level 4.4 g/dL (3.5-5.2); Alkaline Phosphatase 90 U/L (40-130); Blood Urea Nitrogen 13 mg/dL (6-20); Carbon Dioxide 22 mmol/L (22-29); Chloride 100 mmol/L (98-107); Creatinine Clr Calc Pharmacy 156.7521; Globulin 2.9 g/dL (1.3-4.6); Glomerular Filtration Rate 115.8 mL/min (90-130); Glucose 96 mg/dL (65-115); Lipase 29 U/L (13-60); Osmolality Calculated 280 mOsm/kg (285-295); Sodium 135 mmol/L (136-145); Total Bilirubin 0.5 mg/dL (0.15-1.2); Total Protein 7.3 g/dL (6.6-8.7)
[2024-05-16 10:56] LABS: Anion Gap 17.2 (5-19); Aspartate Amino Transferase 51 U/L (0-40); Potassium 4.2 mmol/L (3.5-5.1)
[2024-05-16 10:57] LABS: Troponin(5th) Baseline 34 ng/L (0-15)
[2024-05-16 11:03] VITALS: BP 142/104; PULSE 71; O2SAT 95
--- NOTE | 2024-05-16 11:23 | PC.PHAR ---
patient stated that he has been taken off valsartan 40mg recently from dr sherwood
[2024-05-16 12:21] VITALS: BP 136/88; PULSE 92; O2SAT 96
--- NOTE | 2024-05-16 12:21 | ECG_ITS ---
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 Measurements Intervals [place] Rate: 75 P: 87 AR: 203 QRS: 69 QRSD: 90 T: -8 QT: 372 QTc: 417 Interpretive Statements SINUS RHYTHM MODERATE T-WAVE ABNORMALITY, CONSIDER LATERAL ISCHEMIA [-0.1+ mV T-WAVE IN I/aVL/V5/V6] Compared to ECG 05/16/2024 10:13:41 No significant changes Electronically Signed On 05-20-2024 00:49:09 CDT by Tana Rader M.D. [id number]
[2024-05-16 12:28] LABS: Troponin 5 2HR 32.88 ng/L (0-15)
[2024-05-16 12:29] LABS: Troponin 5 2HR Delta -1.12 ABS# (0-10)
[2024-05-16 12:55] VITALS: BP 142/89; PULSE 88; O2SAT 98
== END 2024-05-16 12:56 | disposition home or self-care (01) ==
PROVIDERS: Emergency Provider Emergency Medicine; PCP Nurse Practitioner
DX: R07.9 Chest pain, unspecified (principal)
CPT/HCPCS: 36415; 71045; 80053; 83690; 84484; 85025; 93005; 99285

== ENCOUNTER 2024-05-17 23:17 | Emergency (ER) | payer BC, MEDICAID, SELFPAY ==
[2024-05-17 23:23] VITALS: BP 126/81; PULSE 79; RESP 18; TEMP 36.6; O2SAT 92; BMI 39.3
--- NOTE | 2024-05-17 23:25 | XRR_ITS ---
PROCEDURE INFORMATION: Exam: XR Chest Exam date and time: 05/17/2024 11:30 PM Age: 59 years old Clinical indication: Prior surgery; Surgery date: 6+ months; Surgery type: Cardiac stent x multiple; Patient HX: Weakness; Lt arm numbness/tingling; Recent cardiac stent placement TECHNIQUE: Imaging protocol: Radiologic exam of the chest. Views: 1 view. COMPARISON: CR XR chest 1V portable [id number] 05/16/2024 10:31 AM FINDINGS: Lungs: Unremarkable. No consolidation. Pleural spaces: Unremarkable. No pleural effusion. No pneumothorax. Heart/Mediastinum: Cardiomegaly. Bones/joints: Unremarkable. XR/XR chest 1V portable [id number] IMPRESSION: Cardiomegaly, negative for infiltrate.
--- NOTE | 2024-05-17 23:26 | ECG_ITS ---
[employer] [facility] Test Date: 2024-05-17 Pat Name: Jose Daniel Forbes Department: Room: Gender: Male Inspector Wreath: : 1965 Requested By: Ricardo Navarro Order Number: [id number] Simeon MD: Tana Rader M.D. Measurements Intervals [place] Rate: 75 P: 61 AL: 204 QRS: 65 QRSD: 93 T: 12 QT: 372 QTc: 416 Interpretive Statements SINUS RHYTHM NONSPECIFIC T-WAVE ABNORMALITY Compared to ECG 05/16/2024 12:21:13 Possible ischemia no longer present T-wave abnormality still present Electronically Signed On 05-19-2024 00:01:24 CDT by Tana Rader M.D. [id number]
[2024-05-17 23:32] VITALS: BP 97/67; PULSE 99; RESP 17; O2SAT 99
[2024-05-17 23:52] VITALS: BP 97/67; PULSE 79; RESP 19; O2SAT 97
[2024-05-17 23:55] VITALS: BP 97/67; PULSE 73; RESP 20; O2SAT 97
[2024-05-18] VITALS (8 sets, daily range): BP systolic 132–138; BP diastolic 84–89; PULSE 75–85; RESP 14–31; O2SAT 94–97
[2024-05-18 00:02] LABS: Basophils # 0.1 10^3/uL (0.0-0.1); Basophils % 1.1 %; Eosinophils # 0.2 10^3/uL (0.0-0.8); Eosinophils % 2.5 %; Hematocrit 47.4 % (37-53); Lymphocytes # 1.7 10^3/uL (0.8-4.8); Lymphocytes % 18.3 %; Mean Corpuscular HGB Conc 32.9 g/dL (30-55); Mean Corpuscular Hemoglobin 29.7 pg (27-33); Mean Corpuscular Volume 90.3 fl (82-101); Mean Platelet Volume 9.6 fL (7.4-10.4); Monocytes # 0.9 10^3/uL (0.2-0.9); Monocytes % 9.7 %; Neutrophils # 6.19 10^3/uL (1.8-7.7); Neutrophils % 67.7 %; Nucleated Red Blood Cells % 0 %; Platelet Count 282 10^3/cmm (157-399); Red Blood Count 5.25 10^6/uL (3.85-5.65); Red Cell Distribution Width 15.9 % (12.1-15.1); White Blood Count 9.14 10^3/uL (3.29-11.43)
[2024-05-18 00:21] LABS: INR 1.02 (0.8-1.2)
[2024-05-18 00:22] LABS: Partial Thromboplastin Time 27.6 SECONDS (23.9-36.7)
[2024-05-18 00:27] LABS: Troponin(5th) Baseline 18 ng/L (0-15)
[2024-05-18 00:42] LABS: Alanine Aminotransferase 46 U/L (0-41); Albumin Level 4.3 g/dL (3.5-5.2); Alkaline Phosphatase 91 U/L (40-130); Anion Gap 15.8 (5-19); Aspartate Amino Transferase 44 U/L (0-40); Blood Urea Nitrogen 12 mg/dL (6-20); Calcium 8.8 mg/dL (8.5-10.5); Carbon Dioxide 21 mmol/L (22-29); Chloride 97 mmol/L (98-107); Creatinine Clr Calc Pharmacy 156.7521; Globulin 2.8 g/dL (1.3-4.6); Glomerular Filtration Rate 115.8 mL/min (90-130); Glucose 126 mg/dL (65-115); NT Pro B Type Natriuretic Pept 89 pg/mL (0-125); Osmolality Calculated 271 mOsm/kg (285-295); Potassium 3.8 mmol/L (3.5-5.1); Sodium 130 mmol/L (136-145); Total Bilirubin 0.5 mg/dL (0.15-1.2); Total Protein 7.1 g/dL (6.6-8.7)
--- NOTE | 2024-05-18 01:06 | ED_ITS ---
HPI - Neuro Symptoms/Deficit 2 General: Chief Complaint: Neuro Symptoms/Deficit Stated Complaint: numbness tingling left arm generalized weakness Time Seen by Provider: 05/17/24 23:22 History of Present Illness: 59-year-old male patient with a history of coronary disease. He had a recent stenting a couple of weeks ago. He had several trips to the emergency department since, with similar complaints of paresthesias to the left upper extremity, and odd chest discomfort that seems to come and go quickly. He had the symptoms this evening, and was concerned. Related Data Home Medications Medication Instructions Recorded Confirmed acetaminophen 500 mg tablet 1,000 mg PO Q4H PRN Pain 03/28/21 05/16/24 (Tylenol Extra Strength) Previous Rx's Medication Instructions Recorded nitroglycerin 0.4 mg sublingual 0.4 mg sublingual Q5M PRN chest 07/27/22 tablet pain #25 tabs pen needle, diabetic 33 gauge x #100 ea 11/30/23 famotidine 20 mg tablet (Pepcid) 20 mg PO BID #180 tabs 02/13/24 fenofibrate nanocrystallized 145 145 mg PO DAILY #90 tabs 02/13/24 mg tablet (Tricor) levothyroxine 25 mcg tablet 25 mcg PO DAILY #90 tabs 02/13/24 rosuvastatin 40 mg tablet (Crestor) 40 mg PO DAILY #90 tabs 02/13/24 dapagliflozin propanediol 10 mg 10 mg PO QAM #30 tabs 04/30/24 tablet (Farxiga) dulaglutide 1.5 mg/0.5 mL 1.5 mg (0.5 mL) SUBCUT .week #2 mL 04/30/24 subcutaneous pen injector (Trulicity) evolocumab 140 mg/mL subcutaneous 140 mg SUBCUT .every 14 days #2 mL 04/30/24 pen injector (Repatha SurePatricick) fluticasone furoate 100 1 inh inhalation Q24H #30 ea 04/30/24 mcg/actuation blister powder for inhalation (Arnuity Ellipta) insulin glargine 100 unit/mL (3 45 unit (0.45 mL) SUBCUT QAM #15 mL 04/30/24 mL) subcutaneous pen (Lantus Solostar U-100 Insulin) umeclidinium 62.5 mcg-vilanterol 1 inh inhalation Q24H #60 ea 04/30/24 25 mcg/actuation powdr for inhalation (Anoro Ellipta) aspirin 81 mg tablet,delayed 81 mg PO QAM #90 tabs 05/08/24 release carvedilol 3.125 mg tablet (Coreg) 3.125 mg PO BID #60 tabs 05/08/24 clopidogrel 75 mg tablet 75 mg PO QAM #90 tabs 05/08/24 sennosides 8.6 mg-docusate sodium 1 tab-cap PO DAILY PRN 05/08/24 50 mg tablet (Senna-S) constipation #14 tabs escitalopram oxalate 10 mg tablet 10 mg PO DAILY #30 tabs 05/12/24 (Lexapro) Oxygen concentrator @2L NC #1 ea 05/15/24 pantoprazole 40 mg tablet,delayed 40 mg PO DAILY #30 tabs 05/16/24 release (Protonix) Allergies Allergy/AdvReac Type Severity Reaction Status Date / Time shellfish derived Allergy Severe ADR-Itching Verified 05/12/24 08:52 trimethoprim [From Bactrim] Allergy Severe ALGY-Rash Verified 05/12/24 08:52 sulfamethoxazole AdvReac Severe ALGY-Rash Verified 05/12/24 08:52 [From Bactrim] [facility] ED 2 [facility]: Medical History Diabetes mellitus with hyperglycemia, with long-term current use of insulin Essential (primary) hypertension Atherosclerotic heart disease of [place] coronary artery with unstable angina pectoris Unstable angina Stable angina History of smoking 10-25 pack years Stop smoking 2019 Adult onset hypothyroidism Hypertriglyceridemia History of cigarette smoking Anxiety Coronary artery disease Mixed hyperlipidemia Acid reflux disease DM neuropathy, painful Surgical History History of coronary angioplasty with insertion of stent 2019 Basal cell carcinoma (BCC) in situ of skin September 2017 on back History of colonoscopy Family History Mother Diabetes Heart disease Father Cancer lung cancer Father Hypertension Many of the family members have high blood pressure Social History Smoking and tobacco/nicotine status: former use of tobacco/nicotine Quit status (tobacco/nicotine): has quit using Former quit date comment: 03/20/20 Second hand smoke exposure: Yes Alcohol intake: never Substance/Drug Use: never Adopted: No Caregiver/support person: No Lives independently: Yes Household members: spouse Housing: House Marital status: service: No Current occupational status: employed Do you think of yourself as: Straight/Heterosexual Current gender identity: Male Physical Exam 2 Const: COMMON NORMALS: no acute distress GENERAL APPEARANCE: cooperative; not ill appearing and not frail appearing HENMT: COMMON NORMALS: normocephalic, atraumatic and Normal external nose present HEAD & SCALP: normocephalic and atraumatic FACE & SINUS: normal facial exam and face symmetric NOSE: Normal external nose present Eye: COMMON NORMALS: Equal, round and reactive pupils present and EOMs intact bilaterally PUPIL: Yes Equal, round and reactive pupils present Neck/C-Spine: GENERAL: Yes trachea midline Chest: CHEST: Yes Symmetrical chest wall rise Resp: COMMON NORMALS: normal respiratory effort, No retractions, No use of accessory muscles and clear to auscultation bilaterally AUSCULTATION: clear to auscultation bilaterally Cardio: COMMON NORMALS: regular rate and regular rhythm RATE: regular rate RHYTHM: regular rhythm GI: COMMON NORMALS: Normal to inspection, nondistended, normoactive bowel sounds present Extremity: COMMON NORMALS: no pedal edema Neuro: AUNDREA COMA SCALE: document GCS findings [place] coma scale eye opening: Spontaneous [place] coma scale verbal response: Orientated [place] coma scale motor response: Obey commands [place] coma scale total score: 15 S ENSORY EXAM: Yes extremities (intact) Psych: COMMON NORMALS: speech normal SPEECH: Yes normal speech Skin: COMMON NORMALS: no rashes or lesions noted GENERAL SKIN EXAM: no rashes or lesions noted Course 2 Vital Signs: Vital signs: Vital Signs Temperature 97.8 F 05/17/24 23:23 Pulse Rate 78 05/18/24 01:47 Respiratory Rate 26 H 05/18/24 01:47 Blood Pressure 132/89 05/18/24 01:47 Pulse Oximetry 95 05/18/24 01:47 Oxygen Delivery Me thod Room Air 05/17/24 23:32 MDM - Neuro Symptoms/Deficit Medical Decision Making Sensation is intact to the left upper extremity. Capillary refill is normal. Radial pulses are normal. There is no swelling. His exam is otherwise not remarkable. His laboratory is benign. His troponin is 18, which is the lowest it has been since this event. His chest x-ray is negative. He will be discharged to home, he has an appointment with cardiology set up for Sunday. Lab Data 05/17/24 23:56 05/17/24 23:56 Radiology Impressions Chest X-Ray 05/17/24 23:25 IMPRESSION: Cardiomegaly, negative for infiltrate. Laboratory Results WBC 9.14 10^3/uL (3.29-11.43) 05/17/24 23:56 RBC 5.25 10^6/uL (3.85-5.65) 05/17/24 23:56 Hgb 15.60 g/dL (11.27-16.99) 05/17/24 23:56 Hct 47.4 % (37-53) 05/17/24 23:56 MCV 90.3 fl (82-101) 05/17/24 23:56 MCH 29.7 pg (27-33) 05/17/24 23:56 MCHC 32.9 g/dL (30-55) 05/17/24 23:56 RDW 15.9 % (12.1-15.1) H 05/17/24 23:56 Plt Count 282 10^3/cmm (157-399) 05/17/24 23:56 MPV 9.6 fL (7.4-10.4) 05/17/24 23:56 Neut % (Auto) 67.7 % 05/17/24 23:56 Lymph % (Auto) 18.3 % 05/17/24 23:56 [place] % (Auto) 9.7 % 05/17/24 23:56 Eos % (Auto) 2.5 % 05/17/24 23:56 Baso % (Auto) 1.1 % 05/17/24 23:56 Neut # (Auto) 6.19 10^3/uL (1.8-7.7) 05/17/24 23:56 Lymph # (Auto) 1.7 10^3/uL (0.8-4.8) 05/17/24 23:56 [place] # (Auto) 0.9 10^3/uL (0.2-0.9) 05/17/24 23:56 Eos # (Auto) 0.2 10^3/uL (0.0-0.8) 05/17/24 23:56 Baso # (Auto) 0.1 10^3/uL (0.0-0.1) 05/17/24 23:56 Nucleated RBC % (auto) 0 % 05/17/24 23:56 Nucleated RBCs # 0.0 /100WBC 05/17/24 23:56 PT 13.70 SECONDS (12.1-14.9) 05/17/24 23:56 INR 1.02 (0.8-1.2) 05/17/24 23:56 APTT 27.6 SECONDS (23.9-36.7) 05/17/24 23:56 Sodium 130 mmol/L (136-145) L 05/17/24 23:56 Potassium 3.8 mmol/L (3.5-5.1) 05/17/24 23:56 Chloride 97 mmol/L (98-107) L 05/17/24 23:56 Carbon Dioxide 21 mmol/L (22-29) L 05/17/24 23:56 Anion Gap 15.8 (5-19) 05/17/24 23:56 BUN 12 mg/dL (6-20) 05/17/24 23:56 Creatinine 0.7 mg/dL (0.7-1.2) 05/17/24 23:56 GFR Calculation 115.8 mL/min (90-130) 05/17/24 23:56 Glucose 126 mg/dL (65-115) H 05/17/24 23:56 Calculated Osmolality 271 mOsm/kg (285-295) L 05/17/24 23:56 Calcium 8.8 mg/dL (8.5-10.5) 05/17/24 23:56 Total Bilirubin 0.5 mg/dL (0.15-1.2) 05/17/24 23:56 AST 44 U/L (0-40) H 05/17/24 23:56 ALT 46 U/L (0-41) H 05/17/24 23:56 Alkaline Phosphatase 91 U/L (40-130) 05/17/24 23:56 Troponin T Baseline 18 ng/L (0-15) H 05/17/24 23:56 NT-Pro-B Natriuret Pep 89 pg/mL (0-125) 05/17/24 23:56 Total Protein 7.1 g/dL (6.6-8.7) 05/17/24 23:56 Albumin 4.3 g/dL (3.5-5.2) 05/17/24 23:56 Globulin 2.8 g/dL (1.3-4.6) 05/17/24 23:56 All radiology interpretation(s) finalized by discharge Discharge Plan Discharge Patient Disposition: Home Clinical Impression: Arm paresthesia, left Condition: Stable Prescriptions: No Action famotidine [Pepcid] 20 mg tablet 20 mg PO BID Qty: 180 1RF Hold Instructions: Doctor's Order fenofibrate nanocrystallized [Tricor] 145 mg tablet 145 mg PO DAILY Qty: 90 1RF levothyroxine 25 mcg tablet 25 mcg PO DAILY Qty: 90 1RF rosuvastatin [Crestor] 40 mg tablet 40 mg PO DAILY Qty: 90 1RF Farxiga 10 mg tablet 10 mg PO QAM Qty: 30 2RF Arnuity Ellipta 100 mcg/actuation blister with device 1 inh inhalation Q24H Qty: 30 2RF insulin glargine [Lantus Solostar U-100 Insulin] 100 unit/mL (3 mL) insulin pen 45 unit SUBCUT QAM Qty: 15 2RF Trulicity 1.5 mg/0.5 mL pen injector 1.5 mg SUBCUT .week Qty: 2 0RF Anoro Ellipta 62.5-25 mcg/actuation blister with device 1 inh inhalation Q24H Qty: 60 2RF Repatha SureClick 140 mg/mL pen injector 140 mg SUBCUT .every 14 days Qty: 2 2RF nitroglycerin 0.4 mg tablet, sublingual 0.4 mg SUBLINGUAL Q5M PRN (Reason: chest pain) Qty: 25 3RF Rx Instructions: do not exceed 3 doses per episode escitalopram oxalate [Lexapro] 10 mg tablet 10 mg PO DAILY Qty: 30 2RF (DME) pen needle, diabetic 33 gauge x 5/32 needle See Rx Instructions .ROUTE .MEDSUPPLY Qty: 100 5RF Rx Instructions: 3 times day (DME) Oxygen concentrator @2L NC See Rx Instructions .ROUTE .MEDSUPPLY Qty: 1 0RF Rx Instructions: Use 2L NC 24 hours for 99 months pantoprazole [Protonix] 40 mg tablet,delayed release (DR/EC) 40 mg PO DAILY Qty: 30 0RF acetaminophen [Tylenol Extra Strength] 500 mg Tablet 1,000 mg PO Q4H PRN (Reason: Pain) clopidogrel 75 mg tablet 75 mg PO QAM Qty: 90 4RF aspirin 81 mg Tablet,Delayed Release (Dr/Ec) 81 mg PO QAM Qty: 90 4RF carvedilol [Coreg] 3.125 mg tablet 3.125 mg PO BID Qty: 60 3RF Rx Instructions: must administer with a meal/food, hold if bp<100/70 90 sennosides-docusate sodium [Senna-S] 8.6-50 mg tablet 1 tab-cap PO DAILY PRN (Reason: constipation) Qty: 14 0RF Discharge Orders: Discharge ED (Routine); Ordered 05/18/24 Ordered By: Ricardo Long Referrals: Christiano Serrato, EAR PULL MACHINE OPERATOR-C [Primary Care Provider] - Patient Instructions: Paresthesia (ED), Opioid Safety, Pain Management Activity Restrictions/Additional Instructions: Call your doctor on Sunday. Return for worsening numbness or tingling, shortness of breath, worsening chest discomfort, other concerning symptoms Coding Level of Care Code ED Restaurant Team Member for Scott Hayward
== END 2024-05-18 01:48 | disposition home or self-care (01) ==
PROVIDERS: Emergency Provider Emergency Medicine; PCP Nurse Practitioner
DX: R20.2 Paresthesia of skin (principal); I51.7 Cardiomegaly; I10 Essential (primary) hypertension; E11.65 Type 2 diabetes mellitus with hyperglycemia; I25.110 Atherosclerotic heart disease of native coronary artery with unstable angina pectoris; Z79.4 Long term (current) use of insulin; Z79.82 Long term (current) use of aspirin
CPT/HCPCS: 36415; 71045; 80053; 83880; 84484; 85025; 85610; 85730; 93005; 99285

== ENCOUNTER → 2024-05-27 09:21 | Outpatient (BNVA) | payer BC, MEDICAID, SELFPAY | PROVIDERS: PCP Nurse Practitioner; Visit Provider Nurse Practitioner | DX: E11.9 Type 2 diabetes mellitus without complications (principal) | CPT/HCPCS: 80053; 80061; 81000; 83036 ==

== ENCOUNTER → 2024-06-02 08:31 | Outpatient (BNVA) | payer BC, MEDICAID, SELFPAY | PROVIDERS: PCP Nurse Practitioner; Visit Provider Nurse Practitioner | DX: M47.892 Other spondylosis, cervical region (principal); R20.2 Paresthesia of skin; M48.02 Spinal stenosis, cervical region | CPT/HCPCS: 72040 ==

== ENCOUNTER 2024-06-06 20:56 | Emergency (ER) | payer BC, MEDICAID, SELFPAY ==
[2024-06-06] VITALS (27 sets, daily range): BP systolic 110–140; BP diastolic 67–92; PULSE 83–97; RESP 11–26; TEMP 36.6; O2SAT 94–98; BMI 36.2
--- NOTE | 2024-06-06 21:16 | XRR_ITS ---
PROCEDURE INFORMATION: Exam: XR Chest Exam date and time: 06/06/2024 9:18 PM Age: 59 years old Clinical indication: Pain; Chest pressure; Prior surgery; Surgery date: 6+ months; Surgery type: Coronary stents; Additional info: Cp TECHNIQUE: Imaging protocol: Radiologic exam of the chest. Views: 1 view. COMPARISON: CR (CHEST, ) 05/17/2024 11:30 PM FINDINGS: Lungs: Mild bibasilar opacities, atym-hbpqman-yini-right. No consolidation. Pleural spaces: Unremarkable. No pleural effusion. No pneumothorax. Heart/Mediastinum: Stable cardiomegaly. Bones/joints: Unremarkable. XR/XR chest 1V portable [id number] IMPRESSION: 1. Mild bibasilar atelectasis. 2. Stable cardiomegaly.
--- NOTE | 2024-06-06 21:16 | ECG_ITS ---
[facility] 2024[facility] Pat Name: Jose Daniel Forbes Department: Room: Gender: Male Front Man: : 1965 Requested By: Ricardo Navarro Order Number: [id number] Simeon MD: Tana Rader M.D. Measurements Intervals [place] Rate: 80 P: 53 MT: 219 QRS: 68 QRSD: 91 T: 40 QT: 367 QTc: 424 Interpretive Statements SINUS RHYTHM WITH FIRST DEGREE AV BLOCK NONSPECIFIC T-WAVE ABNORMALITY Compared to ECG 05/17/2024 23:22:28 First degree AV block now present T-wave abnormality still present Electronically Signed On 06-07-2024 14:00:26 HAND BINDERY ASSEMBLY WORKER by Tana Rader M.D. [email or web address]
[2024-06-06 21:57] LABS: Basophils # 0.1 10^3/uL (0.0-0.1); Basophils % 0.7 %; Eosinophils # 0.2 10^3/uL (0.0-0.8); Eosinophils % 2.8 %; Hematocrit 46.8 % (37-53); Lymphocytes # 1.4 10^3/uL (0.8-4.8); Lymphocytes % 16.7 %; Mean Corpuscular HGB Conc 32.7 g/dL (30-55); Mean Corpuscular Hemoglobin 30.1 pg (27-33); Mean Corpuscular Volume 92.1 fl (82-101); Mean Platelet Volume 9.5 fL (7.4-10.4); Monocytes # 0.7 10^3/uL (0.2-0.9); Monocytes % 8.3 %; Neutrophils # 5.83 10^3/uL (1.8-7.7); Neutrophils % 71.3 %; Nucleated Red Blood Cells % 0 %; Platelet Count 233 10^3/cmm (157-399); Red Blood Count 5.08 10^6/uL (3.85-5.65); White Blood Count 8.19 10^3/uL (3.29-11.43)
--- NOTE | 2024-06-06 22:04 | ED_ITS ---
HPI - Anxiety 2 General: Chief Complaint: Anxiety Stated Complaint: CHEST PAIN Time Seen by Provider: 06/06/24 21:12 History of Present Illness: 59-year-old gentleman with coronary dise ase. He had a recent stenting, and is scheduled for staged repeat angiogram and stenting in 3 days. He has had a couple of trips to the emergency room since his first stenting, for left upper extremity pain and paresthesia that happens on and off. He attributes this to anxiety. Related Data Home Medications Medication Instructions Recorded Confirmed acetaminophen 500 mg tablet 1,000 mg PO Q4H PRN Pain 03/28/21 06/06/24 (Tylenol Extra Strength) escitalopram oxalate 10 mg tablet 5 mg PO DAILY 05/21/24 06/06/24 (Lexapro) Previous Rx's Medication Instructions Recorded pen needle, diabetic 33 gauge x #100 ea 11/30/23 famotidine 20 mg tablet (Pepcid) 20 mg PO BID #180 tabs 02/13/24 fenofibrate nanocrystallized 145 145 mg PO DAILY #90 tabs 02/13/24 mg tablet (Tricor) evolocumab 140 mg/mL subcutaneous 140 mg SUBCUT .every 14 days #2 mL 04/30/24 pen injector (Repatha SureClick) fluticasone furoate 100 1 inh inhalation Q24H #30 ea 04/30/24 mcg/actuation blister powder for inhalation (Arnuity Ellipta) insulin glargine 100 unit/mL (3 45 unit (0.45 mL) SUBCUT QAM #15 mL 04/30/24 mL) subcutaneous pen (Lantus Solostar U-100 Insulin) aspirin 81 mg tablet,delayed 81 mg PO QAM #90 tabs 05/08/24 release carvedilol 3.125 mg tablet (Coreg) 3.125 mg PO BID #60 tabs 05/08/24 clopidogrel 75 mg tablet 75 mg PO QAM #90 tabs 05/08/24 sennosides 8.6 mg-docusate sodium 1 tab-cap PO DAILY PRN 05/08/24 50 mg tablet (Senna-S) constipation #14 tabs pantoprazole 40 mg tablet,delayed 40 mg PO DAILY #30 tabs 05/16/24 release (Protonix) Oxygen concentrator @2L NC #1 ea 05/19/24 nitroglycerin 0.4 mg sublingual 0.4 mg sublingual Q5M PRN chest 05/21/24 tablet pain #25 tabs dapagliflozin propanediol 10 mg 10 mg PO QAM #30 tabs 05/27/24 tablet (Farxiga) levothyroxine 25 mcg tablet 25 mcg PO DAILY #90 tabs 05/27/24 rosuvastatin 40 mg tablet (Crestor) 40 mg PO DAILY #90 tabs 05/27/24 umeclidinium 62.5 mcg-vilanterol 1 inh inhalation Q24H #60 ea 05/27/24 25 mcg/actuation powdr for inhalation (Anoro Ellipta) dulaglutide 3 mg/0.5 mL 3 mg (0.5 mL) SUBCUT .weekly #2 mL 05/28/24 subcutaneous pen injector (Trulicity) Allergies Allergy/AdvReac Type Severity Reaction Status Date / Time shellfish derived Allergy Severe ADR-Itching Verified 05/27/24 08:45 trimethoprim [From Bactrim] Allergy Severe ALGY-Rash Verified 05/27/24 08:45 sulfamethoxazole AdvReac Severe ALGY-Rash Verified 05/27/24 08:45 [From Bactrim] [facility] ED 2 [facility]: Medical History Coronary artery disease Diabetes mellitus with hyperglycemia, with long-term current use of insulin Essential (primary) hypertension Atherosclerotic heart disease of [place] coronary artery with unstable angina pectoris Unstable angina Stable angina History of smoking 10-25 pack years Stop smoking 2019 Adult onset hypothyroidism Hypertriglyceridemia History of cigarette smoking Anxiety Mixed hyperlipidemia Acid reflux disease DM neuropathy, painful Surgical History History of coronary angioplasty with insertion of stent 2019 Basal cell carcinoma (BCC) in situ of skin September 2017 on back History of colonoscopy Family History Mother Diabetes Heart disease Father Cancer lung cancer Father Hypertension Many of the family members have high blood pressure Social History Smoking and tobacco/nicotine status: former use of tobacco/nicotine Quit status (tobacco/nicotine): has quit using Former quit date comment: 03/20/20 Second hand smoke exposure: Yes Alcohol intake: never Substance/Drug Use: never Adopted: No Caregiver/support person: No Lives independently: Yes Household members: spouse Housing: House Marital status: service: No Current occupational status: employed Do you think of yourself as: Straight/Heterosexual Current gender identity: Male Physical Exam 2 Const: COMMON NORMALS: no acute distress GENERAL APPEARANCE: cooperative; not ill appearing and not frail appearing HENMT: COMMON NORMALS: normocephalic, atraumatic and Normal external nose present HEAD & SCALP: normocephalic and atraumatic FACE & SINUS: normal facial exam and face symmetric NOSE: Normal external nose present Eye: COMMON NORMALS: Equal, round and reactive pupils present and EOMs intact bilaterally PUPIL: Yes Equal, round and reactive pupils present Neck/C-Spine: GENERAL: Yes trachea midline Chest: CHEST: Yes Symmetrical chest wall rise Resp: COMMON NORMALS: normal respiratory effort, No retractions, No use of accessory muscles and clear to auscultation bilaterally AUSCULTATION: clear to auscultation bilaterally Cardio: COMMON NORMALS: regular rate and regular rhythm RATE: regular rate RHYTHM: regular rhythm GI: COMMON NORMALS: Normal to inspection, nondistended, normoactive bowel sounds present Extremity: COMMON NORMALS: no pedal edema Neuro: AUNDREA COMA SCALE: document GCS findings [place] coma scale eye opening: Spontaneous [place] coma scale verbal response: Orientated [place] coma scale motor response: Obey commands [place] coma scale total score: 15 S ENSORY EXAM: Yes extremities (intact) Psych: COMMON NORMALS: speech normal SPEECH: Yes normal speech Skin: COMMON NORMALS: no rashes or lesions noted GENERAL SKIN EXAM: no rashes or lesions noted Course 2 Vital Signs: Vital signs: Vital Signs Temperature 98 F 06/06/24 21:02 Pulse Rate 91 06/06/24 23:23 Respiratory Rate 19 H 06/06/24 23:23 Blood Pressure 116/67 06/06/24 23:23 Pulse Oximetry 95 06/06/24 23:23 Oxygen Delivery Me thod Room Air 06/06/24 21:20 MDM - Anxiety Medical Decision Making No significant symptoms currently. Heart rate is controlled. Blood pressure is 117/80. Other laboratory is normal. His EKG shows a sinus rhythm with a rate of 80, normal axis, normal intervals, and no acute ST wave changes. His chest x-ray shows mild bibasilar atelectasis and cardiomegaly without infiltrates. His BMP is normal.His troponin is back down to 8, which is lower than it has been previously. His BNP is only 92. He is scheduled for cardiac catheterization on Sunday. I think he is stable for discharge, with warnings for return for worsening symptoms. Lab Data 06/06/24 21:55 06/06/24 21:55 Radiology Impressions Chest X-Ray 06/06/24 21:16 IMPRESSION: 1. Mild bibasilar atelectasis. 2. Stable cardiomegaly. Laboratory Results WBC 8.19 10^3/uL (3.29-11.43) 06/06/24 21:55 RBC 5.08 10^6/uL (3.85-5.65) 06/06/24 21: Hgb 15.30 g/dL (11.27-16.99) 06/06/24 21:55 Hct 46.8 % (37-53) 06/06/24 21:55 MCV 92.1 fl (82-101) 06/06/24 21: MCH 30.1 pg (27-33) 06/06/24 21: MCHC 32.7 g/dL (30-55) 06/06/24 21:55 RDW 16.0 % (12.1-15.1) H 06/06/24 21:55 Plt Count 233 10^3/cmm (157-399) 06/06/24 21:55 MPV 9.5 fL (7.4-10.4) 06/06/24 21:55 Neut % (Auto) 71.3 % 06/06/24 21:55 Lymph % (Auto) 16.7 % 06/06/24 21:55 [place] % (Auto) 8.3 % 06/06/24 21:55 Eos % (Auto) 2.8 % 06/06/24 21:55 Baso % (Auto) 0.7 % 06/06/24 21:55 Neut # (Auto) 5.83 10^3/uL (1.8-7.7) 06/06/24 21:55 Lymph # (Auto) 1.4 10^3/uL (0.8-4.8) 06/06/24 21:55 [place] # (Auto) 0.7 10^3/uL (0.2-0.9) 06/06/24 21:55 Eos # (Auto) 0.2 10^3/uL (0.0-0.8) 06/06/24 21:55 Baso # (Auto) 0.1 10^3/uL (0.0-0.1) 06/06/24 21:55 Nucleated RBC % (auto) 0 % 06/06/24 21:55 Nucleated RBCs # 0.0 /100WBC 06/06/24 21:55 PT 13.80 SECONDS (12.1-14.9) 06/06/24 21:55 INR 1.03 (0.8-1.2) 06/06/24 21:55 APTT 27.7 SECONDS (23.9-36.7) 06/06/24 21:55 Sodium 138 mmol/L (136-145) 06/06/24 21:55 Potassium 3.9 mmol/L (3.5-5.1) 06/06/24 21:55 Chloride 104 mmol/L (98-107) 06/06/24 21:55 Carbon Dioxide 21 mmol/L (22-29) L 06/06/24 21:55 Anion Gap 16.9 (5-19) 06/06/24 21:55 BUN 17 mg/dL (6-20) 06/06/24 21:55 Creatinine 0.9 mg/dL (0.7-1.2) 06/06/24 21:55 GFR Calculation 86.7 mL/min (90-130) L 06/06/24 21:55 Glucose 100 mg/dL (65-115) 06/06/24 21:55 Calculated Osmolality 288 mOsm/kg (285-295) 06/06/24 21:55 Calcium 9.3 mg/dL (8.5-10.5) 06/06/24 21:55 Total Bilirubin 0.4 mg/dL (0.15-1.2) 06/06/24 21:55 AST 40 U/L (0-40) 06/06/24 21:55 ALT 46 U/L (0-41) H 06/06/24 21:55 Alkaline Phosphatase 91 U/L (40-130) 06/06/24 21:55 Troponin T Baseline 8 ng/L (0-15) 06/06/24 21:55 NT-Pro-B Natriuret Pep 92 pg/mL (0-125) 06/06/24 21:55 Total Protein 7.3 g/dL (6.6-8.7) 06/06/24 21:55 Albumin 4.2 g/dL (3.5-5.2) 06/06/24 21:55 Globulin 3.1 g/dL (1.3-4.6) 06/06/24 21:55 All radiology interpretation(s) finalized by discharge Discharge Plan Discharge Patient Disposition: Home Clinical Impression: Anxiety Coronary artery disease Qualifiers: Coronary Disease-Associated Artery/Lesion type: [place] artery [place] vs. transplanted heart: [place] heart Associated angina: with unspecified angina Q ualified Code(s): I25.119 - Atherosclerotic heart disease of [place] coronary artery with unspecified angina pectoris Condition: Stable Prescriptions: No Action famotidine [Pepcid] 20 mg tablet 20 mg PO BID Qty: 180 1RF Hold Instructions: Doctor's Order fenofibrate nanocrystallized [Tricor] 145 mg tablet 145 mg PO DAILY Qty: 90 1RF Arnuity Ellipta 100 mcg/actuation blister with device 1 inh inhalation Q24H Qty: 30 2RF insulin glargine [Lantus Solostar U-100 Insulin] 100 unit/mL (3 mL) insulin pen 45 unit SUBCUT QAM Qty: 15 2RF Repatha SureClick 140 mg/mL pen injector 140 mg SUBCUT .every 14 days Qty: 2 2RF escitalopram oxalate [Lexapro] 10 mg tablet 5 mg PO DAILY nitroglycerin 0.4 mg tablet, sublingual 0.4 mg SUBLINGUAL Q5M PRN (Reason: chest pain) Qty: 25 6RF Rx Instructions: do not exceed 3 doses per episode Farxiga 10 mg tablet 10 mg PO QAM Qty: 30 2RF levothyroxine 25 mcg tablet 25 mcg PO DAILY Qty: 90 1RF rosuvastatin [Crestor] 40 mg tablet 40 mg PO DAILY Qty: 90 1RF Anoro Ellipta 62.5-25 mcg/actuation blister with device 1 inh inhalation Q24H Qty: 60 2RF Trulicity 3 mg/0.5 mL pen injector 3 mg SUBCUT .weekly Qty: 2 2RF (DME) pen needle, diabetic 33 gauge x 5/32 needle See Rx Instructions .ROUTE .MEDSUPPLY Qty: 100 5RF Rx Instructions: 3 times day pantoprazole [Protonix] 40 mg tablet,delayed release (DR/EC) 40 mg PO DAILY Qty: 30 0RF (DME) Oxygen concentrator @2L NC See Rx Instructions .ROUTE .MEDSUPPLY Qty: 1 0RF Rx Instructions: Use 2L NC 24 hours for 99 months acetaminophen [Tylenol Extra Strength] 500 mg Tablet 1,000 mg PO Q4H PRN (Reason: Pain) clopidogrel 75 mg tablet 75 mg PO QAM Qty: 90 4RF aspirin 81 mg Tablet,Delayed Release (Dr/Ec) 81 mg PO QAM Qty: 90 4RF carvedilol [Coreg] 3.125 mg tablet 3.125 mg PO BID Qty: 60 3RF Rx Instructions: must administer with a meal/food, hold if bp<100/70 90 sennosides-docusate sodium [Senna-S] 8.6-50 mg tablet 1 tab-cap PO DAILY PRN (Reason: constipation) Qty: 14 0RF Discharge Orders: Discharge ED (Routine); Ordered 06/06/24 Ordered By: Ricardo Long Referrals: Christiano Serrato, AUTOMOTIVE ENGINEER-C [Primary Care Provider] - Patient Instructions: Chest Pain (ED), Opioid Safety, Pain Management Activity Restrictions/Additional Instructions: Keep your scheduled appointment on Sunday. Return for any worsening symptoms such as shortness of breath, chest discomfort, leg swelling, etc. Coding Level of Care Code ED Chinese Teacher for Scott Hayward
[2024-06-06 22:09] LABS: INR 1.03 (0.8-1.2)
[2024-06-06 22:10] LABS: Partial Thromboplastin Time 27.7 SECONDS (23.9-36.7)
[2024-06-06 22:15] LABS: Troponin(5th) Baseline 8 ng/L (0-15)
[2024-06-06 22:31] LABS: Alanine Aminotransferase 46 U/L (0-41); Albumin Level 4.2 g/dL (3.5-5.2); Alkaline Phosphatase 91 U/L (40-130); Anion Gap 16.9 (5-19); Aspartate Amino Transferase 40 U/L (0-40); Blood Urea Nitrogen 17 mg/dL (6-20); Calcium 9.3 mg/dL (8.5-10.5); Carbon Dioxide 21 mmol/L (22-29); Chloride 104 mmol/L (98-107); Creatinine Clr Calc Pharmacy 116.8672; Globulin 3.1 g/dL (1.3-4.6); Glomerular Filtration Rate 86.7 mL/min (90-130); Glucose 100 mg/dL (65-115); NT Pro B Type Natriuretic Pept 92 pg/mL (0-125); Osmolality Calculated 288 mOsm/kg (285-295); Potassium 3.9 mmol/L (3.5-5.1); Sodium 138 mmol/L (136-145); Total Bilirubin 0.4 mg/dL (0.15-1.2); Total Protein 7.3 g/dL (6.6-8.7)
== END 2024-06-06 23:21 | disposition home or self-care (01) ==
PROVIDERS: Emergency Provider Emergency Medicine; PCP Nurse Practitioner
DX: F41.9 Anxiety disorder, unspecified (principal); I25.119 Atherosclerotic heart disease of native coronary artery with unspecified angina pectoris; Z79.85 Long-term (current) use of injectable non-insulin antidiabetic drugs; Z79.02 Long term (current) use of antithrombotics/antiplatelets; Z79.82 Long term (current) use of aspirin; Z87.891 Personal history of nicotine dependence; E11.65 Type 2 diabetes mellitus with hyperglycemia; I10 Essential (primary) hypertension
CPT/HCPCS: 36415; 71045; 80053; 83880; 84484; 85025; 85610; 85730; 93005; 99285

== ENCOUNTER 2024-06-10 07:14 | Outpatient (CLI) | payer BC, MEDICAID, SELFPAY ==
[2024-06-10] VITALS (12 sets, daily range): BP systolic 97–128; BP diastolic 72–91; PULSE 64–94; RESP 15–28; TEMP 36.5–36.6; O2SAT 92–98; BMI 35.9
--- NOTE | 2024-06-10 07:30 | XACV_ITS ---
Exam Room: 2 Ht: 180 cm Wt: 120 kg BSA: 2.50 m2 Gender: Male : 1965 Any Known Allergies: Other Exam Priority: Routine Procedure(s): Procedure Description: Diagnostic procedure Procedure Description: PCI procedure Procedure Description: Drug Eluting Coronary Stent Procedure Description: PTCA Procedure Description: Miscellaneous Procedure Description: ACT Procedure Description: Coronary Angiography Paco ALMENDAREZ; Diagnostic Cath Status: Elective Diagnostic Findings * Left Main has no disease. * Mid Left Anterior Descending: minimal 30% stenosis, ANTONIO: 3 flow. * Proximal Right Coronary Artery: significant 80% stenosis, heavily calcified, moderate proximal segment tortuosity, ANTONIO: 3 flow. * Mid Right Coronary Artery to Mid Right Coronary Artery: severe 90% stenosis, heavily calcified, concentric plaque, moderate proximal segment tortuosity, ANTONIO: 3 flow. * Mid Circumflex: mild 40% stenosis, ANTONIO: 3 flow. * Coronary angiography shows right dominance. PCI Indication: New Onset Angina <= 2 months Interventional Findings * Proximal Right Coronary Artery: 80% stenosis treated with a AB TREK 3.00X12 RX BALLOON, IVL shockwave 3.0 X 12mm, TIFFANY GORE EUPHORA RX 3.33D89AN BALLOON, and MDT R TRESSA 4.0X18 HAJA. 0% residual stenosis, ANTONIO: 3 flow. * Mid Right Coronary Artery to Mid Right Coronary Artery: 90% stenosis treated with a AB TREK 3.00X12 RX BALLOON, MDT NC EUPHORA RX 4.41C09CL BALLOON, MDT R TRESSA 4.0X12 HAJA, and MDT NC EUPHORA RX [id number] BALLOON. 0% residual stenosis, ANTONIO: 3 flow. Successful intervention. Conclusions 1. There is severe coronary artery disease with three vessel disease. 2. Proximal Right Coronary Artery was treated with a Balloon, Balloon, Balloon, and Drug Eluting Stent. 3. Mid Right Coronary Artery to Mid Right Coronary Artery was treated with a Balloon, Balloon, Drug Eluting Stent, and Balloon. Recommendations * 1-Return to inpatient for close monitoring and routine cath care 2-Risk factor modification for secondary prevention 3-Statin and aspirin 81 mg life-long, if tolerated 4-Continue Plavix 75mg p.o. daily for at least one year. We will assess at the end of one year again to continue if further or not 5-Continue optimal medical management 6-Follow up with Dr. Antonio in four weeks and your primary care in 10 days. Interventional RX Recommendation: PCI w/o planned CABG Diagnostic RX Recommendation: PCI w/o planned CABG Pressures Phase:Rest AO : 116 / 73 ( 91 ) @ 9:37:00 AM 101 / 63 ( 80 ) @ 9:48:00 AM 75 / 49 ( 60 ) @ 10:30:00 AM 130 / 79 ( 100 ) @ 10:37:00 AM 138 / 87 ( 107 ) @ 10:53:00 AM Clinical Evaluation EBL: 5mL-10mL Procedural Details Procedure Consent Obtained. Admit Source: Out Patient. Pre-Procedure Time Out. Identified patient by full name and date of as verbalized by the patient/guarantor. Does the consent match the physician's order: Yes. Accurate & Complete Informed Consent: Yes. Inpatient/Outpatient History & Physical on Chart: Yes. If H&P is completed, is and addenduem needed: No; If yes, is the addendum complete: N/A. Visualize and Verify Site with Patient/Guarantor: N/A. Relevant Radiology Images available: Yes. The risks, benefits, and alternatives of sedation and/or procedure were discussed by physician. The patient agrees to continue. Procedure started. [facility] Clinical Fraility Score: 3: Managing Well. 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 Chest Pain Symptom Assessment: Atypical Angina. Correct patient, site and procedure confirmed by cath team. Current diagnosis: Chest Pain. PERRLA. Strong, equal hand global technical writer bilaterally. Lungs clear x 5 lobes. IV Site on Arrival: 20 gauge in the left hand. IV Fluids: 0.9% NaCl at 50ml/hr. 0 mL infused prior to paint laboratory technician. Pre Procedural Pulses: bilateral posterior tibial was 3+. Pre Procedural Pulses: bilateral dorsalis pedis was 3+. Pre Procedural Pulses: bilateral radial was 3+. Oxygen started at 2liters/min via nasal canula. bilateral groins was prepped with chloroprep then draped in the usual sterile fashion. Physician notified. Baseline sample Acquired. HR: 72 BPM. Physician arrived. Physician scrubbed in. Immediate Pre-Procedure Time Out. Correct Patient: Yes; Correct Procedure: Yes; Correct Site: Yes; Correct Patient Position: Yes; Correct Supplies: Yes; Dried Flammable Prep: Yes; Blood Products Available: No;. Lidocaine 1% infiltrated to the right groin. Arterial access obtained with micropuncture set. A 5 malaysian JL4 catheter in over wire. Multiple views taken of left coronary artery. Catheter removed over the standard wire. 6 malaysian JR 4 guide catheter was inserted over the wire. Angiography performed of RCA. Runthrough guidewire was advanced through the guide catheter to lesion in the prox RCA. Guidewire advanced across lesion. ACT drawn. Results 372 seconds. Therapeutic limits - pre-heparin administration 90-150 seconds and monitoring heparin during a vascular procedure >250 seconds. Inflation number : 1 A AB TREK 3.00X12 RX BALLOON was prepped and advanced across the Mid RCA , then inflated to 16 CANDACE for 0:24 seconds. Inflation number: 2 The AB TREK 3.00X12 RX BALLOON was reinflated across the Mid RCA, to 14 CANDACE for 0:18 seconds. Inflation number: 1 The AB TREK 3.00X12 RX BALLOON was reinflated across the Prox RCA, to 8 CANDACE for 0:14 seconds. Balloon out. ACT drawn. Results 307 seconds. Therapeutic limits - pre-heparin administration 90-150 seconds and monitoring heparin during a vascular procedure >250 seconds. Balloon inserted to lesion in the prox RCA. Inflation number : 2 A IVL shockwave 3.0 X 12mm was prepped and advanced across the Prox RCA , then inflated to 4 CANDACE for 0:17 seconds. Inflation number: 3 The IVL shockwave 3.0 X 12mm was reinflated across the Prox RCA, to 4 CANDACE for 0:17 seconds. Inflation number: 4 The IVL shockwave 3.0 X 12mm was reinflated across the Prox RCA, to 4 CANDACE for 0:21 seconds. IVL shockwave balloon out over wire. Balloon inserted to lesion in the prox RCA. Inflation number : 5 A MDT NC EUPHORA RX [id number] BALLOON was prepped and advanced across the Prox RCA , then inflated to 14 CANDACE for 0:31 seconds. Inflation number: 6 The MDT NC EUPHORA RX 3.47I76BH BALLOON was reinflated across the Prox RCA, to 10 CANDACE for 0:12 seconds. Balloon out. Results checked. Balloon inserted to lesion in the prox RCA. Inflation number: 7 The IVL shockwave 3.0 X 12mm was reinflated across the Prox RCA, to 4 CANDACE for 0:18 seconds. Inflation number: 8 The IVL shockwave 3.0 X 12mm was reinflated across the Prox RCA, to 4 CANDACE for 0:16 seconds. Inflation number: 9 The IVL shockwave 3.0 X 12mm was reinflated across the Prox RCA, to 4 CANDACE for 0:08 seconds. Inflation number: 10 The IVL shockwave 3.0 X 12mm was reinflated across the Prox RCA, to 4 CANDACE for 0:18 seconds. Inflation number: 11 The IVL shockwave 3.0 X 12mm was reinflated across the Prox RCA, to 4 CANDACE for 0:19 seconds. Inflation number: 12 The IVL shockwave 3.0 X 12mm was reinflated across the Prox RCA, to 4 CANDACE for 0:18 seconds. Inflation number: 13 The IVL shockwave 3.0 X 12mm was reinflated across the Prox RCA, to 4 CANDACE for 0:19 seconds. Inflation number: 14 The IVL shockwave 3.0 X 12mm was reinflated across the Prox RCA, to 4 CANDACE for 0:19 seconds. Inflation number: 15 The IVL shockwave 3.0 X 12mm was reinflated across the Prox RCA, to 4 CANDACE for 0:17 seconds. Inflation number: 16 The IVL shockwave 3.0 X 12mm was reinflated across the Prox RCA, to 4 CANDACE for 0:20 seconds. Balloon out. Results checked. Stent inserted to lesion in the mid RCA. unable to cross proximal lesion with stent. Undeployed 4.0 X 18mm stent out over wire. 6Fr Guideliner in over wire. Stent inserted to lesion in the prox RCA. Inflation Number : 17 A MDT R TRESSA 4.0X18 HAJA -Lot Number# [id number] EXP 10-26-2024 was prepped and advanced across the Prox RCA. The stent was deployed at 16 CANDACE for 0:35 seconds. Stent balloon and wire out. Guideliner out over wire. ACT drawn. Results 285 seconds. Therapeutic limits - pre-heparin administration 90-150 seconds and monitoring heparin during a vascular procedure >250 seconds. Results checked. Runthrough wire out to reshape. Runthrough guidewire was advanced through the guide catheter to lesion in the mid RCA. Guidewire advanced across lesion. Stent inserted to lesion in the mid RCA. Unable to cross, undeploed 4.0X 12 mm stent out over wire. 6Fr guideliner in over runthrough wire. Stent inserted to lesion in the mid RCA. Unable to cross. Undeployed 4.0 X 12mm stent out over wire. Guideliner out. Runthrough wire out. Guide catheter out over standard wire. 6 malaysian AL 0.75 SH guide catheter was inserted over the wire. Runthrough guidewire was advanced through the guide catheter to lesion in the mid RCA. Guidewire advanced across lesion. Balloon inserted to lesion in the prox RCA. Inflation number : 3 A MDT NC EUPHORA RX [id number] BALLOON was prepped and advanced across the Mid RCA , then inflated to 14 CANDACE for 0:27 seconds. Inflation number: 4 The MDT NC EUPHORA RX [id number] BALLOON was reinflated across the Mid RCA, to 12 CANDACE for 0:16 seconds. Balloon out. Stent inserted to lesion in the mid RCA. Inflation Number : 3 A MDT R TRESSA 4.0X12 HAJA -Lot Number# [id number] EXP 01-06-27 was prepped and advanced across the Mid RCA. The stent was deployed at 16 CANDACE for 0:27 seconds. Stent balloon and wire out. Balloon inserted to lesion in the mid RCA. Manuela Lawson RN scrubbed in for Pal Delarosa RN. Balloon out. Balloon inserted to lesion in the mid RCA. Inflation number : 6 A MDT NC EUPHORA RX [id number] BALLOON was prepped and advanced across the Mid RCA , then inflated to 12 CANDACE for 0:20 seconds. Inflation number: 7 The MDT NC EUPHORA RX 4.35G90DL BALLOON was reinflated across the Mid RCA, to 12 CANDACE for 0:15 seconds. Inflation number: 8 The MDT NC EUPHORA RX 4.94H51VQ BALLOON was reinflated across the Mid RCA, to 12 CANDACE for 0:16 seconds. Balloon out. Results checked. Runthrough wire out. Results checked. Guide catheter out over standard wire. ACT drawn. Results 227 seconds. Therapeutic limits - pre-heparin administration 90-150 seconds and monitoring heparin during a vascular procedure >250 seconds. A Right femoral angiogram was performed to determine safe placement of closure device. Chloraprep to right groin. A Angio-Seal VIP ([facility]) was successful obtaining hemostatsis at the Right Femoral artery insertion site. EXP 12-30-2024 LOT # [id number]. Post Procedure: Pulses reassessed and unchanged. PERRLA. Strong, equal hand global technical writer bilaterally. No VTE prophylaxis required. Medication's Wasted: Other = Fentanyl 25mcg, Versed 1 mg. Total IV fluids: 90 mL. Post-op diagnosis: Severe calcified stenosis to mid and prox GLOBAL REGULATORY LEAD. Status post PCI placement of 2 stents. Complications: None. Estimated blood loss: 5mL-10mL. Responsiveness - Normal response to verbal stimuli; alert and oriented, PERRLA. Airway - Unaffected, no intervention required; spontaneous ventilation. Circulation: W/N/L, pulses unchanged. Nausea/Vomiting: No. Procedure completed. Patient transferred by bed to 1st floor. Vital chart was stopped. Access Site Site: Right Femoral artery Sheath Size: 6 Fr Hemostasis Method: Angio-Seal VIP ([facility]) Hemostasis Success: Successful Procedure Medications Start: 9:22 AM Stop: 9:22 AM Medication: Versed Amount: 1 mg Route: I.V. Start: 9:22 AM Stop: 9:22 AM Medication: Fentanyl Amount: 50 mcg Route: I.V. Start: 9:30 AM Stop: 9:30 AM Medication: Versed Amount: 1 mg Route: I.V. Start: 9:30 AM Stop: 9:30 AM Medication: Fentanyl Amount: 25 mcg Route: I.V. Start: 9:32 AM Stop: 9:32 AM Medication: Fentanyl Amount: 25 mcg Route: I.V. Start: 9:37 AM Stop: 9:37 AM Medication: Heparin Amount: 9000 units Route: I.V. Start: 9:38 AM Stop: 9:38 AM Medication: Versed Amount: 1 mg Route: I.V. Start: 10:08 AM Stop: 10:08 AM Medication: Versed Amount: 1 mg Route: I.V. Start: 10:22 AM Stop: 10:22 AM Medication: Heparin Amount: 2000 units Route: I.V. Start: 10:29 AM Stop: 10:29 AM Medication: Fentanyl Amount: 25 mcg Route: I.V. Start: 10:42 AM Stop: 10:42 AM Medication: Heparin Amount: 2000 units Route: I.V. Start: 10:59 AM Stop: 10:59 AM Medication: Versed Amount: 1 mg Route: I.V. Start: 11:11 AM Stop: 11:11 AM Medication: Fentanyl Amount: 25 mcg Route: I.V. Start: 11:17 AM Stop: 11:17 AM Medication: Fentanyl Amount: 25 mcg Route: I.V. Start: 11:20 AM Stop: 11:20 AM Medication: Heparin Amount: 3000 units Route: I.V. Start: 11:21 AM Stop: 11:21 AM Medication: Plavix Amount: 300 mg Route: P.O. I, the attending physician, have reviewed and verified all procedure medications. Yes, all medications given per verbal order History/Risk Factors Hypertension: Yes Dyslipidemia: Yes Peripheral Arterial Disease (PAD): No Myocardial Infarction (LA): Yes Obesity: Yes Renal Disease: No Tobacco Use: Former Prior Interventions PCI: Yes CABG: No Valve Surgery: No Date of PCI: 05/07/2024 Report Signatures Finalized by Zoe Antonio MD on 06/27/2024 12:17 AM
[2024-06-10] MEDS: diphenhydrAMINE 50 mg Capsule PO (08:35)
--- NOTE | 2024-06-10 09:22 | P.HP_ITS ---
Same Day Surgery H&P Indication for Procedure/HPI DATE OF PROCEDURE: June 10, 2024 CHIEF COMPLAINT/INDICATIONFOR SURGICAL PROCEDURE: Shortness of breath angina Staged PCI to known significant RCA lesion noted during previous left heart cath when patient was treated for non-ST elevation OR of obtuse marginal Hypertension Hyperlipidemia Obesity PREOP DIAGNOSIS: Staged PCI to known obstructive coronary artery disease RCA p lanned PLANNED PROCEDURE: Operation Date: 06/09/24 10:00 Proposed Procedures p Percutaneous Coronary Intervention - STAGED PCI(Not Applicable) - Jerry Dobbs M.D Operation Date: 06/10/24 08:15 Proposed Procedures p Percutaneous Coronary Intervention(Not Applicable) - Jerry Dobbs M.D 59-year-old male past medical history significant for hypertension hyperlipidemia tobacco abuse who suffered non-ST elevation OR in the mid of April 2024, culprit artery was obtuse marginal which was treated with drug- eluting stent. During the same angiogram it was learned patient has significant mid RCA lesion thought to be treated with staged PCI. It is the reason patient has been scheduled for today. Patient has been explained all risk-benefit and alternative for the procedure he would like to proceed with it. Medications/Allergies* Home Medications Medication Instructions Recorded Confirmed Type acetaminophen 500 mg tablet 1,000 mg PO Q4H PRN Pain 03/28/21 06/06/24 History (Tylenol Extra Strength) escitalopram oxalate 10 mg tablet 5 mg PO DAILY 05/21/24 06/06/24 History (Lexapro) Allergies/Adverse Reactions Allergy/AdvReac Type Severity Reaction Status Date / Time shellfish derived Allergy Severe ADR-Itching Verified 06/10/24 08:25 trimethoprim [From Bactrim] Allergy Severe ALGY-Rash Verified 06/10/24 08:25 sulfamethoxazole AdvReac Severe ALGY-Rash Verified 06/10/24 08:25 [From Bactrim] Current Medications: Generic Name Dose Route Start Last Admin Trade Name Freq PRN Reason Stop Dose Admin Sodium Chloride 1,000 mls @ 50 mls/hr 06/10/24 07:44 06/10/24 08:33 Sodium Chloride 0.9% IV 06/11/24 03:43 Not Given .Q20H ONE Pertinent History/Comorbid Conditions* Medical History (Updated 06/06/24 @ 22:56 by Ricardo Long DO) Coronary artery disease Diabetes mellitus with hyperglycemia, with long-term current use of insulin Essential (primary) hypertension Atherosclerotic heart disease of [place] coronary artery with unstable angina pectoris Unstable angina Stable angina History of smoking 10-25 pack years Stop smoking 2019 Adult onset hypothyroidism Hypertriglyceridemia History of cigarette smoking Anxiety Mixed hyperlipidemia Acid reflux disease DM neuropathy, painful Surgical History (Updated 05/04/24 @ 14:40 by MAURA SmithP-C) History of coronary angioplasty with insertion of stent 2019 Basal cell carcinoma (BCC) in situ of skin September 2017 on back History of colonoscopy Family History (Updated 03/20/20 @ 19:14 by Tana Rader MD) Diabetes Mother Heart disease Mother Cancer Father lung cancer Hypertension Father Many of the family members have high blood pressure Social History Smoking and tobacco/nicotine status: former use of tobacco/nicotine Quit status (tobacco/nicotine): has quit using Former quit date comment: 03/20/20 Second hand smoke exposure: Yes Alcohol intake: never Substance/Drug Use: never Adopted: No Caregiver/support person: No Lives independently: Yes Household members: spouse Housing: House Marital status: service: No Current occupational status: employed Do you think of yourself as: Straight/Heterosexual Current gender identity: Male Pertinent Exam Findings alert, oriented x 3, clear to auscultation bilaterally, regular rate & rhythm and operative site marked Conscious Sedation Assessment PATIENT ASSESSED PRIOR TO SEDATION, WITH NO CHANGE NOTED: Yes AIRWAY EVAL/ANESTHESIA PLAN: ASA II, Risks, benefits & alternatives of sedation and/or procedure discussed and Patient agrees to continue as planned Recommendations Surgery/Procedure today Coding Level of Care Code Acute Code for g Fwd
[2024-06-10] MEDS: sodium chloride 0.45% 1,000 ML 100 ML IV (12:21)
[2024-06-10 17:53] LABS: Glucose Point of Care 113 mg/dL (70-110)
[2024-06-10] MEDS: carvedilol 3.125 mg Tablet PO (18:21)
[2024-06-10] MEDS: famotidine 20 mg Tablet PO (18:22)
[2024-06-10 20:27] LABS: Glucose Point of Care 144 mg/dL (70-110)
[2024-06-10] MEDS: insulin lispro 100 unit/1 mL SUBCUT (20:27)
[2024-06-10] MEDS: acetaminophen 325 mg Tablet 650 MG PO (20:28)
[2024-06-11 00:01] VITALS: BP 105/66; PULSE 80; RESP 20; TEMP 36.5; O2SAT 95
[2024-06-11 04:11] LABS: Basophils # 0.1 10^3/uL (0.0-0.1); Basophils % 0.9 %; Eosinophils # 0.2 10^3/uL (0.0-0.8); Hematocrit 47.2 % (37-53); Lymphocytes # 0.9 10^3/uL (0.8-4.8); Lymphocytes % 11.2 %; Mean Corpuscular HGB Conc 32.4 g/dL (30-55); Mean Corpuscular Hemoglobin 30.7 pg (27-33); Mean Corpuscular Volume 94.6 fl (82-101); Mean Platelet Volume 9.8 fL (7.4-10.4); Monocytes # 0.6 10^3/uL (0.2-0.9); Monocytes % 7.2 %; Neutrophils # 6.25 10^3/uL (1.8-7.7); Neutrophils % 77.3 %; Nucleated Red Blood Cells % 0 %; Platelet Count 207 10^3/cmm (157-399); Red Blood Count 4.99 10^6/uL (3.85-5.65); Red Cell Distribution Width 16.5 % (12.1-15.1); White Blood Count 8.07 10^3/uL (3.29-11.43)
[2024-06-11 04:13] VITALS: BP 107/69; PULSE 79; RESP 18; TEMP 37; O2SAT 93
[2024-06-11 04:37] LABS: Anion Gap 13.9 (5-19); Blood Urea Nitrogen 10 mg/dL (6-20); Calcium 8.4 mg/dL (8.5-10.5); Carbon Dioxide 23 mmol/L (22-29); Chloride 106 mmol/L (98-107); Creatinine Clr Calc Pharmacy 209.5346; Glomerular Filtration Rate 170.8 mL/min (90-130); Glucose 93 mg/dL (65-115); Osmolality Calculated 287 mOsm/kg (285-295); Potassium 3.9 mmol/L (3.5-5.1); Sodium 139 mmol/L (136-145)
[2024-06-11 06:17] LABS: Glucose Point of Care 87 mg/dL (70-110)
[2024-06-11 06:24] VITALS: PULSE 95
[2024-06-11 07:27] VITALS: BP 112/79; PULSE 84; RESP 18; TEMP 36.4; O2SAT 96
--- NOTE | 2024-06-11 08:00 | ECG_ITS ---
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 Measurements Intervals [place] Rate: 81 P: 53 W[place]: 188 QRS: 53 QRSD: 89 T: 30 QT: 361 QTc: 419 Interpretive Statements SINUS RHYTHM NONSPECIFIC T-WAVE ABNORMALITY Compared to ECG 06/06/2024 21:11:49 First degree AV block no longer present T-wave abnormality still present Electronically Signed On 06-11-2024 18:07:05 TOLL SETTLEMENT CLERK by Tana Rader M.D. [email or web address]
[2024-06-11] MEDS: clopidogrel 75 mg Tablet PO (08:46)
[2024-06-11] MEDS: aspirin 81 mg EC Tablet PO (08:46)
[2024-06-11] MEDS: fenofibrate 145 mg Tablet PO (08:46)
[2024-06-11] MEDS: levothyroxine 25 mcg Tablet PO (08:46)
[2024-06-11] MEDS: carvedilol 3.125 mg Tablet PO (08:46)
[2024-06-11] MEDS: atorvastatin 40 mg Tablet PO (08:46)
[2024-06-11] MEDS: famotidine 20 mg Tablet PO (08:49)
[2024-06-11 10:59] VITALS: BP 112/90; PULSE 65; O2SAT 94
--- NOTE | 2024-06-11 12:53 | P.DS_ITS ---
<Statement entered by Jerry Dobbs M.D - 06/12/24 07:27> Patient was evaluated and cared for in conjunction with an advanced practice practitioner.? I personally examined the patient and reviewed the chart and all pertinent data including imaging, telemetry, and laboratory results.? I discussed the patient in detail with the advanced practice practitioner.? Please see? their note for complete H&P testing result and agreed upon plan of care for the patient. I agree with assessment and plan. Patient denies chest pain/ shortness of breath. Access site is normal. GENERAL: Patient is alert, awake and oriented x3. HEART: Regular S1 and S2 LUNGS: Clear to auscultate bilaterally. CENTRAL NERVOUS SYSTEM: Grossly nonfocal. EXTREMITIES: Lower extremities without edema bilaterally. Coronary artery disease S/p successful revascularization of RCA with 1 stent Patient is stable to be discharged on dual antiplatelet therapy with close cardiology follow up. Discharge Providers Date of Admission: 06/10/2024 Date of Discharge: June 11, 2024 Attending Provider at Admission: Dr. Zoe Antonio MD Attending Provider at Discharge: Jerry Dobbs M.D Consults: None. Primary Care Provider: NATALIE Smith Diagnoses at Discharge Discharge Diagnosis (1) Coronary artery disease: Details from hospital stay: Status post staged PCI to the RCA. Continue dual antiplatelet therapy at least for 1 year including aspirin and Plavix Status: Acute Qualifiers: Coronary Disease-Associated Artery/Lesion type: [place] artery [place] vs. transplanted heart: [place] heart Associated angina: with unspecified angina Qualified Code(s): I25.119 - Atherosclerotic heart disease of [place] coronary artery with unspecified angina pectoris (2) Mixed hyperlipidemia: Details from hospital stay: Continue statin and Repatha with cholesterol panels evaluated on outpatient basis. Status: Chronic (3) Essential (primary) hypertension: Details from hospital stay: Blood pressure well-controlled. Continue current medications Status: Chronic Reason for Visit Reason for Visit: I25.10 Brief History: Staged PCI to known significant RCA lesion noted during previous left heart cath when patient was treated for non-ST elevation IA of obtuse marginal. Hospital Course Hospital Course Patient underwent staged PCI to known RCA lesion found on previous left heart cath. He underwent stenting of this area. Patient tolerated well. No chest pain or shortness of breath. He will be discharged home in stable to improved condition with dual antiplatelet therapy including aspirin and Plavix. Discharge instructions were given on limiting activity Physical Exam Narrative: General: No apparent distress, healthy appearing, well nourished Neck: No carotid bruit bilaterally Muskuloskeletal: Full ROM Lymphatic: no lymphedema noted Respiratory: Normal respiratory effort, clear to auscultation bilaterally throughout all lung [place], no use of accessory muscles Cardio: No JVD, regular rate, regular rhythm, S1 S2 normal, no murmurs, peripheral pulses 2+ throughout GI: Normal to inspection, nondistended Extremities: Full ROM, normal, normal capillary refill, no cyanosis or edema Neuro: Alert and oriented x4, no focal motor deficits Psych: Affect normal, denies suicidal ideation, mental status grossly normal Skin: Right groin cath site clean dry intact no signs or symptoms of hematoma present. Discharge Data Studies Completed and Pending Pending at discharge Category Date Time Status CRITICAL CARE PARAMEDIC request for service Routine Exams 06/10/24 07:30 Taken Laboratory Results WBC 8.07 10^3/uL (3.29-11.43) 06/11/24 03:30 RBC 4.99 10^6/uL (3.85-5.65) 06/11/24 03:30 Hgb 15.30 g/dL (11.27-16.99) 06/11/24 03:30 Hct 47.2 % (37-53) 06/11/24 03:30 MCV 94.6 fl (82-101) 06/11/24 03:30 MCH 30.7 pg (27-33) 06/11/24 03:30 MCHC 32.4 g/dL (30-55) 06/11/24 03:30 RDW 16.5 % (12.1-15.1) H 06/11/24 03:30 Plt Count 207 10^3/cmm (157-399) 06/11/24 03:30 MPV 9.8 fL (7.4-10.4) 06/11/24 03:30 Neut % (Auto) 77.3 % 06/11/24 03:30 Lymph % (Auto) 11.2 % 06/11/24 03:30 [place] % (Auto) 7.2 % 06/11/24 03:30 Eos % (Auto) 3.0 % 06/11/24 03:30 Baso % (Auto) 0.9 % 06/11/24 03:30 Neut # (Auto) 6.25 10^3/uL (1.8-7.7) 06/11/24 03:30 Lymph # (Auto) 0.9 10^3/uL (0.8-4.8) 06/11/24 03:30 [place] # (Auto) 0.6 10^3/uL (0.2-0.9) 06/11/24 03:30 Eos # (Auto) 0.2 10^3/uL (0.0-0.8) 06/11/24 03:30 Baso # (Auto) 0.1 10^3/uL (0.0-0.1) 06/11/24 03:30 Nucleated RBC % (auto) 0 % 06/11/24 03:30 Nucleated RBCs # 0.0 /100WBC 06/11/24 03:30 Sodium 139 mmol/L (136-145) 06/11/24 03:30 Potassium 3.9 mmol/L (3.5-5.1) 06/11/24 03:30 Chloride 106 mmol/L (98-107) 06/11/24 03:30 Carbon Dioxide 23 mmol/L (22-29) 06/11/24 03:30 Anion Gap 13.9 (5-19) 06/11/24 03:30 BUN 10 mg/dL (6-20) 06/11/24 03:30 Creatinine 0.5 mg/dL (0.7-1.2) L 06/11/24 03:30 GFR Calculation 170.8 mL/min (90-130) H 06/11/24 03:30 Glucose 93 mg/dL (65-115) 06/11/24 03:30 POC Glucose 87 mg/dL (70-110) 06/11/24 06:15 Calculated Osmolality 287 mOsm/kg (285-295) 06/11/24 03:30 Calcium 8.4 mg/dL (8.5-10.5) L 06/11/24 03:30 Procedures Performed Left heart cath with stenting to the RCA Vitals Last Vital Signs Temp 97.6 F 06/11/24 07:27 Pulse 65 06/11/24 10:59 Resp 18 06/11/24 07:27 BP 112/90 06/11/24 10:59 Pulse Ox 94 06/11/24 10:59 O2 Del Method Room Air 06/11/24 07:27 Discharge Plan Discharge Patient Disposition: Home Prescriptions: Continued famotidine [Pepcid] 20 mg tablet 20 mg PO BID Qty: 180 1RF Hold Instructions: Doctor's Order fenofibrate nanocrystallized [Tricor] 145 mg tablet 145 mg PO DAILY Qty: 90 1RF Arnuity Ellipta 100 mcg/actuation blister with device 1 inh inhalation Q24H Qty: 30 2RF insulin glargine [Lantus Solostar U-100 Insulin] 100 unit/mL (3 mL) insulin p en 45 unit SUBCUT QAM Qty: 15 2RF Repatha SureClick 140 mg/mL pen injector 140 mg SUBCUT .every 14 days Qty: 2 2RF escitalopram oxalate [Lexapro] 10 mg tablet 5 mg PO DAILY nitroglycerin 0.4 mg tablet, sublingual 0.4 mg SUBLINGUAL Q5M PRN (Reason: chest pain) Qty: 25 6RF Rx Instructions: do not exceed 3 doses per episode Farxiga 10 mg tablet 10 mg PO QAM Qty: 30 2RF levothyroxine 25 mcg tablet 25 mcg PO DAILY Qty: 90 1RF rosuvastatin [Crestor] 40 mg tablet 40 mg PO DAILY Qty: 90 1RF Anoro Ellipta 62.5-25 mcg/actuation blister with device 1 inh inhalation Q24H Qty: 60 2RF Trulicity 3 mg/0.5 mL pen injector 3 mg SUBCUT .weekly Qty: 2 2RF (DME) pen needle, diabetic 33 gauge x 5/32 needle See Rx Instructions .ROUTE .MEDSUPPLY Qty: 100 5RF Rx Instructions: 3 times day pantoprazole [Protonix] 40 mg tablet,delayed release (DR/EC) 40 mg PO DAILY Qty: 30 0RF (DME) Oxygen concentrator @2L NC See Rx Instructions .ROUTE .MEDSUPPLY Qty: 1 0RF Rx Instructions: Use 2L NC 24 hours for 99 months acetaminophen [Tylenol Extra Strength] 500 mg Tablet 1,000 mg PO Q4H PRN (Reason: Pain) clopidogrel 75 mg tablet 75 mg PO QAM Qty: 90 4RF aspirin 81 mg Tablet,Delayed Release (Dr/Ec) 81 mg PO QAM Qty: 90 4RF carvedilol [Coreg] 3.125 mg tablet 3.125 mg PO BID Qty: 60 3RF Rx Instructions: must administer with a meal/food, hold if bp<100/70 90 sennosides-docusate sodium [Senna-S] 8.6-50 mg tablet 1 tab-cap PO DAILY PRN (Reason: constipation) Qty: 14 0RF Discharge Orders: Discharge Order (Routine); Ordered 06/11/24 Ordered By: Genesis Delarosa Referrals: Genesis Delarosa, TOBACCO SAMPLER [Nurse Practitioner] - (10-14 days) Christiano Serrato FNP-C [Primary Care Provider] - 06/17/24 8:00 am Diet: Advance as tolerated, As Directed, Cardiac, Low Salt, Low Cholesterol and Low Fat Activity: Increase activity as tolerated and Limit activity as instructed Patient Instructions: Coronary Artery Disease (DC), Coronary Intravascular Stent Placement (DC), Post Angiogram Home Care Instructions, Coronary Angioplasty (DC) Activity Restrictions/Additional Instructions: Discussed with patient no heavy lifting more than a gallon of milk as well as going up or down steps for 5 days. No driving for 3 days. Monitor for and report signs or symptoms of bleeding. Monitor for and report s/s of infection such as fever 101 or greater, swelling, redness or pain to the groin. Discharge Date/Time: 06/11/24 10:58 Discharge Attestations Time Spent in Discharge Care*: less than 30 min Status at Discharge: Cognitive status at discharge: cognitively intact , Behavioral status at discharge: cooperative , Quality Metrics Clinical Quality Measures [ No reported AMI, CVA or VTE this stay] Coding Level of Care Code Acute Code for Chg Fwd Diagnoses Coronary artery disease involving [place] coronary artery of [place] heart with angina pectoris I25.119 Coronary Disease-Associated Artery/Lesion type: [place] artery [place] vs. transplanted heart: [place] heart Associated angina: with unspecified angina Mixed hyperlipidemia E78.2 Essential (primary) hypertension I10
== END 2024-06-11 10:58 | disposition home or self-care (01) ==
LOC: CCL 07:15 → CSU 11:38
PROVIDERS: Internal Medicine Cardiovascular Disease; PCP Nurse Practitioner; Visit Provider Internal Medicine
DX: I25.119 Atherosclerotic heart disease of native coronary artery with unspecified angina pectoris (principal); E78.2 Mixed hyperlipidemia; I10 Essential (primary) hypertension; E03.9 Hypothyroidism, unspecified; F41.9 Anxiety disorder, unspecified; Z87.891 Personal history of nicotine dependence; E11.40 Type 2 diabetes mellitus with diabetic neuropathy, unspecified
CPT/HCPCS: 36415; 36416; 80048; 82962; 85025; 85347; 92972; 93005; 93454; 96372; 96374; 96376; 99152; 99153; C1725; C1760; C1761; C1769; C1874; C1887; C1894; C9600; G0269; J1644; J1815; J2250; J3010; J3490; J7030; Q0163; Q9967

== ENCOUNTER 2024-06-13 20:11 | Emergency (ER) | payer BC, MEDICAID, SELFPAY ==
--- NOTE | 2024-06-13 20:14 | ECG_ITS ---
[facility] Test Date: 2024-06-13 Pat Name: Jose Daniel Forbes Department: Room: Gender: Male Support Services Tech: : 1965 Requested By: Dagoberto Villar Order Number: [id number] Simeon MD: Jerry Dobbs M.D. Measurements Intervals [place] Rate: 83 P: 61 IN: 204 QRS: 69 QRSD: 89 T: 40 QT: 362 QTc: 426 Interpretive Statements SINUS RHYTHM WITH OCCASIONAL VENTRICULAR PREMATURE COMPLEXES Compared to ECG 06/11/2024 09:17:24 Ventricular premature complex(es) now present T-wave abnormality no longer present Electronically Signed On 06-14-2024 10:20:05 STUDIO ENGINEER by Jerry Dobbs M.D. [id number]
--- NOTE | 2024-06-13 20:14 | XRR_ITS ---
PROCEDURE INFORMATION: Exam: XR Chest Exam date and time: 06/13/2024 8:37 PM Age: 59 years old Clinical indication: Chest pressure; Prior surgery; Surgery date: 6+ months; Surgery type: Coronary stent; Patient HX: C/O chest pain; Additional info: Cp TECHNIQUE: Imaging protocol: Radiologic exam of the chest. Views: 1 view. COMPARISON: CR (CHEST, ) 06/06/2024 9:18 PM FINDINGS: Lungs: Right basilar atelectasis. No focal consolidation. Pleural spaces: Unremarkable. No pleural effusion. No pneumothorax. Heart/Mediastinum: Unremarkable. No cardiomegaly. Bones/joints: Unremarkable. XR/XR chest 1V portable [id number] IMPRESSION: As above.
[2024-06-13 20:20] VITALS: BP 128/82; PULSE 88; RESP 17; TEMP 36.8; O2SAT 97; BMI 36.1
--- NOTE | 2024-06-13 20:30 | ED_ITS ---
HPI - Chest Pain 2 General: Chief Complaint: Chest Pain Stated Complaint: chest stinging and burning Time Seen by Provider: 06/13/24 20:22 Source: patient Mode of arrival: ambulatory Limitations: no limitations History of Present Illness: 59-year-old male who states he came up t o have his blood pressure checked he checked entheses had some slight left-sided chest pain as well denies any chest pain currently and had stents placed last week. He states he had some mild discomfort earlier today but denies anything severe he states he mainly wanted his blood pressure checked. Denies any shortness of breath denies any nausea or fever Associated symptoms: Deny abdominal pain, dyspnea, fever(s), nausea or vomiting Related Data Home Medications Medication Instructions Recorded Confirmed acetaminophen 500 mg tablet 1,000 mg PO Q4H PRN Pain 03/28/21 06/12/24 (Tylenol Extra Strength) escitalopram oxalate 10 mg tablet 5 mg PO DAILY 05/21/24 06/12/24 (Lexapro) Previous Rx's Medication Instructions Recorded pen needle, diabetic 33 gauge x #100 ea 11/30/23 famotidine 20 mg tablet (Pepcid) 20 mg PO BID #180 tabs 02/13/24 fenofibrate nanocrystallized 145 145 mg PO DAILY #90 tabs 02/13/24 mg tablet (Tricor) evolocumab 140 mg/mL subcutaneous 140 mg SUBCUT .every 14 days #2 mL 04/30/24 pen injector (Repatha SureClick) fluticasone furoate 100 1 inh inhalation Q24H #30 ea 04/30/24 mcg/actuation blister powder for inhalation (Arnuity Ellipta) insulin glargine 100 unit/mL (3 45 unit (0.45 mL) SUBCUT QAM #15 mL 04/30/24 mL) subcutaneous pen (Lantus Solostar U-100 Insulin) aspirin 81 mg tablet,delayed 81 mg PO QAM #90 tabs 05/08/24 release carvedilol 3.125 mg tablet (Coreg) 3.125 mg PO BID #60 tabs 05/08/24 clopidogrel 75 mg tablet 75 mg PO QAM #90 tabs 05/08/24 sennosides 8.6 mg-docusate sodium 1 tab-cap PO DAILY PRN 05/08/24 50 mg tablet (Senna-S) constipation #14 tabs pantoprazole 40 mg tablet,delayed 40 mg PO DAILY #30 tabs 05/16/24 release (Protonix) Oxygen concentrator @2L NC #1 ea 05/19/24 nitroglycerin 0.4 mg sublingual 0.4 mg sublingual Q5M PRN chest 05/21/24 tablet pain #25 tabs dapagliflozin propanediol 10 mg 10 mg PO QAM #30 tabs 05/27/24 tablet (Farxiga) levothyroxine 25 mcg tablet 25 mcg PO DAILY #90 tabs 05/27/24 rosuvastatin 40 mg tablet (Crestor) 40 mg PO DAILY #90 tabs 05/27/24 umeclidinium 62.5 mcg-vilanterol 1 inh inhalation Q24H #60 ea 05/27/24 25 mcg/actuation powdr for inhalation (Anoro Ellipta) dulaglutide 3 mg/0.5 mL 3 mg (0.5 mL) SUBCUT .weekly #2 mL 05/28/24 subcutaneous pen injector (Trulicity) Allergies Allergy/AdvReac Type Severity Reaction Status Date / Time shellfish derived Allergy Severe ADR-Itching Verified 06/10/24 08:25 trimethoprim [From Bactrim] Allergy Severe ALGY-Rash Verified 06/10/24 08:25 sulfamethoxazole AdvReac Severe ALGY-Rash Verified 06/10/24 08:25 [From Bactrim] Review of Systems 2 Const: Denies: fever(s), chills, body aches or change in appetite ENMT: Denies: throat pain or dental pain Card: Reports: chest pain Resp: Denies: dyspnea GI: Denies: abdominal pain, nausea, vomiting or diarrhea Musc: Denies: neck pain or back pain Skin/Breast: Denies: rash Neuro: Denies: headache(s) PFSH ED 2 PFSH: Medical History Coronary artery disease Diabetes mellitus with hyperglycemia, with long-term current use of insulin Essential (primary) hypertension Atherosclerotic heart disease of [place] coronary artery with unstable angina pectoris Unstable angina Stable angina History of smoking 10-25 pack years Stop smoking 2020 Adult onset hypothyroidism Hypertriglyceridemia History of cigarette smoking Anxiety Mixed hyperlipidemia Acid reflux disease DM neuropathy, painful Surgical History History of coronary angioplasty with insertion of stent 2020 Basal cell carcinoma (BCC) in situ of skin September 2017 on back History of colonoscopy Family History Mother Diabetes Heart disease Father Cancer lung cancer Father Hypertension Many of the family members have high blood pressure Social History Smoking and tobacco/nicotine status: former use of tobacco/nicotine Quit status (tobacco/nicotine): has quit using Former quit date comment: 03/20/20 Second hand smoke exposure: Yes Alcohol intake: never Substance/Drug Use: never Adopted: No Caregiver/support person: No Lives independently: Yes Household members: spouse Housing: House Marital status: service: No Current occupational status: employed Do you think of yourself as: Straight/Heterosexual Current gender identity: Male Physical Exam 2 Const: COMMON NORMALS: no acute distress, patient oriented x3 and healthy appearing HENMT: COMMON NORMALS: normocephalic and atraumatic HEAD & SCALP: n ormocephalic and atraumatic Neck/C-Spine: COMMON NORMALS: full ROM and supple Chest: COMMONS NORMALS: normal inspection of the chest and normal palpation of entire chest wall Resp: COMMON NORMALS: normal respiratory effort, No retractions, No use of accessory muscles and clear to auscultation bilaterally AUSCULTATION: clear to auscultation bilaterally Cardio: COMMON NORMALS: regular rate, regular rhythm and No murmurs present (Cardio) RATE: regular rate RHYTHM: regular rhythm GI: COMMON NORMALS: Normal to inspection, nondistended, normoactive bowel sounds present, Soft to palpation, non-tender and no masses PALPATION: Yes Soft to palpation Extremity: COMMON NORMALS: normal to inspection and full ROM Neuro: COMMON NORMALS: patient oriented x3, moves all extremities and no focal motor deficits Psych: COMMON NORMALS: mental status grossly normal, Normal thought process present and cooperative THOUGHT PROCESS: Normal thought process present Skin: COMMON NORMALS: no rashes or lesions noted and no wounds GENERAL SKIN EXAM: no rashes or lesions noted Course 2 Vital Signs: Vital signs: Vital Signs Temperature 98.2 F 06/13/24 20:20 Pulse Rate 88 06/13/24 20:20 Respiratory Rate 17 06/13/24 20:20 Blood Pressure 128/82 06/13/24 20:20 Pulse Oximetry 97 06/13/24 20:20 Oxygen Delivery Me thod Room Air 06/13/24 20:20 MDM - Chest Pain Medical Decision Making Patient presents here with chest pain is atypical in nature he mainly whenever his blood pressure checked everything here has been normal 2-hour troponin was negative he is stable for discharge follow-up PCP return if worsening. Medical Records I reviewed the patient's medical records. Lab Data I reviewed the patient's lab results. 06/13/24 20:20 06/13/24 20:20 Radiology Impressions Chest X-Ray 06/13/24 20:14 IMPRESSION: As above. Laboratory Results WBC 8.34 10^3/uL (3.29-11.43) 06/13/24 20:20 RBC 5.14 10^6/uL (3.85-5.65) 06/13/24 20:20 Hgb 15.50 g/dL (11.27-16.99) 06/13/24 20:20 Hct 48.0 % (37-53) 06/13/24 20:20 MCV 93.4 fl (82-101) 06/13/24 20:20 MCH 30.2 pg (27-33) 06/13/24 20:20 MCHC 32.3 g/dL (30-55) 06/13/24 20:20 RDW 16.1 % (12.1-15.1) H 06/13/24 20:20 Plt Count 235 10^3/cmm (157-399) 06/13/24 20:20 MPV 9.8 fL (7.4-10.4) 06/13/24 20:20 Neut % (Auto) 70.2 % 06/13/24 20:20 Lymph % (Auto) 16.4 % 06/13/24 20:20 [place] % (Auto) 8.8 % 06/13/24 20:20 Eos % (Auto) 3.4 % 06/13/24 20:20 Baso % (Auto) 1.0 % 06/13/24 20:20 Neut # (Auto) 5.86 10^3/uL (1.8-7.7) 06/13/24 20:20 Lymph # (Auto) 1.4 10^3/uL (0.8-4.8) 06/13/24 20:20 [place] # (Auto) 0.7 10^3/uL (0.2-0.9) 06/13/24 20:20 Eos # (Auto) 0.3 10^3/uL (0.0-0.8) 06/13/24 20:20 Baso # (Auto) 0.1 10^3/uL (0.0-0.1) 06/13/24 20:20 Nucleated RBC % (auto) 0 % 06/13/24 20:20 Nucleated RBCs # 0.0 /100WBC 06/13/24 20:20 PT 13.80 SECONDS (12.1-14.9) 06/13/24 20:20 INR 1.02 (0.8-1.2) 06/13/24 20:20 Sodium 136 mmol/L (136-145) 06/13/24 20:20 Potassium 3.9 mmol/L (3.5-5.1) 06/13/24 20:20 Chloride 101 mmol/L (98-107) 06/13/24 20:20 Carbon Dioxide 23 mmol/L (22-29) 06/13/24 20:20 Anion Gap 15.9 (5-19) 06/13/24 20:20 BUN 18 mg/dL (6-20) 06/13/24 20:20 Creatinine 0.9 mg/dL (0.7-1.2) 06/13/24 20:20 GFR Calculation 86.7 mL/min (90-130) L 06/13/24 20:20 Glucose 126 mg/dL (65-115) H 06/13/24 20:20 Calculated Osmolality 285 mOsm/kg (285-295) 06/13/24 20:20 Calcium 10.0 mg/dL (8.5-10.5) 06/13/24 20:20 Total Bilirubin 0.4 mg/dL (0.15-1.2) 06/13/24 20:20 AST 28 U/L (0-40) 06/13/24 20:20 ALT 35 U/L (0-41) 06/13/24 20:20 Alkaline Phosphatase 100 U/L (40-130) 06/13/24 20:20 Troponin T Baseline 44 ng/L (0-15) H 06/13/24 20:20 Troponin T 120 Minute 42.95 ng/L (0-15) H 06/13/24 22:16 Delta Troponin T -1.05 ABS# (0-10) L 06/13/24 22:16 Total Protein 7.4 g/dL (6.6-8.7) 06/13/24 20:20 Albumin 4.4 g/dL (3.5-5.2) 06/13/24 20:20 Globulin 3.0 g/dL (1.3-4.6) 06/13/24 20:20 Lipase 24 U/L (13-60) 06/13/24 20:20 All radiology interpretation(s) finalized by discharge EKG Data EKG 1: I personally reviewed and interpreted this EKG as follows: EKG interpretation date: 06/13/24 EKG interpretation time: 20:16 Interpretation: nsr hr [address] elevation qrs 89 qtc 401 EKG 2: I personally reviewed and interpreted this EKG as follows: EKG interpretation date: 06/13/24 EKG interpretation time: 22:21 Interpretation: nsr hr [address] elevation qrs 88 qtc 388 Discharge Plan Discharge Patient Disposition: Home Clinical Impression: Chest pain Condition: Stable Prescriptions: No Action famotidine [Pepcid] 20 mg tablet 20 mg PO BID Qty: 180 1RF Hold Instructions: Doctor's Order fenofibrate nanocrystallized [Tricor] 145 mg tablet 145 mg PO DAILY Qty: 90 1RF Arnuity Ellipta 100 mcg/actuation blister with device 1 inh inhalation Q24H Qty: 30 2RF insulin glargine [Lantus Solostar U-100 Insulin] 100 unit/mL (3 mL) insulin pen 45 unit SUBCUT QAM Qty: 15 2RF Repatha SureClick 140 mg/mL pen injector 140 mg SUBCUT .every 14 days Qty: 2 2RF escitalopram oxalate [Lexapro] 10 mg tablet 5 mg PO DAILY nitroglycerin 0.4 mg tablet, sublingual 0.4 mg SUBLINGUAL Q5M PRN (Reason: chest pain) Qty: 25 6RF Rx Instructions: do not exceed 3 doses per episode Farxiga 10 mg tablet 10 mg PO QAM Qty: 30 2RF levothyroxine 25 mcg tablet 25 mcg PO DAILY Qty: 90 1RF rosuvastatin [Crestor] 40 mg tablet 40 mg PO DAILY Qty: 90 1RF Anoro Ellipta 62.5-25 mcg/actuation blister with device 1 inh inhalation Q24H Qty: 60 2RF Trulicity 3 mg/0.5 mL pen injector 3 mg SUBCUT .weekly Qty: 2 2RF (DME) pen needle, diabetic 33 gauge x 5/32 needle See Rx Instructions .ROUTE .MEDSUPPLY Qty: 100 5RF Rx Instructions: 3 times day pantoprazole [Protonix] 40 mg tablet,delayed release (DR/EC) 40 mg PO DAILY Qty: 30 0RF (DME) Oxygen concentrator @2L NC See Rx Instructions .ROUTE .MEDSUPPLY Qty: 1 0RF Rx Instructions: Use 2L NC 24 hours for 99 months acetaminophen [Tylenol Extra Strength] 500 mg Tablet 1,000 mg PO Q4H PRN (Reason: Pain) clopidogrel 75 mg tablet 75 mg PO QAM Qty: 90 4RF aspirin 81 mg Tablet,Delayed Release (Dr/Ec) 81 mg PO QAM Qty: 90 4RF carvedilol [Coreg] 3.125 mg tablet 3.125 mg PO BID Qty: 60 3RF Rx Instructions: must administer with a meal/food, hold if bp<100/70 90 sennosides-docusate sodium [Senna-S] 8.6-50 mg tablet 1 tab-cap PO DAILY PRN (Reason: constipation) Qty: 14 0RF Discharge Orders: Discharge ED (Routine); Ordered 06/13/24 Ordered By: Dagoberto Villar Referrals: Christiano Serrato, CONTINUING EDUCATION DEAN-C [Primary Care Provider] - Discharge Diet: Advance as tolerated Discharge Activity: Resume usual activity Patient Instructions: Chest Pain (ED) Coding Level of Care Code ED Chemist Steroids for Scott Hayward
[2024-06-13 20:41] LABS: Basophils # 0.1 10^3/uL (0.0-0.1); Eosinophils # 0.3 10^3/uL (0.0-0.8); Eosinophils % 3.4 %; Lymphocytes # 1.4 10^3/uL (0.8-4.8); Lymphocytes % 16.4 %; Mean Corpuscular HGB Conc 32.3 g/dL (30-55); Mean Corpuscular Hemoglobin 30.2 pg (27-33); Mean Corpuscular Volume 93.4 fl (82-101); Mean Platelet Volume 9.8 fL (7.4-10.4); Monocytes # 0.7 10^3/uL (0.2-0.9); Monocytes % 8.8 %; Neutrophils # 5.86 10^3/uL (1.8-7.7); Neutrophils % 70.2 %; Nucleated Red Blood Cells % 0 %; Platelet Count 235 10^3/cmm (157-399); Red Blood Count 5.14 10^6/uL (3.85-5.65); Red Cell Distribution Width 16.1 % (12.1-15.1); White Blood Count 8.34 10^3/uL (3.29-11.43)
[2024-06-13 20:49] LABS: INR 1.02 (0.8-1.2)
[2024-06-13 20:59] LABS: Alanine Aminotransferase 35 U/L (0-41); Albumin Level 4.4 g/dL (3.5-5.2); Alkaline Phosphatase 100 U/L (40-130); Anion Gap 15.9 (5-19); Aspartate Amino Transferase 28 U/L (0-40); Blood Urea Nitrogen 18 mg/dL (6-20); Carbon Dioxide 23 mmol/L (22-29); Chloride 101 mmol/L (98-107); Creatinine Clr Calc Pharmacy 116.6374; Glomerular Filtration Rate 86.7 mL/min (90-130); Glucose 126 mg/dL (65-115); Lipase 24 U/L (13-60); Osmolality Calculated 285 mOsm/kg (285-295); Potassium 3.9 mmol/L (3.5-5.1); Sodium 136 mmol/L (136-145); Total Bilirubin 0.4 mg/dL (0.15-1.2); Total Protein 7.4 g/dL (6.6-8.7); Troponin(5th) Baseline 44 ng/L (0-15)
--- NOTE | 2024-06-13 22:14 | ECG_ITS ---
[facility] Test Date: 2024-06-13 Pat Name: Jose Daniel Forbes Department: Room: Gender: Male Ballet Soloist: : 1965 Requested By: Dagoberto Villar Order Number: [id number] Simeon MD: Jerry Dobbs M.D. Measurements Intervals [place] Rate: 90 P: 85 ID: [id number] QRS: 69 QRSD: 88 T: 26 QT: 340 QTc: 417 Interpretive Statements SINUS RHYTHM NONSPECIFIC T-WAVE ABNORMALITY Compared to ECG 06/13/2024 20:16:50 T-wave abnormality now present Ventricular premature complex(es) no longer present Electronically Signed On 06-14-2024 10:32:03 AGRIBUSINESS PROFESSOR by Jerry Dobbs M.D. [id number]
[2024-06-13 22:37] LABS: Troponin 5 2HR 42.95 ng/L (0-15)
[2024-06-13 22:39] LABS: Troponin 5 2HR Delta -1.05 ABS# (0-10)
[2024-06-13 22:50] VITALS: BP 119/83; PULSE 65; O2SAT 98
== END 2024-06-13 22:51 | disposition home or self-care (01) ==
PROVIDERS: Emergency Provider Emergency Medicine; PCP Nurse Practitioner
DX: R07.9 Chest pain, unspecified (principal); Z79.82 Long term (current) use of aspirin; Z79.02 Long term (current) use of antithrombotics/antiplatelets; Z87.891 Personal history of nicotine dependence; E11.65 Type 2 diabetes mellitus with hyperglycemia; I25.10 Atherosclerotic heart disease of native coronary artery without angina pectoris; E78.2 Mixed hyperlipidemia; Z85.828 Personal history of other malignant neoplasm of skin
CPT/HCPCS: 36415; 71045; 80053; 83690; 84484; 85025; 85610; 93005; 99285

== ENCOUNTER 2024-06-26 13:28 | Emergency (ER) | payer BC, MEDICAID, SELFPAY ==
--- NOTE | 2024-06-26 13:30 | XRR_ITS ---
PROCEDURE INFORMATION: Exam: XR Chest Exam date and time: 06/26/2024 1:50 PM Age: 59 years old Clinical indication: Pain; Angina pectoris; Additional info: Chest pain TECHNIQUE: Imaging protocol: Radiologic exam of the chest. Views: 1 view. COMPARISON: 1. CR (CHEST, ) 06/13/2024 8:37 PM 2. CR (CHEST, ) 06/06/2024 9:18 PM FINDINGS: Lungs: Unremarkable. No consolidation. Pleural spaces: Unremarkable. No pleural effusion. No pneumothorax. Heart/Mediastinum: Borderline cardiomegaly, stable. Bones/joints: Degenerative changes along the spine and acromioclavicular joints. XR/XR chest 1V portable [id number] IMPRESSION: No acute findings.
[2024-06-26 13:35] VITALS: BP 142/88; PULSE 79; TEMP 36.6; O2SAT 98; BMI 35.2
--- NOTE | 2024-06-26 13:38 | ECG_ITS ---
[facility] Test Date: 2024-06-26 Pat Name: Jose Daniel Forbes Department: Room: Gender: Male Web Content Producer: : 1965 Requested By: Genesis Ferguson Order Number: [id number] Simeon MD: Jerry Dobbs M.D. Measurements Intervals [place] Rate: 77 P: 65 GA: 214 QRS: 67 QRSD: 94 T: 46 QT: 376 QTc: 427 Interpretive Statements SINUS RHYTHM WITH FIRST DEGREE AV BLOCK NONSPECIFIC T-WAVE ABNORMALITY Compared to ECG 06/13/2024 22:21:17 First degree AV block now present T-wave abnormality still present Electronically Signed On 06-26-2024 14:38:13 DENTAL EQUIPMENT INSTALLER AND SERVICER by eJrry Dobbs M.D. [id number]
[2024-06-26 14:11] LABS: Basophils # 0.1 10^3/uL (0.0-0.1); Basophils % 0.8 %; Eosinophils # 0.2 10^3/uL (0.0-0.8); Eosinophils % 2.5 %; Hematocrit 48.2 % (37-53); Lymphocytes # 1.4 10^3/uL (0.8-4.8); Lymphocytes % 15.3 %; Mean Corpuscular HGB Conc 32.8 g/dL (30-55); Mean Corpuscular Hemoglobin 30.7 pg (27-33); Mean Corpuscular Volume 93.8 fl (82-101); Mean Platelet Volume 9.6 fL (7.4-10.4); Monocytes # 0.7 10^3/uL (0.2-0.9); Monocytes % 7.9 %; Neutrophils % 73.1 %; Nucleated Red Blood Cells % 0 %; Platelet Count 246 10^3/cmm (157-399); Red Blood Count 5.14 10^6/uL (3.85-5.65); Red Cell Distribution Width 16.2 % (12.1-15.1); White Blood Count 9.29 10^3/uL (3.29-11.43)
[2024-06-26 14:25] LABS: Alanine Aminotransferase 28 U/L (0-41); Albumin Level 4.5 g/dL (3.5-5.2); Alkaline Phosphatase 89 U/L (40-130); Anion Gap 16.9 (5-19); Aspartate Amino Transferase 23 U/L (0-40); Blood Urea Nitrogen 13 mg/dL (6-20); Calcium 9.7 mg/dL (8.5-10.5); Carbon Dioxide 22 mmol/L (22-29); Chloride 104 mmol/L (98-107); Creatinine Clr Calc Pharmacy 148.1916; Glomerular Filtration Rate 115.8 mL/min (90-130); Glucose 90 mg/dL (65-115); Osmolality Calculated 288 mOsm/kg (285-295); Potassium 3.9 mmol/L (3.5-5.1); Sodium 139 mmol/L (136-145); Total Bilirubin 0.3 mg/dL (0.15-1.2); Total Protein 7.5 g/dL (6.6-8.7)
[2024-06-26 14:30] LABS: Troponin(5th) Baseline 9 ng/L (0-15)
[2024-06-26 15:27] VITALS: BP 141/88; PULSE 83; RESP 17; O2SAT 99
--- NOTE | 2024-06-26 15:38 | ECG_ITS ---
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 Measurements Intervals [place] Rate: 79 P: 94 GA: 213 QRS: 70 QRSD: 89 T: 44 QT: 371 QTc: 426 Interpretive Statements SINUS RHYTHM WITH FIRST DEGREE AV BLOCK Compared to ECG 06/26/2024 13:38:25 T-wave abnormality no longer present Electronically Signed On 06-26-2024 17:58:00 DISC SANDER by Jerry Dobbs M.D. [email or web address]
--- NOTE | 2024-06-26 15:50 | ED_ITS ---
HPI - Chest Pain 2 General: Chief Complaint: Chest Pain Stated Complaint: chest pain Time Seen by Provider: 06/26/24 13:30 History of Present Illness: 59-year-old male with known history of h eart disease had stents few weeks ago comes in complaining of intermittent chest pain. He will get short burst of chest pain that lasted few seconds and then resolved spontaneously. He has known coronary disease and had stents put in a few weeks ago. No radiation of the pain no show co-pay shortness of breath no diaphoresis he is episodes are occurring during rest not exacerbated by palpation or deep inspiration no fever sweats chills or cough Associated symptoms: Deny abdominal pain, dyspnea or fever(s) Related Data Home Medications Medication Instructions Recorded Confirmed acetaminophen 500 mg tablet 1,000 mg PO Q4H PRN Pain 03/28/21 06/23/24 (Tylenol Extra Strength) escitalopram oxalate 10 mg tablet 5 mg PO DAILY 05/21/24 06/23/24 (Lexapro) Previous Rx's Medication Instructions Recorded famotidine 20 mg tablet (Pepcid) 20 mg PO BID #180 tabs 02/13/24 fenofibrate nanocrystallized 145 145 mg PO DAILY #90 tabs 02/13/24 mg tablet (Tricor) evolocumab 140 mg/mL subcutaneous 140 mg SUBCUT .every 14 days #2 mL 04/30/24 pen injector (Lucian Bermudezick) fluticasone furoate 100 1 inh inhalation Q24H #30 ea 04/30/24 mcg/actuation blister powder for inhalation (Arnuity Ellipta) aspirin 81 mg tablet,delayed 81 mg PO QAM #90 tabs 05/08/24 release carvedilol 3.125 mg tablet (Coreg) 3.125 mg PO BID #60 tabs 05/08/24 clopidogrel 75 mg tablet 75 mg PO QAM #90 tabs 05/08/24 sennosides 8.6 mg-docusate sodium 1 tab-cap PO DAILY PRN 05/08/24 50 mg tablet (Senna-S) constipation #14 tabs pantoprazole 40 mg tablet,delayed 40 mg PO DAILY #30 tabs 05/16/24 release (Protonix) Oxygen concentrator @2L NC #1 ea 05/19/24 nitroglycerin 0.4 mg sublingual 0.4 mg sublingual Q5M PRN chest 05/21/24 tablet pain #25 tabs dapagliflozin propanediol 10 mg 10 mg PO QAM #30 tabs 05/27/24 tablet (Farxiga) levothyroxine 25 mcg tablet 25 mcg PO DAILY #90 tabs 05/27/24 rosuvastatin 40 mg tablet (Crestor) 40 mg PO DAILY #90 tabs 05/27/24 umeclidinium 62.5 mcg-vilanterol 1 inh inhalation Q24H #60 ea 05/27/24 25 mcg/actuation powdr for inhalation (Anoro Ellipta) blood sugar diagnostic (OneTouch #100 ea 06/17/24 Ultra Test strips) blood-glucose meter (OneTouch #1 ea 06/17/24 Ultra2 Meter) dulaglutide 4.5 mg/0.5 mL 4.5 mg (0.5 mL) SUBCUT .weekly #2 06/17/24 subcutaneous pen injector mL (Trulicity) insulin glargine 100 unit/mL (3 15 unit (0.15 mL) SUBCUT QAM #15 mL 06/17/24 mL) subcutaneous pen (Lantus Solostar U-100 Insulin) lancets 33 gauge (OneTouch Delica #100 ea 06/17/24 Plus Lancet) pen needle, diabetic 33 gauge x #100 ea 06/17/24 5/32 isosorbide mononitrate 30 mg 30 mg PO DAILY #30 tabs 06/26/24 tablet,extended release 24 hr Allergies Allergy/AdvReac Type Severity Reaction Status Date / Time shellfish derived Allergy Severe ADR-Itching Verified 06/26/24 13:45 trimethoprim [From Bactrim] Allergy Severe ALGY-Rash Verified 06/26/24 13:45 sulfamethoxazole AdvReac Severe ALGY-Rash Verified 06/26/24 13:45 [From Bactrim] Review of Systems 2 Const: Denies: fever(s) or chills Card: Reports: chest pain Resp: Denies: dyspnea GI: Denies: abdominal pain : Denies: dysuria, urinary frequency or urinary urgency Musc: Denies: neck pain or back pain Skin/Breast: Denies: rash PFSH ED 2 PFSH: Medical History Coronary artery disease Diabetes mellitus with hyperglycemia, with long-term current use of insulin Essential (primary) hypertension Atherosclerotic heart disease of [place] coronary artery with unstable angina pectoris Unstable angina Stable angina History of smoking 10-25 pack years Stop smoking 2019 Adult onset hypothyroidism Hypertriglyceridemia History of cigarette smoking Anxiety Mixed hyperlipidemia Acid reflux disease DM neuropathy, painful Surgical History History of coronary angioplasty with insertion of stent 2019 Basal cell carcinoma (BCC) in situ of skin September 2017 on back History of colonoscopy Family History Mother Diabetes Heart disease Father Cancer lung cancer Father Hypertension Many of the family members have high blood pressure Social History Smoking and tobacco/nicotine status: former use of tobacco/nicotine Quit status (tobacco/nicotine): has quit using Former quit date comment: 03/20/20 Second hand smoke exposure: Yes Alcohol intake: never Substance/Drug Use: never Adopted: No Caregiver/support person: No Lives independently: Yes Household members: spouse Housing: House Marital status: service: No Current occupational status: employed Do you think of yourself as: Straight/Heterosexual Current gender identity: Male Physical Exam 2 Const: GENERAL APPEARANCE: cooperative ORIENTATION/CONSCIOUSNESS: Yes awake, Yes oriented to person, Yes oriented to place and Yes oriented to time HENMT: COMMON NORMALS: normocephalic, atraumatic and hearing grossly normal bilaterally HEAD & SCALP: normocephalic and atraumatic Resp: COMMON NORMALS: normal respiratory effort, No retractions, No use of accessory muscles and clear to auscultation bilaterally AUSCULTATION: clear to auscultation bilaterally Cardio: COMMON NORMALS: regular rate, regular rhythm and No murmurs present (Cardio) RATE: regular rate RHYTHM: regular rhythm GI: COMMON NORMALS: Soft to palpation and No hepatosplenomegaly present A USCULTATION: Yes normoactive bowel sounds PALPATION: Yes Soft to palpation, No Tenderness to palpation present (GI), No Guarding due to palpation present (GI) and Yes No hepatosplenomegaly present Extremity: COMMON NORMALS: normal to inspection, capillary refill normal, no clubbing, cyanosis or edema, no calf tenderness and no pedal edema Neuro: SENSORIUM/ORIENTATION: Yes oriented to person, Yes oriented to place and Yes oriented to time Skin: COMMON NORMALS: no rashes or lesions noted GENERAL SKIN EXAM: no rashes or lesions noted Course 2 Vital Signs: Vital signs: Vital Signs Temperature 97.8 F 06/26/24 13:35 Pulse Rate 86 06/26/24 16:30 Respiratory Rate 17 06/26/24 15:27 Blood Pressure 140/90 06/26/24 16:30 Pulse Oximetry 99 06/26/24 16:30 Oxygen Delivery Me thod Room Air 06/26/24 16:30 MDM - Chest Pain Medical Decision Making Cardiac enzymes not show any acute changes EKG is also without acute changes shows sinus rhythm with a first-degree AV block a rate of 79. Patient's angiogram from April reviewed. Follow back struck the patient he states he was here couple weeks ago and had a second stents placed he does have a card indicating he had angiography with 2 stents placed in the right coronary artery. We called Dr. Dr. Antonio he is can review the chart recommend starting on isosorbide they will contact him for further follow-up. Advised patient to return if he has change or worsening of symptoms he is still taking his clopidogrel regularly. Medical Records I reviewed the patient's medical records. Lab Data I reviewed the patient's lab results. 06/26/24 13:52 06/26/24 13:52 Radiology Impressions Chest X-Ray 06/26/24 13:30 IMPRESSION: No acute findings. Laboratory Results WBC 9.29 10^3/uL (3.29-11.43) 06/26/24 13:52 RBC 5.14 10^6/uL (3.85-5.65) 06/26/24 13:52 Hgb 15.80 g/dL (11.27-16.99) 06/26/24 13:52 Hct 48.2 % (37-53) 06/26/24 13:52 MCV 93.8 fl (82-101) 06/26/24 13:52 MCH 30.7 pg (27-33) 06/26/24 13:52 MCHC 32.8 g/dL (30-55) 06/26/24 13:52 RDW 16.2 % (12.1-15.1) H 06/26/24 13:52 Plt Count 246 10^3/cmm (157-399) 06/26/24 13:52 MPV 9.6 fL (7.4-10.4) 06/26/24 13:52 Neut % (Auto) 73.1 % 06/26/24 13:52 Lymph % (Auto) 15.3 % 06/26/24 13:52 [place] % (Auto) 7.9 % 06/26/24 13:52 Eos % (Auto) 2.5 % 06/26/24 13:52 Baso % (Auto) 0.8 % 06/26/24 13:52 Neut # (Auto) 6.80 10^3/uL (1.8-7.7) 06/26/24 13:52 Lymph # (Auto) 1.4 10^3/uL (0.8-4.8) 06/26/24 13:52 [place] # (Auto) 0.7 10^3/uL (0.2-0.9) 06/26/24 13:52 Eos # (Auto) 0.2 10^3/uL (0.0-0.8) 06/26/24 13:52 Baso # (Auto) 0.1 10^3/uL (0.0-0.1) 06/26/24 13:52 Nucleated RBC % (auto) 0 % 06/26/24 13:52 Nucleated RBCs # 0.0 /100WBC 06/26/24 13:52 Sodium 139 mmol/L (136-145) 06/26/24 13:52 Potassium 3.9 mmol/L (3.5-5.1) 06/26/24 13:52 Chloride 104 mmol/L (98-107) 06/26/24 13:52 Carbon Dioxide 22 mmol/L (22-29) 06/26/24 13:52 Anion Gap 16.9 (5-19) 06/26/24 13:52 BUN 13 mg/dL (6-20) 06/26/24 13:52 Creatinine 0.7 mg/dL (0.7-1.2) 06/26/24 13:52 GFR Calculation 115.8 mL/min (90-130) 06/26/24 13:52 Glucose 90 mg/dL (65-115) 06/26/24 13:52 Calculated Osmolality 288 mOsm/kg (285-295) 06/26/24 13:52 Calcium 9.7 mg/dL (8.5-10.5) 06/26/24 13:52 Total Bilirubin 0.3 mg/dL (0.15-1.2) 06/26/24 13:52 AST 23 U/L (0-40) 06/26/24 13:52 ALT 28 U/L (0-41) 06/26/24 13:52 Alkaline Phosphatase 89 U/L (40-130) 06/26/24 13:52 Troponin T Baseline 9 ng/L (0-15) 06/26/24 13:52 Troponin T 120 Minute 8.22 ng/L (0-15) 06/26/24 16:03 Delta Troponin T -0.78 ABS# (0-10) L 06/26/24 16:03 Total Protein 7.5 g/dL (6.6-8.7) 06/26/24 13:52 Albumin 4.5 g/dL (3.5-5.2) 06/26/24 13:52 Globulin 3.0 g/dL (1.3-4.6) 06/26/24 13:52 All radiology interpretation(s) finalized by discharge Discharge Plan Discharge Patient Disposition: Home Clinical Impression: Atypical chest pain, Essential (primary) hypertension Coronary artery disease Qualifiers: Coronary Disease-Associated Artery/Lesion type: [place] artery [place] vs. transplanted heart: [place] heart Associated angina: with unspecified angina Q ualified Code(s): I25.119 - Atherosclerotic heart disease of [place] coronary artery with unspecified angina pectoris Condition: Stable Prescriptions: New isosorbide mononitrate 30 mg tablet extended release 24 hr 30 mg PO DAILY Qty: 30 0RF No Action famotidine [Pepcid] 20 mg tablet 20 mg PO BID Qty: 180 1RF Hold Instructions: Doctor's Order fenofibrate nanocrystallized [Tricor] 145 mg tablet 145 mg PO DAILY Qty: 90 1RF Arnuity Ellipta 100 mcg/actuation blister with device 1 inh inhalation Q24H Qty: 30 2RF Repatha SureClick 140 mg/mL pen injector 140 mg SUBCUT .every 14 days Qty: 2 2RF escitalopram oxalate [Lexapro] 10 mg tablet 5 mg PO DAILY nitroglycerin 0.4 mg tablet, sublingual 0.4 mg SUBLINGUAL Q5M PRN (Reason: chest pain) Qty: 25 6RF Rx Instructions: do not exceed 3 doses per episode Farxiga 10 mg tablet 10 mg PO QAM Qty: 30 2RF levothyroxine 25 mcg tablet 25 mcg PO DAILY Qty: 90 1RF rosuvastatin [Crestor] 40 mg tablet 40 mg PO DAILY Qty: 90 1RF Anoro Ellipta 62.5-25 mcg/actuation blister with device 1 inh inhalation Q24H Qty: 60 2RF Trulicity 4.5 mg/0.5 mL pen injector 4.5 mg SUBCUT .weekly Qty: 2 1RF insulin glargine [Lantus Solostar U-100 Insulin] 100 unit/mL (3 mL) insulin pen 15 unit SUBCUT QAM Qty: 15 2RF Rx Instructions: no medication sent has at home (DME) blood-glucose meter [OneTouch Ultra2 Meter] Misc See Rx Instructions .Route Qty: 1 0RF Rx Instructions: As directed (DME) OneTouch Ultra Test Strip See Rx Instructions .Route Qty: 100 5RF Rx Instructions: 3 times day (DME) lancets [OneTouch Delica Plus Lancet] 33 gauge misc See Rx Instructions .Route Qty: 100 5RF Rx Instructions: As directed (DME) pen needle, diabetic 33 gauge x 5/32 needle See Rx Instructions .ROUTE .MEDSUPPLY Qty: 100 5RF Rx Instructions: 3 times day pantoprazole [Protonix] 40 mg tablet,delayed release (DR/EC) 40 mg PO DAILY Qty: 30 0RF (DME) Oxygen concentrator @2L NC See Rx Instructions .ROUTE .MEDSUPPLY Qty: 1 0RF Rx Instructions: Use 2L NC 24 hours for 99 months acetaminophen [Tylenol Extra Strength] 500 mg Tablet 1,000 mg PO Q4H PRN (Reason: Pain) clopidogrel 75 mg tablet 75 mg PO QAM Qty: 90 4RF aspirin 81 mg Tablet,Delayed Release (Dr/Ec) 81 mg PO QAM Qty: 90 4RF carvedilol [Coreg] 3.125 mg tablet 3.125 mg PO BID Qty: 60 3RF Rx Instructions: must administer with a meal/food, hold if bp<100/70 90 sennosides-docusate sodium [Senna-S] 8.6-50 mg tablet 1 tab-cap PO DAILY PRN (Reason: constipation) Qty: 14 0RF Discharge Orders: Discharge ED (Routine); Ordered 06/26/24 Ordered By: Ethan Nunez Referrals: Christiano Serrato, FISCAL ACCOUNTANT-C [Primary Care Provider] - Patient Instructions: Opioid Safety, Pain Management Activity Restrictions/Additional Instructions: Thank you for choosing [facility] for your healthcare needs today. It is very important that you follow up as instructed or that you return to the Emergency Department should you have concerns or if your condition changes or worsens in any way. Cardiac enzymes and EKG did not show signs of acute coronary syndrome. Description of the pain is not suggestive of acute coronary syndrome. You did have a lesion that still needs a stent on your previous angiogram. I called and discussed with Dr. Pandya. He recommends you continue current medications at isosorbide mononitrate use sublingual nitrate if you have chest pain that is persistent. (Meaning it last more than just a few seconds). Dr. Pandya's office will call you to arrange for further follow-up. If you have chest pain that recurs and is persistent lasting more than a few minutes take sublingual nitro and present to the emergency room. Coding Level of Care Code ED Coordinator [employer] for Scott Hayawrd
[2024-06-26 16:30] VITALS: BP 140/90; PULSE 86; O2SAT 99
[2024-06-26 16:31] LABS: Troponin 5 2HR 8.22 ng/L (0-15)
[2024-06-26 16:32] LABS: Troponin 5 2HR Delta -0.78 ABS# (0-10)
[2024-06-26 17:28] VITALS: BP 135/84; PULSE 82; O2SAT 100
== END 2024-06-26 17:29 | disposition home or self-care (01) ==
PROVIDERS: Physician Assistant; Emergency Provider Family Medicine; PCP Nurse Practitioner
DX: I25.119 Atherosclerotic heart disease of native coronary artery with unspecified angina pectoris (principal); R07.89 Other chest pain; I10 Essential (primary) hypertension; Z79.82 Long term (current) use of aspirin; Z79.02 Long term (current) use of antithrombotics/antiplatelets; Z79.4 Long term (current) use of insulin; Z87.891 Personal history of nicotine dependence; E11.65 Type 2 diabetes mellitus with hyperglycemia; E78.2 Mixed hyperlipidemia; E11.40 Type 2 diabetes mellitus with diabetic neuropathy, unspecified; Z85.828 Personal history of other malignant neoplasm of skin
CPT/HCPCS: 36415; 71045; 80053; 84484; 85025; 93005; 99285

== ENCOUNTER 2024-06-28 15:20 | Emergency (ER) | payer BC, MEDICAID, SELFPAY ==
--- NOTE | 2024-06-28 15:22 | XRR_ITS ---
PROCEDURE INFORMATION: Exam: XR Chest Exam date and time: 06/28/2024 3:57 PM Age: 59 years old Clinical indication: Pain; Chest pressure; Prior surgery; Surgery date: 6+ months; Surgery type: Coronary stent; Additional info: Cp TECHNIQUE: Imaging protocol: Radiologic exam of the chest. Views: 1 view. COMPARISON: CR XR chest 1V portable [id number] 06/26/2024 1:50 PM FINDINGS: Lungs: Unremarkable. No consolidation. Pleural spaces: Unremarkable. No pleural effusion. No pneumothorax. Heart/Mediastinum: Stable heart size. Bones/joints: Unremarkable. XR/XR chest 1V portable [id number] IMPRESSION: No acute findings.
--- NOTE | 2024-06-28 15:22 | ECG_ITS ---
[facility] Test Date: 2024-06-28 Pat Name: Jose Daniel Fobres Department: Room: Gender: Male Filing Clerk: : 1965 Requested By: Dagoberto Villar Order Number: [id number] Reading MD: EUN PEREZ Measurements Intervals [place] Rate: 78 P: 55 MT: 199 QRS: 63 QRSD: 89 T: 48 QT: 369 QTc: 421 Interpretive Statements SINUS RHYTHM Compared to ECG 06/28/2024 15:25:45 T-wave abnormality no longer present Electronically Signed On 06-30-2024 16:11:39 PROCESSING ENGINEER by EUN PEREZ [email or web address]
[2024-06-28 15:29] VITALS: BP 102/68; PULSE 88; RESP 18; TEMP 36.7; O2SAT 97
[2024-06-28 16:01] LABS: Basophils # 0.1 10^3/uL (0.0-0.1); Basophils % 0.9 %; Eosinophils # 0.2 10^3/uL (0.0-0.8); Eosinophils % 2.1 %; Hematocrit 47.7 % (37-53); Lymphocytes # 1.2 10^3/uL (0.8-4.8); Lymphocytes % 13.4 %; Mean Corpuscular HGB Conc 32.5 g/dL (30-55); Mean Corpuscular Hemoglobin 30.4 pg (27-33); Mean Corpuscular Volume 93.5 fl (82-101); Mean Platelet Volume 9.6 fL (7.4-10.4); Monocytes # 0.8 10^3/uL (0.2-0.9); Monocytes % 8.6 %; Neutrophils # 6.76 10^3/uL (1.8-7.7); Neutrophils % 74.7 %; Nucleated Red Blood Cells % 0 %; Platelet Count 251 10^3/cmm (157-399); Red Cell Distribution Width 15.8 % (12.1-15.1); White Blood Count 9.05 10^3/uL (3.29-11.43)
[2024-06-28 16:11] LABS: INR 1.02 (0.8-1.2)
[2024-06-28 16:16] LABS: Troponin(5th) Baseline 8 ng/L (0-15)
[2024-06-28 16:24] LABS: Alanine Aminotransferase 27 U/L (0-41); Albumin Level 4.3 g/dL (3.5-5.2); Alkaline Phosphatase 81 U/L (40-130); Anion Gap 15.6 (5-19); Aspartate Amino Transferase 24 U/L (0-40); Blood Urea Nitrogen 12 mg/dL (6-20); Calcium 9.6 mg/dL (8.5-10.5); Carbon Dioxide 19 mmol/L (22-29); Chloride 103 mmol/L (98-107); Creatinine Clr Calc Pharmacy 129.6676; Globulin 2.9 g/dL (1.3-4.6); Glomerular Filtration Rate 99.3 mL/min (90-130); Glucose 127 mg/dL (65-115); Osmolality Calculated 279 mOsm/kg (285-295); Potassium 3.6 mmol/L (3.5-5.1); Sodium 134 mmol/L (136-145); Total Bilirubin 0.4 mg/dL (0.15-1.2); Total Protein 7.2 g/dL (6.6-8.7)
--- NOTE | 2024-06-28 17:22 | ECG_ITS ---
[facility] Date: 2024-[facility]28 Pat Name: Jose Daniel Forbes Department: Room: Gender: Male Penal Officer: : 1965 Requested By: Dagoberto Villar Order Number: [id number] Reading MD: EUN PEREZ Measurements Intervals [place] Rate: 82 P: 57 [place]: 202 QRS: 70 QRSD: 89 T: 54 QT: 351 QTc: 411 Interpretive Statements SINUS RHYTHM NONSPECIFIC T-WAVE ABNORMALITY Compared to ECG 06/26/2024 15:38:39 T-wave abnormality now present First degree AV block no longer present Electronically Signed On 06-30-2024 16:17:16 AR MANAGER by EUN PEREZ [email or web address]
[2024-06-28 17:29] VITALS: BP 109/77; PULSE 82; RESP 20; O2SAT 97
[2024-06-28 17:54] VITALS: BP 132/80; PULSE 86; O2SAT 95
[2024-06-28 18:07] LABS: Troponin 5 2HR 7.75 ng/L (0-15); Troponin 5 2HR Delta -0.25 ABS# (0-10)
--- NOTE | 2024-06-28 18:27 | ED_ITS ---
HPI - Chest Pain 2 General: Chief Complaint: Chest Pain Stated Complaint: dizzy, chest pain, low BP Time Seen by Provider: 06/28/24 16:31 History of Present Illness: 59-year-old male presents to the emergen cy room with complaints of dizziness chest pain and low blood pressure. Seen couple days ago was having sharp bits of chest pain that only lasted a second or 2. He had a staged percutaneous coronary artery intervention with stents in both the RCA and the circumflex earlier this year both successful. Last time we seen he was EKG does not have any changes troponins were normal I talked about his case with Dr. Pandya and he recommended we start him on isosorbide. He has been taking it but now he is starting to notice hypotensive episodes. Reviewing his medications he is not on any other antihypertensive except carvedilol. Associated symptoms: Deny abdominal pain, dyspnea or fever(s) Related Data Home Medications Medication Instructions Recorded Confirmed acetaminophen 500 mg tablet 1,000 mg PO Q4H PRN Pain 03/28/21 06/23/24 (Tylenol Extra Strength) escitalopram oxalate 10 mg tablet 5 mg PO DAILY 05/21/24 06/23/24 (Lexapro) Previous Rx's Medication Instructions Recorded famotidine 20 mg tablet (Pepcid) 20 mg PO BID #180 tabs 02/13/24 fenofibrate nanocrystallized 145 145 mg PO DAILY #90 tabs 02/13/24 mg tablet (Tricor) evolocumab 140 mg/mL subcutaneous 140 mg SUBCUT .every 14 days #2 mL 04/30/24 pen injector (Repatha SurePatricick) fluticasone furoate 100 1 inh inhalation Q24H #30 ea 04/30/24 mcg/actuation blister powder for inhalation (Arnuity Ellipta) aspirin 81 mg tablet,delayed 81 mg PO QAM #90 tabs 05/08/24 release carvedilol 3.125 mg tablet (Coreg) 3.125 mg PO BID #60 tabs 05/08/24 sennosides 8.6 mg-docusate sodium 1 tab-cap PO DAILY PRN 05/08/24 50 mg tablet (Senna-S) constipation #14 tabs pantoprazole 40 mg tablet,delayed 40 mg PO DAILY #30 tabs 05/16/24 release (Protonix) Oxygen concentrator @2L NC #1 ea 05/19/24 nitroglycerin 0.4 mg sublingual 0.4 mg sublingual Q5M PRN chest 05/21/24 tablet pain #25 tabs dapagliflozin propanediol 10 mg 10 mg PO QAM #30 tabs 05/27/24 tablet (Farxiga) levothyroxine 25 mcg tablet 25 mcg PO DAILY #90 tabs 05/27/24 rosuvastatin 40 mg tablet (Crestor) 40 mg PO DAILY #90 tabs 05/27/24 umeclidinium 62.5 mcg-vilanterol 1 inh inhalation Q24H #60 ea 05/27/24 25 mcg/actuation powdr for inhalation (Anoro Ellipta) blood sugar diagnostic (OneTouch #100 ea 06/17/24 Ultra Test strips) blood-glucose meter (OneTouch #1 ea 06/17/24 Ultra2 Meter) dulaglutide 4.5 mg/0.5 mL 4.5 mg (0.5 mL) SUBCUT .weekly #2 06/17/24 subcutaneous pen injector mL ([facility]) insulin glargine 100 unit/mL (3 15 unit (0.15 mL) SUBCUT QAM #15 mL 06/17/24 mL) subcutaneous pen (Lantus Solostar U-100 Insulin) lancets 33 gauge (OneTouch Delica #100 ea 06/17/24 Plus Lancet) pen needle, diabetic 33 gauge x #100 ea 06/17/24 5/ isosorbide mononitrate 30 mg 30 mg PO DAILY #30 tabs 06/26/24 tablet,extended release 24 hr clopidogrel 75 mg tablet See Rx Instructions .Route 06/27/24 .COMPLEX #90 tabs hydroxyzine pamoate 25 mg capsule 25 mg PO BID PRN anxiety #60 caps 06/28/24 Allergies Allergy/AdvReac Type Severity Reaction Status Date / Time shellfish derived Allergy Severe ADR-Itching Verified 06/26/24 13:45 trimethoprim [From Bactrim] Allergy Severe ALGY-Rash Verified 06/26/24 13:45 sulfamethoxazole AdvReac Severe ALGY-Rash Verified 06/26/24 13:45 [From Bactrim] Review of Systems 2 Const: Denies: fever(s) or chills Card: Denies: chest pain Resp: Denies: dyspnea GI: Denies: abdominal pain : Denies: dysuria, urinary frequency or urinary urgency Musc: Denies: neck pain or back pain Skin/Breast: Denies: rash PFSH ED 2 PFSH: Medical History Coronary artery disease Diabetes mellitus with hyperglycemia, with long-term current use of insulin Essential (primary) hypertension Atherosclerotic heart disease of [place] coronary artery with unstable angina pectoris Unstable angina Stable angina History of smoking 10-25 pack years Stop smoking 2019 Adult onset hypothyroidism Hypertriglyceridemia History of cigarette smoking Anxiety Mixed hyperlipidemia Acid reflux disease DM neuropathy, painful Surgical History History of coronary angioplasty with insertion of stent 2019 Basal cell carcinoma (BCC) in situ of skin September 2017 on back History of colonoscopy Family History Mother Diabetes Heart disease Father Cancer lung cancer Father Hypertension Many of the family members have high blood pressure Social History Smoking and tobacco/nicotine status: former use of tobacco/nicotine Quit status (tobacco/nicotine): has quit using Former quit date comment: 03/20/20 Second hand smoke exposure: Yes Alcohol intake: never Substance/Drug Use: never Adopted: No Caregiver/support person: No Lives independently: Yes Household members: spouse Housing: House Marital status: service: No Current occupational status: employed Do you think of yourself as: Straight/Heterosexual Current gender identity: Male Physical Exam 2 Const: COMMON NORMALS: no acute distress GENERAL APPEARANCE: cooperative and comfortable ORIENTATION/CONSCIOUSNESS: Yes awake, Yes oriented to person, Yes oriented to place and Yes oriented to time HENMT: COMMON NORMALS: normocephalic, atraumatic and hearing grossly normal bilaterally HEAD & SCALP: normocephalic and atraumatic Resp: COMMON NORMALS: normal respiratory effort, No retractions, No use of accessory muscles and clear to auscultation bilaterally AUSCULTATION: clear to auscultation bilaterally Cardio: COMMON NORMALS: regular rate, regular rhythm and No murmurs present (Cardio) RATE: regular rate RHYTHM: regular rhythm GI: COMMON NORMALS: Soft to palpation and No hepatosplenomegaly present A USCULTATION: Yes normoactive bowel sounds PALPATION: Yes Soft to palpation, No Tenderness to palpation present (GI), No Guarding due to palpation present (GI) and Yes No hepatosplenomegaly present Extremity: COMMON NORMALS: normal to inspection, capillary refill normal, no clubbing, cyanosis or edema, no calf tenderness and no pedal edema Neuro: SENSORIUM/ORIENTATION: Yes oriented to person, Yes oriented to place and Yes oriented to time Skin: COMMON NORMALS: no rashes or lesions noted GENERAL SKIN EXAM: no rashes or lesions noted Course 2 Vital Signs: Vital signs: Vital Signs Temperature 98.1 F 06/28/24 15:29 Pulse Rate 92 06/28/24 18:47 Respiratory Rate 20 H 06/28/24 17:29 Blood Pressure 114/74 06/28/24 18:47 Pulse Oximetry 94 06/28/24 18:47 Oxygen Delivery Me thod Room Air 06/28/24 17:29 MDM - Chest Pain Medical Decision Making Cardiac enzymes and EKG is normal. Will discharge him home have him do half of a tablet of isosorbide to follow-up with cardiology next week. I think some of his symptoms may be related to GI. He recently increased the Trulicity he also notes whenever he gets the sharp pains he has accompanying eructations. Suspect he may have had some gastric emptying issues related to his diabetes exacerbated by the Trulicity making him more symptomatic. Medical Records I reviewed the patient's medical records. Lab Data I reviewed the patient's lab results. 06/28/24 15:51 06/28/24 15:51 Radiology Impressions Chest X-Ray 06/28/24 15:22 IMPRESSION: No acute findings. Laboratory Results WBC 9.05 10^3/uL (3.29-11.43) 06/28/24 15:51 RBC 5.10 10^6/uL (3.85-5.65) 06/28/24 15:51 Hgb 15.50 g/dL (11.27-16.99) 06/28/24 15:51 Hct 47.7 % (37-53) 06/28/24 15:51 MCV 93.5 fl (82-101) 06/28/24 15:51 MCH 30.4 pg (27-33) 06/28/24 15:51 MCHC 32.5 g/dL (30-55) 06/28/24 15:51 RDW 15.8 % (12.1-15.1) H 06/28/24 15:51 Plt Count 251 10^3/cmm (157-399) 06/28/24 15:51 MPV 9.6 fL (7.4-10.4) 06/28/24 15:51 Neut % (Auto) 74.7 % 06/28/24 15:51 Lymph % (Auto) 13.4 % 06/28/24 15:51 [place] % (Auto) 8.6 % 06/28/24 15:51 Eos % (Auto) 2.1 % 06/28/24 15:51 Baso % (Auto) 0.9 % 06/28/24 15:51 Neut # (Auto) 6.76 10^3/uL (1.8-7.7) 06/28/24 15:51 Lymph # (Auto) 1.2 10^3/uL (0.8-4.8) 06/28/24 15:51 [place] # (Auto) 0.8 10^3/uL (0.2-0.9) 06/28/24 15:51 Eos # (Auto) 0.2 10^3/uL (0.0-0.8) 06/28/24 15:51 Baso # (Auto) 0.1 10^3/uL (0.0-0.1) 06/28/24 15:51 Nucleated RBC % (auto) 0 % 06/28/24 15:51 Nucleated RBCs # 0.0 /100WBC 06/28/24 15:51 PT 13.70 SECONDS (12.1-14.9) 06/28/24 15:51 INR 1.02 (0.8-1.2) 06/28/24 15:51 Sodium 134 mmol/L (136-145) L 06/28/24 15:51 Potassium 3.6 mmol/L (3.5-5.1) 06/28/24 15:51 Chloride 103 mmol/L (98-107) 06/28/24 15:51 Carbon Dioxide 19 mmol/L (22-29) L 06/28/24 15:51 Anion Gap 15.6 (5-19) 06/28/24 15:51 BUN 12 mg/dL (6-20) 06/28/24 15:51 Creatinine 0.8 mg/dL (0.7-1.2) 06/28/24 15:51 GFR Calculation 99.3 mL/min (90-130) 06/28/24 15:51 Glucose 127 mg/dL (65-115) H 06/28/24 15:51 Calculated Osmolality 279 mOsm/kg (285-295) L 06/28/24 15:51 Calcium 9.6 mg/dL (8.5-10.5) 06/28/24 15:51 Total Bilirubin 0.4 mg/dL (0.15-1.2) 06/28/24 15:51 AST 24 U/L (0-40) 06/28/24 15:51 ALT 27 U/L (0-41) 06/28/24 15:51 Alkaline Phosphatase 81 U/L (40-130) 06/28/24 15:51 Troponin T Baseline 8 ng/L (0-15) 06/28/24 15:51 Troponin T 120 Minute 7.75 ng/L (0-15) 06/28/24 17:46 Delta Troponin T -0.25 ABS# (0-10) L 06/28/24 17:46 Total Protein 7.2 g/dL (6.6-8.7) 06/28/24 15:51 Albumin 4.3 g/dL (3.5-5.2) 06/28/24 15:51 Globulin 2.9 g/dL (1.3-4.6) 06/28/24 15:51 All radiology interpretation(s) finalized by discharge Discharge Plan Discharge Patient Disposition: Home Clinical Impression: Essential (primary) hypertension, Medication side effect Coronary artery disease Qualifiers: Coronary Disease-Associated Artery/Lesion type: [place] artery [place] vs. transplanted heart: [place] heart Associated angina: with unspecified angina Q ualified Code(s): I25.119 - Atherosclerotic heart disease of [place] coronary artery with unspecified angina pectoris Condition: Stable Prescriptions: No Action famotidine [Pepcid] 20 mg tablet 20 mg PO BID Qty: 180 1RF Hold Instructions: Doctor's Order fenofibrate nanocrystallized [Tricor] 145 mg tablet 145 mg PO DAILY Qty: 90 1RF Arnuity Ellipta 100 mcg/actuation blister with device 1 inh inhalation Q24H Qty: 30 2RF Repatha SureClick 140 mg/mL pen injector 140 mg SUBCUT .every 14 days Qty: 2 2RF escitalopram oxalate [Lexapro] 10 mg tablet 5 mg PO DAILY Hold Instructions: Patient No Longer Taking nitroglycerin 0.4 mg tablet, sublingual 0.4 mg SUBLINGUAL Q5M PRN (Reason: chest pain) Qty: 25 6RF Rx Instructions: do not exceed 3 doses per episode Farxiga 10 mg tablet 10 mg PO QAM Qty: 30 2RF levothyroxine 25 mcg tablet 25 mcg PO DAILY Qty: 90 1RF rosuvastatin [Crestor] 40 mg tablet 40 mg PO DAILY Qty: 90 1RF Anoro Ellipta 62.5-25 mcg/actuation blister with device 1 inh inhalation Q24H Qty: 60 2RF Trulicity 4.5 mg/0.5 mL pen injector 4.5 mg SUBCUT .weekly Qty: 2 1RF insulin glargine [Lantus Solostar U-100 Insulin] 100 unit/mL (3 mL) insulin pen 15 unit SUBCUT QAM Qty: 15 2RF Rx Instructions: no medication sent has at home (DME) blood-glucose meter [OneTouch Ultra2 Meter] Mis See Rx Instructions .Route Qty: 1 0RF Rx Instructions: As directed (DME) OneTouch Ultra Test Strip See Rx Instructions .Route Qty: 100 5RF Rx Instructions: 3 times day (DME) lancets [OneTouch Delica Plus Lancet] 33 gauge misc See Rx Instructions .Route Qty: 100 5RF Rx Instructions: As directed (DME) pen needle, diabetic 33 gauge x 5/32 needle See Rx Instructions .ROUTE .MEDSUPPLY Qty: 100 5RF Rx Instructions: 3 times day pantoprazole [Protonix] 40 mg tablet,delayed release (DR/EC) 40 mg PO DAILY Qty: 30 0RF (DME) Oxygen concentrator @2L NC See Rx Instructions .ROUTE .MEDSUPPLY Qty: 1 0RF Rx Instructions: Use 2L NC 24 hours for 99 months clopidogrel 75 mg tablet See Rx Instructions .ROUTE .COMPLEX Qty: 90 3RF Dose Instruction: TAKE ONE TABLET BY MOUTH EVERY MORNING Rx Instructions: TAKE ONE TABLET BY MOUTH EVERY MORNING hydroxyzine pamoate 25 mg capsule 25 mg PO BID PRN (Reason: anxiety) Qty: 60 0RF acetaminophen [Tylenol Extra Strength] 500 mg Tablet 1,000 mg PO Q4H PRN (Reason: Pain) aspirin 81 mg Tablet,Delayed Release (Dr/Ec) 81 mg PO QAM Qty: 90 4RF carvedilol [Coreg] 3.125 mg tablet 3.125 mg PO BID Qty: 60 3RF Rx Instructions: must administer with a meal/food, hold if bp<100/70 90 sennosides-docusate sodium [Senna-S] 8.6-50 mg tablet 1 tab-cap PO DAILY PRN (Reason: constipation) Qty: 14 0RF isosorbide mononitrate 30 mg tablet extended release 24 hr 30 mg PO DAILY Qty: 30 0RF Discharge Orders: Discharge ED (Routine); Ordered 06/28/24 Ordered By: Ethan Nunez Referrals: Christiano Serrato, BALAJIC [Primary Care Provider] - Patient Instructions: Opioid Safety, Pain Management Activity Restrictions/Additional Instructions: Thank you for choosing [facility] for your healthcare needs today. It is very important that you follow up as instructed or that you return to the Emergency Department should you have concerns or if your condition changes or worsens in any way. You were seen in the emergency room with complaints of chest discomfort and side effects from her medications. Your cardiac enzymes and EKG did not show any acute coronary syndrome. Recommend that you decrease your isosorbide to take a half a tablet once a day. Follow-up with cardiology next week. Coding Level of Care Code ED Tr[employer] Operator for Scott Hayward
[2024-06-28 18:47] VITALS: BP 114/74; PULSE 92; O2SAT 94
== END 2024-06-28 18:48 | disposition home or self-care (01) ==
PROVIDERS: Emergency Medicine; Emergency Provider Family Medicine; PCP Nurse Practitioner
DX: I10 Essential (primary) hypertension (principal); I25.119 Atherosclerotic heart disease of native coronary artery with unspecified angina pectoris; Z79.4 Long term (current) use of insulin; Z79.02 Long term (current) use of antithrombotics/antiplatelets; Z79.82 Long term (current) use of aspirin; Z87.891 Personal history of nicotine dependence; E11.65 Type 2 diabetes mellitus with hyperglycemia; E78.2 Mixed hyperlipidemia
CPT/HCPCS: 36415; 71045; 80053; 84484; 85025; 85610; 93005; 99285

== ENCOUNTER → 2024-07-07 12:06 | Outpatient (BNVA) | payer BC, MEDICAID, SELFPAY | PROVIDERS: PCP Nurse Practitioner; Visit Provider Clinical Nurse Specialist Adult Health | DX: N39.0 Urinary tract infection, site not specified (principal); K21.9 Gastro-esophageal reflux disease without esophagitis | CPT/HCPCS: 81000; 87086 ==

== ENCOUNTER 2024-07-09 20:10 | Emergency (ER) | payer BC, MEDICAID, SELFPAY ==
[2024-07-09 20:11] VITALS: BP 127/84; PULSE 78; RESP 16; TEMP 36.6; O2SAT 98; BMI 34.2
--- NOTE | 2024-07-09 20:13 | ECG_ITS ---
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 Measurements Intervals [place] Rate: 77 P: 61 ND: 202 QRS: 79 QRSD: 98 T: 25 QT: 381 QTc: 433 Interpretive Statements SINUS RHYTHM WITH OCCASIONAL VENTRICULAR PREMATURE COMPLEXES Compared to ECG 06/28/2024 17:50:51 Ventricular premature complex(es) now present Electronically Signed On 07-09-2024 21:28:20 ADVERTISING COLUMNIST by Tana Rader M.D. [email or web address]
--- NOTE | 2024-07-09 20:16 | XRR_ITS ---
PROCEDURE INFORMATION: Exam: XR Chest Exam date and time: 07/09/2024 9:13 PM Age: 59 years old Clinical indication: Pain; Chest pressure; Additional info: Cp TECHNIQUE: Imaging protocol: Radiologic exam of the chest. Views: 1 view. COMPARISON: CR (CHEST, ) 06/28/2024 3:57 PM FINDINGS: Lungs: The lungs are clear. No pulmonary consolidation. Pleural spaces: No pleural effusion or pneumothorax. Heart/Mediastinum: The cardiomediastinal silhouette is stable. Bones/joints: No acute osseous abnormalities are seen. XR/XR chest 1V portable [id number] IMPRESSION: No acute cardiopulmonary disease.
--- NOTE | 2024-07-09 22:16 | ECG_ITS ---
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 Measurements Intervals [place] Rate: 75 P: 63 [place]: 193 QRS: 76 QRSD: 90 T: 42 QT: 389 QTc: 437 Interpretive Statements SINUS RHYTHM Compared to ECG 07/09/2024 20:13:37 Ventricular premature complex(es) no longer present Electronically Signed On 07-10-2024 23:59:02 VP EMERGING MEDIA by Tana Rader M.D. [email or web address]
--- NOTE | 2024-07-09 22:18 | W.ED.CHESTPA ---
HPI - Chest Pain General: Chief Complaint: Chest Pain Stated Complaint: small chest pain Time Seen by Provider: 07/09/24 22:13 History of Present Illness: 59-year-old male with history of coronary artery disease presents emergency room with chest pain. This started a few hours ago. It is improved since. He took Tylenol and aspirin. He has had multiple stents in the past. He is on Plavix. No cough. No nausea or vomiting. No diaphoresis. Related Data Home Medications Medication Instructions Recorded Confirmed acetaminophen 500 mg tablet 1,000 mg PO Q4H PRN Pain 03/28/21 07/02/24 (Tylenol Extra Strength) escitalopram oxalate 10 mg tablet 5 mg PO DAILY 05/21/24 07/02/24 (Lexapro) Previous Rx's Medication Instructions Recorded fenofibrate nanocrystallized 145 145 mg PO DAILY #90 tabs 02/13/24 mg tablet (Tricor) evolocumab 140 mg/mL subcutaneous 140 mg SUBCUT .every 14 days #2 mL 04/30/24 pen injector (Lucian [place]) aspirin 81 mg tablet,delayed 81 mg PO QAM #90 tabs 05/08/24 release carvedilol 3.125 mg tablet (Coreg) 3.125 mg PO BID #60 tabs 05/08/24 sennosides 8.6 mg-docusate sodium 1 tab-cap PO DAILY PRN 05/08/24 50 mg tablet (Senna-S) constipation #14 tabs Oxygen concentrator @2L NC #1 ea 05/19/24 nitroglycerin 0.4 mg sublingual 0.4 mg sublingual Q5M PRN chest 05/21/24 tablet pain #25 tabs dapagliflozin propanediol 10 mg 10 mg PO QAM #30 tabs 05/27/24 tablet (Farxiga) levothyroxine 25 mcg tablet 25 mcg PO DAILY #90 tabs 05/27/24 rosuvastatin 40 mg tablet (Crestor) 40 mg PO DAILY #90 tabs 05/27/24 umeclidinium 62.5 mcg-vilanterol 1 inh inhalation Q24H #60 ea 05/27/24 25 mcg/actuation powdr for inhalation (Anoro Ellipta) blood sugar diagnostic (OneTouch #100 ea 06/17/24 Ultra Test strips) blood-glucose meter (OneTouch #1 ea 06/17/24 Ultra2 Meter) insulin glargine 100 unit/mL (3 15 unit (0.15 mL) SUBCUT QAM #15 mL 06/17/24 mL) subcutaneous pen (Lantus Solostar U-100 Insulin) lancets 33 gauge (OneTouch Delica #100 ea 06/17/24 Plus Lancet) pen needle, diabetic 33 gauge x #100 ea 06/17/24/32 isosorbide mononitrate 30 mg 30 mg PO DAILY #30 tabs 06/26/24 tablet,extended release 24 hr clopidogrel 75 mg tablet See Rx Instructions .Route 06/27/24 .COMPLEX #90 tabs fluticasone furoate 100 1 inh inhalation Q24H #30 ea 06/29/24 mcg/actuation blister powder for inhalation (Arnuity Ellipta) cefdinir 300 mg capsule 300 mg PO Q12H #14 caps 07/07/24 pantoprazole 40 mg tablet,delayed 40 mg PO DAILY #30 tabs 07/07/24 release (Protonix) hydroxyzine pamoate 25 mg capsule 25 mg PO BID PRN anxiety #60 caps 07/08/24 Allergies Allergy/AdvReac Type Severity Reaction Status Date / Time shellfish derived Allergy Severe ADR-Itching Verified 07/09/24 20:18 trimethoprim [From Bactrim] Allergy Severe ALGY-Rash Verified 07/09/24 20:18 sulfamethoxazole AdvReac Severe ALGY-Rash Verified 07/09/24 20:18 [From Bactrim] Review of Systems Narrative: Constitutional symptoms: Negative except as documented in HPI. Skin symptoms: Negative except as documented in HPI. Eye symptoms: Negative except as documented in HPI. ENMT symptoms: Negative except as documented in HPI. Respiratory symptoms: Negative except as documented in HPI. Cardiovascular symptoms: Negative except as documented in HPI. Gastrointestinal symptoms: Negative except as documented in HPI. Genitourinary symptoms: Negative except as documented in HPI. Musculoskeletal symptoms: Negative except as documented in HPI. Neurologic symptoms: Negative except as documented in HPI. Psychiatric symptoms: Negative except as documented in HPI. Endocrine symptoms: Negative except as documented in HPI. PFSH ED PFSH: Medical History (Updated 07/10/24 @ 01:07 by Yumi Tirado MD) Acid reflux disease Coronary artery disease Diabetes mellitus with hyperglycemia, with long-term current use of insulin Essential (primary) hypertension Atherosclerotic heart disease of [place] coronary artery with unstable angina pectoris Unstable angina Stable angina History of smoking 10-25 pack years Stop smoking 2019 Adult onset hypothyroidism Hypertriglyceridemia History of cigarette smoking Anxiety Mixed hyperlipidemia DM neuropathy, painful Surgical History History of coronary angioplasty with insertion of stent 2019 Basal cell carcinoma (BCC) in situ of skin September 2017 on back History of colonoscopy Family History Mother Diabetes Heart disease Father Cancer lung cancer Father Hypertension Many of the family members have high blood pressure Social History Smoking and tobacco/nicotine status: former use of tobacco/nicotine Quit status (tobacco/nicotine): has quit using Former quit date comment: 03/20/20 Second hand smoke exposure: Yes Alcohol intake: never Substance/Drug Use: never Adopted: No Caregiver/support person: No Lives independently: Yes Household members: spouse Housing: House Marital status: service: No Current occupational status: employed Do you think of yourself as: Straight/Heterosexual Current gender identity: Male Physical Exam Narrative: EXAM NARRATIVE: General: Alert, no acute distress. Skin: Warm, dry. Head: Normocephalic, atraumatic. Neck: Supple, trachea midline. Eye: Extraocular movements are intact. Ears, nose, mouth and throat: mucosa moist. Cardiovascular: Regular, Normal peripheral perfusion. Respiratory: Lungs are clear to auscultation, respirations are non-labored, breath sounds are equal, Symmetrical chest wall expansion. Gastrointestinal: Soft, Nontender, Non distended Musculoskeletal: Normal ROM, no deformity. Neurological: Alert and oriented, No focal neurological deficit observed. Psychiatric: Cooperative, appropriate mood & affect. Course Vital Signs: Vital signs: Vital Signs Temperature 97.8 F 07/09/24 20:11 Pulse Rate 69 07/09/24 22:41 Respiratory Rate 18 07/09/24 22:41 Blood Pressure 127/85 07/09/24 22:41 Pulse Oximetry 99 07/09/24 22:41 Oxygen Delivery Me thod Room Air 07/09/24 20:11 MDM - Chest Pain Medical Decision Making Differential diagnosis for patient with chest pain includes but is not limited to and based on the above HPI, review of systems and physical exam: Pneumonia. unstable angina. angina. Acute coronary syndrome / [place]. Pulmonary embolism. Costochondritis / musculoskeletal. Pleurisy. Pericarditis. Esophageal spasm. Pancreatis. Cholecystitis. Orders placed to evaluate differential diagnosis based on the above differential, HPI and physical exam EKG: Time 2012. Rate 77 normal sinus rhythm, No ST-T changes, PVCs, normal MN & QRS intervals, This was reviewed and interpreted by myself the ER physician at 2017. Repeat EKG: Time 12:32 AM. Rate 75 normal sinus rhythm, No ST-T changes, no ectopy, normal MN & QRS intervals, This was reviewed and interpreted by myself the ER physician at 12:34 AM no changes from previous. Chest x-ray: No acute process. No infiltrate. No pneumothorax. This was reviewed and interpreted by myself the emergency room physician. I also reviewed the radiology report. Lab Review: Laboratory results were reviewed and interpreted by myself the emergency room physician. Lab work is unremarkable. No leukocytosis. No anemia. No renal failure. Serial cardiac markers are negative. I reviewed the patient's medical record. Reexamination: Patient remained stable. No increased work of breathing. No altered mental status. No focal motor deficits. Assessment and plan: Noncardiac chest pain - Discharged home - Discussed findings and plan with patient. Answered any questions. - All laboratory values were reviewed and interpreted personally by myself, the ER physician - All imaging was reviewed and interpreted personally by myself, the ER physician. - Evaluation and treatment of this problem were appropriate in the emergency setting Lab Data 07/09/24 22:30 07/09/24 22:30 Radiology Impressions Chest X-Ray 07/09/24 20:16 IMPRESSION: No acute cardiopulmonary disease. Laboratory Results WBC 7.58 10^3/uL (3.29-11.43) 07/09/24 22:30 RBC 4.96 10^6/uL (3.85-5.65) 07/09/24 22:30 Hgb 15.00 g/dL (11.27-16.99) 07/09/24 22:30 Hct 46.3 % (37-53) 07/09/24 22:30 MCV 93.3 fl (82-101) 07/09/24 22:30 MCH 30.2 pg (27-33) 07/09/24 22: MCHC 32.4 g/dL (30-55) 07/09/24 22: RDW 15.6 % (12.1-15.1) H 07/09/24 22:30 Plt Count 233 10^3/cmm (157-399) 07/09/24 22: MPV 10.1 fL (7.4-10.4) 07/09/24 22: Neut % (Auto) 69.4 % 07/09/24 22: Lymph % (Auto) 17.5 % 07/09/24 22: [place] % (Auto) 9.4 % 07/09/24: Eos % (Auto) 2.6 % 07/09/24: Baso % (Auto) 0.8 % 07/09/24: Neut # (Auto) 5.26 10^3/uL (1.8-7.7) 07/09/24 22: Lymph # (Auto) 1.3 10^3/uL (0.8-4.8) 07/09/24 22:30 [place] # (Auto) 0.7 10^3/uL (0.2-0.9) 07/09/24 22: Eos # (Auto) 0.2 10^3/uL (0.0-0.8) 07/09/24 22: Baso # (Auto) 0.1 10^3/uL (0.0-0.1) 07/09/24: Nucleated RBC % (auto) 0 % 07/09/24: Nucleated RBCs # 0.0 /100WBC 07/09/24 22:30 Sodium 138 mmol/L (136-145) 07/09/24 22:30 Potassium 3.9 mmol/L (3.5-5.1) 07/09/24 22: Chloride 103 mmol/L (98-107) 07/09/24 22:30 Carbon Dioxide 22 mmol/L (22-29) 07/09/24 22:30 Anion Gap 16.9 (5-19) 07/09/24 22:30 BUN 14 mg/dL (6-20) 12/18/24 22:30 Creatinine 0.7 mg/dL (0.7-1.2) 07/09/24 22:30 GFR Calculation 115.8 mL/min (90-130) 07/09/24 22:30 Glucose 111 mg/dL (65-115) 07/09/24 22:30 Calculated Osmolality 287 mOsm/kg (285-295) 07/09/24 22:30 Calcium 9.7 mg/dL (8.5-10.5) 07/09/24 22:30 Total Bilirubin 0.4 mg/dL (0.15-1.2) 07/09/24 22:30 AST 21 U/L (0-40) 07/09/24 22:30 ALT 21 U/L (0-41) 07/09/24 22:30 Alkaline Phosphatase 92 U/L (40-130) 07/09/24 22:30 Troponin T Baseline < 6 ng/L (0-15) 07/09/24 22:30 Troponin T 120 Minute 6.00 ng/L (0-15) 07/10/24 00:30 Delta Troponin T 0.14675 ABS# (0-10) 07/10/24 00:30 Total Protein 7.1 g/dL (6.6-8.7) 07/09/24 22:30 Albumin 4.3 g/dL (3.5-5.2) 07/09/24 22:30 Globulin 2.8 g/dL (1.3-4.6) 07/09/24 22:30 Lipase 28 U/L (13-60) 07/09/24 22:30 All radiology interpretation(s) finalized by discharge Discharge Plan Discharge Patient Disposition: Home Clinical Impression: Non-cardiac chest pain Condition: Stable Prescriptions: No Action fenofibrate nanocrystallized [Tricor] 145 mg tablet 145 mg PO DAILY Qty: 90 1RF Repatha SureClick 140 mg/mL pen injector 140 mg SUBCUT .every 14 days Qty: 2 2RF cefdinir 300 mg capsule 300 mg PO Q12H Qty: 14 0RF pantoprazole [Protonix] 40 mg tablet,delayed release (DR/EC) 40 mg PO DAILY Qty: 30 0RF hydroxyzine pamoate 25 mg capsule 25 mg PO BID PRN (Reason: anxiety) Qty: 60 0RF escitalopram oxalate [Lexapro] 10 mg tablet 5 mg PO DAILY Hold Instructions: Patient No Longer Taking nitroglycerin 0.4 mg tablet, sublingual 0.4 mg SUBLINGUAL Q5M PRN (Reason: chest pain) Qty: 25 6RF Rx Instructions: do not exceed 3 doses per episode Farxiga 10 mg tablet 10 mg PO QAM Qty: 30 2RF levothyroxine 25 mcg tablet 25 mcg PO DAILY Qty: 90 1RF rosuvastatin [Crestor] 40 mg tablet 40 mg PO DAILY Qty: 90 1RF Anoro Ellipta 62.5-25 mcg/actuation blister with device 1 inh inhalation Q24H Qty: 60 2RF insulin glargine [Lantus Solostar U-100 Insulin] 100 unit/mL (3 mL) insulin pen 15 unit SUBCUT QAM Qty: 15 2RF Rx Instructions: no medication sent has at home (DME) blood-glucose meter [OneTouch Ultra2 Meter] Misc See Rx Instructions .Route Qty: 1 0RF Rx Instructions: As directed (DME) OneTouch Ultra Test Strip See Rx Instructions .Route Qty: 100 5RF Rx Instructions: 3 times day (DME) lancets [OneTouch Delica Plus Lancet] 33 gauge misc See Rx Instructions .Route Qty: 100 5RF Rx Instructions: As directed (DME) pen needle, diabetic 33 gauge x 5/32 needle See Rx Instructions .ROUTE .MEDSUPPLY Qty: 100 5RF Rx Instructions: 3 times day (DME) Oxygen concentrator @2L NC See Rx Instructions .ROUTE .MEDSUPPLY Qty: 1 0RF Rx Instructions: Use 2L NC 24 hours for 99 months clopidogrel 75 mg tablet See Rx Instructions .ROUTE .COMPLEX Qty: 90 3RF Dose Instruction: TAKE ONE TABLET BY MOUTH EVERY MORNING Rx Instructions: TAKE ONE TABLET BY MOUTH EVERY MORNING Arnuity Ellipta 100 mcg/actuation blister with device 1 inh inhalation Q24H Qty: 30 2RF acetaminophen [Tylenol Extra Strength] 500 mg Tablet 1,000 mg PO Q4H PRN (Reason: Pain) aspirin 81 mg Tablet,Delayed Release (Dr/Ec) 81 mg PO QAM Qty: 90 4RF carvedilol [Coreg] 3.125 mg tablet 3.125 mg PO BID Qty: 60 3RF Rx Instructions: must administer with a meal/food, hold if bp<100/70 90 sennosides-docusate sodium [Senna-S] 8.6-50 mg tablet 1 tab-cap PO DAILY PRN (Reason: constipation) Qty: 14 0RF isosorbide mononitrate 30 mg tablet extended release 24 hr 30 mg PO DAILY Qty: 30 0RF Hold Instructions: hypotension Discharge Orders: Discharge ED (Routine); Ordered 07/10/24 Ordered By: Yumi Tirado Referrals: Christiano Serrato, [employer] [Primary Care Provider] - Discharge Diet: Usual diet Discharge Activity: Resume usual activity Patient Instructions: Noncardiac Chest Pain (ED), Opioid Safety, Pain Management Activity Restrictions/Additional Instructions: Thank you for choosing [facility] for your healthcare needs today. Please realize this is an emergency room and that we are providing you with a medical screening exam and this may not be complete and all inclusive of all the testing and or work up that you may need to determine your ailment or severity of your illness. You have been screened and evaluated and felt safe for discharge. Health conditions do change or evolve sometimes and as such it is important that you follow up with your Primary Doctor to be re checked, 3-5 days is a general good time frame for follow up. You are always welcome to return to the ED for re assessment if your symptoms are worsening or you have new concerns Coding Level of Care Code ED Special Skills Officer for Scott Hayward
[2024-07-09 22:41] VITALS: BP 127/85; PULSE 69; RESP 18; O2SAT 99
[2024-07-09 22:45] VITALS: BP 117/80; PULSE 67; RESP 15; O2SAT 98
[2024-07-09 22:50] LABS: Basophils # 0.1 10^3/uL (0.0-0.1); Basophils % 0.8 %; Eosinophils # 0.2 10^3/uL (0.0-0.8); Eosinophils % 2.6 %; Hematocrit 46.3 % (37-53); Lymphocytes # 1.3 10^3/uL (0.8-4.8); Lymphocytes % 17.5 %; Mean Corpuscular HGB Conc 32.4 g/dL (30-55); Mean Corpuscular Hemoglobin 30.2 pg (27-33); Mean Corpuscular Volume 93.3 fl (82-101); Mean Platelet Volume 10.1 fL (7.4-10.4); Monocytes # 0.7 10^3/uL (0.2-0.9); Monocytes % 9.4 %; Neutrophils # 5.26 10^3/uL (1.8-7.7); Neutrophils % 69.4 %; Nucleated Red Blood Cells % 0 %; Platelet Count 233 10^3/cmm (157-399); Red Blood Count 4.96 10^6/uL (3.85-5.65); Red Cell Distribution Width 15.6 % (12.1-15.1); White Blood Count 7.58 10^3/uL (3.29-11.43)
[2024-07-09 22:55] LABS: Troponin(5th) Baseline < 6 ng/L (0-15)
[2024-07-09 22:56] LABS: Alanine Aminotransferase 21 U/L (0-41); Albumin Level 4.3 g/dL (3.5-5.2); Alkaline Phosphatase 92 U/L (40-130); Anion Gap 16.9 (5-19); Aspartate Amino Transferase 21 U/L (0-40); Blood Urea Nitrogen 14 mg/dL (6-20); Calcium 9.7 mg/dL (8.5-10.5); Carbon Dioxide 22 mmol/L (22-29); Chloride 103 mmol/L (98-107); Creatinine Clr Calc Pharmacy 145.8298; Globulin 2.8 g/dL (1.3-4.6); Glomerular Filtration Rate 115.8 mL/min (90-130); Glucose 111 mg/dL (65-115); Lipase 28 U/L (13-60); Osmolality Calculated 287 mOsm/kg (285-295); Potassium 3.9 mmol/L (3.5-5.1); Sodium 138 mmol/L (136-145); Total Bilirubin 0.4 mg/dL (0.15-1.2); Total Protein 7.1 g/dL (6.6-8.7)
[2024-07-09 23:15] VITALS: BP 116/81; PULSE 72; RESP 21; O2SAT 97
[2024-07-09 23:45] VITALS: BP 115/80; PULSE 70; RESP 14; O2SAT 94
[2024-07-10 01:01] LABS: Troponin 5 2HR Delta 0.00001 ABS# (0-10)
[2024-07-10 01:21] VITALS: BP 119/79; PULSE 73; O2SAT 98
== END 2024-07-10 01:23 | disposition home or self-care (01) ==
PROVIDERS: Emergency Medicine; Emergency Provider Emergency Medicine; PCP Nurse Practitioner
DX: R07.89 Other chest pain (principal); Z79.02 Long term (current) use of antithrombotics/antiplatelets; Z87.891 Personal history of nicotine dependence; Z85.828 Personal history of other malignant neoplasm of skin; I25.10 Atherosclerotic heart disease of native coronary artery without angina pectoris; I10 Essential (primary) hypertension; E78.2 Mixed hyperlipidemia
CPT/HCPCS: 71045; 80053; 83690; 84484; 85025; 93005; 99285

== ENCOUNTER 2024-07-22 13:33 | Emergency (ER) | payer BC, MEDICAID, SELFPAY ==
[2024-07-22] VITALS (8 sets, daily range): BP systolic 114–132; BP diastolic 71–84; PULSE 77–99; RESP 16–18; TEMP 36.5; O2SAT 94–99
--- NOTE | 2024-07-22 14:28 | ECG_ITS ---
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 Measurements Intervals [place] Rate: 78 P: 56 MI: 185 QRS: 71 QRSD: 91 T: 44 QT: 381 QTc: 435 Interpretive Statements SINUS RHYTHM NONSPECIFIC T-WAVE ABNORMALITY Compared to ECG 07/10/2024 00:32:38 T-wave abnormality now present Electronically Signed On 07-22-2024 17:44:08 [employer] by Tana Rader M.D. [email or web address]
--- NOTE | 2024-07-22 14:50 | XR_ITS ---
WS: [id number] Portable AP upright chest, 07/22/2024 Clinical Data: chest pain Comparison: Portable chest, 07/09/2024 Findings: No nodules, masses or effusions are seen. The heart is normal. The pulmonary vascularity is not increased. No pneumonia or pneumothorax is seen. The aortic arch and descending thoracic aorta s how tortuosity. XR/XR chest 1V portable [id number] Impression: Negative chest.
--- NOTE | 2024-07-22 14:58 | W.ED.CHESTPA ---
HPI - Chest Pain General: Chief Complaint: Chest Pain Stated Complaint: chest pain Time Seen by Provider: 07/22/24 14:01 History of Present Illness: 59-year-old male presents ER chief complaint of having reproducible chest pain as well as pain after eating patient does endorse history of recent cardiac catheterization with stent placement done approximately 1 month ago which patient was having severe chest pain at that time patient was provided a prescription for nitroglycerin tablets he endorses he is not using his tablets since being discharged she however however reports she is having increased heartburn type symptoms and which included for him to come into the ER to get checked out patient reports he is on no medications for heartburn he has been taking his other medications as prescribed he endorses the pain is unrelated at deep breathing and is worse with certain positions and moving of his arms patient reports no recent infections or illnesses or any other associate symptoms. Associated symptoms: Deny abdominal pain, dyspnea, fever(s), nausea, palpitations or vomiting Related Data Home Medications Medication Instructions Recorded Confirmed acetaminophen 500 mg tablet 1,000 mg PO Q4H PRN Pain 03/28/21 07/22/24 (Tylenol Extra Strength) clopidogrel 75 mg tablet 75 mg PO QAM 07/22/24 07/22/24 dulaglutide 4.5 mg/0.5 mL 4.5 mg SUBCUT Q7D 07/22/24 07/22/24 subcutaneous pen injector (Trulicity) famotidine 20 mg tablet 20 mg PO BID 07/22/24 07/22/24 insulin glargine 100 unit/mL (3 45 unit SUBCUT QAM 07/22/24 07/22/24 mL) subcutaneous pen (Lantus Solostar U-100 Insulin) Previous Rx's Medication Instructions Recorded fenofibrate nanocrystallized 145 145 mg PO DAILY #90 tabs 02/13/24 mg tablet (Tricor) evolocumab 140 mg/mL subcutaneous 140 mg SUBCUT .every 14 days #2 mL 04/30/24 pen injector (Lucian SurePatricick) aspirin 81 mg tablet,delayed 81 mg PO QAM #90 tabs 05/08/24 release carvedilol 3.125 mg tablet (Coreg) 3.125 mg PO BID #60 tabs 05/08/24 sennosides 8.6 mg-docusate sodium 1 tab-cap PO DAILY PRN 05/08/24 50 mg tablet (Senna-S) constipation #14 tabs Oxygen concentrator @2L NC #1 ea 05/19/24 nitroglycerin 0.4 mg sublingual 0.4 mg sublingual Q5M PRN chest 05/21/24 tablet pain #25 tabs dapagliflozin propanediol 10 mg 10 mg PO QAM #30 tabs 05/27/24 tablet (Farxiga) levothyroxine 25 mcg tablet 25 mcg PO DAILY #90 tabs 05/27/24 rosuvastatin 40 mg tablet (Crestor) 40 mg PO DAILY #90 tabs 05/27/24 umeclidinium 62.5 mcg-vilanterol 1 inh inhalation Q24H #60 ea 05/27/24 25 mcg/actuation powdr for inhalation (Anoro Ellipta) blood sugar diagnostic (OneTouch #100 ea 06/17/24 Ultra Test strips) blood-glucose meter (OneTouch #1 ea 06/17/24 Ultra2 Meter) lancets 33 gauge (OneTouch Delica #100 ea 06/17/24 Plus Lancet) pen needle, diabetic 33 gauge x #100 ea 06/17/24 5/32 isosorbide mononitrate 30 mg 30 mg PO DAILY #30 tabs 06/26/24 tablet,extended release 24 hr fluticasone furoate 100 1 inh inhalation Q24H #30 ea 06/29/24 mcg/actuation blister powder for inhalation (Arnuity Ellipta) pantoprazole 40 mg tablet,delayed 40 mg PO DAILY #30 tabs 07/07/24 release (Protonix) hydroxyzine pamoate 25 mg capsule 25 mg PO BID PRN anxiety #60 caps 07/08/24 Allergies Allergy/AdvReac Type Severity Reaction Status Date / Time shellfish derived Allergy Severe ADR-Itching Verified 07/22/24 13:48 trimethoprim [From Bactrim] Allergy Severe ALGY-Rash Verified 07/22/24 13:48 sulfamethoxazole AdvReac Severe ALGY-Rash Verified 07/22/24 13:48 [From Bactrim] Review of Systems General: Reports: 10 or more systems reviewed and unremarkable except in HPI and below Const: Denies: fever(s), chills, fatigue or malaise Eyes: Denies: change in vision or blurry vision Card: Reports: chest pain; Denies: palpitations Resp: Denies: dyspnea or productive cough GI: Reports: heartburn; Denies: abdominal pain, nausea or vomiting : Denies: flank pain Musc: Reports: other (Chest pain with movement of the arms); Denies: extremity pain or extremity swelling Skin/Breast: Denies: rash or pruritus Neuro: Denies: headache(s) Psych: Denies: anxiety or depression Jackson/Lymph: Denies: easy bleeding All/Imm: Denies: urticaria, throat swelling or facial swelling PFSH ED PFSH: Medical History Acid reflux disease Coronary artery disease Diabetes mellitus with hyperglycemia, with long-term current use of insulin Essential (primary) hypertension Atherosclerotic heart disease of [place] coronary artery with unstable angina pectoris Unstable angina Stable angina History of smoking 10-25 pack years Stop smoking 2019 Adult onset hypothyroidism Hypertriglyceridemia History of cigarette smoking Anxiety Mixed hyperlipidemia DM neuropathy, painful Surgical History History of coronary angioplasty with insertion of stent 2019 Basal cell carcinoma (BCC) in situ of skin September 2017 on back History of colonoscopy Family History Mother Diabetes Heart disease Father Cancer lung cancer Father Hypertension Many of the family members have high blood pressure Social History Smoking and tobacco/nicotine status: former use of tobacco/nicotine Quit status (tobacco/nicotine): has quit using Former quit date comment: 03/20/20 Second hand smoke exposure: Yes Alcohol intake: never Substance/Drug Use: never Adopted: No Caregiver/support person: No Lives independently: Yes Household members: spouse Housing: House Marital status: service: No Current occupational status: employed Do you think of yourself as: Straight/Heterosexual Current gender identity: Male Physical Exam Const: COMMON NORMALS: no acute distress (Somewhat anxious appearing, appears in no acute distress), patient oriented x3 and healthy appearing HENMT: COMMON NORMALS: normocephalic and atraumatic HEAD & SCALP: normocephalic and atraumatic Eye: COMMON NORMALS: Equal, round and reactive pupils present and EOMs intact bilaterally PUPIL: Yes Equal, round and reactive pupils present Neck/C-Spine: COMMON NORMALS: full ROM, supple and no JVD Lymph: LYMPHATIC: no lymphadenopathy noted Chest: COMMONS NORMALS: normal inspection of the chest and normal palpation of entire chest wall Resp: COMMON NORMALS: normal respiratory effort, No retractions and clear to auscultation bilaterally EFFORT & INSPECTION: Yes able to speak in complete sentences and Yes symmetric chest movement AUSCULTATION: clear to auscultation bilaterally Cardio: COMMON NORMALS: no JVD, regular rate and regular rhythm RATE: regular rate RHYTHM: regular rhythm GI: COMMON NORMALS: Normal to inspection, nondistended, normoactive bowel sounds present, Soft to palpation and non-tender INSPECTION: Yes normal to inspection PALPATION: Yes Soft to palpation : COMMON NORMALS: Yes no CVA tenderness BLADDER/KIDNEY EXAM: Yes no CVA tenderness Back/Pelvis: COMMON NORMALS: no CVA tenderness Extremity: COMMON NORMALS: normal to inspection and full ROM Neuro: COMMON NORMALS: patient oriented x3, CN's II-XII intact bilaterally, moves all extremities and no focal motor deficits Psych: COMMON NORMALS: mental status grossly normal, Normal thought process present, cooperative and normal affect THOUGHT PROCESS: Normal thought process present Skin: COMMON NORMALS: no rashes or lesions noted GENERAL SKIN EXAM: no rashes or lesions noted Course Vital Signs: Vital signs: Vital Signs Temperature 97.7 F 07/22/24 13:44 Pulse Rate 77 07/22/24 16:30 Respiratory Rate 18 07/22/24 16:30 Blood Pressure 122/77 07/22/24 18:23 Pulse Oximetry 97 07/22/24 16:30 Oxygen Delivery Me thod Room Air 07/22/24 16:30 MDM - Chest Pain Medical Decision Making Due to patient's symptoms and condition basic cardiac workup will be obtained will continue to follow. Patient is first her troponin came back unremarkable working on the second to return it also came back unremarkable patient stable for discharge home this appears to be more GI in nature patient advised further follow-up primary care in 3 to 5 days and was instructed to return the interim if any of his symptoms persist or worse. Lab Data 07/22/24 15:23 07/22/24 15:23 Radiology Impressions Chest X-Ray 07/22/24 14:50 Impression: Negative chest. Laboratory Results WBC 9.37 10^3/uL (3.29-11.43) 07/22/24 15: RBC 5.02 10^6/uL (3.85-5.65) 07/22/24 15:23 Hgb 15.40 g/dL (11.27-16.99) 07/22/24 15:23 Hct 47.0 % (37-53) 07/22/24 15:23 MCV 93.6 fl (82-101) 07/22/24 15:23 MCH 30.7 pg (27-33) 07/22/24 15:23 MCHC 32.8 g/dL (30-55) 07/22/24 15:23 RDW 15.5 % (12.1-15.1) H 07/22/24 15:23 Plt Count 244 10^3/cmm (157-399) 07/22/24 15:23 MPV 9.7 fL (7.4-10.4) 07/22/24 15:23 Neut % (Auto) 76.5 % 07/22/24 15:23 Lymph % (Auto) 12.7 % 07/22/24 15:23 [place] % (Auto) 7.2 % 07/22/24 15:23 Eos % (Auto) 2.5 % 07/22/24 15:23 Baso % (Auto) 0.9 % 07/22/24 15:23 Neut # (Auto) 7.18 10^3/uL (1.8-7.7) 07/22/24 15:23 Lymph # (Auto) 1.2 10^3/uL (0.8-4.8) 07/22/24 15:23 [place] # (Auto) 0.7 10^3/uL (0.2-0.9) 07/22/24 15:23 Eos # (Auto) 0.2 10^3/uL (0.0-0.8) 07/22/24 15:23 Baso # (Auto) 0.1 10^3/uL (0.0-0.1) 07/22/24 15:23 Nucleated RBC % (auto) 0 % 07/22/24 15:23 Nucleated RBCs # 0.0 /100WBC 07/22/24 15:23 Sodium 135 mmol/L (136-145) L 07/22/24 15:23 Potassium 4.0 mmol/L (3.5-5.1) 07/22/24 15:23 Chloride 102 mmol/L (98-107) 07/22/24 15:23 Carbon Dioxide 21 mmol/L (22-29) L 07/22/24 15:23 Anion Gap 16.0 (5-19) 07/22/24 15:23 BUN 16 mg/dL (6-20) 07/22/24 15:23 Creatinine 0.7 mg/dL (0.7-1.2) 07/22/24 15:23 GFR Calculation 115.8 mL/min (90-130) 07/22/24 15:23 Glucose 173 mg/dL (65-115) H 07/22/24 15:23 Calculated Osmolality 285 mOsm/kg (285-295) 07/22/24 15:23 Calcium 9.7 mg/dL (8.5-10.5) 07/22/24 15:23 Total Bilirubin 0.3 mg/dL (0.15-1.2) 07/22/24 15:23 AST 22 U/L (0-40) 07/22/24 15:23 ALT 21 U/L (0-41) 07/22/24 15:23 Alkaline Phosphatase 100 U/L (40-130) 07/22/24 15:23 Troponin T Baseline 7 ng/L (0-15) 07/22/24 15:23 Troponin T 120 Minute 6.72 ng/L (0-15) 07/22/24 17:29 Delta Troponin T -0.28 ABS# (0-10) L 07/22/24 17:29 NT-Pro-B Natriuret Pep 87 pg/mL (0-125) 07/22/24 15:23 Total Protein 7.4 g/dL (6.6-8.7) 07/22/24 15:23 Albumin 4.3 g/dL (3.5-5.2) 07/22/24 15:23 Globulin 3.1 g/dL (1.3-4.6) 07/22/24 15:23 All radiology interpretation(s) finalized by discharge Discharge Plan Discharge Patient Disposition: Home Clinical Impression: Atypical chest pain Gastritis Qualifiers: Gastritis type: unspecified gastritis Chronicity: unspecified Gastritis bleeding: without bleeding Qualified Code(s): K29.70 - Gastritis, unspecified, without bleeding Condition: Stable Prescriptions: No Action fenofibrate nanocrystallized [Tricor] 145 mg tablet 145 mg PO DAILY Qty: 90 1RF Repatha SureClick 140 mg/mL pen injector 140 mg SUBCUT .every 14 days Qty: 2 2RF pantoprazole [Protonix] 40 mg tablet,delayed release (DR/EC) 40 mg PO DAILY Qty: 30 0RF hydroxyzine pamoate 25 mg capsule 25 mg PO BID PRN (Reason: anxiety) Qty: 60 0RF nitroglycerin 0.4 mg tablet, sublingual 0.4 mg SUBLINGUAL Q5M PRN (Reason: chest pain) Qty: 25 6RF Rx Instructions: do not exceed 3 doses per episode Farxiga 10 mg tablet 10 mg PO QAM Qty: 30 2RF levothyroxine 25 mcg tablet 25 mcg PO DAILY Qty: 90 1RF rosuvastatin [Crestor] 40 mg tablet 40 mg PO DAILY Qty: 90 1RF Anoro Ellipta 62.5-25 mcg/actuation blister with device 1 inh inhalation Q24H Qty: 60 2RF (DME) blood-glucose meter [OneTouch Ultra2 Meter] Misc See Rx Instructions .Route Qty: 1 0RF Rx Instructions: As directed (DME) OneTouch Ultra Test Strip See Rx Instructions .Route Qty: 100 5RF Rx Instructions: 3 times day (DME) lancets [OneTouch Delica Plus Lancet] 33 gauge misc See Rx Instructions .Route Qty: 100 5RF Rx Instructions: As directed (DME) pen needle, diabetic 33 gauge x 5/32 needle See Rx Instructions .ROUTE .MEDSUPPLY Qty: 100 5RF Rx Instructions: 3 times day (DME) Oxygen concentrator @2L NC See Rx Instructions .ROUTE .MEDSUPPLY Qty: 1 0RF Rx Instructions: Use 2L NC 24 hours for 99 months Arnuity Ellipta 100 mcg/actuation blister with device 1 inh inhalation Q24H Qty: 30 2RF acetaminophen [Tylenol Extra Strength] 500 mg Tablet 1,000 mg PO Q4H PRN (Reason: Pain) aspirin 81 mg Tablet,Delayed Release (Dr/Ec) 81 mg PO QAM Qty: 90 4RF carvedilol [Coreg] 3.125 mg tablet 3.125 mg PO BID Qty: 60 3RF Rx Instructions: must administer with a meal/food, hold if bp<100/70 90 sennosides-docusate sodium [Senna-S] 8.6-50 mg tablet 1 tab-cap PO DAILY PRN (Reason: constipation) Qty: 14 0RF famotidine 20 mg tablet 20 mg PO BID Trulicity 4.5 mg/0.5 mL pen injector 4.5 mg SUBCUT Q7D clopidogrel 75 mg tablet 75 mg PO QAM insulin glargine [Lantus Solostar U-100 Insulin] 100 unit/mL (3 mL) insulin pen 45 unit SUBCUT QAM isosorbide mononitrate 30 mg tablet extended release 24 hr 30 mg PO DAILY Qty: 30 0RF Hold Instructions: hypotension Discharge Orders: Discharge ED (Routine); Ordered 07/22/24 Ordered By: Gopal Serrano Referrals: Christiano Serrato, WEATHERIZATION OPERATIONS MANAGER-C [Primary Care Provider] - 4-7 days Discharge Diet: Cardiac Discharge Activity: Increase activity as tolerated Patient Instructions: Chest Pain - Noncardiac, Chest Pain - Chest Wall, Chest Pain (ED), Gastritis (ED) Activity Restrictions/Additional Instructions: Continue taking your Pepcid as prescribed this further follow-up with primary care in 3 to 5 days your lab work and imaging obtained to the emergency department 2 days come back unremarkable for no obvious heart related issues. Please return the interim if any of your symptoms persist or worsen. Coding Level of Care Code ED Manager Technical for Scott Hayward
--- NOTE | 2024-07-22 15:01 | ECG_ITS ---
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 Measurements Intervals [place] Rate: 75 P: 56 [place]: 192 QRS: 72 QRSD: 93 T: 71 QT: 377 QTc: 423 Interpretive Statements SINUS RHYTHM NONSPECIFIC T-WAVE ABNORMALITY Compared to ECG 07/22/2024 13:39:33 No significant changes Electronically Signed On 07-22-2024 17:44:04 COMMUNICATIONS CONSULTANT by Tana Rader M.D. [id number]
[2024-07-22] MEDS: aspirin 81 mg Chew Tablet 324 MG PO (15:10)
--- NOTE | 2024-07-22 15:16 | PC.PHAR ---
Pt provided current med list from 06/10/24. New orders after 06/10 are as follows: Famotidine 20mg bid, Trulicity 4.5mg w7d, Hydroxyzine pamoate 25mg bid prn, and Isosorbide mononitrate 30mg daily.
--- NOTE | 2024-07-22 15:18 | PC.NURSE ---
went to give pt nitro, pt states he doesn't want to take it, doesn't feel chest pain at this time and states he has nitro on him and doesn't need it right now. pt requesting to have lab work done and go from there.
[2024-07-22 15:42] LABS: Basophils # 0.1 10^3/uL (0.0-0.1); Basophils % 0.9 %; Eosinophils # 0.2 10^3/uL (0.0-0.8); Eosinophils % 2.5 %; Lymphocytes # 1.2 10^3/uL (0.8-4.8); Lymphocytes % 12.7 %; Mean Corpuscular HGB Conc 32.8 g/dL (30-55); Mean Corpuscular Hemoglobin 30.7 pg (27-33); Mean Corpuscular Volume 93.6 fl (82-101); Mean Platelet Volume 9.7 fL (7.4-10.4); Monocytes # 0.7 10^3/uL (0.2-0.9); Monocytes % 7.2 %; Neutrophils # 7.18 10^3/uL (1.8-7.7); Neutrophils % 76.5 %; Nucleated Red Blood Cells % 0 %; Platelet Count 244 10^3/cmm (157-399); Red Blood Count 5.02 10^6/uL (3.85-5.65); Red Cell Distribution Width 15.5 % (12.1-15.1); White Blood Count 9.37 10^3/uL (3.29-11.43)
[2024-07-22 15:58] LABS: Troponin(5th) Baseline 7 ng/L (0-15)
[2024-07-22 16:17] LABS: Alanine Aminotransferase 21 U/L (0-41); Albumin Level 4.3 g/dL (3.5-5.2); Alkaline Phosphatase 100 U/L (40-130); Blood Urea Nitrogen 16 mg/dL (6-20); Calcium 9.7 mg/dL (8.5-10.5); Carbon Dioxide 21 mmol/L (22-29); Chloride 102 mmol/L (98-107); Globulin 3.1 g/dL (1.3-4.6); Glomerular Filtration Rate 115.8 mL/min (90-130); Glucose 173 mg/dL (65-115); NT Pro B Type Natriuretic Pept 87 pg/mL (0-125); Osmolality Calculated 285 mOsm/kg (285-295); Sodium 135 mmol/L (136-145); Total Bilirubin 0.3 mg/dL (0.15-1.2); Total Protein 7.4 g/dL (6.6-8.7)
[2024-07-22 16:18] LABS: Aspartate Amino Transferase 22 U/L (0-40)
[2024-07-22 18:07] LABS: Troponin 5 2HR 6.72 ng/L (0-15)
[2024-07-22 18:08] LABS: Troponin 5 2HR Delta -0.28 ABS# (0-10)
== END 2024-07-22 18:52 | disposition home or self-care (01) ==
PROVIDERS: Emergency Provider Emergency Medicine; PCP Nurse Practitioner
DX: R07.89 Other chest pain (principal); K29.70 Gastritis, unspecified, without bleeding; Z79.82 Long term (current) use of aspirin; Z79.02 Long term (current) use of antithrombotics/antiplatelets; Z79.85 Long-term (current) use of injectable non-insulin antidiabetic drugs; Z87.891 Personal history of nicotine dependence; Z85.828 Personal history of other malignant neoplasm of skin; E78.2 Mixed hyperlipidemia; E11.9 Type 2 diabetes mellitus without complications; I25.110 Atherosclerotic heart disease of native coronary artery with unstable angina pectoris
CPT/HCPCS: 36415; 71045; 80053; 83880; 84484; 85025; 93005; 99285

== ENCOUNTER → 2024-08-21 08:10 | Outpatient (BNVA) | payer BC, MEDICAID, SELFPAY | PROVIDERS: PCP Nurse Practitioner; Visit Provider Nurse Practitioner | DX: E11.65 Type 2 diabetes mellitus with hyperglycemia (principal); Z79.4 Long term (current) use of insulin; E11.9 Type 2 diabetes mellitus without complications | CPT/HCPCS: 80053; 80061; 81000; 83036; 85025 ==

== ENCOUNTER 2024-09-10 22:58 | Emergency (ER) | payer BC, MEDICAID, SELFPAY ==
--- NOTE | 2024-09-10 22:59 | ECG_ITS ---
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 Measurements Intervals [place] Rate: 71 P: 66 SD: 215 QRS: 79 QRSD: 88 T: 56 QT: 360 QTc: 391 Interpretive Statements SINUS RHYTHM WITH FIRST DEGREE AV BLOCK Compared to ECG 07/22/2024 15:01:12 First degree AV block now present T-wave abnormality no longer present Electronically Signed On 09-11-2024 17:51:06 RELATIONSHIP CONSULTANT by Jerry Dobbs M.D. [id number] [id number]
[2024-09-10 23:04] VITALS: BP 149/102; PULSE 82; RESP 18; TEMP 36.4; O2SAT 97
--- NOTE | 2024-09-10 23:23 | ECG_ITS ---
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
--- NOTE | 2024-09-10 23:24 | XRR_ITS ---
PROCEDURE INFORMATION: Exam: XR Chest Exam date and time: 09/10/2024 11:27 PM Age: 59 years old Clinical indication: Chest pressure and chest wall pain; Prior surgery; Surgery date: 6+ months; Surgery type: Stents; Additional info: Cp TECHNIQUE: Imaging protocol: Radiologic exam of the chest. Views: 1 view. COMPARISON: CR XR chest 1V portable [id number] 07/22/2024 2:58 PM FINDINGS: Lungs: Right lower lobe 5.3 mm pulmonary nodule suggestive of a calcified granuloma, consider confirmation with chest CT Pleural spaces: Unremarkable. No pleural effusion. No pneumothorax. Heart/Mediastinum: Cardiomegaly. Bones/joints: Unremarkable. XR/XR chest 1V portable [id number] IMPRESSION: 1. Cardiomegaly, negative for infiltrate. 2. Right lower lobe 5.3 mm pulmonary nodule suggestive of a calcified granuloma, consider confirmation with chest CT
[2024-09-10 23:36] LABS: Basophils # 0.1 10^3/uL (0.0-0.1); Basophils % 1.1 %; Eosinophils # 0.2 10^3/uL (0.0-0.8); Eosinophils % 2.2 %; Hematocrit 47.3 % (37-53); Lymphocytes # 1.5 10^3/uL (0.8-4.8); Lymphocytes % 16.9 %; Mean Corpuscular Hemoglobin 30.6 pg (27-33); Mean Corpuscular Volume 92.9 fl (82-101); Mean Platelet Volume 9.6 fL (7.4-10.4); Monocytes # 0.8 10^3/uL (0.2-0.9); Monocytes % 8.7 %; Neutrophils % 70.8 %; Nucleated Red Blood Cells % 0 %; Platelet Count 240 10^3/cmm (157-399); Red Blood Count 5.09 10^6/uL (3.85-5.65); Red Cell Distribution Width 15.2 % (12.1-15.1); White Blood Count 9.05 10^3/uL (3.29-11.43)
--- NOTE | 2024-09-10 23:41 | W.ED.CHESTPA ---
HPI - Chest Pain General: Chief Complaint: Chest Pain Stated Complaint: CP Time Seen by Provider: 09/10/24 23:15 Source: patient Mode of arrival: ambulatory Limitations: no limitations History of Present Illness: Patient is a 59-year-old male with past medical history of coronary artery disease, diabetes, unstable angina, hyperlipidemia and hypertriglyceridemia, and smoking history who presents to the emergency department complaining of chest pain that began a couple of hours prior to arrival. States that he was sitting on the couch playing solitaire when the pain started, was to the left chest. States it was intermittent for couple of hours until it subsided spontaneously about 10 minutes prior to coming into the emergency department. He notes history of 5 stents, and recently had heart attack last fall. He notes that the pain just felt like a pain and did not radiate. States it was about a 5/10 and he does not report any specific alleviating or exacerbating factors. He does note that with prior instances of heart attack he was notably short of breath, has not had any shortness of breath this time. Denies any nausea, peripheral edema, palpitations, history of arrhythmias, or other symptoms. Reviewing med list does appear that he takes a baby aspirin as well as Plavix. Echocardiogram from last April reviewed showing EF of 58%. Catheterization from June 10 of last year shows severe coronary artery disease with three-vessel disease. At that time his proximal RCA had stent placed, as well as his mid RCA. At this time he has no complaints, vitals within normal limits. 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 Onset (ago): hour(s) Timing of current episode: now resolved Prior episodes: Yes Onset: during rest Pain location: left chest Pain radiation: none Severity: moderate Quality: other (Was just a pain ) Relieving factors: nothing Exacerbating factors: nothing Associated symptoms: Reports no associated symptoms; Deny abdominal pain, dyspnea, fever(s), nausea, palpitations or vomiting Treatment prior to arrival: none Risk Factors: Coronary artery disease risk factors: diabetes, smoking history, hyperlipidemia and hypertension Related Data Home Medications ?Medication ?Instructions ?Recorded ?Confirmed acetaminophen 500 mg tablet 1,000 mg PO Q4H PRN Pain 03/28/21 08/25/24 (Tylenol Extra Strength) clopidogrel 75 mg tablet 75 mg PO QAM 07/22/24 08/25/24 famotidine 20 mg tablet 20 mg PO BID 07/22/24 08/25/24 insulin glargine 100 unit/mL (3 See Rx Instructions SUBCUT .in PM 07/28/24 08/25/24 mL) subcutaneous pen (Lantus Solostar U-100 Insulin) Previous Rx's ?Medication ?Instructions ?Recorded aspirin 81 mg tablet,delayed 81 mg PO QAM #90 tabs 05/08/24 release Oxygen concentrator @2L NC #1 ea 05/19/24 nitroglycerin 0.4 mg sublingual 0.4 mg sublingual Q5M PRN chest 05/21/24 tablet pain #25 tabs lancets 33 gauge (OneTouch Delica #100 ea 06/17/24 Plus Lancet) pen needle, diabetic 33 gauge x #100 ea 06/17/24 fluticasone furoate 100 1 inh inhalation Q24H #30 ea 06/29/24 mcg/actuation blister powder for inhalation (Arnuity Ellipta) blood sugar diagnostic (Oneuch #100 ea 07/28/24 Ultra Test strips) blood-glucose meter ([facility] ea 07/28/24 Ultra2 Meter) dapagliflozin propanediol 10 mg 10 mg PO QAM #30 tabs 08/25/24 tablet (Farxiga) duloxetine 20 mg capsule,delayed 20 mg PO BID #60 caps 08/25/24 release (Cymbalta) evolocumab 140 mg/mL subcutaneous 140 mg SUBCUT .every 14 days #2 mL 08/25/24 pen injector (Lucian Hall) levothyroxine 25 mcg tablet 25 mcg PO DAILY #90 tabs 08/25/24 magnesium oxide 800 mg (2 x 400 mg magnesium) PO 08/25/24 .with supper #60 tabs pantoprazole 20 mg tablet,delayed 20 mg PO DAILY #30 tabs 08/25/24 release rosuvastatin 40 mg tablet (Crestor) 40 mg PO DAILY #90 tabs 08/25/24 umeclidinium 62.5 mcg-vilanterol 1 inh inhalation Q24H #60 ea 08/25/24 25 mcg/actuation powdr for inhalation (Anoro Ellipta) carvedilol 3.125 mg tablet (Coreg) 3.125 mg PO BID #60 tabs 08/27/24 Allergies Allergy/AdvReac Type Severity Reaction Status Date / Time shellfish derived Allergy Severe ADR-Itching Verified 09/10/24 23:08 trimethoprim (From Bactrim) Allergy Severe ALGY-Rash Verified 09/10/24 23:08 sulfamethoxazole (From AdvReac Severe ALGY-Rash Verified 09/10/24 23:08 Bactrim) Review of Systems General: Reports: 10 or more systems reviewed and unremarkable except in HPI and below Const: Denies: fever(s), chills or fatigue Eyes: Denies: change in vision ENMT: Denies: throat pain, ear or mastoid pain or nasal discharge Card: Reports: chest pain; Denies: palpitations, swelling of feet/ankles or lightheadedness Resp: Denies: dyspnea, productive cough or wheezing GI: Denies: abdominal pain, nausea, vomiting, diarrhea or constipation : Denies: flank pain, difficulty urinating, dysuria or urinary frequency Musc: Denies: neck pain, back pain or joint pain Skin/Breast: Denies: rash Neuro: Denies: headache(s), numbness in extremities or weakness in extremities PFSH ED PFSH: Medical History Acid reflux disease Coronary artery disease Diabetes mellitus with hyperglycemia, with long-term current use of insulin Essential (primary) hypertension Atherosclerotic heart disease of [place] coronary artery with unstable angina pectoris Unstable angina Stable angina History of smoking 10-25 pack years Stop smoking 2019 Adult onset hypothyroidism Hypertriglyceridemia History of cigarette smoking Anxiety Mixed hyperlipidemia DM neuropathy, painful Surgical History History of coronary angioplasty with insertion of stent 2019 Basal cell carcinoma (BCC) in situ of skin September 2017 on back History of colonoscopy Family History Mother Diabetes Heart disease Father Cancer lung cancer Father Hypertension Many of the family members have high blood pressure Social History Smoking and tobacco/nicotine status: former use of tobacco/nicotine Quit status (tobacco/nicotine): has quit using Former quit date comment: 03/20/20 Second hand smoke exposure: Yes Alcohol intake: never Substance/Drug Use: never Adopted: No Caregiver/support person: No Lives independently: Yes Household members: spouse Housing: House Marital status: service: No Current occupational status: employed Do you think of yourself as: Straight/Heterosexual Current gender identity: Male Physical Exam Const: COMMON NORMALS: no acute distress, patient oriented x3 and no limitations GENERAL APPEARANCE: cooperative, comfortable and well developed ORIENTATION/CONSCIOUSNESS: Yes awake, Yes oriented to person, Yes oriented to place and Yes oriented to time HENMT: COMMON NORMALS: normocephalic, atraumatic and hearing grossly normal bilaterally HEAD & SCALP: normocephalic and atraumatic Eye: COMMON NORMALS: Equal, round and reactive pupils present, EOMs intact bilaterally and conjunctivae normal CONJUNCTIVA: Yes conjunctivae normal PUPIL: Yes Equal, round and reactive pupils present Neck/C-Spine: COMMON NORMALS: full ROM, supple and no JVD Resp: COMMON NORMALS: normal respiratory effort, No retractions, No use of accessory muscles and clear to auscultation bilaterally AUSCULTATION: clear to auscultation bilaterally Cardio: COMMON NORMALS: no JVD, regular rate, regular rhythm, No clicks present (Cardio), No murmurs present (Cardio) and No rub (Cardio) RATE: regular rate RHYTHM: regular rhythm GI: COMMON NORMALS: Normal to inspection, nondistended, normoactive bowel sounds present, Soft to palpation and non-tender AUSCULTATION: Yes normoactive bowel sounds PALPATION: Yes Soft to palpation RECTAL EXAM: Yes deferred Extremity: COMMON NORMALS: normal to inspection, full ROM, capillary refill normal and no pedal edema Neuro: COMMON NORMALS: patient oriented x3, moves all extremities, no focal motor deficits and no sensory deficits noted SENSORIUM/ORIENTATION: Yes oriented to person, Yes oriented to place and Yes oriented to time Skin: COMMON NORMALS: no rashes or lesions noted GENERAL SKIN EXAM: no rashes or lesions noted Course Vital Signs: Vital signs: Vital Signs Temperature 97.5 F L 09/10/24 23:04 Pulse Rate 78 09/11/24 01:30 Respiratory Rate 19 H 09/11/24 01:30 Blood Pressure 133/79 09/11/24 01:30 Pulse Oximetry 97 09/11/24 01:30 Oxygen Delivery Me thod Room Air 09/11/24 00:54 MDM - Chest Pain Medical Decision Making Patient has cardiac history, is on baby aspirin Plavix and a statin medication. Recently had stents placed in May. Presenting with left chest pain that has resolved on arrival. Vitals have been stable throughout ED stay, blood pressure in the 150 systolic and this concerned the patient, he has been noted to be anxious as well at times. His baseline troponin was normal, BNP was normal. Rest of his lab work was unremarkable. EKG reviewed with physician showing normal sinus rhythm with no STEMI. Chest x-ray showing cardiomegaly with no acute findings. Patient does have a history of stable angina and unstable angina, also has acid reflux history and this could be musculoskeletal. Discussed with the patient option for observation admission but he states he sees his take up supervisor next week and would rather follow-up with them. Ultimately will discharge home but did give him strict return cautions if his pain worsens, if he has any breathing difficulties or any other concerns. He verbalized understanding. Discussed case with Dr. Raya. Lab Data 09/10/24 23:30 09/10/24 23:52 Radiology Impressions Chest X-Ray 09/10/24 23:24 IMPRESSION: 1. Cardiomegaly, negative for infiltrate. 2. Right lower lobe 5.3 mm pulmonary nodule suggestive of a calcified granuloma, consider confirmation with chest CT Laboratory Results WBC 9.05 10^3/uL (3.29-11.43) 09/10/24 23:30 RBC 5.09 10^6/uL (3.85-5.65) 09/10/24 23:30 Hgb 15.60 g/dL (11.27-16.99) 09/10/24 23:30 Hct 47.3 % (37-53) 09/10/24 23:30 MCV 92.9 fl (82-101) 09/10/24 23:30 MCH 30.6 pg (27-33) 09/10/24 23:30 MCHC 33.0 g/dL (30-55) 09/10/24 23:30 RDW 15.2 % (12.1-15.1) H 09/10/24 23:30 Plt Count 240 10^3/cmm (157-399) 09/10/24 23:30 MPV 9.6 fL (7.4-10.4) 09/10/24 23:30 Neut % (Auto) 70.8 % 09/10/24 23:30 Lymph % (Auto) 16.9 % 09/10/24 23:30 [place] % (Auto) 8.7 % 09/10/24 23:30 Eos % (Auto) 2.2 % 09/10/24 23:30 Baso % (Auto) 1.1 % 09/10/24 23:30 Neut # (Auto) 6.40 10^3/uL (1.8-7.7) 09/10/24 23:30 Lymph # (Auto) 1.5 10^3/uL (0.8-4.8) 09/10/24 23:30 [place] # (Auto) 0.8 10^3/uL (0.2-0.9) 09/10/24 23:30 Eos # (Auto) 0.2 10^3/uL (0.0-0.8) 09/10/24 23:30 Baso # (Auto) 0.1 10^3/uL (0.0-0.1) 09/10/24 23:30 Nucleated RBC % (auto) 0 % 09/10/24 23: Nucleated RBCs # 0.0 /100WBC 09/10/24 23:30 Sodium 134 mmol/L (136-145) L 09/10/24 23:52 Potassium 3.8 mmol/L (3.5-5.1) 09/10/24 23:52 Chloride 98 mmol/L (98-107) 09/10/24 23:52 Carbon Dioxide 21 mmol/L (22-29) L 09/10/24 23:52 Anion Gap 18.8 (5-19) 09/10/24 23:52 BUN 17 mg/dL (6-20) 09/10/24 23:52 Creatinine 0.7 mg/dL (0.7-1.2) 09/10/24 23:52 GFR Calculation 115.8 mL/min (90-130) 09/10/24 23:52 Glucose 135 mg/dL (65-115) H 09/10/24 23:52 Calculated Osmolality 282 mOsm/kg (285-295) L 09/10/24 23:52 Calcium 9.7 mg/dL (8.5-10.5) 09/10/24 23:52 Total Bilirubin 0.2 mg/dL (0.15-1.2) 09/10/24 23:52 AST 41 U/L (0-40) H 09/10/24 23:52 ALT 20 U/L (0-41) 09/10/24 23:52 Alkaline Phosphatase 137 U/L (40-130) H 09/10/24 23:52 Troponin T Baseline 7 ng/L (0-15) 09/10/24 23:30 Troponin T 120 Minute 9.25 ng/L (0-15) 09/11/24 01:20 Delta Troponin T 2.25 ABS# (0-10) 09/11/24 01:20 NT-Pro-B Natriuret Pep 37 pg/mL (0-125) 09/10/24 23:52 Total Protein 7.5 g/dL (6.6-8.7) 09/10/24 23:52 Albumin 4.1 g/dL (3.5-5.2) 09/10/24 23:52 Globulin 3.4 g/dL (1.3-4.6) 09/10/24 23:52 All radiology interpretation(s) finalized by discharge Discharge Plan Discharge Patient Disposition: Home Clinical Impression: Chest pain Qualifiers: Chest pain type: unspecified Qualified Code(s): R07.9 - Chest pain, unspecified Condition: Stable Prescriptions: No Action Farxiga 10 mg tablet 10 mg PO QAM Qty: 30 2RF duloxetine [Cymbalta] 20 mg capsule,delayed release(DR/EC) 20 mg PO BID Qty: 60 2RF levothyroxine 25 mcg tablet 25 mcg PO DAILY Qty: 90 1RF rosuvastatin [Crestor] 40 mg tablet 40 mg PO DAILY Qty: 90 1RF Anoro Ellipta 62.5-25 mcg/actuation blister with device 1 inh inhalation Q24H Qty: 60 2RF Repatha SureClick 140 mg/mL pen injector 140 mg SUBCUT .every 14 days Qty: 2 2RF magnesium oxide 400 mg magnesium tablet 800 mg PO .with supper Qty: 60 2RF pantoprazole 20 mg tablet,delayed release (DR/EC) 20 mg PO DAILY Qty: 30 2RF nitroglycerin 0.4 mg tablet, sublingual 0.4 mg SUBLINGUAL Q5M PRN (Reason: chest pain) Qty: 25 6RF Rx Instructions: do not exceed 3 doses per episode (DME) OneTouch Ultra Test Strip See Rx Instructions .Route Qty: 100 5RF Rx Instructions: 3 times day (DME) blood-glucose meter [OneTouch Ultra2 Meter] Misc See Rx Instructions .Route Qty: 1 0RF Rx Instructions: As directed (DME) lancets [OneTouch Delica Plus Lancet] 33 gauge misc See Rx Instructions .Route Qty: 100 5RF Rx Instructions: As directed (DME) pen needle, diabetic 33 gauge x 5/32 needle See Rx Instructions .ROUTE .MEDSUPPLY Qty: 100 5RF Rx Instructions: 3 times day (DME) Oxygen concentrator @2L NC See Rx Instructions .ROUTE .MEDSUPPLY Qty: 1 0RF Rx Instructions: Use 2L NC 24 hours for 99 months Arnuity Ellipta 100 mcg/actuation blister with device 1 inh inhalation Q24H Qty: 30 2RF carvedilol [Coreg] 3.125 mg tablet 3.125 mg PO BID Qty: 60 3RF Rx Instructions: must administer with a meal/food, hold if bp<100/70 90 acetaminophen [Tylenol Extra Strength] 500 mg Tablet 1,000 mg PO Q4H PRN (Reason: Pain) aspirin 81 mg Tablet,Delayed Release (Dr/Ec) 81 mg PO QAM Qty: 90 4RF famotidine 20 mg tablet 20 mg PO BID clopidogrel 75 mg tablet 75 mg PO QAM insulin glargine [Lantus Solostar U-100 Insulin] 100 unit/mL (3 mL) insulin pen See Rx Instructions SUBCUT .in PM Rx Instructions: 15-25 subcutaneously IN PM; Discharge Orders: Discharge ED (Routine); Ordered 09/11/24 Ordered By: Michael Venegas Referrals: Christiano Serrato, TAPE SEWING MACHINE OPERATOR-C [Primary Care Provider] - Patient Instructions: Angina (ED), Chest Pain (ED) Activity Restrictions/Additional Instructions: Follow-up with your take up supervisor next week as you already have scheduled. If you have any recurrence of the pain, shortness of breath, or any other concerns please return immediately for reevaluation. Continue taking all of your medications at home as prescribed. May take Tylenol as well for the pain. Print Language: Pashto Coding Level of Care Code ED Combatant Diver Officer for Scott Hayward
[2024-09-10 23:54] LABS: Troponin(5th) Baseline 7 ng/L (0-15)
[2024-09-11 00:02] VITALS: BP 145/93; PULSE 79; RESP 13; O2SAT 98
[2024-09-11 00:24] LABS: Albumin Level 4.1 g/dL (3.5-5.2); Alkaline Phosphatase 137 U/L (40-130); Anion Gap 18.8 (5-19); Blood Urea Nitrogen 17 mg/dL (6-20); Calcium 9.7 mg/dL (8.5-10.5); Carbon Dioxide 21 mmol/L (22-29); Chloride 98 mmol/L (98-107); Creatinine Clr Calc Pharmacy 144.3538; Globulin 3.4 g/dL (1.3-4.6); Glomerular Filtration Rate 115.8 mL/min (90-130); Glucose 135 mg/dL (65-115); NT Pro B Type Natriuretic Pept 37 pg/mL (0-125); Osmolality Calculated 282 mOsm/kg (285-295); Potassium 3.8 mmol/L (3.5-5.1); Sodium 134 mmol/L (136-145); Total Bilirubin 0.2 mg/dL (0.15-1.2); Total Protein 7.5 g/dL (6.6-8.7)
[2024-09-11 00:26] LABS: Alanine Aminotransferase 20 U/L (0-41); Aspartate Amino Transferase 41 U/L (0-40)
[2024-09-11 00:54] VITALS: BP 120/83; PULSE 72; RESP 17; O2SAT 96
[2024-09-11 01:30] VITALS: BP 133/79; PULSE 78; RESP 19; O2SAT 97
--- NOTE | 2024-09-11 01:45 | ECG_ITS ---
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
[2024-09-11 02:03] LABS: Troponin 5 2HR 9.25 ng/L (0-15); Troponin 5 2HR Delta 2.25 ABS# (0-10)
[2024-09-11 02:14] VITALS: BP 122/79; PULSE 74; O2SAT 97
== END 2024-09-11 02:16 | disposition home or self-care (01) ==
PROVIDERS: Emergency Provider Physician Assistant; PCP Nurse Practitioner
DX: R07.9 Chest pain, unspecified (principal); Z79.82 Long term (current) use of aspirin; Z79.4 Long term (current) use of insulin; Z79.02 Long term (current) use of antithrombotics/antiplatelets; Z87.891 Personal history of nicotine dependence; E11.40 Type 2 diabetes mellitus with diabetic neuropathy, unspecified; E78.5 Hyperlipidemia, unspecified; I10 Essential (primary) hypertension; I25.10 Atherosclerotic heart disease of native coronary artery without angina pectoris
CPT/HCPCS: 36415; 71045; 80053; 83880; 84484; 85025; 93005; 99285

== ENCOUNTER 2024-09-12 09:48 | Emergency (ER) | payer BC, MEDICAID, SELFPAY ==
[2024-09-12 10:18] VITALS: BP 125/79; PULSE 96; RESP 18; TEMP 36.6; O2SAT 96; BMI 33.5
--- NOTE | 2024-09-12 10:20 | ECG_ITS ---
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
--- NOTE | 2024-09-12 12:02 | XR_ITS ---
WS: [id number] Exam: XR chest 1V portable [id number] Date/Time of Exam: 09/12/2024 12:08 PM Reason For Exam: Chest pain Comparison 09/10/2024. The lungs are fully expanded and clear. Normal cardiomediastinal silhouette. Bony structures are intact. No pleural effusions. XR/XR chest 1V portable [id number] IMPRESSION: 1. No acute cardiopulmonary finding.
--- NOTE | 2024-09-12 12:18 | W.ED.URI ---
HPI - URI/Sore Throat General: Chief Complaint: Upper Respiratory Infection Stated Complaint: vomiting, pain in left arm Time Seen by Provider: 09/12/24 12:01 History of Present Illness: 59-year-old man with history of hypertension, coronary artery disease status post 5 stents, diabetes, obesity, hypothyroidism and anxiety who presents the emergency room with a cough, some posttussive emesis this morning, some tingling in his arm. He says when he called his clinic they told him to come to the emergency room because his primary care physician was not there. He is a bit frustrated by this. He was here couple of days ago with severe chest pain and had a negative workup at that time. No fevers. No altered mental status. No abdominal pain. Related Data Home Medications ?Medication ?Instructions ?Recorded ?Confirmed acetaminophen 500 mg tablet 1,000 mg PO Q4H PRN Pain 03/28/21 09/12/24 (Tylenol Extra Strength) clopidogrel 75 mg tablet 75 mg PO QAM 07/22/24 09/12/24 famotidine 20 mg tablet 20 mg PO BID 07/22/24 09/12/24 insulin glargine 100 unit/mL (3 45 unit SUBCUT QPM 07/28/24 09/12/24 mL) subcutaneous pen (Lantus Solostar U-100 Insulin) pantoprazole 20 mg tablet,delayed 40 mg PO DAILY 09/12/24 09/12/24 release Previous Rx's ?Medication ?Instructions ?Recorded aspirin 81 mg tablet,delayed 81 mg PO QAM #90 tabs 05/08/24 release nitroglycerin 0.4 mg sublingual 0.4 mg sublingual Q5M PRN chest 05/21/24 tablet pain #25 tabs fluticasone furoate 100 1 inh inhalation Q24H #30 ea 06/29/24 mcg/actuation blister powder for inhalation (Arnuity Ellipta) dapagliflozin propanediol 10 mg 10 mg PO QAM #30 tabs 08/25/24 tablet (Farxiga) duloxetine 20 mg capsule,delayed 20 mg PO BID #60 caps 08/25/24 release (Cymbalta) evolocumab 140 mg/mL subcutaneous 140 mg SUBCUT .every 14 days #2 mL 08/25/24 pen injector (Lucian Hall) levothyroxine 25 mcg tablet 25 mcg PO DAILY #90 tabs 08/25/24 rosuvastatin 40 mg tablet (Crestor) 40 mg PO DAILY #90 tabs 08/25/24 umeclidinium 62.5 mcg-vilanterol 1 inh inhalation Q24H #60 ea 08/25/24 25 mcg/actuation powdr for inhalation (Anoro Ellipta) carvedilol 3.125 mg tablet (Coreg) 3.125 mg PO BID #60 tabs 08/27/24 Allergies Allergy/AdvReac Type Severity Reaction Status Date / Time shellfish derived Allergy Severe ADR-Itching Verified 09/10/24 23:08 trimethoprim (From Bactrim) Allergy Severe ALGY-Rash Verified 09/10/24 23:08 sulfamethoxazole (From AdvReac Severe ALGY-Rash Verified 09/10/24 23:08 Bactrim) Review of Systems Narrative: Constitutional symptoms: Negative except as documented in HPI. Skin symptoms: Negative except as documented in HPI. Eye symptoms: Negative except as documented in HPI. ENMT symptoms: Negative except as documented in HPI. Respiratory symptoms: Negative except as documented in HPI. Cardiovascular symptoms: Negative except as documented in HPI. Gastrointestinal symptoms: Negative except as documented in HPI. Genitourinary symptoms: Negative except as documented in HPI. Musculoskeletal symptoms: Negative except as documented in HPI. Neurologic symptoms: Negative except as documented in HPI. Psychiatric symptoms: Negative except as documented in HPI. Endocrine symptoms: Negative except as documented in HPI. PFSH ED PFSH: Medical History Acid reflux disease Coronary artery disease Diabetes mellitus with hyperglycemia, with long-term current use of insulin Essential (primary) hypertension Atherosclerotic heart disease of [place] coronary artery with unstable angina pectoris Unstable angina Stable angina History of smoking 10-25 pack years Stop smoking 2019 Adult onset hypothyroidism Hypertriglyceridemia History of cigarette smoking Anxiety Mixed hyperlipidemia DM neuropathy, painful Surgical History History of coronary angioplasty with insertion of stent 2019 Basal cell carcinoma (BCC) in situ of skin September 2017 on back History of colonoscopy Family History Mother Diabetes Heart disease Father Cancer lung cancer Father Hypertension Many of the family members have high blood pressure Social History Smoking and tobacco/nicotine status: former use of tobacco/nicotine Quit status (tobacco/nicotine): has quit using Former quit date comment: 03/20/20 Second hand smoke exposure: Yes Alcohol intake: never Substance/Drug Use: never Adopted: No Caregiver/support person: No Lives independently: Yes Household members: spouse Housing: House Marital status: service: No Current occupational status: employed Do you think of yourself as: Straight/Heterosexual Current gender identity: Male Physical Exam Narrative: EXAM NARRATIVE: General: Alert, no acute distress. Skin: Warm, dry. Head: Normocephalic, atraumatic. Neck: Supple, trachea midline. Eye: Extraocular movements are intact. Ears, nose, mouth and throat: mucosa moist. Cardiovascular: Regular, Normal peripheral perfusion. Respiratory: Lungs are clear to auscultation, respirations are non-labored, breath sounds are equal, Symmetrical chest wall expansion. Gastrointestinal: Soft, Nontender, Non distended Musculoskeletal: Normal ROM, no deformity. Neurological: Alert and oriented, No focal neurological deficit observed. Psychiatric: Cooperative, appropriate mood & affect. Course Vital Signs: Vital signs: Vital Signs Temperature 97.9 F 09/12/24 10:18 Pulse Rate 82 09/12/24 13:39 Respiratory Rate 18 09/12/24 10:18 Blood Pressure 102/68 09/12/24 13:39 Pulse Oximetry 95 09/12/24 13:39 Oxygen Delivery Me thod Room Air 09/12/24 10:18 MDM - URI/Sore Throat Medical Decision Making Differential diagnosis for patient with chest pain includes but is not limited to and based on the above HPI, review of systems and physical exam: Pneumonia. unstable angina. angina. Acute coronary syndrome / [place]. Pulmonary embolism. Costochondritis / musculoskeletal. Pleurisy. Pericarditis. Esophageal spasm. Pancreatis. Cholecystitis. Orders placed to evaluate differential diagnosis based on the above differential, HPI and physical exam EKG: Time 1020. Rate 91. Normal sinus rhythm, No ST-T changes, no ectopy, normal OK & QRS intervals, This was reviewed and interpreted by the ER physician at 1025. Repeat EKG: Time 1332. Rate 77. Normal sinus rhythm, No ST-T changes, no ectopy, normal OK & QRS intervals, This was reviewed and interpreted by myself the ER physician at 1340. No significant changes from EKG done previously in the emergency room other than a slight decrease in heart rate. Chest x-ray: No acute process. No infiltrate. No pneumothorax. This was reviewed and interpreted by myself the emergency room physician. I also reviewed the radiology report. Lab Review: Laboratory results were reviewed and interpreted by myself the emergency room physician. Mild leukocytosis with a white count of 12,000. No anemia. No renal failure. I reviewed the patient's medical record. Reexamination: Patient remained stable. No increased work of breathing. No altered mental status. No focal motor deficits. Assessment and plan: Upper respiratory infection Posttussive emesis - Discharged home - Discussed plan with patient. Answered any questions. - Evaluation and treatment of this problem were appropriate in the emergency setting. Lab Data 09/12/24 12:39 09/12/24 12:39 Radiology Impressions Chest X-Ray 09/12/24 12:02 IMPRESSION: 1. No acute cardiopulmonary finding. Laboratory Results WBC 12.81 10^3/uL (3.29-11.43) H 09/12/24 12:39 RBC 5.63 10^6/uL (3.85-5.65) 09/12/24 12:39 Hgb 16.90 g/dL (11.27-16.99) 09/12/24 12:39 Hct 52.7 % (37-53) 09/12/24 12:39 MCV 93.6 fl (82-101) 09/12/24 12:39 MCH 30.0 pg (27-33) 09/12/24 12:39 MCHC 32.1 g/dL (30-55) 09/12/24 12:39 RDW 15.4 % (12.1-15.1) H 09/12/24 12:39 Plt Count 239 10^3/cmm (157-399) 09/12/24 12:39 MPV 9.6 fL (7.4-10.4) 09/12/24 12:39 Neut % (Auto) 78.7 % 09/12/24 12:39 Lymph % (Auto) 11.8 % 09/12/24 12:39 [place] % (Auto) 7.0 % 09/12/24 12:39 Eos % (Auto) 1.5 % 09/12/24 12:39 Baso % (Auto) 0.6 % 09/12/24 12:39 Neut # (Auto) 10.08 10^3/uL (1.8-7.7) H 09/12/24 12:39 Lymph # (Auto) 1.5 10^3/uL (0.8-4.8) 09/12/24 12:39 [place]nott # (Auto) 0.9 10^3/uL (0.2-0.9) 09/12/24 12:39 Eos # (Auto) 0.2 10^3/uL (0.0-0.8) 09/12/24 12:39 Baso # (Auto) 0.1 10^3/uL (0.0-0.1) 09/12/24 12:39 Nucleated RBC % (auto) 0 % 09/12/24 12:39 Nucleated RBCs # 0.0 /100WBC 09/12/24 12:39 Sodium 134 mmol/L (136-145) L 09/12/24 12:39 Potassium 3.9 mmol/L (3.5-5.1) 09/12/24 12:39 Chloride 99 mmol/L (98-107) 09/12/24 12:39 Carbon Dioxide 20 mmol/L (22-29) L 09/12/24 12:39 Anion Gap 18.9 (5-19) 09/12/24 12:39 BUN 11 mg/dL (6-20) 09/12/24 12:39 Creatinine 0.6 mg/dL (0.7-1.2) L 09/12/24 12:39 GFR Calculation 138.4 mL/min (90-130) H 09/12/24 12:39 Glucose 90 mg/dL (65-115) 09/12/24 12:39 Calculated Osmolality 277 mOsm/kg (285-295) L 09/12/24 12:39 Calcium 9.5 mg/dL (8.5-10.5) 09/12/24 12:39 Total Bilirubin 0.5 mg/dL (0.15-1.2) 09/12/24 12:39 AST 21 U/L (0-40) 09/12/24 12:39 ALT 26 U/L (0-41) 09/12/24 12:39 Alkaline Phosphatase 93 U/L (40-130) 09/12/24 12:39 Troponin T Baseline 9 ng/L (0-15) 09/12/24 12:39 NT-Pro-B Natriuret Pep 83 pg/mL (0-125) 09/12/24 12:39 Total Protein 7.9 g/dL (6.6-8.7) 09/12/24 12:39 Albumin 4.3 g/dL (3.5-5.2) 09/12/24 12:39 Globulin 3.6 g/dL (1.3-4.6) 09/12/24 12:39 Influenza A (PCR) Negative (Negative) 09/12/24 12:46 Influenza Type B (PCR) Negative (Negative) 09/12/24 12:46 RSV (PCR) Negative (Negative) 09/12/24 12:46 SARS-CoV-2 (PCR) Negative (Negative) 09/12/24 12:46 All radiology interpretation(s) finalized by discharge Discharge Plan Discharge Patient Disposition: Home Clinical Impression: Upper respiratory infection Condition: Stable Prescriptions: No Action Farxiga 10 mg tablet 10 mg PO QAM Qty: 30 2RF duloxetine [Cymbalta] 20 mg capsule,delayed release(DR/EC) 20 mg PO BID Qty: 60 2RF levothyroxine 25 mcg tablet 25 mcg PO DAILY Qty: 90 1RF rosuvastatin [Crestor] 40 mg tablet 40 mg PO DAILY Qty: 90 1RF Anoro Ellipta 62.5-25 mcg/actuation blister with device 1 inh inhalation Q24H Qty: 60 2RF Repatha SureClick 140 mg/mL pen injector 140 mg SUBCUT .every 14 days Qty: 2 2RF nitroglycerin 0.4 mg tablet, sublingual 0.4 mg SUBLINGUAL Q5M PRN (Reason: chest pain) Qty: 25 6RF Rx Instructions: do not exceed 3 doses per episode Arnuity Ellipta 100 mcg/actuation blister with device 1 inh inhalation Q24H Qty: 30 2RF carvedilol [Coreg] 3.125 mg tablet 3.125 mg PO BID Qty: 60 3RF Rx Instructions: must administer with a meal/food, hold if bp<100/70 90 acetaminophen [Tylenol Extra Strength] 500 mg Tablet 1,000 mg PO Q4H PRN (Reason: Pain) aspirin 81 mg Tablet,Delayed Release (Dr/Ec) 81 mg PO QAM Qty: 90 4RF famotidine 20 mg tablet 20 mg PO BID clopidogrel 75 mg tablet 75 mg PO QAM insulin glargine [Lantus Solostar U-100 Insulin] 100 unit/mL (3 mL) insulin pen 45 unit SUBCUT QPM Rx Instructions: 45 subcutaneously IN PM; pantoprazole 20 mg tablet,delayed release (DR/EC) 40 mg PO DAILY Discharge Orders: Discharge ED (Routine); Ordered 09/12/24 Ordered By: Yumi Tirado Referrals: Christiano Serrato, REINSURANCE ANALYST-C [Primary Care Provider] - Discharge Diet: Usual diet Discharge Activity: Increase activity as tolerated Patient Instructions: Upper Respiratory Infection (ED), Opioid Safety, Pain Management Activity Restrictions/Additional Instructions: Thank you for choosing [facility] for your healthcare needs today. Please realize this is an emergency room and that we are providing you with a medical screening exam and this may not be complete and all inclusive of all the testing and or work up that you may need to determine your ailment or severity of your illness. You have been screened and evaluated and felt safe for discharge. Health conditions do change or evolve sometimes and as such it is important that you follow up with your Primary Doctor to be re checked, 3-5 days is a general good time frame for follow up. You are always welcome to return to the ED for re assessment if your symptoms are worsening or you have new concerns Print Language: Yi Coding Level of Care Code ED Heavy Coil Winder for Scott Hayward
[2024-09-12 12:59] VITALS: BP 114/84; PULSE 87; O2SAT 94
[2024-09-12 13:00] LABS: Basophils # 0.1 10^3/uL (0.0-0.1); Basophils % 0.6 %; Eosinophils # 0.2 10^3/uL (0.0-0.8); Eosinophils % 1.5 %; Hematocrit 52.7 % (37-53); Lymphocytes # 1.5 10^3/uL (0.8-4.8); Lymphocytes % 11.8 %; Mean Corpuscular HGB Conc 32.1 g/dL (30-55); Mean Corpuscular Volume 93.6 fl (82-101); Mean Platelet Volume 9.6 fL (7.4-10.4); Monocytes # 0.9 10^3/uL (0.2-0.9); Neutrophils # 10.08 10^3/uL (1.8-7.7); Neutrophils % 78.7 %; Nucleated Red Blood Cells % 0 %; Platelet Count 239 10^3/cmm (157-399); Red Blood Count 5.63 10^6/uL (3.85-5.65); Red Cell Distribution Width 15.4 % (12.1-15.1); White Blood Count 12.81 10^3/uL (3.29-11.43)
[2024-09-12 13:33] LABS: Alanine Aminotransferase 26 U/L (0-41); Albumin Level 4.3 g/dL (3.5-5.2); Alkaline Phosphatase 93 U/L (40-130); Anion Gap 18.9 (5-19); Aspartate Amino Transferase 21 U/L (0-40); Blood Urea Nitrogen 11 mg/dL (6-20); Calcium 9.5 mg/dL (8.5-10.5); Carbon Dioxide 20 mmol/L (22-29); Chloride 99 mmol/L (98-107); Creatinine Clr Calc Pharmacy 168.4128; Globulin 3.6 g/dL (1.3-4.6); Glomerular Filtration Rate 138.4 mL/min (90-130); Glucose 90 mg/dL (65-115); NT Pro B Type Natriuretic Pept 83 pg/mL (0-125); Osmolality Calculated 277 mOsm/kg (285-295); Potassium 3.9 mmol/L (3.5-5.1); Sodium 134 mmol/L (136-145); Total Bilirubin 0.5 mg/dL (0.15-1.2); Total Protein 7.9 g/dL (6.6-8.7)
[2024-09-12 13:39] VITALS: BP 102/68; PULSE 82; O2SAT 95
[2024-09-12 13:44] LABS: Troponin(5th) Baseline 9 ng/L (0-15)
[2024-09-12 13:45] LABS: Influenza A NEGATIVE (Negative); Influenza B NEGATIVE (Negative); Respiratory Syncytial Virus Ce NEGATIVE (Negative); SARS-CoV-2 PCR NEGATIVE (Negative)
--- NOTE | 2024-09-12 14:03 | ECG_ITS ---
[facility] Test Date: 2024-09-12 Pat Name: Jose Daniel Forbes Department: Room: Gender: Male Helper Coordinator: : 1965 Requested By: Yumi Mendes Order Number: [id number] Reading MD: EUN PEREZ Measurements Intervals [place] Rate: 77 P: 50 CT: 186 QRS: 68 QRSD: 87 T: 44 QT: 385 QTc: 437 Interpretive Statements SINUS RHYTHM NONSPECIFIC T-WAVE ABNORMALITY Compared to ECG 09/12/2024 10:20:15 T-wave abnormality now present Electronically Signed On 09-16-2024 23:53:28 PHOTOGRAPHIC SPECIALIST by EUN PEREZ [email or web address]
[2024-09-12 14:35] VITALS: BP 125/87; PULSE 61; O2SAT 98
== END 2024-09-12 14:37 | disposition home or self-care (01) ==
PROVIDERS: Emergency Provider Emergency Medicine; PCP Nurse Practitioner
DX: J06.9 Acute upper respiratory infection, unspecified (principal); Z11.52 Encounter for screening for COVID-19; Z79.82 Long term (current) use of aspirin; Z79.4 Long term (current) use of insulin; Z79.02 Long term (current) use of antithrombotics/antiplatelets; Z87.891 Personal history of nicotine dependence; Z85.828 Personal history of other malignant neoplasm of skin; E78.2 Mixed hyperlipidemia; I25.110 Atherosclerotic heart disease of native coronary artery with unstable angina pectoris; I10 Essential (primary) hypertension; E11.40 Type 2 diabetes mellitus with diabetic neuropathy, unspecified
CPT/HCPCS: 36415; 71045; 80053; 83880; 84484; 85025; 87637; 93005; 99285

== ENCOUNTER → 2024-09-22 08:55 | Outpatient (BNVA) | payer BC, MEDICAID, SELFPAY | PROVIDERS: PCP Nurse Practitioner; Visit Provider Nurse Practitioner | DX: M47.814 Spondylosis without myelopathy or radiculopathy, thoracic region (principal); M54.12 Radiculopathy, cervical region | CPT/HCPCS: 72072 ==

== ENCOUNTER → 2024-11-13 08:01 | Outpatient (BNVA) | payer BC, MEDICAID, SELFPAY | PROVIDERS: PCP Nurse Practitioner; Visit Provider Nurse Practitioner | DX: E11.9 Type 2 diabetes mellitus without complications (principal) | CPT/HCPCS: 80053; 80061; 81000; 83036 ==

== ENCOUNTER 2024-12-17 07:39 | Outpatient (CLI) | payer BC, MEDICAID, SELFPAY ==
--- NOTE | 2024-12-17 08:00 | CT_ITS ---
WS: [id number] CT chest wo con [id number] HISTORY: R91.1 - Solitary pulmonary nodule TECHNIQUE: Axial imaging performed through the thorax. Coronal and sagittal reformats are submitted. All CT scans at [facility] use at least one of these dose optimization techniques: automated exposure control; mA and/or kV adjustment per patient size (includes targeted exams where dose is matched to clinical indication); or iterative reconstruction. CONTRAST: None DLP: 579.23 mGy.cm COMPARISON: Chest radiograph 09/10/2024, 09/12/2024 Lungs and central airway: Hyperinflated lungs with chronic emphysema. Previously described nodule at the RIGHT lung base is no longer identified. This nodule also was not present on a follow-up chest radiograph from 09/12/2024. There is coarse interstitial thickening from history of smoking. Mild dependent changes at the lung bases. No pneumonia. Pleura: No pleural effusions. There is mild pleural thickening and pleural fat in the RIGHT lower thorax. Heart and pericardium: Mild cardiomegaly. Coronary artery calcifications. Mediastinum and [place]: No mediastinum or hilar adenopathy. Vessels: Mildly ectatic atherosclerotic aorta. No aneurysm. Chest wall and lower neck: Mild bilateral gynecomastia. Upper abdomen: Splenic granulomata. 1.8 cm LEFT adrenal mass. Calcified units are slightly elevated. Long-term stability of the LEFT adrenal mass. Minimal change in size since 2016. Osseous structures: Degenerative spondylitic changes in the midthoracic spine. No bone destruction. CT/CT chest wo con [id number] IMPRESSION: 1. No pulmonary mass or nodule. No nodule at the RIGHT lung base. 2. Chronic emphysema. 3. Long-term stability LEFT adrenal mass. 4. Mild cardiomegaly and coronary artery calcifications.
== END 2024-12-17 07:40 | disposition home or self-care (01) ==
PROVIDERS: PCP Nurse Practitioner; Visit Provider Nurse Practitioner
DX: R91.1 Solitary pulmonary nodule (principal); J43.8 Other emphysema; I51.7 Cardiomegaly; I25.10 Atherosclerotic heart disease of native coronary artery without angina pectoris; R91.8 Other nonspecific abnormal finding of lung field; J92.9 Pleural plaque without asbestos; J94.8 Other specified pleural conditions; I70.0 Atherosclerosis of aorta; N62 Hypertrophy of breast; D73.89 Other diseases of spleen; M47.894 Other spondylosis, thoracic region; R93.89 Abnormal findings on diagnostic imaging of other specified body structures
CPT/HCPCS: 71250

== ENCOUNTER → 2025-01-07 15:08 | Outpatient (BNVA) | payer BC, MEDICAID, SELFPAY | PROVIDERS: PCP Nurse Practitioner; Visit Provider Nurse Practitioner | DX: S99.921A Unspecified injury of right foot, initial encounter (principal); W22.8XXA Striking against or struck by other objects, initial encounter | CPT/HCPCS: 73630 ==

== ENCOUNTER → 2025-02-11 08:18 | Outpatient (BNVA) | payer BC, MEDICAID, SELFPAY | PROVIDERS: PCP Nurse Practitioner; Visit Provider Nurse Practitioner | DX: E11.65 Type 2 diabetes mellitus with hyperglycemia (principal); E78.2 Mixed hyperlipidemia; Z79.4 Long term (current) use of insulin | CPT/HCPCS: 80053; 81000; 83036; 84443 ==

== ENCOUNTER 2025-02-28 08:39 | Emergency (ER) | payer BC, MEDICAID, SELFPAY ==
[2025-02-28 08:51] VITALS: BP 148/68; PULSE 82; RESP 17; TEMP 36.6; O2SAT 97
[2025-02-28 09:15] LABS: Hematocrit 50.0 % (37-53); Hemoglobin 16.40 g/dL (11.27-16.99); Mean Corpuscular HGB Conc 32.8 g/dL (30-55); Mean Corpuscular Hemoglobin 30.9 pg (27-33); Mean Corpuscular Volume 94.2 fl (82-101); Nucleated Red Blood Cells % 0 %; Platelet Count 230 10^3/cmm (157-399); Red Blood Count 5.31 10^6/uL (3.85-5.65); White Blood Count 7.63 10^3/uL (3.29-11.43)
--- NOTE | 2025-02-28 09:19 | ED_ITS ---
HPI - Extremity Problem 2 General: Chief complaint: Extremity Injury, Lower Stated complaint: R leg pain Time Seen by Provider: 02/28/25 08:45 History of Present Illness: HPI: Patient with extensive coronary artery disease history, presenting emergency department with complaint of right quadriceps pain. States has been worsening over the last 2436 hrs. Remembers bouncing up and down on the mower. Patient spends a lot of time in the more. States that the area was sore and relieved with a heating pad last night and allowed him to get some sleep. He went to his primary who gave him baclofen for the pain and told him he maybe has an electrolyte derangement. Tenderness of the right anterior thigh without posterior tenderness, calf tenderness. No swelling appreciated in the lower extremity. Pains that radiate to his back. No bowel or bladder incontinence. No fevers, sweats, chills. REVIEW OF SYSTEMS: 10 systems reviewed and otherwise unrema rkable except for those noted in HPI. PHYSCIAL EXAM: Triage vital signs reviewed Gen: A&O NAD HEENT: NCAT, EOMI, not icteric. External ears normal. No rhinorrhea. Moist mucous membranes. Neck: Supple, full range of motion, no observable masses, No meningeal sign. Lungs: No Respiratory distress. CV: RRR, no edema. Abdomen: Soft, nondistended, No rebound tenderness. MSK: No joint swelling, no redness. Tenderness palpation of the right anterior quadriceps muscle. No intrinsic knee joint tenderness or intrinsic hip joint tenderness. Able to stand and ambulate without difficulty. Strength and sensation in the right lower extremity intact. Skin: No rashes, petechiae, lesions. Normal color per patient. Neuro: Normal Gait, Grossly intact. Psych: Appropriate for situation. PROCEDURES: N/A Related Data Home Medications ?Medication ?Instructions ?Recorded ?Confirmed acetaminophen 500 mg tablet 1,000 mg PO Q4H PRN Pain 0 03/28/21 02/25/25 (Tylenol Extra Strength) Previous Rx's ?Medication ?Instructions ?Recorded aspirin 81 mg tablet,delayed 81 mg PO QAM #90 tabs release nitroglycerin 0.4 mg sublingual 0.4 mg sublingual Q5M PRN chest 05/21/24 tablet pain #25 tabs clopidogrel 75 mg tablet 75 mg PO QAM #90 tabs carvedilol 3.125 mg tablet (Coreg) 3.125 mg PO BID #60 tabs 10/07/24 lancets 33 gauge (OneTouch Delica #100 ea 10/08/24 Plus Lancet) dapagliflozin propanediol 10 mg 10 mg PO QAM #30 tabs 02/11/25 tablet (Farxiga) diclofenac sodium 1 % topical gel 2 g topical QID #100 grams 02/11/25 (Voltaren Arthritis Pain) duloxetine 30 mg capsule,delayed 30 mg PO BID #60 caps 02/11/25 release (Cymbalta) evolocumab 140 mg/mL subcutaneous 140 mg SUBCUT .every 14 days #2 mL 02/11/25 pen injector (Lucian Hall) famotidine 20 mg tablet 20 mg PO BID #60 tabs fenofibrate nanocrystallized 145 145 mg PO DAILY #30 t abs 02/11/25 mg tablet fluticasone furoate 100 1 inh inhalation Q24H #30 ea 02/11/25 mcg/actuation blister powder for inhalation (Arnuity Ellipta) insulin glargine 100 unit/mL (3 45 unit (0.45 mL) SUBC UT QPM #15 mL 02/11/25 mL) subcutaneous pen (Lantus Solostar U-100 Insulin) levothyroxine 25 mcg tablet 25 mcg PO DAILY #90 tabs 0 02/11/25 magnesium oxide 400 mg (241.3 mg 400 mg PO DAILY #30 t abs 02/11/25 magnesium) tablet mupirocin 2 % topical ointment 1 applic topical BID #2 2 grams 02/11/25 baclofen 5 mg tablet 5 mg PO TID PRN muscle spasm #30 02/25/25 tabs diclofenac sodium 1 % topical gel 4 g topical QID #50 grams 02/28/25 (Voltaren Arthritis Pain) lidocaine 5 % topical patch 1 patch topical DAILY #15 ea 02/28/25 (Lidoderm) Allergies Allergy/AdvReac Type Severity Reaction Status Date / Time shellfish derived Allergy Severe ADR-Itching Verified 02/25/25 13:45 trimethoprim (From Bactrim) Allergy Severe ALGY-Rash Verified 02/25/25 13:45 sulfamethoxazole (From AdvReac Severe ALGY-Rash Verified 02/25/25 13:45 Bactrim) [facility] ED 2 PFS: Medical History (Updated 02/28/25 @ 09:22 by Denver Copeland MD) Acid reflux disease Coronary artery disease Type 2 diabetes mellitus with hyperglycemia, with long-term current use of insulin Essential (primary) hypertension Atherosclerotic heart disease of [place] coronary artery with unstable angina pectoris Unstable angina Stable angina History of smoking 10-25 pack years Stop smoking 2019 Adult onset hypothyroidism Hypertriglyceridemia History of cigarette smoking Anxiety Mixed hyperlipidemia DM neuropathy, painful Surgical History History of coronary angioplasty with insertion of stent 2019 Basal cell carcinoma (BCC) in situ of skin September 2017 on back History of colonoscopy Family History Mother Diabetes Heart disease Father Cancer lung cancer Father Hypertension Many of the family members have high blood pressure Social History Smoking and tobacco/nicotine status: unknown if used tobacco/nicotine Quit status (tobacco/nicotine): has quit using Former quit date comment: 03/20/20 Second hand smoke exposure: Yes Alcohol intake: never Substance/Drug Use: never Adopted: No Caregiver/support person: No Lives independently: Yes Household members: spouse Housing: House Marital status: service: No Current occupational status: employed Do you think of yourself as: Straight/Heterosexual Current gender identity: Male Course 2 Vital Signs: Vital signs: Vital Signs Temperature 97.8 F 02/28/25 08:51 Pulse Rate 82 02/28/25 08:51 Respiratory Rate 17 02/28/25 08:51 Blood Pressure 148/68 02/28/25 08:51 Pulse Oximetry 97 02/28/25 08:51 Oxygen Delivery Me thod Room Air 02/28/25 08:51 MDM - Extremity (Nontraumatic) Medical Decision Making MEDICAL DECISION MAKING: Differential diagnoses considered but not limited to: Fracture, strain, sprain, atypical presentation for DVT, referred radicular pain, others. Vitals nonactionable. Given history, examination, and pretest risk factors, most consistent with muscle strain at this time. Labs not emergent nonactionable. Dimer negative. No further imaging indicated at this time. Advised anticipatory guidance and [id number] medications. Vies follow-up with PCM for repeat examination and consideration of other treatment modalities. DISPO: RUFINO Copeland MD Staff physician, [facility] [place] Emergency Department [phone] Lab Data 02/28/25 09:09 02/28/25 09:09 Laboratory Results WBC 7.63 10^3/uL (3.29-11.43) 02/28/25 09:09 RBC 5.31 10^6/uL (3.85-5.65) 02/28/25 09:09 Hgb 16.40 g/dL (11.27-16.99) 02/28/25 09:09 Hct 50.0 % (37-53) 02/28/25 09:09 MCV 94.2 fl (82-101) 02/28/25 09:09 MCH 30.9 pg (27-33) 02/28/25 09:09 MCHC 32.8 g/dL (30-55) 02/28/25 09:09 RDW 15.0 % (12.1-15.1) 02/28/25 09:09 Plt Count 230 10^3/cmm (157-399) 02/28/25 09:09 MPV 9.8 fL (7.4-10.4) 02/28/25 09:09 Neut % (Auto) 71.2 % 02/28/25 09:09 Lymph % (Auto) 17.4 % 02/28/25 09:09 Benton % (Auto) 8.0 % 02/28/25 09:09 Eos % (Auto) 2.1 % 02/28/25 09:09 Baso % (Auto) 0.9 % 02/28/25 09:09 Neut # (Auto) 5.43 10^3/uL (1.8-7.7) 02/28/25 09:09 Lymph # (Auto) 1.3 10^3/uL (0.8-4.8) 02/28/25 09:09 Benton # (Auto) 0.6 10^3/uL (0.2-0.9) 02/28/25 09:09 Eos # (Auto) 0.2 10^3/uL (0.0-0.8) 02/28/25 09:09 Baso # (Auto) 0.1 10^3/uL (0.0-0.1) 02/28/25 09:09 Nucleated RBC % (auto) 0 % 02/28/25 09:09 Nucleated RBCs # 0.0 /100WBC 02/28/25 09:09 D-Dimer <= 0.27 ug/mLFEU (0-0.59) 02/28/25 09:09 Sodium 137 mmol/L (136-145) 02/28/25 09:09 Potassium 4.0 mmol/L (3.5-5.1) 02/28/25 09:09 Chloride 103 mmol/L (98-107) 02/28/25 09:09 Carbon Dioxide 21 mmol/L (22-29) L 02/28/25 09:09 Anion Gap 17.0 (5-19) 02/28/25 09:09 BUN 19 mg/dL (6-20) 02/28/25 09:09 Creatinine 0.7 mg/dL (0.7-1.2) 02/28/25 09:09 GFR Calculation 115.4 mL/min (90-130) 02/28/25 09:09 Glucose 126 mg/dL (65-115) H 02/28/25 09:09 Calculated Osmolality 288 mOsm/kg (285-295) 02/28/25 09:09 Calcium 9.5 mg/dL (8.5-10.5) 02/28/25 09:09 No radiology studies performed this visit Discharge Plan Discharge Patient Disposition: Home Clinical Impression: Quadriceps muscle strain Qualifiers: Encounter type: subsequent encounter Laterality: right Qualified Code(s): S 76.111D - Strain of right quadriceps muscle, fascia and tendon, subsequent encounter Condition: Stable Prescriptions: New lidocaine [Lidoderm] 5 % adhesive patch,medicated 1 patch topical DAILY Qty: 15 0RF Rx Instructions: leave on most painful area for up to 12 hrs diclofenac sodium [Voltaren Arthritis Pain] 1 % gel 4 g topical QID Qty: 50 0RF Rx Instructions: apply to single knee, ankle, foot; for foot includes sole/toes/top of foot No Action Farxiga 10 mg tablet 10 mg PO QAM Qty: 30 2RF diclofenac sodium [Voltaren Arthritis Pain] 1 % gel 2 g topical QID Qty: 100 2RF Rx Instructions: apply to single elbow, wrist or hand; for hand includes palm/fingers/back of hand duloxetine [Cymbalta] 30 mg capsule,delayed release(DR/EC) 30 mg PO BID Qty: 60 2RF Repatha SureClick 140 mg/mL pen injector 140 mg SUBCUT .every 14 days Qty: 2 2RF famotidine 20 mg tablet 20 mg PO BID Qty: 60 2RF fenofibrate nanocrystallized 145 mg tablet 145 mg PO DAILY Qty: 30 2RF Arnuity Ellipta 100 mcg/actuation blister with device 1 inh inhalation Q24H Qty: 30 2RF insulin glargine [Lantus Solostar U-100 Insulin] 100 unit/mL (3 mL) insulin pen 45 unit SUBCUT QPM Qty: 15 2RF Rx Instructions: 45 subcutaneously IN PM; levothyroxine 25 mcg tablet 25 mcg PO DAILY Qty: 90 1RF magnesium oxide 400 mg (241.3 mg magnesium) tablet 400 mg PO DAILY Qty: 30 2RF mupirocin 2 % ointment 1 applic topical BID Qty: 22 2RF nitroglycerin 0.4 mg tablet, sublingual 0.4 mg SUBLINGUAL Q5M PRN (Reason: chest pain) Qty: 25 6RF Rx Instructions: do not exceed 3 doses per episode clopidogrel 75 mg tablet 75 mg PO QAM Qty: 90 3RF baclofen 5 mg tablet 5 mg PO TID PRN (Reason: muscle spasm) Qty: 30 0RF carvedilol [Coreg] 3.125 mg tablet 3.125 mg PO BID Qty: 60 3RF Rx Instructions: must administer with a meal/food, hold if bp<100/70 90 (DME) lancets [OneTouch Delica Plus Lancet] 33 gauge misc See Rx Instructions .Route Qty: 100 5RF Rx Instructions: three time day as needed acetaminophen [Tylenol Extra Strength] 500 mg Tablet 1,000 mg PO Q4H PRN (Reason: Pain) aspirin 81 mg Tablet,Delayed Release (Dr/Ec) 81 mg PO QAM Qty: 90 4RF Discharge Orders: Discharge ED (Routine); Ordered 02/28/25 Ordered By: Denver Copeland Referrals: Christiano Serrato, [employer] [Primary Care Provider, Family Practice] Discharge Diet: Cardiac Discharge Activity: Resume usual activity Patient Instructions: Opioid Safety, Pain Management, Patient Portal & Sol Instructions Activity Restrictions/Additional Instructions: It has been a pleasure caring for you in the emergency department. Please ensure that you follow-up with your primary care physician for review of all data obtained during this encounter including any incidental findings and laboratory values. Keep in mind that if your condition worsens in any way, I strongly recommend that you return to the emergency department for repeat evaluation immediately. Take 1000 mg of Tylenol at breakfast lunch and dinner. Print Language: Icelandic Coding Level of Care Code ED Claims Account Manager for Scott Hayward
[2025-02-28 09:41] LABS: Blood Urea Nitrogen 19 mg/dL (6-20); Calcium 9.5 mg/dL (8.5-10.5); Carbon Dioxide 21 mmol/L (22-29); Chloride 103 mmol/L (98-107); Glucose 126 mg/dL (65-115); Osmolality Calculated 288 mOsm/kg (285-295); Sodium 137 mmol/L (136-145)
[2025-02-28 09:44] LABS: Anion Gap 17.0 (5-19); Potassium 4.0 mmol/L (3.5-5.1)
[2025-02-28 10:12] VITALS: BP 140/88; PULSE 88; O2SAT 99
== END 2025-02-28 10:14 | disposition home or self-care (01) ==
PROVIDERS: Emergency Provider General Practice; PCP Nurse Practitioner
DX: S76.111D Strain of right quadriceps muscle, fascia and tendon, subsequent encounter (principal); Z79.4 Long term (current) use of insulin; Z79.02 Long term (current) use of antithrombotics/antiplatelets; Z79.82 Long term (current) use of aspirin; Z87.891 Personal history of nicotine dependence; E78.2 Mixed hyperlipidemia; I25.110 Atherosclerotic heart disease of native coronary artery with unstable angina pectoris; E11.40 Type 2 diabetes mellitus with diabetic neuropathy, unspecified; X58.XXXA Exposure to other specified factors, initial encounter
CPT/HCPCS: 80048; 85025; 85378; 99283

== ENCOUNTER → 2025-05-06 09:32 | Outpatient (BNVA) | payer BC, MEDICAID, SELFPAY | PROVIDERS: PCP Nurse Practitioner; Visit Provider Nurse Practitioner | DX: E11.65 Type 2 diabetes mellitus with hyperglycemia (principal); Z79.4 Long term (current) use of insulin; E78.2 Mixed hyperlipidemia; Z12.5 Encounter for screening for malignant neoplasm of prostate | CPT/HCPCS: 80053; 82607; 83036; 84443; G0103 ==

== ENCOUNTER 2025-05-19 16:41 | Emergency (ER) | payer BC, MEDICAID, SELFPAY ==
[2025-05-19 16:42] VITALS: BP 140/84; PULSE 103; RESP 18; TEMP 36.7; O2SAT 96
--- NOTE | 2025-05-19 17:04 | USR_ITS ---
PROCEDURE INFORMATION: Exam: US Soft Tissue Head and Neck, Soft Tissue Exam date and time: 05/19/2025 5:35 PM Age: 60 years old Clinical indication: Injury or trauma; Fall; Puncture; Not specified; Injury date: Today; Injury details: Fell into a wood pile and hit a small splinter hanging from the end of a log; Additional info: Possible puncture; Eval vascular injury/retained fb TECHNIQUE: Imaging protocol: Real-time ultrasound scan of the head and neck with image documentation. Exam focused on the soft tissue in the region of clinical concern. COMPARISON: CT chest wo con [id number] 12/17/2024 8:07 AM FINDINGS: Lymph nodes: No lymphadenopathy. Soft tissues: Targeted ultrasound evaluation in the left neck soft tissues, in the region of puncture injury. In the subcutaneous soft tissues of the left neck there is a 1.1 x 0.8 x 1.4 cm irregular nonvascular anechoic fluid collection, 3 mm deep to the skin surface. No echogenic foreign body is visualized. US/US soft tissue head neck [id number] IMPRESSION: 1.4 cm subcutaneous soft tissue fluid collection in the left neck. Given the history of recent trauma to this region, this is most likely a hematoma. No vascular flow internally to suggest a pseudoaneurysm.
--- NOTE | 2025-05-19 17:05 | W.ED.WOUNDLC ---
HPI - Wound/Laceration General: Chief Complaint: Wound/Laceration Stated Complaint: Poss wood stuck in L side of neck Time Seen by Provider: 05/19/25 16:52 Source: patient Mode of arrival: ambulatory Limitations: no limitations History of Present Illness: Patient is a nice 60-year-old male who presents to ED today for evaluation of a neck injury. He was reportedly seen at the walk-in clinic and referred to the emergency department. Patient states he was climbing up on a wood pile attempting to access his furnace when he accidentally slipped and fell and scraped the left side of his neck on a stub of wood . He is not sure if it punctured into his neck or just scraped it or possibly a piece broke off but wanted to come here to make sure . He sustained a small abrasion to his left knee but is ambulatory here without difficulty or assistance and states this is not bothering him. He said his neck pain is minimal. Initially noticed some swelling but this has not worsened. Onset (ago): hour(s) Location: neck Place: home Patient tetanus UTD: No Context: accidental Associated symptoms: Reports no associated symptoms Related Data Home Medications ?Medication ?Instructions ?Recorded ?Confirmed acetaminophen 500 mg tablet 1,000 mg PO Q4H PRN Pain 03/28/21 05/06/25 (Tylenol Extra Strength) diclofenac sodium 1 % topical gel 2 g topical QID PRN joint pain 02/28/25 05/06/25 (Voltaren Arthritis Pain) Previous Rx's ?Medication ?Instructions ?Recorded aspirin 81 mg tablet,delayed 81 mg PO QAM #90 tabs 05/08/24 release nitroglycerin 0.4 mg sublingual 0.4 mg sublingual Q5M PRN chest 05/21/24 tablet pain #25 tabs clopidogrel 75 mg tablet 75 mg PO QAM #90 tabs 09/23/24 lancets 33 gauge (OneTouch Delica #100 ea 10/08/24 Plus Lancet) levothyroxine 25 mcg tablet 25 mcg PO DAILY #90 tabs 02/11/25 mupirocin 2 % topical ointment 1 applic topical BID #22 grams 02/11/25 diclofenac sodium 1 % topical gel 4 g topical QID #50 grams 02/28/25 (Voltaren Arthritis Pain) carvedilol 3.125 mg tablet (Coreg) 3.125 mg PO BID #120 tabs 04/13/25 dapagliflozin propanediol 10 mg 10 mg PO QAM #30 tabs 05/06/25 tablet (Farxiga) duloxetine 30 mg capsule,delayed 30 mg PO BID #60 caps 05/06/25 release evolocumab 140 mg/mL subcutaneous 140 mg SUBCUT .every 14 days #2 mL 05/06/25 pen injector (Repatha Capicalick) famotidine 20 mg tablet 20 mg PO BID #60 tabs 05/06/25 fenofibrate nanocrystallized 145 145 mg PO DAILY #30 tabs 25 mg tablet hydroxyzine pamoate 25 mg capsule 25 mg PO BID PRN anxiety #60 caps 05/06/25 insulin glargine 100 unit/mL (3 45 unit (0.45 mL) SUBCUT QPM #15 mL 05/06/25 mL) subcutaneous pen (Lantus Solostar U-100 Insulin) semaglutide 0.25 mg or 0.5 mg (2 0.5 mg (0.736 mL) SUBCUT .weekly 05/06/25 mg/3 mL) subcutaneous pen injector #3 mL (OzDegree Controlsic) Allergies Allergy/AdvReac Type Severity Reaction Status Date / Time shellfish derived Allergy Severe ADR-Itching Verified 05/06/25 08:32 trimethoprim (From Bactrim) Allergy Severe ALGY-Rash Verified 05/06/25 08:32 sulfamethoxazole (From AdvReac Severe ALGY-Rash Verified 05/06/25 08:32 Bactrim) Review of Systems ENMT: Denies: throat pain or odynophagia Musc: Reports: neck pain (minor-at site of abrasion/edema) and joint pain (minor abrasion L knee-full painless ROM; ambulating well); Denies: back pain, extremity pain, extremity swelling, joint swelling, joint redness or joint warmth Neuro: Denies: headache(s), numbness in extremities, weakness in extremities or sensory changes PFSH ED PFSH: Medical History Acid reflux disease Coronary artery disease Type 2 diabetes mellitus with hyperglycemia, with long-term current use of insulin Essential (primary) hypertension Atherosclerotic heart disease of [place] coronary artery with unstable angina pectoris Unstable angina Stable angina History of smoking 10-25 pack years Stop smoking 2019 Adult onset hypothyroidism Hypertriglyceridemia History of cigarette smoking Anxiety Mixed hyperlipidemia DM neuropathy, painful Surgical History History of coronary angioplasty with insertion of stent 2019 Basal cell carcinoma (BCC) in situ of skin September 2017 on back History of colonoscopy Family History Mother Diabetes Heart disease Father Cancer lung cancer Father Hypertension Many of the family members have high blood pressure Social History Smoking and tobacco/nicotine status: unknown if used tobacco/nicotine Quit status (tobacco/nicotine): has quit using Former quit date comment: 03/20/20 Second hand smoke exposure: Yes Alcohol intake: never Substance/Drug Use: never Adopted: No Caregiver/support person: No Lives independently: Yes Household members: spouse Housing: House Marital status: service: No Current occupational status: employed Do you think of yourself as: Straight/Heterosexual Current gender identity: Male Physical Exam Const: COMMON NORMALS: no acute distress, average body habitus, patient oriented x3, no limitations, healthy appearing, alert and well nourished GENERAL APPEARANCE: cooperative ORIENTATION/CONSCIOUSNESS: Yes awake, Yes oriented to person, Yes oriented to place and Yes oriented to time HENMT: COMMON NORMALS: normocephalic and atraumatic HEAD & SCALP: normal to inspection, normocephalic and atraumatic FACE & SINUS: normal facial exam and face symmetric FACE & SINUS IMAGES:  1. small abrasion/possible puncture wound although I cannot probe-about a half a golf ball of edema; not overly tender; no active bleeding Eye: GENERAL EYE: appearance normal, both eyes and all related structures Neck/C-Spine: COMMON NORMALS: full ROM GENERAL: Yes normal visual inspection OTHER: see above-small abrasion vs possible puncture Extremity: COMMON NORMALS: full ROM GENERAL: Yes normal exam except as noted LEFT LOWER EXTREMITY: Yes knee joint (knee abrasion; full painless ROM) Left knee: Yes neurovascular exam (normal) Neuro: AUNDREA COMA SCALE: document GCS findings Perryman coma scale eye opening: Spontaneous Perryman coma scale verbal response: Orientated Aundrea coma scale motor response: Obey commands Perryman coma scale total score: 15 COMMON NORMALS: patient oriented x3, CN's II-XII intact bilaterally, moves all extremities, no focal motor deficits and no sensory deficits noted SENSORIUM/ORIENTATION: Yes alert, Yes oriented to person, Yes oriented to place and Yes oriented to time Skin: TRAUMA: abrasion Course Vital Signs: Vital signs: Vital Signs Temperature 98.1 F 05/19/25 16:42 Pulse Rate 103 H 05/19/25 16:42 Respiratory Rate 18 05/19/25 16:42 Blood Pressure 140/84 05/19/25 16:42 Pulse Oximetry 96 05/19/25 16:42 Oxygen Delivery Me thod Room Air 05/19/25 16:42 MDM - Wound/Laceration Medical Decision Making Clinically I was unable to probe the area/do not appreciate any type of puncture tract. It appears more like a superficial abrasion at this time. Spoke to Darell Dominique, [employer] who did not visualize any retained fb or evidence of active bleed. Wound care/infection precautions discussed. He was given a tetanus today. Differential Diagnosis Likely abrasion Medical Records I reviewed the patient's medical records. XR interpretation done by ED provider, pending radiology final review (per [employer]-no fb/no active bleeding) Discharge Plan Discharge Patient Disposition: Home Clinical Impression: Abrasion of neck Qualifiers: Encounter type: initial encounter Qualified Code(s): S10.91XA - Abrasion of unspecified part of neck, initial encounter Condition: Stable Prescriptions: No Action levothyroxine 25 mcg tablet 25 mcg PO DAILY Qty: 90 1RF mupirocin 2 % ointment 1 applic topical BID Qty: 22 2RF nitroglycerin 0.4 mg tablet, sublingual 0.4 mg SUBLINGUAL Q5M PRN (Reason: chest pain) Qty: 25 6RF Rx Instructions: do not exceed 3 doses per episode clopidogrel 75 mg tablet 75 mg PO QAM Qty: 90 3RF Ozempic 0.25 mg or 0.5 mg (2 mg/3 mL) pen injector 0.5 mg SUBCUT .weekly Qty: 3 2RF Farxiga 10 mg tablet 10 mg PO QAM Qty: 30 2RF duloxetine 30 mg capsule,delayed release(DR/EC) 30 mg PO BID Qty: 60 2RF Repatha SureClick 140 mg/mL pen injector 140 mg SUBCUT .every 14 days Qty: 2 2RF famotidine 20 mg tablet 20 mg PO BID Qty: 60 2RF fenofibrate nanocrystallized 145 mg tablet 145 mg PO DAILY Qty: 30 2RF insulin glargine [Lantus Solostar U-100 Insulin] 100 unit/mL (3 mL) insulin pen 45 unit SUBCUT QPM Qty: 15 2RF hydroxyzine pamoate 25 mg capsule 25 mg PO BID PRN (Reason: anxiety) Qty: 60 2RF (DME) lancets [OneTouch Delica Plus Lancet] 33 gauge misc See Rx Instructions .Route Qty: 100 5RF Rx Instructions: three time day as needed carvedilol [Coreg] 3.125 mg tablet 3.125 mg PO BID Qty: 120 3RF Rx Instructions: must administer with a meal/food, hold if bp<100/70 90 acetaminophen [Tylenol Extra Strength] 500 mg Tablet 1,000 mg PO Q4H PRN (Reason: Pain) aspirin 81 mg Tablet,Delayed Release (Dr/Ec) 81 mg PO QAM Qty: 90 4RF diclofenac sodium [Voltaren Arthritis Pain] 1 % gel 4 g topical QID Qty: 50 0RF Rx Instructions: apply to single knee, ankle, foot; for foot includes sole/toes/top of foot diclofenac sodium [Voltaren Arthritis Pain] 1 % gel 2 g topical QID PRN (Reason: joint pain) Rx Instructions: apply to single elbow, wrist or hand; for hand includes palm/fingers/back of hand Discharge Orders: Discharge ED (Routine); Ordered 05/19/25 Ordered By: Genesis Ferguson Referrals: Christiano Serrato, [employer] [Primary Care Provider, Family Practice] Patient Instructions: Patient Portal & Sol Instructions Activity Restrictions/Additional Instructions: As we discussed, please keep wound clean with warm soap and water multiple times daily. Monitor for signs of infection such as redness, worsening swelling, pain, purulent or foul-smelling discharge, overlying warmth, or any other concerns you may have. Please seek medical re-evaluation of these occur. Print Language: Romanian Coding Level of Care Code ED Button And Buckle Maker for Scott Hayward
[2025-05-19] MEDS: tetanus-dipt-pertussis 0.5 mL SDV IM (17:31)
== END 2025-05-19 18:06 | disposition home or self-care (01) ==
PROVIDERS: Emergency Provider Physician Assistant; PCP Nurse Practitioner
DX: S10.81XA Abrasion of other specified part of neck, initial encounter (principal); Z79.4 Long term (current) use of insulin; Z79.82 Long term (current) use of aspirin; Z87.891 Personal history of nicotine dependence; I25.110 Atherosclerotic heart disease of native coronary artery with unstable angina pectoris; E78.2 Mixed hyperlipidemia; E11.42 Type 2 diabetes mellitus with diabetic polyneuropathy; Z85.828 Personal history of other malignant neoplasm of skin; W01.0XXA Fall on same level from slipping, tripping and stumbling without subsequent striking against object, initial encounter
CPT/HCPCS: 76536; 90471; 90715; 99284

== ENCOUNTER 2025-07-14 06:46 | Emergency (ER) | payer BC, MEDICAID, SELFPAY ==
[2025-07-14] VITALS (16 sets, daily range): BP systolic 138–161; BP diastolic 87–97; PULSE 76–96; RESP 14–27; TEMP 36.4; O2SAT 94–98; BMI 34.5
--- NOTE | 2025-07-14 06:51 | CT_ITS ---
WS: [id number] CT HEAD NONCONTRAST HISTORY: vertigo TECHNIQUE: Contiguous axial imaging performed through the brain. Bone and soft tissue windows. Sagittal and coronal reformats reviewed. All CT scans at [facility] use at least one of these dose optimization techniques: automated exposure control; mA and/or kV adjustment per patient size (includes targeted exams where dose is matched to clinical indication); or iterative reconstruction. DLP: 1273.58 mGy.cm COMPARISON: None available. No acute intracranial hemorrhage, midline shift or mass effect. Mild atrophy and small vessel changes. No cortical infarct or hemorrhage. Ventricles: Normal size with no hydrocephalus. There is increased attenuation in the cerebral veins and also the middle and anterior cerebral arteries. Paranasal sinuses: As visualized are clear. Mastoid air cells: Well pneumatized. Calvarium and scalp: Skull is intact with no soft tissue edema or swelling. CT/CT head wo con* [id number] IMPRESSION: 1. No acute intracranial hemorrhage or edema. 2. Increased attenuation in the cerebral veins and the middle/anterior cerebra l arteries. Thrombus needs to be excluded. Recommend follow-up CT angiogram cir tae of [place]. Veins and arteries need to be further evaluated. CT angiogram sh ould be sufficient to evaluate both the cerebral veins and cerebral arteries. Notified Yumi Tirado MD at 07/14/2025 7:50 AM.
--- NOTE | 2025-07-14 06:52 | W.ED.DIZZY ---
HPI - Dizziness General: Chief Complaint: Dizziness Stated Complaint: dizzy Time Seen by Provider: 07/14/25 06:48 History of Present Illness: HPI Narrative: 60-year-old man with a history of coronary artery disease, type 2 diabetes, hypertension, hypothyroidism, hyperlipidemia and anxiety who presents to the emergency room by ambulance with dizziness. He says he was lying in bed and rolled over to get his phone and suddenly became very dizzy. He reports vertigo type symptoms. Nausea with standing. He says it lasted for almost an hour but now has resolved. He says he feels fine now. No fevers. No cough. No chest pain. No altered mental status. No focal motor deficits. No abdominal pain. Related Data Home Medications ?Medication ?Instructions ?Recorded ?Confirmed acetaminophen 500 mg tablet 1,000 mg PO Q4H PRN Pain 03/28/21 05/06/25 (Tylenol Extra Strength) diclofenac sodium 1 % topical gel 2 g topical QID PRN joint pain 02/28/25 05/06/25 (Voltaren Arthritis Pain) Previous Rx's ?Medication ?Instructions ?Recorded aspirin 81 mg tablet,delayed 81 mg PO QAM #90 tabs 05/08/24 release nitroglycerin 0.4 mg sublingual 0.4 mg sublingual Q5M PRN chest 05/21/24 tablet pain #25 tabs clopidogrel 75 mg tablet 75 mg PO QAM #90 tabs 09/23/24 lancets 33 gauge (OneTouch [place]reg[place]do #100 ea 10/08/24 Plus Lancet) levothyroxine 25 mcg tablet 25 mcg PO DAILY #90 tabs 02/11/25 mupirocin 2 % topical ointment 1 applic topical BID #22 grams 02/11/25 diclofenac sodium 1 % topical gel 4 g topical QID #50 grams 02/28/25 (Voltaren Arthritis Pain) carvedilol 3.125 mg tablet (Coreg) 3.125 mg PO BID #120 tabs 04/13/25 dapagliflozin propanediol 10 mg 10 mg PO QAM #30 tabs 05/06/25 tablet (Farxiga) duloxetine 30 mg capsule,delayed 30 mg PO BID #60 caps 05/06/25 release evolocumab 140 mg/mL subcutaneous 140 mg SUBCUT .every 14 days #2 mL 05/06/25 pen injector (Lucian Hall) famotidine 20 mg tablet 20 mg PO BID #60 tabs 05/06/25 fenofibrate nanocrystallized 145 145 mg PO DAILY #30 tabs 05/06/25 mg tablet hydroxyzine pamoate 25 mg capsule 25 mg PO BID PRN anxiety #60 caps 05/06/25 insulin glargine 100 unit/mL (3 45 unit (0.45 mL) SUBCUT QPM #15 mL 05/06/25 mL) subcutaneous pen (Lantus Solostar U-100 Insulin) semaglutide 0.25 mg or 0.5 mg (2 0.5 mg (0.736 mL) SUBCUT .weekly 05/06/25 mg/3 mL) subcutaneous pen injector #3 mL (Ozempic) meclizine 25 mg tablet 25 mg PO QID PRN dizziness #20 tabs 07/14/25 Allergies Allergy/AdvReac Type Severity Reaction Status Date / Time shellfish derived Allergy Severe ADR-Itching Verified 07/14/25 07:05 trimethoprim (From Bactrim) Allergy Severe ALGY-Rash Verified 07/14/25 07:05 sulfamethoxazole (From AdvReac Severe ALGY-Rash Verified 07/14/25 07:05 Bactrim) Review of Systems Narrative: Constitutional symptoms: Negative except as documented in HPI. Skin symptoms: Negative except as documented in HPI. Eye symptoms: Negative except as documented in HPI. ENMT symptoms: Negative except as documented in HPI. Respiratory symptoms: Negative except as documented in HPI. Cardiovascular symptoms: Negative except as documented in HPI. Gastrointestinal symptoms: Negative except as documented in HPI. Genitourinary symptoms: Negative except as documented in HPI. Musculoskeletal symptoms: Negative except as documented in HPI. Neurologic symptoms: Negative except as documented in HPI. Psychiatric symptoms: Negative except as documented in HPI. Endocrine symptoms: Negative except as documented in HPI. PFSH ED PFSH: Medical History (Updated 07/14/25 @ 09:21 by Yumi Tirado MD) Acid reflux disease Coronary artery disease Type 2 diabetes mellitus with hyperglycemia, with long-term current use of insulin Essential (primary) hypertension Atherosclerotic heart disease of [place] coronary artery with unstable angina pectoris Unstable angina Stable angina History of smoking 10-25 pack years Stop smoking 2020 Adult onset hypothyroidism Hypertriglyceridemia History of cigarette smoking Anxiety Mixed hyperlipidemia DM neuropathy, painful Surgical History History of coronary angioplasty with insertion of stent 2020 Basal cell carcinoma (BCC) in situ of skin September 2017 on back History of colonoscopy Family History Mother Diabetes Heart disease Father Cancer lung cancer Father Hypertension Many of the family members have high blood pressure Social History Smoking and tobacco/nicotine status: unknown if used tobacco/nicotine Quit status (tobacco/nicotine): has quit using Former quit date comment: 03/20/20 Second hand smoke exposure: Yes Alcohol intake: never Substance/Drug Use: never Adopted: No Caregiver/support person: No Lives independently: Yes Household members: spouse Housing: House Marital status: service: No Current occupational status: employed Do you think of yourself as: Straight/Heterosexual Current gender identity: Male Physical Exam Narrative: EXAM NARRATIVE: General: Alert, no acute distress. Skin: Warm, dry. Head: Normocephalic, atraumatic. Neck: Supple, trachea midline. Eye: Extraocular movements are intact. Ears, nose, mouth and throat: mucosa moist. Cardiovascular: Regular, Normal peripheral perfusion. Respiratory: Lungs are clear to auscultation, respirations are non-labored, breath sounds are equal, Symmetrical chest wall expansion. Gastrointestinal: Soft, Nontender, Non distended Musculoskeletal: Normal ROM, no deformity. Neurological: Alert and oriented, No focal neurological deficit observed. Psychiatric: Cooperative, appropriate mood & affect. 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 Accompanied by his . I reviewed the patient's medical record. 60-year-old man with a history of coronary artery disease, type 2 diabetes, hypertension, hypothyroidism, hyperlipidemia and anxiety I reviewed the patient's current home meds No anticoagulation Alternate historians: None Differential diagnosis including but not limited to and based on the above HPI, review of systems and physical exam: for patient with complaint of dizziness: stroke, hypotension, hypertension, infection, vertigo, orthostasis Orders placed to evaluate differential diagnosis based on the above differential, HPI and physical exam CT head: No acute intracranial process. No intracranial hemorrhage, no evidence of infarct. No evidence of acute fracture. This was reviewed and interpreted by myself the emergency room physician. I also reviewed the radiology report. I spoke with the radiologist about this and there was some concern for possible dense vessels and she recommended a CTA which was done. CTA of the head and neck: No obvious stenosis or occlusions are identified. No mass. This was reviewed and interpreted by myself the emergency room physician. I also reviewed the radiology report. Lab Review: Laboratory results were reviewed and interpreted by myself the emergency room physician. No leukocytosis. No anemia. No renal failure. Assessment of risk: Level of risk: Moderate risk patient. Multiple comorbidities. Hospitalization considerations: No indication for hospitalization today Reexamination: Patient has no recurrence of the dizziness. His description sounds like benign positional vertigo. No increased work of breathing. No altered mental status. Assessment and plan: Vertigo - Discharged home - Discussed findings and plan with patient. Answered any questions. - All laboratory values were reviewed and interpreted personally by myself, the ER physician - All imaging was reviewed and interpreted personally by myself, the ER physician. - Evaluation and treatment of this problem were appropriate in the emergency setting Lab Data 07/14/25 06:53 07/14/25 06:[address] 07/14/25 06:51 IMPRESSION: 1. No acute intracranial hemorrhage or edema. 2. Increased attenuation in the cerebral veins and the middle/anterior cerebral arteries. Thrombus needs to be excluded. Recommend follow-up CT angiogram [place]. Veins and arteries need to be further evaluated. CT angiogram should be sufficient to evaluate both the cerebral veins and cerebral arteries. Notified Yumi Tirado MD at 07/14/2025 7:50 AM. Head/Neck CTA 07/14/25 07:54 IMPRESSION: 1. No thrombus or occlusion in the [place]. 2. Normal enhancement of the cerebral veins. 3. Moderate atherosclerosis in the intracranial carotid arteries. No occlusion. Mild atherosclerosis cervical carotid arteries. No stenosis. Laboratory Results WBC 7.76 10^3/uL (3.29-11.43) 07/14/25 06:53 RBC 5.33 10^6/uL (3.85-5.65) 07/14/25 06:53 Hgb 16.40 g/dL (11.27-16.99) 07/14/25 06:53 Hct 49.5 % (37-53) 07/14/25 06:53 MCV 92.9 fl (82-101) 07/14/25 06:53 MCH 30.8 pg (27-33) 07/14/25 06:53 MCHC 33.1 g/dL (30-55) 07/14/25 06:53 RDW 14.5 % (12.1-15.1) 07/14/25 06:53 Plt Count 236 10^3/cmm (157-399) 07/14/25 06:53 MPV 9.1 fL (7.4-10.4) 07/14/25 06:53 Neut % (Auto) 70.2 % 07/14/25 06:53 Lymph % (Auto) 17.1 % 07/14/25 06:53 [place] % (Auto) 8.9 % 07/14/25 06:53 Eos % (Auto) 2.4 % 07/14/25 06:53 Baso % (Auto) 0.9 % 07/14/25 06:53 Neut # (Auto) 5.44 10^3/uL (1.8-7.7) 07/14/25 06:53 Lymph # (Auto) 1.3 10^3/uL (0.8-4.8) 07/14/25 06:53 [place] # (Auto) 0.7 10^3/uL (0.2-0.9) 07/14/25 06:53 Eos # (Auto) 0.2 10^3/uL (0.0-0.8) 07/14/25 06:53 Baso # (Auto) 0.1 10^3/uL (0.0-0.1) 07/14/25 06:53 Nucleated RBC % (auto) 0 % 07/14/25 06:53 Nucleated RBCs # 0.0 /100WBC 07/14/25 06:53 Sodium 137 mmol/L (136-145) 07/14/25 06:53 Potassium 3.9 mmol/L (3.5-5.1) 07/14/25 06:53 Chloride 102 mmol/L (98-107) 07/14/25 06:53 Carbon Dioxide 24 mmol/L (22-29) 07/14/25 06:53 Anion Gap 14.9 (5-19) 07/14/25 06:53 BUN 15 mg/dL (6-20) 07/14/25 06:53 Creatinine 0.6 mg/dL (0.7-1.2) L 07/14/25 06:53 GFR Calculation 137.9 mL/min (90-130) H 07/14/25 06:53 Glucose 120 mg/dL (65-115) H 07/14/25 06:53 Calculated Osmolality 286 mOsm/kg (285-295) 07/14/25 06:53 Calcium 9.2 mg/dL (8.5-10.5) 07/14/25 06:53 Total Bilirubin 0.4 mg/dL (0.15-1.2) 07/14/25 06:53 AST 22 U/L (0-40) 07/14/25 06:53 ALT 21 U/L (0-41) 07/14/25 06:53 Alkaline Phosphatase 120 U/L (40-130) 07/14/25 06:53 Total Protein 7.3 g/dL (6.6-8.7) 07/14/25 06:53 Albumin 4.3 g/dL (3.5-5.2) 07/14/25 06:53 Globulin 3.0 g/dL (1.3-4.6) 07/14/25 06:53 All radiology interpretation(s) finalized by discharge Discharge Plan Discharge Patient Disposition: Home Clinical Impression: Vertigo Condition: Stable Prescriptions: New meclizine 25 mg tablet 25 mg PO QID PRN (Reason: dizziness) Qty: 20 0RF No Action levothyroxine 25 mcg tablet 25 mcg PO DAILY Qty: 90 1RF mupirocin 2 % ointment 1 applic topical BID Qty: 22 2RF nitroglycerin 0.4 mg tablet, sublingual 0.4 mg SUBLINGUAL Q5M PRN (Reason: chest pain) Qty: 25 6RF Rx Instructions: do not exceed 3 doses per episode clopidogrel 75 mg tablet 75 mg PO QAM Qty: 90 3RF Ozempic 0.25 mg or 0.5 mg (2 mg/3 mL) pen injector 0.5 mg SUBCUT .weekly Qty: 3 2RF Farxiga 10 mg tablet 10 mg PO QAM Qty: 30 2RF duloxetine 30 mg capsule,delayed release(DR/EC) 30 mg PO BID Qty: 60 2RF Repatha SureClick 140 mg/mL pen injector 140 mg SUBCUT .every 14 days Qty: 2 2RF famotidine 20 mg tablet 20 mg PO BID Qty: 60 2RF fenofibrate nanocrystallized 145 mg tablet 145 mg PO DAILY Qty: 30 2RF insulin glargine [Lantus Solostar U-100 Insulin] 100 unit/mL (3 mL) insulin pen 45 unit SUBCUT QPM Qty: 15 2RF hydroxyzine pamoate 25 mg capsule 25 mg PO BID PRN (Reason: anxiety) Qty: 60 2RF (DME) lancets [OneTouch Delica Plus Lancet] 33 gauge misc See Rx Instructions .Route Qty: 100 5RF Rx Instructions: three time day as needed carvedilol [Coreg] 3.125 mg tablet 3.125 mg PO BID Qty: 120 3RF Rx Instructions: must administer with a meal/food, hold if bp<100/70 90 acetaminophen [Tylenol Extra Strength] 500 mg Tablet 1,000 mg PO Q4H PRN (Reason: Pain) aspirin 81 mg Tablet,Delayed Release (Dr/Ec) 81 mg PO QAM Qty: 90 4RF diclofenac sodium [Voltaren Arthritis Pain] 1 % gel 4 g topical QID Qty: 50 0RF Rx Instructions: apply to single knee, ankle, foot; for foot includes sole/toes/top of foot diclofenac sodium [Voltaren Arthritis Pain] 1 % gel 2 g topical QID PRN (Reason: joint pain) Rx Instructions: apply to single elbow, wrist or hand; for hand includes palm/fingers/back of hand Discharge Orders: Discharge ED (Routine); Ordered 07/14/25 Ordered By: Yumi Tirado Referrals: Christiano Serrato, HOME SERVICE CONSULTANT-C [Primary Care Provider, Family Practice] Discharge Diet: Usual diet Discharge Activity: Increase activity as tolerated Patient Instructions: Benign Paroxysmal Positional Vertigo (ED), Opioid Safety, Pain Management, Patient Portal & Sol Instructions Activity Restrictions/Additional Instructions: [facility]. You have been screened and evaluated and felt safe for discharge. Health conditions do change or evolve sometimes and as such it is important that you follow up with your Primary Doctor to be re checked, 3-5 days is a general good time frame for follow up. You are always welcome to return to the ED for re assessment if your symptoms are worsening or you have new concerns. (Please note that included in your discharge packet is information concerning opioid safety and pain management. This information is given to all patients who are discharged from the ER regardless of their discharge diagnosis or the medicines they usually take or are prescribed.) Print Language: Setswana Coding Level of Care Code ED Leaf Coverer for Scott Hayward
[2025-07-14 07:00] LABS: Hematocrit 49.5 % (37-53); Hemoglobin 16.40 g/dL (11.27-16.99); Mean Corpuscular HGB Conc 33.1 g/dL (30-55); Mean Corpuscular Hemoglobin 30.8 pg (27-33); Mean Corpuscular Volume 92.9 fl (82-101); Nucleated Red Blood Cells % 0 %; Platelet Count 236 10^3/cmm (157-399); Red Blood Count 5.33 10^6/uL (3.85-5.65); White Blood Count 7.76 10^3/uL (3.29-11.43)
[2025-07-14 07:19] LABS: Alanine Aminotransferase 21 U/L (0-41); Albumin Level 4.3 g/dL (3.5-5.2); Alkaline Phosphatase 120 U/L (40-130); Aspartate Amino Transferase 22 U/L (0-40); Blood Urea Nitrogen 15 mg/dL (6-20); Calcium 9.2 mg/dL (8.5-10.5); Carbon Dioxide 24 mmol/L (22-29); Chloride 102 mmol/L (98-107); Globulin 3.0 g/dL (1.3-4.6); Glucose 120 mg/dL (65-115); Osmolality Calculated 286 mOsm/kg (285-295); Sodium 137 mmol/L (136-145); Total Protein 7.3 g/dL (6.6-8.7)
[2025-07-14 07:22] LABS: Anion Gap 14.9 (5-19); Potassium 3.9 mmol/L (3.5-5.1)
--- NOTE | 2025-07-14 07:54 | CT_ITS ---
WS: [id number] CT ANGIOGRAM CEREBRAL AND CAROTID ARTERIES HISTORY: Possible stroke TECHNIQUE: CT angiogram is performed of the carotid and cerebral arteries. During arterial injection imaging is obtained from the skull vertex to the aortic arch in 1.25 mm imaging. Coronal and sagittal reformats are submitted. Additional multi planar reformats of the carotid and cerebral arteries are submitted, MIP imaging also reviewed. NASCET criteria utilized. All CT scans at [facility] use at least one of these dose optimization techniques: automated exposure control; mA and/or kV adjustment per patient size (includes targeted exams where dose is matched to clinical indication); or iterative reconstruction. CONTRAST: Omnipaque 350; 100 mL IV. DLP: 785.12 mGy.cm COMPARISON: None available. Carotid Angiogram: Right carotid: Common carotid artery: Arises normally from the innominate artery. No significant plaque or stenosis. Internal carotid artery: Mild plaque. No stenosis. External carotid artery: Patent. Left carotid: Common carotid artery: Arises normally from the aorta. No significant plaque or stenosis. Internal carotid artery: Mild plaque with no stenosis. External carotid artery: Patent. Right vertebral artery: Unremarkable. Left vertebral artery: Unremarkable. Arises normally from the subclavian artery. Subclavian arteries: No stenosis or significant abnormality. Upper thorax: Normal. Thyroid gland: Normal. Osseous structures: Unremarkable. CEREBRAL ANGIOGRAM: Intracranial vertebral arteries: Normal with no significant atherosclerosis. Basilar artery: No significant stenosis or occlusion. No aneurysm. Intracranial Internal carotid arteries: Mild to moderate calcification in the carotid arteries through the cavernous sinuses. No occlusions. Middle cerebral arteries: Normal. Anterior cerebral arteries and ACOM: Normal. Posterior cerebral arteries and PCOM's: Normal. Dural venous sinuses are normally enhancing. Mastoid air cells: Normal. Paranasal sinuses: Normal. Calvarium: Normal. CT/CT angio headneck* [id number] IMPRESSION: 1. No thrombus or occlusion in the [place]. 2. Normal enhancement of the cerebral veins. 3. Moderate atherosclerosis in the intracranial carotid arteries. No occlusion . Mild atherosclerosis cervical carotid arteries. No stenosis.
[2025-07-14] MEDS: iohexol 350 mg/mL 500 mL Btl (per mL) IV (08:14)
== END 2025-07-14 09:40 | disposition home or self-care (01) ==
PROVIDERS: Emergency Provider Emergency Medicine; PCP Nurse Practitioner
DX: R42 Dizziness and giddiness (principal); Z79.02 Long term (current) use of antithrombotics/antiplatelets; Z79.4 Long term (current) use of insulin; Z79.82 Long term (current) use of aspirin; Z87.891 Personal history of nicotine dependence; I25.110 Atherosclerotic heart disease of native coronary artery with unstable angina pectoris; E78.2 Mixed hyperlipidemia; E11.40 Type 2 diabetes mellitus with diabetic neuropathy, unspecified; Z85.828 Personal history of other malignant neoplasm of skin
CPT/HCPCS: 36415; 70450; 70496; 70498; 80053; 85025; 99285